=== PATIENT | male | born 1950 | race Caucasian/White ===

== ENCOUNTER → 2016-07-19 11:48 | Outpatient (CLI) | payer MEDICARE, OTHER ==
[2014-10-22 07:47] VITALS: BMI 31.0
[~2016-07-19 11:48] MED LIST: APRESOLINE50 MG PO; BUMEX2 MG PO; CATAPRES0.1 MG PO; COLCRYS0.6 MG PO; COREG6.25 MG PO; COZAAR50 MG PO; FERROUS SULFATE OR; FOLIC ACID OR; FORMULA E400 UNIT PO; HUMALOG INSULIN; HUMULIN N100 U/ML SC; HUMULIN N100 U/ML SQ; ISOSORBIDE DINI10 MG PO; LASIX40 MG PO; OMEGA-3 OR; PROAIR HFA8.5 GM INH; PROCARDIA XL60 MG PO; RENVELA800 MG PO; SLOW FE142 MG PO; ULORIC40 MG PO; VITAMIN C1000 MG PO; ZAROXOLYN5 MG PO
== END | disposition home or self-care (01) ==
LOC: D.RAD 11:48
DX: R06.02 Shortness of breath (principal)

== ENCOUNTER 2016-09-13 15:34 | Inpatient (IN) | payer MEDICARE, OTHER ==
[~2016-09-13] VITALS: Ht 175.3 cm; Wt 86.8 kg
[2016-09-13] VITALS (7 sets, daily range): BP systolic 139–195; BP diastolic 70–99; BMI 30.5
--- NOTE | ~2016-09-13 | CN ---
PATIENT NAME:TABATHA BENNETT MEDICAL RECORD: [id number] : 46 LOCATION:[facility]2305 ADMIT DATE: 09/13/16 ACCOUNT: [id number] CONSULTING PHYSICIAN: NILAM RAMIREZ MD REFERRING PHYSICIAN: ALFONSO DE LA O DO DATE OF CONSULTATION: 09/14/2016 CONSULT REQUESTING PHYSICIAN: Alfonso De La O DO. REASON FOR CONSULTATION: Vent management. HISTORY OF PRESENT ILLNESS: Mr. Bennett is a 66-year-old gentleman who is now orally intubated and sedated. The history was taken by reviewing the patient's note and talking to the nursing staff. No family member is available to take the history. The patient was brought into the ER yesterday with worsening shortness of breath. He was in flash pulmonary edema. The patient was electively intubated. His initial ABG: The CO2 was 52 and the pH was 7.26, SpO2 was 91 and 100% oxygen. The patient was orally intubated and started on mechanical ventilation. He was given Lasix and also started on empiric Levaquin. REVIEW OF SYSTEMS: Mainly in the history of present illness. PAST MEDICAL HISTORY: 1. Hypertension. 2. Congestive heart failure. 3. History of pulmonary edema. 4. History of heart murmur. 5. Insulin-dependent type 2 diabetes mellitus. 6. History of left testicular cancer in 1982. 7. History of lung cancer. PAST SURGICAL HISTORY: 1. He has surgery for carpal tunnel. 2. Shoulder surgery. 3. Herniorrhaphy. 4. Orchiectomy in 1982. 5. He has spot removed from his left lung in 1982. 6. AV fistula creation. ALLERGIES: HE IS ALLERGIC TO NIACIN AND CRESTOR. PRESENT MEDICATIONS: On [employer] was reviewed. PERSONAL AND SOCIAL HISTORY: The patient is an ex-smoker. He is a nondrinker. FAMILY HISTORY: Significant for cardiovascular disease and cancer. PHYSICAL EXAMINATION: GENERAL: Now, the patient is orally intubated and sedated. VITAL SIGNS: The blood pressure is 162/71, pulse is 50-56, temperature 98.4, and SpO2 is 97% on 100% oxygen assist control mechanical ventilation. HEENT: Conjunctivae are pink. Sclerae nonicteric. NECK: Supple. There is elevated JVD. CHEST: There are bilateral crackles. No wheezing. CONSULT REPORT [id number] TABATHA BENNETT HEART: Rate and rhythm is regular. There is a grade II/ systolic murmur. ABDOMEN: Soft. Bowel sounds present. No hepatosplenomegaly. RECTAL: Deferred. EXTREMITIES: No cyanosis, no clubbing. There is 2+ pedal edema. SKIN: Warm, normal turgor. CENTRAL NERVOUS SYSTEM: There is no obvious cranial nerve abnormality. LABORATORY DATA: CBC: The WBC is 10.7, hemoglobin 10.5, hematocrit 33.1 and the platelet count 197. Chemistry: Sodium 141, potassium 3.3, BUN is 104, creatinine 4.3, the bicarbonate is 27, the glucose 217. ABG initially, the pH is 7.26, pCO2 of 52.3, the pO2 was 91, bicarbonate is 23.9. IMPRESSION: 1. Acute hypoxic hypercapnic respiratory failure. 2. Respiratory acidosis secondary to #1. 3. Congestive heart failure, possible diastolic dysfunction. 4. Pmomc-ay-mtblvwy renal failure. 5. Possible community-acquired pneumonia. 6. Hypokalemia. RECOMMENDATION: 1. Continue mechanical ventilation, adjust the setting. 2. Discuss with Dr. Chen if possible, he needs to be started on dialysis. 3. Adjust the dose of Levaquin. 4. DVT and GI stress ulcer prevention. We will follow the vent bundle. 5. Follow up labs and chest radiograph. Dr. De La O, once again, thank you for involving me in the care of Mr. Bennett. The critical care time was 45 minutes. TRANSINT:[id number] Voice Confirmation ID: [id number] DOCUMENT ID: [id number] NILAM RAMIREZ MD CC: ALFONSO DE LA O DO [id number] DICTATION DATE: 09/14/161050 DIRECTOR OF RESTAURANT: 09/14/162306 ADM IN [facility] [address] [place] [address]
--- NOTE | ~2016-09-13 | EC ---
PATIENT:TABATHA GODFREY DATE OF SERVICE: 09/13/16 SEX: M MEDICAL RECORD: [id number] DATE OF : 46 LOCATION[facility] AGE OF PATIENT: 66 ADMISSION DATE: 09/13/16 REFERRING PHYSICIAN: INTERPRETING PHYSICIAN: PAVITHRA ROSS M.D. ECHOCARDIOGRAM REPORT ECHO CHARGES 4 ECHO COMPLETE CLINICAL DIAGNOSIS: ATRIAL FLUTTER ECHOCARDIOGRAPHIC MEASUREMENTS (adult normal given) AC root (d.<3.7cm) 3.4 LV Septum d (<1.2 cm> 1.8 Valve Excursion 1.1 LV Septum (systole) 2.1 Left Atria (s.<4.0cm> 4.2 LVPW d(<1.2cm) 2.0 RV (d.<2.3cm) 4.1 LVPW (sytole) 2.1 LV diastole(<5.6CM) 4.8 MV E-F(>70mm/sec) LV systole 3.3 LVOT Diameter 1.0 MV exc.(>10mm) 1.3 Est.ejection fraction (50-75%) Pericardial Effusion N DOPPLER: LVIT A 77.0 E 129 LA RVSP LVOT 147 AOP1/2T Asc. Ao 310 RVOT 105 RA PA 186 AV Gradient Peak 38.35 AV Mean 18.57 AV Area 0.3 MV Gradient Peak 8.62 MV Mean 2.89 MV Area COMMENTS: Community Outreach Advocate: Jackie DUNCAN Test Engineer:Salome Myers# DATE OF SERVICE: 09/14/2016 Echocardiogram Report REFERRING PHYSICIAN: Alfonso Mejia DO. INDICATION: Atrial flutter. DESCRIPTION: Left ventricle demonstrates left ventricular hypertrophy. No wall motion abnormalities are seen. Estimated ejection fraction is 55%. Mitral ECHOCARDIOGRAM REPORT [id number] TABATHA GODFREY valve is structurally normal. There is mild regurgitation seen. Left atrium is mildly dilated. The aortic valve leaflets are thickened. Peak gradient across the valve is 38 mmHg. Valve area was calculated at 0.3 cm-squared. There is mild insufficiency seen as well. Right ventricle is mildly dilated. Tricuspid valve is structurally normal. There is no regurgitation noted. Right atrium is normal in size. There is no pericardial effusion seen. IMPRESSION: 1. Left ventricular hypertrophy with preserved ejection fraction of 55%. 2. Mild mitral regurgitation. 3. Aortic stenosis, which is moderate by gradient, but severe by valve area. TRANSINT:[id number] Voice Confirmation ID: [id number] DOCUMENT ID: [id number] PAVITHRA ROSS M.D. CC: [id number] DICTATION DATE: 09/14/16 1437 TRUCK ASSEMBLER: 09/14/16 1621 ADM IN [facility] [address] [place] [address]
[~2016-09-13 15:34] MED LIST changes: +ASPIRIN81 MG PO; +CARAFATE1 G PO; +CORDARONE200 MG PO; +COZAAR100 MG PO; +ELIQUIS2.5 MG PO; +FLOMAX0.4 MG PO; +FOLATE0.4 MG PO; -FOLIC ACID OR; +FUROSEMIDE40 MG PO; +HYDRALAZINE HCL50 MG PO; +HYDROCODONE-APA1 TAB PO; +ISOSORBIDE DINI20 MG PO; +K-DUR20 MEQ PO; +K-TAB10 MEQ PO; +METOLAZONE5 MG PO; +NIFEDICAL30 MG/BOTT PO; +NIFEDIPINE ER60 MG PO; +NOVOLIN N100 U/ML SQ; +OMEGA 3 FISH OI1 CAP PO; -OMEGA-3 OR; +PEPCID20 MG PO; +PLAVIX75 MG PO; +POTASSIUM CL ER 10 M PO; +PROTONIX40 MG PO; +RENVELA0.8 GM PO; +SODIUM BICARBO650 MG PO; +SYNTHROID50 MCG PO; +ULORIC80 MG PO
[2016-09-13 16:19] LABS: APPEARANCE CLEAR (CLEAR); COLOR YELLOW (YELLOW); LEUKOCYTE ESTERASE TRACE (NEGATIVE); NITRITE NEGATIVE (NEGATIVE); PROTEIN 2+ mg/dL (NEGATIVE); SPECIFIC GRAVITY 1.015 (1.005-1.020)
[2016-09-13 16:20] LABS: BACTERIA FEW /hpf (NONE SEEN); BILIRUBIN NEGATIVE (NEGATIVE); EPITHELIAL CELLS 0-5 /hpf (0-5); GLUCOSE 100 mg/dL (NEGATIVE); KETONE NEGATIVE (NEGATIVE); MUCUS <1+ /lpf (NONE SEEN); RED CELLS - URINE 0-5 /hpf (0-5); UROBILINOGEN NORMAL (NORMAL); WHITE CELLS - URINE OCC /hpf (0-5)
[2016-09-13 16:25] LABS: ALBUMIN 3.4 g/dL (3.4-5.0); ANION GAP 13.4 mmol/L (8-16); BILIRUBIN - TOTAL 0.57 mg/dL (0.2-1.3); CALCIUM 8.6 mg/dL (8.5-10.1); CARBON DIOXIDE 27.6 mmol/L (21.0-32.0); CREATININE - SERUM 4.5 mg/dL (0.6-1.3)
[2016-09-13 16:38] LABS: BASOPHILS 0.2 % (0-2); EOSINOPHILS 1.7 % (0-7); HEMATOCRIT 33.1 % (42.0-54.0); HEMOGLOBIN 10.5 g/dL (13.5-17.5); IMMATURE GRANULOCYTES 0.5 % (0-5); LYMPHOCYTES 6.3 % (15-50); MCH 28.7 pg (26.0-34.0); MCHC 31.7 g/dL (31.0-37.0); MCV 90.4 fL (80.0-100.0); MEAN PLATELET VOLUME 10.6 fL (7.4-10.4); MONOCYTES 8.3 % (2-11); PLATELET COUNT 197 10x3/uL (130-400); RBC 3.66 10x6/uL (4.20-6.10); RDW 16.1 % (11.5-14.5); WBC 10.7 10x3/uL (4.8-10.8)
[2016-09-13 16:44] LABS: TROPONIN-I 0.156 ng/mL (0.000-0.060)
--- NOTE | 2016-09-13 17:30 | NUR ---
PT ARRIVED TO ICU FROM ER VIA STRETCHER ACCOMPANIED BY RN/RT. PT SEDATED, INTUBATED. PT RESPONDS TO LIGHT STIMULI. PT ATTACHED TO CM- CONTROLLED FIB. BELLY IS DISTENDED, NOT FIRM. NGT REPOSITIONED UPON ARRIVAL AND PLACEMENT CONFIRMED VIA AUSCULTATION. SEE ADMISSION ASSESSMENT FOR FURTHER DETAILS. PPP, REYNA IN PLACE. WILL MONITOR.
--- NOTE | 2016-09-13 19:51 | NUR ---
RENAL PAGED REGAURDING CONSULT. T ORDER FOR PRN APRESOLINE 10MG Q4H TO BE GIVEN FOR SBP GREATER THAN 180. NEEDS. MET
--- NOTE | 2016-09-13 19:59 | NUR ---
REPORT RECIEVED. ASSESSMENT COMPLETE PER FLOW SHEET. VSS. PT SEDATED FOLLOWS COMMANDS. EYES PERRLA 3MM BRISK. BILAT CHEMICAL CHECKER STRENGTHS EVEN. O2 VIA VENT 100 A/C TV 600 PEEP 5 RR 18 PT RR 22 O2 SAT 98% RUL RML BERNIE CLEAR BILAT LOWER LOBES DEMINISHED. ABD SOFT DISTENDED BS ACTIVE X4. OGT TO LIS PATENT VIA AUSCULTATION. HEART S1S2 HR 78 A FIB CONTROLLED. BP 167/90. L ARM RESERVE FISTULA PATENT CDI THRILL AND BRUIT PRESENT. BILAT PEDAL PULSES PALP. REYNA PANTENT PACHECO URINE NOTED. VSS. WILL CONTINUE TO MONITOR.
--- NOTE | 2016-09-13 23:13 | NUR ---
REASSESSMENT COMPLETE PER FLOW SHEET. VSS. NO NEW CHANGES AT THIS TIME. WILL CONTINUE TO MONTIOR.
[2016-09-14] VITALS (25 sets, daily range): BP systolic 85–170; BP diastolic 47–89; Ht 175.3 cm; Wt 86.8 kg
--- NOTE | 2016-09-14 01:05 | NUR ---
REPOSITIONED FOR COMFORT, ORAL CARE PROVIDED,
--- NOTE | 2016-09-14 03:25 | NUR ---
REASSESSMENT COMPLETE, NO CHANGES NOTED, PT REPOSITIONED FOR COMFORT, ORAL CARE PROVIDED, RAD IN ROOM FOR DAILY CXR
[2016-09-14 03:33] LABS: BASOPHILS 0 % (0-2); EOSINOPHILS 0 % (0-7); HEMATOCRIT 33.2 % (42.0-54.0); HEMOGLOBIN 10.6 g/dL (13.5-17.5); IMMATURE GRANULOCYTES 0.3 % (0-5); LYMPHOCYTES 2.1 % (15-50); MCH 28.4 pg (26.0-34.0); MCHC 31.9 g/dL (31.0-37.0); MEAN PLATELET VOLUME 10.2 fL (7.4-10.4); MONOCYTES 1.7 % (2-11); NEUTROPHILS 95.9 % (40-80); PLATELET COUNT 192 10x3/uL (130-400); RBC 3.73 10x6/uL (4.20-6.10); RDW 16.1 % (11.5-14.5); WBC 11.5 10x3/uL (4.8-10.8)
[2016-09-14 03:55] LABS: ALBUMIN 3.3 g/dL (3.4-5.0); ANION GAP 14.3 mmol/L (8-16); BILIRUBIN - TOTAL 0.73 mg/dL (0.2-1.3); CALCIUM 9.5 mg/dL (8.5-10.1); CREATININE - SERUM 4.3 mg/dL (0.6-1.3); MAGNESIUM - SERUM 1.9 mg/dL (1.8-2.4); POTASSIUM - SERUM 3.3 mmol/L (3.5-5.1)
--- NOTE | 2016-09-14 07:00 | NUR ---
PT SEDATED ON VENT. SEDATION INCREASED DUE TO PT ATTEMPTING TO PULL ETT/NGT AND MOVING AROUND IN BED. ATRIAL FLUTTER NOTED ON MONITOR. DIRECTOR REVENUE ADDRESSED HEART RHYTHM WITH DR HA AND ECHO ORDERED. URINE REMAINS YELLOW AND DRAINING TO REYNA. 2400 OUTPUT NOTED OVERNIGHT. BP ELEVATED AT THIS TIME. WILL CONTINUE TO ASSESS AFTER INCREASING SEDATION. WILL CONTINUE TO MONITOR
--- NOTE | 2016-09-14 09:00 | NUR ---
AT BEDSIDE. UPDATE GIVEN ON PT STATUS. WILL CONITNUE TO JOCE CLOSELY.
--- NOTE | 2016-09-14 09:32 | NUR ---
DECREASED FIO2 TO 40% @ 0933.
--- NOTE | 2016-09-14 12:00 | NUR ---
UPDATE GIVEN TO AT BEDSIDE. DISCUSSED CASE WITH DR PERRY AND INFUSING BUMEX DRIP IN ATTEMPT TO PULL FLUID OFF OF LUNGS. PT ON SIMV AND TOLERATING AT THIS TIME. WILL CONTINUE TO MONTIOR
--- NOTE | 2016-09-14 14:00 | NUR ---
PT REPOSITIONED IN BED AND LINEN CHANGE COMPLETE. ORAL CARE PERFORMED. PT CONTINUES TO TOLERATE SIMV AT THIS TIME.
--- NOTE | 2016-09-14 16:00 | NUR ---
NO CHANGES IN PT STATUS AT THIS TIME. WILL CONTINUE TO MONITOR
--- NOTE | 2016-09-14 18:00 | NUR ---
FAMILY GIVEN UPDATE AT BEDSIDE. NO ACUTE CHANGES IN PT STATUS AT THIS TIME. VITAL SIGNS STABLE. WILL CONTINUE TO MONITOR
--- NOTE | 2016-09-14 19:25 | NUR ---
SHIFT ASSESSMENT COMPLETED. SEE ASSESSMENT FLOWSHEET.
--- NOTE | 2016-09-14 20:30 | NUR ---
2100 MEDS GIVEN DOWN OGT. NO ACUTE DISTRESS NOTED.
--- NOTE | 2016-09-14 23:30 | NUR ---
REASSESSMENT COMPLETED. SEE ASSESSMENT FLOWSHEET. NO NEW ACUTE CHANGES.
[2016-09-15] VITALS (23 sets, daily range): BP systolic 110–200; BP diastolic 52–94
--- NOTE | 2016-09-15 01:20 | NUR ---
VENT ALARM SOUNDING. UPON ENTERING WAS YANKING ON OETT AND THEN HAD IT IN HIS HAND. DIPRIVAN TURNED OFF. PLACED ONTO 3LPM/NC. WILL DRAW AN ABG IN 30 MINUTES TO ONE HOUR. NO DIFFICULTY BREATHING DENIED BY PATIENT.
--- NOTE | 2016-09-15 01:55 | NUR ---
AT 0120 PATIENT SELF EXTUBATED HIMSELF. PUT 3L NC ON PATIENT SP02 97% PATIENT SEEMS TO BE DOING FINE.
--- NOTE | 2016-09-15 02:12 | NUR ---
DR. RAMIREZ ANSWERING SERVICE CALLED TO PAGE HIM REGARDING EXTUBATION AND TO INFORM OF RECENT ABG RESULTS.
[2016-09-15 04:10] LABS: BASOPHILS 0.1 % (0-2); EOSINOPHILS 0 % (0-7); HEMATOCRIT 39.5 % (42.0-54.0); HEMOGLOBIN 12.6 g/dL (13.5-17.5); IMMATURE GRANULOCYTES 0.3 % (0-5); LYMPHOCYTES 3.4 % (15-50); MCH 28.5 pg (26.0-34.0); MCHC 31.9 g/dL (31.0-37.0); MCV 89.4 fL (80.0-100.0); MEAN PLATELET VOLUME 10.4 fL (7.4-10.4); MONOCYTES 0.8 % (2-11); NEUTROPHILS 95.4 % (40-80); RBC 4.42 10x6/uL (4.20-6.10); RDW 16.4 % (11.5-14.5)
[2016-09-15 04:12] LABS: PLATELET COUNT 248 10x3/uL (130-400); WBC 18.3 10x3/uL (4.8-10.8)
[2016-09-15 04:22] LABS: ALBUMIN 3.8 g/dL (3.4-5.0); ANION GAP 16.3 mmol/L (8-16); BILIRUBIN - TOTAL 0.79 mg/dL (0.2-1.3); CALCIUM 10.4 mg/dL (8.5-10.1); CARBON DIOXIDE 25.8 mmol/L (21.0-32.0); CREATININE - SERUM 4.7 mg/dL (0.6-1.3); MAGNESIUM - SERUM 1.9 mg/dL (1.8-2.4); POTASSIUM - SERUM 3.1 mmol/L (3.5-5.1)
--- NOTE | 2016-09-15 04:40 | NUR ---
DR. PERRY INFORMED OF POTASSIUM LEVEL, INCREASED B/P AFTER PRN MEDS AND OF SHAKING OF HIS LEGS. NEW ORDERS RECEIVED. WILL MONITOR.
--- NOTE | 2016-09-15 05:15 | NUR ---
NG TUBE REMOVED. TOLERATING ICE CHIPS WITHOUT PROBLEMS. TISSUES GIVEN TO BLOW NOSE PER REQUEST.
--- NOTE | 2016-09-15 06:20 | NUR ---
FSBS ASSESSED. INSULIN GIVEN PER SLIDING SCALE. CALLED AND INFORMED VIA PHONE OF SELF EXTUBATION AND STATUS UPDATE. DECREASED KCL RIDER RATE TO 60ML/HR DUE TO BURNING PAIN TO RT ARM. WILL MONITOR.
--- NOTE | 2016-09-15 07:20 | NUR ---
REC'D REPORT FROM OUTGOING RN - PT RESTING - SUPINE IN BED WATCHING TV. DENIES ANY CONCERNS AT THIS HARSHA
--- NOTE | 2016-09-15 07:20 | NUR ---
REPORT GIVEN TO OSMANY DORAN. BUMEX GTT HUNG DUE TO BAG EMPTY. DENIES ANY NEEDS AT PRESENT.
--- NOTE | 2016-09-15 08:30 | NUR ---
ASSESSMENT COMPLTERED - PT AA&o X 3 (NOT TO DATE), PT DENIES PAIN OR DISCOMFORT. VERY PLESANT - CPOC
--- NOTE | 2016-09-15 09:00 | NUR ---
FAMILY AT BEDSIDE - ASKED QUESTIONS - EXPLAINED THIS RN WOULD BE IN ROOM TO ANSWER ALL QUESTIONS - DR. Stearns ON UNIT - MD SPOKE TO FAMILY ANSWERED ALL QUESTIONS TO FAMILY'S SATISFACTION - CPOC
--- NOTE | 2016-09-15 09:30 | NUR ---
PT ON DROPLET PERCAUTIONS PER LAB - POSSIBLE MRSA IN SPUTUM - ISOLATION GOWNS, MASK, AND SIGN PLACED AT DOOR - CPOC
--- NOTE | 2016-09-15 10:00 | NUR ---
DR. GALLAGHER ORDFERED TO ADVANCE PT'S DIET TOLERATED (RENAL). ENTERED FOR CLEAR LIQUID TOLERATED - WILL CLOSELY MONITOR CPOC
--- NOTE | 2016-09-15 11:00 | NUR ---
ASSESSMENT COMPLETE - PT RESTING - AA&O - DENIES ANY NEEDS - CPOC
--- NOTE | 2016-09-15 11:10 | NUR ---
4th OF 4 POTASSIUM 10MEQ POTASSIUM RIDERS COMPLETE - LAB ORDERED PER POLICY CPOC
--- NOTE | 2016-09-15 12:00 | NUR ---
CLEAR LIQUID TRAY GIVEN TO PT - PT ATE 10% - PT DENIED WANTING ANYTHING ELSE TO EAT - CPOC
--- NOTE | 2016-09-15 15:00 | NUR ---
ASSESSMENT COMPLETE - PT RESTING SUPINE IN BED - WITH EYES CLOSED - EASILY AWAKEN BY TACTILE STIMULI - PT DENIED ANY CONCERNS - CPOC
--- NOTE | 2016-09-15 18:00 | NUR ---
FAMILY AT BEDSIDE - ASKED RENAL MDs IF DIALYSIS WOULD HELP TO RELIEVED CHF - PLEASE START DIALYISIS JESSICA - ANSWERED ALL ISOLATION QUESTIONS - CPOC
--- NOTE | 2016-09-15 19:30 | NUR ---
REPORT GIVEN TO ONCOMING RN - PT AA &O - COLLENE TO MAKE NEEDS KNOWN
--- NOTE | 2016-09-15 19:30 | NUR ---
SHIFT ASSESSMENT COMPLETED. SEE ASSESSMENT FLOWSHEET. AWAKE, ALERT, ORIENTED X4. FUNK WELL BUT WEAKLY. O2 @ 3lpm/nc. O2 SATS 97-99%. LUNGS CLEAR TO AUSCULTATION. DIMINISHED IN THE BASES. AFLUTTER/AFIB ON THE MONITOR IN THE 80'S. REYNA CATHETER TO GRAVITY DRAINING CLEAR, YELLOW URINE. SIPPING ON APPLE JUICE. REQUESTED WATER. ONE CUP OF ICE WATER GIVEN. REPOSITIONED B/P CUFF ON RLE AND SCD TO LLE. WILL MONITOR.
--- NOTE | 2016-09-15 20:36 | NUR ---
PO MEDS GIVEN ONE AT A TIME. SWALLOWS WITHOUT DIFFICULTY. DENIES TO HAVE ALL B/P MEDS GIVEN BECAUSE HIS B/P IS 130'S. WILL MONITOR.
--- NOTE | 2016-09-15 22:10 | NUR ---
EYES OPEN. WATCHING TV. DENIES ANY NEEDS AT PRESENT. WILL MONITOR.
--- NOTE | 2016-09-15 22:45 | NUR ---
EYES OPEN. LOOKING AT T.V. DENIES ANY NEEDS AT THIS TIME. DENIES TO BE REPOSITIONED IN BED. WILL MONITOR.
--- NOTE | 2016-09-15 23:56 | NUR ---
SUGAR-318. INSULIN GIVEN PER PROTOCOL. DENIES NEEDS. WILL MONITOR.
[2016-09-16] VITALS (24 sets, daily range): BP systolic 101–154; BP diastolic 48–81
--- NOTE | 2016-09-16 01:00 | NUR ---
EYES CLOSED. NO ACUTE DISTRESS NOTED. WILL MONITOR.
--- NOTE | 2016-09-16 02:25 | NUR ---
0200 B/P MED GIVEN. DENIES ANY PAIN. WILL MONITOR.
--- NOTE | 2016-09-16 03:40 | NUR ---
ASSISTED WITH SITTING ON SIDE OF BED TO GIVE BATH. PARTIALLY WASHED HIMSELF. REYNA CATHETER CARE COMPLETED. LINENS CHANGED. STOOD UP AND WALKED TO TOP OF BED TO GET BACK IN. WARM BLANKET GIVEN. I & O'S COMPLETED. DENIES TO HAVE TEETH BRUSHED AT THIS TIME. WILL MONITOR.
[2016-09-16 04:52] LABS: BASOPHILS 0 % (0-2); EOSINOPHILS 0 % (0-7); HEMOGLOBIN 11.1 g/dL (13.5-17.5); IMMATURE GRANULOCYTES 0.3 % (0-5); LYMPHOCYTES 2.7 % (15-50); MCH 28.5 pg (26.0-34.0); MCHC 31.7 g/dL (31.0-37.0); MCV 89.7 fL (80.0-100.0); MEAN PLATELET VOLUME 10.5 fL (7.4-10.4); MONOCYTES 2.5 % (2-11); NEUTROPHILS 94.5 % (40-80); PLATELET COUNT 220 10x3/uL (130-400); RDW 16.8 % (11.5-14.5); WBC 14.4 10x3/uL (4.8-10.8)
[2016-09-16 05:08] LABS: ALBUMIN 3.2 g/dL (3.4-5.0); ANION GAP 14.6 mmol/L (8-16); BILIRUBIN - TOTAL 0.75 mg/dL (0.2-1.3); CALCIUM 9.8 mg/dL (8.5-10.1); CARBON DIOXIDE 28.4 mmol/L (21.0-32.0); CREATININE - SERUM 4.8 mg/dL (0.6-1.3); MAGNESIUM - SERUM 1.9 mg/dL (1.8-2.4); PROTEIN - SERUM 6.9 g/dL (6.4-8.2)
--- NOTE | 2016-09-16 05:15 | NUR ---
EYES CLOSED. MOUTH OPEN. NO ACUTE DISTRESS NOTED. A-FLUTTER RHYTHM REMAINS NOTED IN THE 80'S. WILL MONITOR.
--- NOTE | 2016-09-16 07:15 | NUR ---
REPORT RECIEVED FROM HEALTH CARE CONSULTANT NURSE. PT RESTING IN BED QUIETLY. NO S/SX OF ACUTE DISTRESS NOTED AT THIS TIME. VSS. ASSESSMENT COMPLETE PER FLOWSHEET. WILL CONT TO ASSESS FOR CHANGES. CALL LIGHT IN REACH. BED IN LOW POSITION. BED ALARM ON.
--- NOTE | 2016-09-16 08:30 | NUR ---
TOLERATED BREAKFAST WELL. ATE 50% OF MEAL TRAY.
--- NOTE | 2016-09-16 09:04 | NUR ---
FAMILY AT BEDSIDE. DENIES NEEDS AT THIS TIME. FAMILY UPDATED TO POSITIVE RESULTS FOR MRSA IN SPUTUM AND THE NEED FOR DROPLET ISOLATION WHEN VISITING.
--- NOTE | 2016-09-16 11:45 | NUR ---
FSBS CHECKED. INSULIN PROVIDED PER S/S. MEAL TRAY PLACED ON BEDSIDE TABLE ALONG WITH FRESH ICE WATER. CALL LIGHT IN REACH. DENIES FURTHER NEEDS AT THIS TIME.
--- NOTE | 2016-09-16 12:00 | NUR ---
FAMILY AT BEDSIDE. UPDATE PROVIDED.
--- NOTE | 2016-09-16 12:05 | NUR ---
CALLED. UPDATE PROVIDED.
--- NOTE | 2016-09-16 16:37 | NUR ---
REC' CARE OF PT.
--- NOTE | 2016-09-16 18:03 | NUR ---
FAMILY AT BEDSIDE. UPDATED.
--- NOTE | 2016-09-16 18:53 | NUR ---
REPOSITIONS SELF IN BED.
--- NOTE | 2016-09-16 19:00 | NUR ---
Assessment complete. See flowsheet. Pt awake upon entrance into room and sitting up in bed watching television. Pupils size 3 bilaterally ERRLA. Pt moving all extremities with 3/5 strength and self-positioning in bed for comfort. Pt alert, oriented x4 and following all commands and conversation with no neuro deficits noted. Respirations unlabored. O2 @ 2L NC. Lung sounds clear/diminished to all felder. Pt encouraged to deep breathe and cough with no sputum produced and no rattle with cough noted. HR controlled atrial flutter with S1S2 auscultated/irregular. All peripheral pulses +2 with capillary refill <3 seconds. Right lower forearm/hand PIV site 20g CDI no s/s infection saline locked. Right upper forearm PIV site CDI no s/s infection or infiltration with NS infusing @ 10cc/hr KVO rate with BUMEX gtt @ 2.5cc/hr (0.25mg/hr). Abdomen soft, non-tender and slightly distended with BS present to all quadrants. Pt denies nausea at this time. Dinner tray removed from room per pt request. Fresh ice water provided. Rosario catheter secure retrieving concentrated, yellow urine. Temp 97.8F. SCDs secure bilaterally. Pt denies pain or further needs at this time. Call light and bedside table remain within pt reach. CPOC.
--- NOTE | 2016-09-16 21:00 | NUR ---
PM meds administered with apple juice per pt request. VSS. Room warmed per pt request. No further request at this time. Call light and bedside table remain within pt reach. CPOC.
--- NOTE | 2016-09-16 23:00 | NUR ---
Reassessment complete. See flowsheet. Pt awake and watching television with VSS. NO neuro changes to note. O2 @ 2L. Lung sounds remain clear/diminished to all felder. HR atrial flutter. S1S2 auscultated. All peripheral pulses remain +2 with capillary refill <3 seconds. PIV site CDI; unchanged with NO IVF changes to onte. Abdomen soft with BS present to all quadrants. Rosario remains secure retrieving concentrated, yellow urine. Pt continues to self-position for comfort. Pain denied. Fresh ice water provided per request. Pt denies further needs at this time and remains calm and cooperative. Call light and bedside table remain within pt reach. CPOC.
[2016-09-17] VITALS (18 sets, daily range): BP systolic 95–172; BP diastolic 51–91
--- NOTE | 2016-09-17 01:00 | NUR ---
Pt resting with VSS. NO s/s pain or distress. Call light and bedside table remain within reach. CPOC.
--- NOTE | 2016-09-17 03:00 | NUR ---
Reassessment complete. See flowsheet. Pt awake and watching television with no neuro changes to note. Respirations unlabored. O2 @ 2L NC. Lung sounds remain clear/diminished to all felder. HR atrial flutter. S1S2 auscultated. All peripheral pulses remain +2 with capillary refill <3 seconds. PIV sites remain CDI; unchanged with NO IVF changes to note. BS + to all quadrants. Pt provided with milk and renée crackers per request. Rosario remains secure retrieving concentrated, yellow urine. Pt self-positioned for comfort and denies further needs at this time. Call light and bedside table remain within reach. CPOC.
[2016-09-17 04:49] LABS: BASOPHILS 0 % (0-2); EOSINOPHILS 0 % (0-7); HEMATOCRIT 34.7 % (42.0-54.0); HEMOGLOBIN 11.1 g/dL (13.5-17.5); IMMATURE GRANULOCYTES 0.3 % (0-5); LYMPHOCYTES 2.7 % (15-50); MCH 28.6 pg (26.0-34.0); MCV 89.4 fL (80.0-100.0); MEAN PLATELET VOLUME 10.3 fL (7.4-10.4); MONOCYTES 1.4 % (2-11); NEUTROPHILS 95.6 % (40-80); PLATELET COUNT 217 10x3/uL (130-400); RBC 3.88 10x6/uL (4.20-6.10); RDW 16.6 % (11.5-14.5); WBC 13.9 10x3/uL (4.8-10.8)
--- NOTE | 2016-09-17 05:00 | NUR ---
Pt resting quietly with VSS and allowed to continue resting undistured. NO s/s pain or distress. Call light and bedside table remain within pt reach. CPOC.
[2016-09-17 05:20] LABS: ANION GAP 11.7 mmol/L (8-16); BILIRUBIN - TOTAL 0.6 mg/dL (0.2-1.3); CALCIUM 8.9 mg/dL (8.5-10.1); CARBON DIOXIDE 24.6 mmol/L (21.0-32.0); CREATININE - SERUM 5.2 mg/dL (0.6-1.3); POTASSIUM - SERUM 3.3 mmol/L (3.5-5.1); PROTEIN - SERUM 6.4 g/dL (6.4-8.2); VANCOMYCIN - RANDOM 22.2 ug/mL (10.0-20.0)
--- NOTE | 2016-09-17 07:15 | NUR ---
REPORT RECIEVED FROM VENDING MACHINE FILLER NURSE. PT RESTING IN BED QUIETLY. NO S/SX OF ACUTE DISTRESS NOTED AT THIS TIME. ASSESSMENT COMPLETE PER FLOWSHEET. PT HAS TRANSFER ORDERS TO MED SURG.
--- NOTE | 2016-09-17 08:15 | NUR ---
REPORT ATTEMPTED TO BE CALLED TWICE. NURSE UNAVAILABLE.
--- NOTE | 2016-09-17 08:45 | NUR ---
ASSISTED TO RECLINER. TOLERATED WELL. BREAKFAST TRAY PLACED ON BEDSIDE TABLE. DENIES FURHTER NEEDS. CALL LIGHT IN REACH. WILL CONT TO ASSESS.
--- NOTE | 2016-09-17 09:17 | NUR ---
REPORT CALLED TO ANDREEA VÁSQUEZ. CARLOTA MATHIAS VIA W/C.
--- NOTE | 2016-09-17 10:00 | NUR ---
RESTING IN RECLINER WITH EYES CLOSED. RESP EVEN AND UNLABORED. VSS. WILL CONT TO ASSESSS.
--- NOTE | 2016-09-17 10:38 | NUR ---
Nutrition follow-up: Diet advanced to renal ADA soft with poor po intake at htis time Dialysis to start today due to very poor renal function Labs reviewed Glucose very high due to steroid use. Wt: 185# Will provide food choices with selective renal ada menus and honor food preferences within diet restrictions. Pts appetite may improve post-dialysis. RDN following.
--- NOTE | 2016-09-17 12:17 | NUR ---
NEPHRO PHYSICIAN CELLULAR EQUIPMENT REPAIRER PAGED IN REGARDS TO PT'S FSBS RESULTS ABOVE 400. AWAITING CALL BACK.
--- NOTE | 2016-09-17 12:31 | NUR ---
DR. GORMAN CALLED BACK. RECIEVED ONE TIME ORDERS FOR 10 UNITS OF INSULIN NOW. STATED TO RECHECK IN ONE HOUR.
--- NOTE | 2016-09-17 13:19 | CN ---
PATIENT NAME:EMERY BENNETT MEDICAL RECORD: [id number] : 46 [facility] ADMIT DATE: 09/13/16 ACCOUNT: [id number] CONSULTING PHYSICIAN: SHAHAB BROWN MD REFERRING PHYSICIAN: RACHEL DE LA O DO DATE OF CONSULTATION: 09/14/2016 HISTORY OF PRESENT ILLNESS: Emery Bennett is a 66-year-old gentleman with history of chronic renal insufficiency, apparently aortic stenosis, brought in yesterday with respiratory, cardiac arrest and has a history of atrial fibrillation and aortic stenosis severity is unknown noted to have positive cardiac enzymes. Difficult to discern actually significance of this status post ____ the face of chronic renal insufficiency. We asked to see him concerning him cardiovascular status. PAST MEDICAL HISTORY: From old chart includes: 1. History of hypertension. 2. Chronic renal insufficiency. 3. Diabetes mellitus. 4. Aortic stenosis. 5. Status post fistula placement. ] ALLERGIES: CRESTOR. MEDICATIONS: Reported include Hydralazine 50 mg q.6, colchicine 0.6 b.i.d., Procardia 60 b.i.d., Uloric 40 q. day, Bumex 2 mg b.i.d., carvedilol 6.25 b.i.d., clonidine ____ insulin per scale, losartan 50 b.i.d., metolazone 5 b.i.d., Imdur 20 q.h.s. SOCIAL HISTORY: Unobtainable due to the patient factors. REVIEW OF SYSTEMS: Unobtainable to the patient factors. PHYSICAL EXAMINATION: GENERAL: Intubated and sedated, no acute distress. VITAL SIGNS: Pulse is 67 and irregular. Blood pressure 196/96. HEENT: Normocephalic, atraumatic. NECK: No bruits noted. HEART: Regular, II/ systolic ejection murmur. LUNGS: Actually fairly good air excursion. ABDOMEN: Soft, nontender. EXTREMITIES: Pulses are palpable, 1+. There is no edema. DIAGNOSTIC DATA: ECG shows atrial fibrillation, variable response. IMPRESSION: Elevated troponin in the patient with renal insufficiency, etc. Given a small bump doubtful clinical significance, murmur is a fairly significant on exam, would check echocardiographic study. Agree with current management. Thank you for the consultation. TRANSINT:[id number] Voice Confirmation ID: [id number] DOCUMENT ID: [id number] CONSULT REPORT [id number] EMERY BENNETT,SHAHAB Alvarez MD at 1319 CC: [id number] DICTATION DATE: 09/14/16 1319 RED CAP: 09/14/16 [address] [facility] [address] [place] [address]
--- NOTE | 2016-09-17 14:01 | NUR ---
FSBS RECHECKED TWICE. BOTH RESULTS GREATER THAN 400. DR. RAMIREZ NOTIFIED OF RESULTS AND TOTAL AMOUNT OF HUMALOG THAT HAS BEEN ADMINISTERED. STATES TO NOT ADMINISTER ANYTHING NOW AND CHANGE INSULIN S/S TO HIGH RESISTENCE. WILL CONT TO MONITOR.
--- NOTE | 2016-09-17 15:33 | NUR ---
UPDATED ON CURRENT PLAN OF CARE.
--- NOTE | 2016-09-17 15:56 | NUR ---
DIALYSIS STARTED. NURSE AT BEDSIDE.
--- NOTE | 2016-09-17 17:45 | NUR ---
DIALYSIS COMPLETE. TOLERATED WELL.
--- NOTE | 2016-09-17 19:00 | NUR ---
REPORT RECIEVED, SHIFT ASSESSMENT COMPLETE, PT IS ALERT AND ORIENTED, ON 2L NC WITH 97% O2 SAT. LUNGS CLEAR IN B/L UPPER LOBES, DIMINISHED IN B/L LOWER LOBES, HR-IRREGULAR, CM-AFLUTTER, PATENT RIGHT A/C PIV...SEE FLOW SHEET...ABDOMEN IS SOFT AND ROUND WITH ACTIVE BS, PATENT LEFT ARM FISTULA, BRUITT AND THRILL NOTED, PATENT F/C WITH YELLOW UOP, EDEMA NOTED IN ALL EXTREMETIES, ALL PPP, VSS, CALL LIGHT IN REACH
--- NOTE | 2016-09-17 19:00 | NUR ---
INITIAL ROUNDS MADE. PT SITTING UP IN BED WATCHING TV. DENIES NEEDS OR C/O AT THIS TIME. CALL LIGHT IN REACH. WILL CONT TO MONITOR.
--- NOTE | 2016-09-17 20:35 | NUR ---
JAMISON NOTIFIED OF PT TRANSFER AND ROOM NUMBER
--- NOTE | 2016-09-17 21:20 | NUR ---
RECEIVED PT TO ROOM 2116 ALERT O X3. DROPLET ISO INITIATED ON FLOOR FOR MRSA SPUTUM. REYNA TO GRAVITY. SCD ON. NS KVO TO R AC. CALL LIGHT IN REACH. WILL CONT TO MONITOR.
--- NOTE | 2016-09-18 00:33 | NUR ---
TYPING BOOKKEEPER AT BEDSIDE FOR VS. NEEDS ADDRESSED AT THIS TIME. CALL LIGHT IN REACH. WILL CONT TO MONITOR.
[2016-09-18 00:59] VITALS: BP 126/45
[2016-09-18 04:16] VITALS: BP 112/64
[2016-09-18 05:18] LABS: BASOPHILS 0 % (0-2); EOSINOPHILS 0 % (0-7); HEMATOCRIT 36.3 % (42.0-54.0); HEMOGLOBIN 11.7 g/dL (13.5-17.5); IMMATURE GRANULOCYTES 0.4 % (0-5); LYMPHOCYTES 3.6 % (15-50); MCH 28.5 pg (26.0-34.0); MCHC 32.2 g/dL (31.0-37.0); MCV 88.3 fL (80.0-100.0); MEAN PLATELET VOLUME 10.8 fL (7.4-10.4); MONOCYTES 1.6 % (2-11); NEUTROPHILS 94.4 % (40-80); PLATELET COUNT 211 10x3/uL (130-400); RBC 4.11 10x6/uL (4.20-6.10); RDW 16.4 % (11.5-14.5)
[2016-09-18 05:52] LABS: ALBUMIN 3.1 g/dL (3.4-5.0); ANION GAP 15.3 mmol/L (8-16); BILIRUBIN - TOTAL 0.45 mg/dL (0.2-1.3); CALCIUM 9.4 mg/dL (8.5-10.1); CARBON DIOXIDE 25.6 mmol/L (21.0-32.0); CREATININE - SERUM 5.8 mg/dL (0.6-1.3); PHOSPHOROUS 6.3 mg/dL (2.5-4.9); PROTEIN - SERUM 6.6 g/dL (6.4-8.2)
[2016-09-18 05:54] LABS: POTASSIUM - SERUM 3.9 mmol/L (3.5-5.1)
[2016-09-18 07:53] VITALS: BP 134/42
--- NOTE | 2016-09-18 09:42 | NUR ---
Patient Name: TABATHA GODFREY Admission Status: ER Accout number: [id number] Admission Date: 09-13-2016 : 1950 Admission Diagnosis: Attending: TIFFANIE Current LOS: 5 Anticipated DC Date: 09-20-2016 Planned Disposition: Home Primary Insurance: MEDICARE A & B Discharge Planning Comments: * Is the patient Alert and Oriented? Yes 0 * How many steps to enter\exit or inside your home? 4-5 0 * PCP DR. DE LA O 0 * Pharmacy [facility] 0 * Preadmission Environment Home with Family 0 * ADLs Independent 0 * Equipment None 0 * Other Equipment NO MEDICAL EQUIPMENT PROVIDER PREFERENCE 0 * List name and contact numbers for known caregivers / representatives who currently or will assist patient after discharge: JAMISON GODFREY, SPOUSE, FAITH PURCELL, SISTER IN LAW, 0 * Community resources currently utilized None 0 * Please name any agencies selected above. NONE 0 * Additional services required to return to the preadmission environment? Yes * Can the patient safely return to the preadmission environment? Yes 0 * Has this patient been hospitalized within the prior 30 days at any hospital? No 0 CM RECEIVED ORDER TO ARRANGE OUTPATIENT HEMODIALYSIS. CM MET WITH PT IN ROOM TO DISCUSS DISCHARGE PLANNING AND NEEDS. PT REPORTS LIVING AT HOME INDEPENDENTLY WITH SPOUSE. PT HAS NO MEDICAL EQUIPMENT AND NO OUTSIDE SERVICES ASSISTING IN THE HOME. CM DISCUSSED AVAILABILITY OF HOME HEALTH, REHAB SERVICES AND MEDICAL EQUIPMENT. PT DENIES DISCHARGE NEEDS, IS IN AGREEMENT WITH OUTPATIENT DIALYSIS AT [facility], REPORTS HIS SPOUSE, SISTER IN LAW OR NEBERNICE WILL DRIVE HIM TO AND FROM DIALYSIS. CM DISCUSSED AVAILABILITY OF [employer] AND APPLICATION PROCESS IF PT NEEDS IT. PT'S SPOUSE WILL PICK PT UP FOR DISCHARGE HOME. IMPORTANT MESSAGE FROM MEDICARE PROVIDED AND EXPLAINED. CM CALLED FIDENCIO BRAGG OF [facility], NOTIFIED OF ORDER FOR OUTPATIENT DILAYSIS ARRANGEMENT. FIDENCIO STARTED WORKING ON THIS ARRANGEMENT YESTERDAY WITH RECEIPT OF FIRST ORDER AND WILL CONTINUE THE PROCESS. FIDENCIO WILL MEET WITH PT LATER TODAY. CM WAITING COMPLETION OF OUTPATIENT DIALYSIS CLINIC ARRANGEMENTS AT [facility]. Mail Caller: Michael Cage
[2016-09-18 11:38] VITALS: BP 133/60
[2016-09-18 12:17] LABS: HEPATITIS C ANTIBODY <0.1 (0.0-0.9)
[2016-09-18 16:35] VITALS: BP 139/62
[2016-09-18 19:00] VITALS: BP 132/56
--- NOTE | 2016-09-18 22:20 | NUR ---
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 ADMIN SCHED MEDS. CHECKED BS AT 349, ADMIN SCHED HUMULIN NPH 20 UNITS. REQUESTED SOME MILK AND KAMARI CRACKERS.
[2016-09-19 00:09] VITALS: BP 123/41
[2016-09-19 04:32] VITALS: BP 127/45
[2016-09-19 05:17] LABS: BASOPHILS 0.1 % (0-2); EOSINOPHILS 0 % (0-7); HEMOGLOBIN 11.4 g/dL (13.5-17.5); LYMPHOCYTES 6.4 % (15-50); MCH 28.4 pg (26.0-34.0); MCHC 32.6 g/dL (31.0-37.0); MCV 87.3 fL (80.0-100.0); MEAN PLATELET VOLUME 10.8 fL (7.4-10.4); MONOCYTES 3.6 % (2-11); NEUTROPHILS 88.9 % (40-80); PLATELET COUNT 193 10x3/uL (130-400); RBC 4.01 10x6/uL (4.20-6.10); RDW 16.3 % (11.5-14.5); WBC 13.6 10x3/uL (4.8-10.8)
[2016-09-19 05:31] LABS: ANION GAP 18.6 mmol/L (8-16); BILIRUBIN - TOTAL 0.5 mg/dL (0.2-1.3); CALCIUM 9.3 mg/dL (8.5-10.1); CARBON DIOXIDE 22.3 mmol/L (21.0-32.0); CREATININE - SERUM 6.1 mg/dL (0.6-1.3); MAGNESIUM - SERUM 2.1 mg/dL (1.8-2.4); PHOSPHOROUS 6.5 mg/dL (2.5-4.9); POTASSIUM - SERUM 3.9 mmol/L (3.5-5.1); PROTEIN - SERUM 5.8 g/dL (6.4-8.2)
--- NOTE | 2016-09-19 05:42 | NUR ---
CHECKED BS AT 191, ADMIN 8 UNITS HUMALOG. DID NOT GIVE THE HUMULIN NPH, DUE TO BEING SCHED AT SAME TIME HUMALOG.
--- NOTE | 2016-09-19 07:18 | NUR ---
PT IS SITTING UP IN BED DENIES NEEDS WILL CONT TO MONITOR
[2016-09-19 07:47] VITALS: BP 137/54
--- NOTE | 2016-09-19 08:19 | NUR ---
RECEIVED ORDER TO DC REYNA CATHETER. REMOVED REYNA CATH. REMOVED 10CC STERILE FLUID FROM BALLOON AND REMOVED REYNA CATH. PT TOLERATED WELL.
--- NOTE | 2016-09-19 10:22 | NUR ---
DR DE LA O PUT IN NURSING MESSAGE TO CHECK WITH CM ABOUT STATUS OF OUTPATIENT DIALYSIS WITH [facility] ON MWF. TALKED WITH LEONARD SIDDIQI, THERE IS A NOTE POSTED FROM YESTERDAY THAT STATES ARRANGEMENTS HAVE BEEN MADE ON OUR PART WE ARE JUST WAITING FOR THEM TO GET BACK TO US. WILL PASS ALONG.
[2016-09-19 11:53] VITALS: BP 116/65
--- NOTE | 2016-09-19 12:15 | NUR ---
DIALYSIS COORDINATOR: [facility]: Met with patient last evening. Obtained TIFFANIE for [facility] placement. Education provided. Patient asked that DC speak with . DC spoke with patient's via phone. Referral was forwarded to [facility] for [facility] placement. DC notified the care clinician Stephanie of pending referral. Awaiting acceptance and confirmed schedule. MARU BOATENG.
--- NOTE | 2016-09-19 12:56 | NUR ---
Mr. Bennett had bedside hemodialysis today via his left forearm av fistula from 0930 until 1230 pm. Average blood flow was around 230 mls/minute. Net fluiid removed was 2000 mls. Post vital signs were: B/P: 131/57, HR: 58, Temp: 98.3, Resps:18. No problems.
--- NOTE | 2016-09-19 18:50 | NUR ---
PT SITTING UP IN BED WATCHING TV DENIES NEEDS
[2016-09-19 19:00] VITALS: BP 135/95
--- NOTE | 2016-09-19 20:00 | NUR ---
REPORT RECEIVED AND CARE ASSUMED. SHIFT ASSESSMENT COMPLETED PER FLOW SHEET. NO VOICED NEEDS O2 @ 2L/NC ON. VSS. CALL LIGHT IN EASY REACH. BED LOW. WILL CONTINUE TO MONITOR.
--- NOTE | 2016-09-19 21:00 | NUR ---
LISHA IN DROPLET ISOLATION.
[2016-09-20] VITALS: BP 143/45
--- NOTE | 2016-09-20 00:30 | NUR ---
FSBS = 362 COVERAGE WITH HUMALOG 24 UNITS GIVEN SC.
[2016-09-20 04:00] VITALS: BP 129/49
[2016-09-20 04:49] LABS: BASOPHILS 0.1 % (0-2); EOSINOPHILS 0.7 % (0-7); HEMATOCRIT 34.1 % (42.0-54.0); HEMOGLOBIN 11.2 g/dL (13.5-17.5); IMMATURE GRANULOCYTES 1.7 % (0-5); LYMPHOCYTES 15.9 % (15-50); MCH 28.7 pg (26.0-34.0); MCHC 32.8 g/dL (31.0-37.0); MCV 87.4 fL (80.0-100.0); MEAN PLATELET VOLUME 10.6 fL (7.4-10.4); MONOCYTES 5.4 % (2-11); NEUTROPHILS 76.2 % (40-80); PLATELET COUNT 155 10x3/uL (130-400); RDW 16.7 % (11.5-14.5); WBC 11.9 10x3/uL (4.8-10.8)
[2016-09-20 05:01] LABS: ANION GAP 14.5 mmol/L (8-16); CALCIUM 8.9 mg/dL (8.5-10.1); PHOSPHOROUS 5.8 mg/dL (2.5-4.9); POTASSIUM - SERUM 3.5 mmol/L (3.5-5.1); VANCOMYCIN - RANDOM 15.2 ug/mL (10.0-20.0)
--- NOTE | 2016-09-20 07:26 | NUR ---
PT SITTING UP IN BED WITH DR DE LA O AT BEDSIDE. DIALYSIS COORDINATOR CALLED AND GAVE PT NEW CHAIR TIME OF MWF AT [address]. NOTIFIED DR DE LA O
[2016-09-20 07:48] VITALS: BP 130/55
[2016-09-20 12:36] VITALS: BP 134/50
[2016-09-20 18:09] VITALS: BP 147/74
--- NOTE | 2016-09-20 18:52 | NUR ---
PT IN ROOM DENIES NEEDS
[2016-09-20 19:00] VITALS: BP 164/47
--- NOTE | 2016-09-20 20:05 | NUR ---
REPORT RECEIVED AND CARE ASSUMED. VSS. DENIES ANY NEEDS. SHIFT ASSESSMENT COMPLETED PER FLOWE SHEET. WILL CONTINUE TO MONITOR.
--- NOTE | 2016-09-20 21:00 | NUR ---
TOLD PATIENT HE COULD AMBULATE OUT IN HALLS WITH GOWN, GLOVES AND MASK ON. ENJOYED GETTING TO GET OUT OF ROOM.
--- NOTE | 2016-09-20 21:11 | NUR ---
DIALYSIS COORDINATOR: Patient accepted at [facility] on a Sat/Sat/Sat @ 11:00am schedule. Per clinical implementation specialist, patient will need to start in-center on Saturday, 09/24. MARU BOATENG.
[2016-09-21] VITALS: BP 157/96
[2016-09-21 04:00] VITALS: BP 155/63
[2016-09-21] MEDS ORDERED: RENVELA0.8 GM PO (07:30)
[2016-09-21 08:06] VITALS: BP 158/49
--- NOTE | 2016-09-21 08:56 | NUR ---
TELEMETRY CAF. ISOLATION PRECAUTIONS CONT. DIALYSIS STARTED AT BS. WILL CONT. PLAN OF CARE.
[2016-09-21 09:04] LABS: BASOPHILS 0.1 % (0-2); EOSINOPHILS 1.3 % (0-7); HEMATOCRIT 34.7 % (42.0-54.0); HEMOGLOBIN 11.1 g/dL (13.5-17.5); IMMATURE GRANULOCYTES 1.8 % (0-5); LYMPHOCYTES 11.1 % (15-50); MCH 28.4 pg (26.0-34.0); MCV 88.7 fL (80.0-100.0); MONOCYTES 5.7 % (2-11); PLATELET COUNT 156 10x3/uL (130-400); RBC 3.91 10x6/uL (4.20-6.10); RDW 16.6 % (11.5-14.5)
[2016-09-21 09:05] LABS: WBC 15.8 10x3/uL (4.8-10.8)
[2016-09-21 09:22] LABS: ANION GAP 14.7 mmol/L (8-16); BILIRUBIN - TOTAL 0.53 mg/dL (0.2-1.3); CALCIUM 8.8 mg/dL (8.5-10.1); CARBON DIOXIDE 24.4 mmol/L (21.0-32.0); CREATININE - SERUM 4.9 mg/dL (0.6-1.3); PHOSPHOROUS 5.1 mg/dL (2.5-4.9); POTASSIUM - SERUM 4.1 mmol/L (3.5-5.1); VANCOMYCIN - RANDOM 19.7 ug/mL (10.0-20.0)
[2016-09-21 12:12] VITALS: BP 126/57
--- NOTE | 2016-09-21 12:43 | NUR ---
Mr. Bennett had bedside hemodialysis today via his left lower arm av fistula using 17 gauge needldes. Average blood flow was 225 mmls/minute. Net fluid removed was 2000 mls. Post vital signs were: B/P: 120/50, HR: 79, Temp: 97.8, Resps: 18. No problems.
--- NOTE | 2016-09-21 12:52 | NUR ---
Provided pt with printed renal diet information and RND name and phone number. Questions answered.
--- NOTE | 2016-09-21 13:11 | NUR ---
ERI COMPLETED. VS WNL. IV AND TELEMETRY DCD. DC PLANS GIVEN. UNDERSTANDING VOICED.
--- NOTE | 2016-09-21 14:06 | NUR ---
ESCORTED TO CAR BY W/C.
== END 2016-09-21 14:06 | disposition home or self-care (01) | DRG 208 ==
LOC: D.ER 15:34 → D.ICU 16:34 → D.M2 16:34
PROVIDERS: Emergency Medicine; Internal Medicine Nephrology; Internal Medicine Pulmonary Disease; ADMIT Family Medicine
PROC: 0T9B70Z Drainage of Bladder with Drainage Device, Via Natural or Artificial Opening (ICD-10-PCS; principal; 2016-09-13)
PROC: 5A1945Z Respiratory Ventilation, 24-96 Consecutive Hours (ICD-10-PCS; 2016-09-13)
PROC: 5A1D60Z (ICD-10-PCS; 2016-09-17)
DX: J96.02 Acute respiratory failure with hypercapnia (principal); J18.9 Pneumonia, unspecified organism; I13.2 Hypertensive heart and chronic kidney disease with heart failure and with stage 5 chronic kidney disease, or end stage renal disease; I50.30 Unspecified diastolic (congestive) heart failure; N18.5 Chronic kidney disease, stage 5; N17.9 Acute kidney failure, unspecified; E87.2 Acidosis; J96.01 Acute respiratory failure with hypoxia; E11.22 Type 2 diabetes mellitus with diabetic chronic kidney disease; Z79.4 Long term (current) use of insulin; E87.6 Hypokalemia; A49.02 Methicillin resistant Staphylococcus aureus infection, unspecified site; Z85.47 Personal history of malignant neoplasm of testis; Z85.118 Personal history of other malignant neoplasm of bronchus and lung; Z78.1 Physical restraint status

== ENCOUNTER → 2016-10-18 13:31 | Outpatient (CLI) | payer MEDICARE, OTHER ==
[2016-09-14 09:59] VITALS: BMI 30.4
== END | disposition home or self-care (01) ==
LOC: D.US 13:31
DX: I65.23 Occlusion and stenosis of bilateral carotid arteries (principal)

== ENCOUNTER → 2016-10-22 08:06 | Outpatient (CLI) | payer MEDICARE, OTHER ==
[2016-09-14 09:59] VITALS: BMI 30.4
== END | disposition home or self-care (01) ==
LOC: D.CT 08:06
DX: I65.23 Occlusion and stenosis of bilateral carotid arteries (principal)

== ENCOUNTER 2016-10-25 10:01 | Inpatient (IN) | payer MEDICARE, OTHER ==
--- NOTE | 2016-10-20 12:08 | HP ---
PATIENT: TABATHA GODFREY MEDICAL RECORD: [id number] ACCOUNT: [id number] LOCATION:[facility] : 48 ADMISSION DATE: 10/26/16 HISTORY AND PHYSICAL EXAMINATION TABATHA Sidhu (66yo, M) ID# [id number]. Date/Time10/11/2016 09:[id number] ClinicProviderEDDARREN GREWAL MDInsuranceMed Primary: [place] ([place]) Insurance # : [id number] Referring Provider Name : RACHEL DE LA O Employer Name : RETIRED Med Secondary: [employer] (MEDICARE SUPPLEMENT) Insurance # : [id number] Employer Name : RETIRED Med Tertiary: FOR LIFE ( - MEDICARE SUPPLEMENT) Insurance # : [id number] Employer Name : RETIRED Prescription: ARGSDIR - Member is eligible. Prescription: ESI1 - Member is eligible. Chief Complaint Followup: Aortic valve stenosis eval for AVR Patient's Care Team Referring Provider (): RACHEL DE LA O: [address] [place] [address], , Other: PAVITHRA ROSS MD: [address] [place] [address], , Guest Services Ambassador: TARYN DE LA O JR, MD: [address] [place] [address], , Patient's Pharmacies [facility]): [address] [facility] [address], , [facility] Vitals BP:104/60 sitting R arm 10/11/2016 09:18 amHR:66irreg 10/11/2016 09:18 amHt:5 ft 10 in 10/11/2016 09:18 amWt:187 lbs 10/11/2016 09:17 amNotes:murmur 10/11/2016 09:20 amBMI:26.8 10/11/2016 09:18 amAllergies Allergies not reviewed (last reviewed 06/02/2015) [id number]-NYD-CIV REDUCTASE INHIBITORS: ItchingWILL CALL US WITH ALLERGIES MEDSMedications Medications not reviewed (last reviewed 06/02/2015) allopurinol 100 mg foziws64/23/12 filledMEDCOamiodarone 200 mg ysrkch08/30/17 filledMEDCOAspir-81 1 tablet daily10/11/16 [facility] Insulin Syringe Ultra-Fine 1 mL 31 gauge x 09/18"11/01/15 filled[facility] Systemsbumetanide 2 mg rivirj40/06/14 filledArg[facility] Health SystemsBystolic 20 mg /29/12 filledMEDCOcalcitriol 0.25 mcg /11/13 filledArg[facility] Health Systemscarvedilol 6.25 mg haphwd01/23/16 filledArg[facility] Systemsclindamycin 150 mg valyjxy36/04/16 filledArg[facility] SystemscloNIDine HCl 0.1 mg uevfwo99/05/15 filledArg[facility] Health Systemsclopidogrel 75 mg tueihl94/24/17 filledArgus Health Systemscolchicine 0.6 mg nlamyq22/08/17 filledMEDCOcyclobenzaprine (bulk) Internal Note: 10MG Note: NOT HELPING AQVQYBE97/02/15 enteredLanora Buentellodoxycycline hyclate 100 mg ibeyjwr32/11/16 filledArgus Health Systemsfamotidine 40 mg fpyxks03/07/17 filledMEDCOfolic acid 400 mcg xbusti59/30/17 filledArg[facility] Health Systemsfurosemide HISTORY AND PHYSICAL [id number] TABATHA GODFREY 40 mg /01/17 filledArgus Health Systemsgemfibrozil 600 mg nlnsma04/01/12 filledMEDCOHumaLOG 100 unit/mL subcutaneous ycxwbllv19/25/15 filledArg[facility] Health SystemshydrALAZINE 50 mg /17/17 filledArg[facility] Health SystemsHYDROcodone 5 mg-acetaminophen 325 mg zaytmw89/12/15 filledArg[facility] Health Systemsisosorbide dinitrate 20 mg tpewmy76/08/17 filledArg[facility] Health SystemsLantus 100 unit/mL subcutaneous /03/12 filledMEDCOlevoFLOXacin 500 mg /15/15 filledArgus Snagstalevothyroxine 50 mcg mudlwc64/08/17 [facility] Snagstalisinopril 20 mg vyhctm24/01/12 filledMEDCOlosartan 100 mg ashxhu97/27/16 [facility] [employer]ax[employer] Microelectronicsmethocarbamol 500 mg /09/14 [facility] Huaxun MicroelectronicsmetOLazone 5 mg yrryon72/23/16 [facility] [employer] MicroelectronicsMicardis 80 mg jaqmdh85/23/12 filledMEDCOminoxidil 2.5 mg /06/12 filledMEDCOmupirocin 2 % topical fndujyms73/12/15 [facility] SnagstaNIFEdipine ER 60 mg tablet,extended release 24 hr09/26/16 filledMEDCOnitroglycerin 0.4 mg/hr transdermal 24 hour patch02/13/12 filledMEDCONovoLIN N 100 unit/mL subcutaneous xbxlokiuic39/02/17 filledMEDCONovoLOG Flexpen 100 unit/mL nklfczqmypkn47/03/17 [facility] Snagstapantoprazole 40 mg tablet,delayed jeoolij14/17/17 [facility] Snagstapeg 3350 240 gram-electrolytes 22.72 gram-6.72 g-5.84 g powdr for soln05/26/13 [facility] Snagstapenicillin V potassium 500 mg ltnyun71/20/16 [facility] Snagstapotassium chloride ER 10 mEq tablet,extended /08/17 [facility] SnagstaProcrit 40,000 unit/mL injection ooenjfkk54/18/16 [facility] Huaxun Microelectronicspromethazine 6.25 mg-codeine 10 mg/5 mL syrup07/15/15 [facility] SnagstaRenvela 800 mg qvdkec85/19/17 [facility] Snagstasodium bicarbonate 650 mg zfjlub54/08/17 [facility] Snagstasucralfate 1 gram /08/17 [facility] Snagstasulfamethoxazole 800 mg-trimethoprim 160 mg tablet Take 1 tablet(s) every 12 hours by oral route.11/04/14 [facility] Snagstatamsulosin 0.4 mg hylcmej42/07/17 filledMEDCOTrueTrack Smart System kit FPD105/19/12 filledsurescriptsTruetrack Test strips FPD105/19/12 filledsurescriptsUloric 40 mg mqehza22/07/14 filled1LayUloric 80 mg zmoani70/30/17 filledMEDCOUnifine Pentips 31 gauge x /" gduiht90/27/17 filled1LayVentolin HFA 90 mcg/actuation aerosol jukqwiu15/09/16 filled1LayVoltaren 1 % topical gel06/08/16 filled1LayProblems Reviewed Problems Coronary arteriosclerosis in [place] artery - Onset: 10/11/2016 Left upper quadrant pain Current tear of medial cartilage AND/OR meniscus of knee End stage renal disease Sprain of cruciate ligament of knee Aortic valve stenosis - Onset: 10/08/2016 Synovial cyst of popliteal space Family History Family History not reviewed (last reviewed 06/02/2015) Non-contributory.Unspecified Relation- Malignant neoplastic disease - Family history of Cardiovascular diseaseSocial History Social History not reviewed (last reviewed 06/02/2015) General Marital status: Smoking Status: Former smoker Alcohol intake: None Caffeine intake: None Is blood transfusion acceptable in an emergency?: Y Surgical History HISTORY AND PHYSICAL [id number] TABATHA GODFREY Surgical History not reviewed (last reviewed 06/02/2015) Carpal tunnel surgery Acl arthroscopic assisted reconstruction with allograft - 10/22/2014 L shoulder surgery, Hernia repair, R orchiectomy, L lung "spot"removal, AV fistula creation Past Medical History Past Medical History not reviewed (last reviewed 06/02/2015) Cancer: Y - lung, testicular Coronary Artery Disease: Y - multiple stents Diabetes: Y - IDDM Heart Disease: Y - CHF Heart Failure: Y High Blood Pressure: Y Kidney Disease: Y Kidney Failure: Y - ESRD now on HD M/W/F Notes: chf Documents for Discussion N/A Screening None recorded. HPI Valvular Heart Disease Reported by patient. Associated Symptoms: none severe aortic stenosis Coronary artery disease ROS Patient reports exercise intolerance but reports no fever, no night sweats, no significant weight gain, and no significant weight loss. He reports shortness of breath when walking, shortness of breath when lying down, and known heart murmur but reports no chest pain, no arm pain on exertion, and no palpitations. He reports shortness of breath but reports no cough, no wheezing, and no coughing up blood. He reports no dry eyes, no irritation, and no vision ch pradip. He reports no difficulty hearing and no ear pain. He reports no frequent nosebleeds and no nose/sinus problems. He reports no sore throat, no bleeding gums, no snoring, no dry mouth, no mouth ulcers, no oral abnormalities, and no teeth problems. He r eports no jugular vein distension and no swollen glands. He reports no abdominal pain, no vomiting, normal appetite, no diarrhea, not vomiting blood, no nausea, and no constipation. He reports no incontinence, no difficulty urinating, no hematuria, and no increased frequency. He reports no muscle aches, no muscle weakness, no arthralgias/joint pain, no back pain, and no swelling in the extremities. He reports no abnormal mole, no jaundice, and no rashes. He reports no loss of consciousness, no weakness, no numbness, no seizures, no dizziness, and no headaches. He reports no depression, no sleep disturbances, feeling safe in relationship, and no alcohol abuse. He reports no fatigue. He reports no swollen glands and no bruising. He reports no runny nose, no s inus pressure, no itching, no hives, and no frequent sneezing. ROS as noted in the HPI Physical Exam Patient is a 66-year-old male. Constitutional: General Appearance well nourished and developed and healthy-appearing. Level of Distress NAD. Ambulation ambulating normally. HISTORY AND PHYSICAL [id number] TABATHA GODFREY Cardiovascular: Apical Impulse not displaced or no thrill. Heart Auscultation normal s1 and s2, no rubs or gallops, and RRR and murmur (aortic stenosis). Arterial Pulses no abdominal aorta bruits, femoral bruits, or popliteal bruits and 2+ bilateral, carotid 2+ bilateral, femoral 2+ bilateral, popliteal 2+ bilateral, and dorsalis pedis 2+ bilateral; fistula left arm for dialysis. Edema no edema or varicosities. Lungs: Repiratory Effort no dyspnea. Percussion no hyperresonance or dullnes s or flatness. Auscultation no wheezing or rhonchi and breathing sounds normal, good air movement, and wet rales / crackles. Abdomen: Bowl Sounds normal. Inspection and Palpation no tenderness, guarding, masses, or rebound tenderness and soft and non-dist ended. Liver non-tender and no hepatomegaly. Spleen non-tender and no splenomegaly. Hernia none palpable. Musculoskeletal System: Gait And Stance normal gait and stance. Digits and Nails normal nails and no cyanosis. Neurologic: Cranial Nerves grossly intact. Reflexes DTRs 2+ bilaterally throughout. Sensation grossly intact. Lymph Nodes: Lymph Nodes no cervical LAD, supraclavicular LAD, axillary LAD, or inguinal LAD. Eyes: Lids and Conjunctivae no discharge or pallor and non-injected. Pupils PERRLA. Cornea grossly intact. EOM EOMI. Lens clear. Sclerae non-icteric. Neck: Neck no masses, enlarged lymph nodes, or carotid bruits and supple and trachea midline. Thyroid no enlargement or nodules and non-tender. Skin: Inspection and Palpation no rash, lesions, ulcers, jaundice, or abnormal nevi. Assessment / Plan severe aortic stenosis Coronary artery disease status post stent 1. Aortic valve stenosis I35.0: Nonrheumatic aortic (valve) stenosis AORTIC VALVE STENOSIS: CARE INSTRUCTIONS 2. End stage renal disease N18.6: End stage renal disease END-STAGE RENAL DISEASE: CARE INSTRUCTIONS 3. Coronary arteriosclerosis in [place] artery I25.10: Atherosclerotic heart disease of [place] coronary artery without angina pectoris Discussion Notes need carotid Doppler I have discussed his disease process with him in detail as well as the alternative methods of treatment. We discussed aortic valve replacement and possible coronary bypass including the expected benefits and risk which include bleeding, infection, stroke, , and the imponderables. We also discussed the difference between mechanical and tissue valves and he has no preference. He has a history of atrial fibrillation, he is 66 years old, and on hemodialysis. We will call him and arrange a time for surgery. HISTORY AND PHYSICAL [id number] TABATHA GODFREY EDWARD MD at 1208 CC: [id number] DICTATION DATE: 10/11/16 0915 GEOGRAPHICAL HISTORIAN: TRISTAN 10/18/16 1617 PRE IN [facility] [address] [id number]
[~2016-10-25] VITALS: Ht 175.3 cm; Wt 81.6 kg
[~2016-10-25 10:01] MED LIST changes: -APRESOLINE50 MG PO
[2016-10-25 10:37] LABS: BASOPHILS 0.2 % (0-2); EOSINOPHILS 2.4 % (0-7); HEMATOCRIT 30.5 % (42.0-54.0); HEMOGLOBIN 9.9 g/dL (13.5-17.5); IMMATURE GRANULOCYTES 0.3 % (0-5); LYMPHOCYTES 6.3 % (15-50); MCH 28.5 pg (26.0-34.0); MCHC 32.5 g/dL (31.0-37.0); MCV 87.9 fL (80.0-100.0); MEAN PLATELET VOLUME 9.5 fL (7.4-10.4); MONOCYTES 13.2 % (2-11); NEUTROPHILS 77.6 % (40-80); RBC 3.47 10x6/uL (4.20-6.10); RDW 15.1 % (11.5-14.5); WBC 11.4 10x3/uL (4.8-10.8)
[2016-10-25 10:50] LABS: PLATELET COUNT 221 10x3/uL (130-400)
[2016-10-25 10:52] LABS: ANION GAP 15.6 mmol/L (8-16); BILIRUBIN - TOTAL 0.51 mg/dL (0.2-1.3); CARBON DIOXIDE 25.9 mmol/L (21.0-32.0); CREATININE - SERUM 3.5 mg/dL (0.6-1.3); POTASSIUM - SERUM 4.5 mmol/L (3.5-5.1); PROTEIN - SERUM 6.9 g/dL (6.4-8.2)
--- NOTE | 2016-10-25 11:15 | NUR ---
22 G X 1 STICK TO RIGHT FA.
[2016-10-25 11:44] VITALS: BP 106/52
[2016-10-25 11:58] LABS: APTT 40.9 SECONDS (22.8-39.4); INR 1.12 (0.85-1.17); PROTIME 14.2 SECONDS (11.6-15.0)
[2016-10-25 12:05] LABS: HEMOGLOBIN A1C 6.7 % (4.8-6.0)
--- NOTE | 2016-10-25 12:09 | NUR ---
BLOOD SUGAR OF 263, 6 UNITS OF HUMALOG GIVEN PER S/S. PT IN BED EATING LUNCH. DENIES ANY NEEDS AT THIS TIME. CALL LIGHT IN REACH, NAD NOTED, WILL CONTINUE TO MONITOR.
[2016-10-25 12:10] LABS: T4 THYROXIN - FREE 1.22 ng/dL (0.76-1.46); THYROID STIMULATING HORMONE 2.35 uIU/mL (0.36-3.74); URIC ACID 1.6 mg/dL (2.6-7.2)
[2016-10-25 12:29] VITALS: BP 106/52; BMI 28.0
[2016-10-25] MEDS ORDERED: ULORIC80 MG PO (13:20)
[2016-10-25] MEDS ORDERED: FUROSEMIDE40 MG PO (13:21)
[2016-10-25] MEDS ORDERED: PEPCID40 MG PO (13:31)
[2016-10-25] MEDS ORDERED: FLOMAX0.4 MG PO (13:33)
[2016-10-25] MEDS ORDERED: HYDROCODONE-APA1 TAB PO (13:35)
[2016-10-25] MEDS ORDERED: MULTIPLE VITAMI1 TA1 PO (13:37)
--- NOTE | 2016-10-25 13:50 | NUR ---
NEW BAG OF IVF HUNG AT THIS TIME. PT IN BED, WITH EYES CLOSED, RIGHT HAND ELAVATED ON A PILLOW, NAD NOTED, CALL LIGHT IN REACH, WILL CONTINUE TO MONITOR.
[2016-10-25 14:34] VITALS: Ht 175.3 cm; Wt 81.6 kg
[2016-10-25 14:56] LABS: COLD SCREEN ROOM TEMP NEGATIVE (NEGATIVE)
[2016-10-25 14:57] LABS: COLD SCREEN @ 4 DEGREES 2+ (NEGATIVE)
[2016-10-25 16:00] VITALS: BP 154/66
[2016-10-25 18:41] LABS: APPEARANCE CLEAR (CLEAR); BACTERIA FEW /hpf (NONE SEEN); BILIRUBIN NEGATIVE (NEGATIVE); COLOR YELLOW (YELLOW); EPITHELIAL CELLS 0-5 /hpf (0-5); GLUCOSE NEGATIVE (NEGATIVE); KETONE NEGATIVE (NEGATIVE); LEUKOCYTE ESTERASE TRACE (NEGATIVE); NITRITE NEGATIVE (NEGATIVE); PROTEIN 1+ mg/dL (NEGATIVE); RED CELLS - URINE OCC /hpf (0-5); SPECIFIC GRAVITY 1.005 (1.005-1.020); UROBILINOGEN NORMAL (NORMAL); WHITE CELLS - URINE RARE /hpf (0-5)
[2016-10-25 19:00] VITALS: BP 153/65
--- NOTE | 2016-10-25 19:30 | NUR ---
REPOR RECVD. CARE ASSUMED. INITIAL ASSESSMENT COMPLETED. SEE FLOWSHEET FOR ALL FINDINGS. SEDATED ON MECH VENT. AROUSES TO VOICE. FOLLOWS SOME COMMANDS. PERRLA. LUNGS CTA, DIM IN BASES. WEANING VENT PER PROTOCOL. V PACED ON THE MONITOR. RATE 106. ATRIAL SENSING. TEMP PM DDD 60 INTACT. STERNAL DRESSING CDI. PULSES PALP. RIGHT RADIAL A-LINE ZEROED AND BALANCED. GOOD WAVE FORM SEEN. SYS B/P WITHIN PARAMETERS. DOPAMINE WEANING IN PLACE. RIGHT IJ SWAN LOCKED, PATENT, AND SECURED. CARDIAC MONITORING PER VIGILENCE WITHIN PARAMETERS. LEFT NECK INCISIONAL DRESSING CDI. NO EDEMA SEEN. ICE PACK IN USE. GABRIEL DRAIN INTACT WITH MINIMAL SEROSANG DRNG SEEN. CHEST TUBES X2 PATENT AND SECURED TO 20SM SX. MINIMAL BLOODY DRNG SEEN. NO AIR LEAK NOTED. ABD SOFT WITH HYPO BS X4. LEFT ARM FISTULA INTACT WITH POSITIVE BRUIT/THRILL. F/C PATENT TO CRITICORE. MINIMAL UOP NOTED. AFEBRILE. TURNED AND REPOSITIONED WITH ORAL CARE PER VAP. RESTRAINTS PER PROTOCOL. HOB UP. 1:[address] CONT CURRENT POC.
[2016-10-26] VITALS (40 sets, daily range): BP systolic 112–156; BP diastolic 50–72
--- NOTE | 2016-10-26 04:00 | NUR ---
DR DE LEON CALLS FLOOR, REQUESTS PT TO HAVE A SECOND EKG DONE NOW AND TO CALL HIM WITH RESULTS. EKG COMPLETED AND PLACED ON CHART. RETURNED CALL TO DR DE LEON AND NOTIFIED OF EKG RHYTHM. NO NEW ORDERS RECEIVED AT THIS TIME.
--- NOTE | 2016-10-26 05:30 | NUR ---
RECEIVED CALL TO PRE OP PT. PRE OP COMPLETED AT THIS TIME.
--- NOTE | 2016-10-26 05:58 | NUR ---
DR CARMINA LAST'S ASST HERE TO SEE PT AND REVIEWS CHART.
--- NOTE | 2016-10-26 06:18 | NUR ---
PT LEAVES FLOOR AND GOES TO OR VIA STRETCHER ACCOMPANIED BY KNOCKER OUT. CHART FOLLOWS ALONG WITH PT.
[2016-10-26 08:18] LABS: PLT FUNCT.(P2Y12) PLAVIX 364 PRU (194-418)
--- NOTE | 2016-10-26 10:02 | NUR ---
PREP : NECK, CHEST, ABDOMEN, BILATERAL LOWER EXT TO KNEES. NECK TO KNEES PREPED WITH BETADINE PAINT, ALCOHOL, BETADINE PAINT, ALCOHOL.
[2016-10-26 14:23] LABS: HEMATOCRIT 27.2 % (42.0-54.0); HEMOGLOBIN 8.8 g/dL (13.5-17.5); MCH 28.8 pg (26.0-34.0); MCHC 32.4 g/dL (31.0-37.0); MCV 88.9 fL (80.0-100.0); MEAN PLATELET VOLUME 9.5 fL (7.4-10.4); RBC 3.06 10x6/uL (4.20-6.10)
[2016-10-26 14:29] LABS: WBC 19.4 10x3/uL (4.8-10.8)
[2016-10-26 14:35] LABS: ANION GAP 18.5 mmol/L (8-16); CALCIUM 8.3 mg/dL (8.5-10.1); CARBON DIOXIDE 23.1 mmol/L (21.0-32.0); CREATININE - SERUM 3.7 mg/dL (0.6-1.3); POTASSIUM - SERUM 3.6 mmol/L (3.5-5.1)
[2016-10-26 14:41] LABS: APTT 46.7 SECONDS (22.8-39.4); INR 1.54 (0.85-1.17); PROTIME 18.4 SECONDS (11.6-15.0)
--- NOTE | 2016-10-26 18:00 | NUR ---
1505-RECIEVD FROM OR ACCOMPANIED BY OR TEAM-PLACED TO MONITOR-100% PACED-VENT SETTINGS PER RT-CHEST TUBES X2-TO 20CM SUCTION-SCANT DRAINAGE-L NECK INCISION SOFT TO TOUCH-ICE BAG PLACED PER PROTOCOL-NO TRACHEAL DEVIATION NOTED-MIDLINE CHEST DRG DRY AND INTACT-TEMP PACER ON DDD -ATRIAL SENSED AND VENT PACED-REYNA CATH IN PLACE-TEMP 35.9-BHAIR HUGGER PLACED PER PROTOCOL R JUGULAR-SG/CORDIS IN PLACE AND LOCKED AT EST 50CM-GOOD PA WAVE FORM-AUDIBLE [id number]-LNVY NO ADDITIONAL HEART TONES NOTED 1530-PORTABLE CHEST XRAY DONE 1630-FAMILY AT [facility] AND QUESTIONS ADDRESSED 1715-DR REAGAN IN UNIT STATUS REPORT GIVEN 1800-FAMILY AT [facility]
--- NOTE | 2016-10-26 21:30 | NUR ---
HS MEDS GIVEN. TURNED AND REPOSITIONED. ORAL CARE PRIOVIDED. NO VISITORS. VSS. SYS B/P WITHIN PARAMETERS. NO DISTRESS. RT WEANING VENT. HOB UP. CONT 1:1 NURSE OBSERVATION.
--- NOTE | 2016-10-26 23:00 | NUR ---
abgs drawn and resulted. all levels within parameters. no tx required. rt weaning vent. simv rate 10. cont current poc.
--- NOTE | 2016-10-26 23:30 | NUR ---
REAQASSESSMENT COMPLETED. SEE FLOWSHEET FOR ALL FINDINGS. SEDATED ON MECH VENT. AROUSES TO VOICE. FOLLOWS SOME COMMANDS. PERRLA. LUNGS CTA, DIM IN BASES. WEANING VENT PER PROTOCOL. V PACED ON THE MONITOR. RATE 98. ATRIAL SENSING. TEMP PM DDD 60 INTACT. STERNAL DRESSING CDI. PULSES PALP. RIGHT RADIAL A-LINE ZEROED AND BALANCED. GOOD WAVE FORM SEEN. SYS B/P WITHIN PARAMETERS. DOPAMINE WEANING IN PLACE. RIGHT IJ SWAN LOCKED, PATENT, AND SECURED. CARDIAC MONITORING PER VIGILENCE WITHIN PARAMETERS. LEFT NECK INCISIONAL DRESSING CDI. NO EDEMA SEEN. ICE PACK IN USE. GABRIEL DRAIN INTACT WITH MINIMAL SEROSANG DRNG SEEN. CHEST TUBES X2 PATENT AND SECURED TO 20SM SX. MINIMAL BLOODY DRNG SEEN. NO AIR LEAK NOTED. ABD SOFT WITH HYPO BS X4. LEFT ARM FISTULA INTACT WITH POSITIVE BRUIT/THRILL. F/C PATENT WITH MINIMAL UOP. TURNED AND REPOSITIONED WITH ORAL CARE PER VAP. HOB UP. 1:1 NURSE MONITORING. CONT CURRENT POC.
[2016-10-27] VITALS (94 sets, daily range): BP systolic 111–141; BP diastolic 40–61
--- NOTE | 2016-10-27 01:00 | NUR ---
RT WEANED TO CPAP TRIAL. PT TOLERATING. SPO2 98%. RR 16. ORAL CARE PER VAP. T AND R. CONT CURRENT POC.
--- NOTE | 2016-10-27 02:00 | NUR ---
ABGS DRAWN AND RESULTED. NO TX REQUIRED. EXTUBATED TO 4 LPM NC. UPDRAFT GIVEN. INCENTIVE DONE. PULLS [phone] WITH FOOD EFFORT. REPOSITONED. ORAL CARE DONE. CLAMP OPERATOR MORPHINE INITIATED. PT EDUCATED ON CLAMP OPERATOR USE AND PAIN MANAGEMENT. CONT CURRENT POC.
--- NOTE | 2016-10-27 03:10 | NUR ---
REASSESSMENT COMPLETED. SEE FLOWSHEET FOR ALL FINDINGS. DROWSY. RESTING ON 4LPM NC. AOX4. PERRLA. LUNGS WITH SCANT EXP WHEEZES. V PACED ON THE MONITOR. RATE 92. ATRIAL SENSING. TEMP PM DDD 60 INTACT. STERNAL DRESSING CDI. PULSES PALP. RIGHT RADIAL A-LINE INTACT WITH GOOD WAVE FORM SEEN. SYS B/P WITHIN PARAMETERS. DOPAMINE WEANING IN PLACE. RIGHT IJ SWAN LOCKED, PATENT, AND SECURED. CARDIAC MONITORING PER VIGILENCE WITHIN PARAMETERS. LEFT NECK INCISIONAL DRESSING CDI. NO EDEMA NOTED. GABRIEL DRAIN INTACT WITH MINIMAL SEROSANG DRNG SEEN. CHEST TUBES X2 PATENT AND SECURED TO 20SM SX. MINIMAL BLOODY DRNG SEEN. NO AIR LEAK NOTED. ABD SOFT WITH HYPO BS X4. LEFT ARM FISTULA INTACT WITH POSITIVE BRUIT/THRILL. F/C PATENT WITH MINIMAL UOP. TRUCK UNLOADER MORPHINE PROVIDING PAIN CONTROL. HOB UP. 1:1 NURSE MONITORING. CONT CURRENT POC.
--- NOTE | 2016-10-27 05:30 | NUR ---
ABGS DRAWN AND RESULTED. CA+ LEVEL TREATED PER ORDERS. TURNED AND REPOSITIONED. DENIES NEEDS. POLISHING WHEEL REPAIRER IN USE AND IN REACH. CONT CURRENT POC.
[2016-10-27 05:46] LABS: HEMATOCRIT 24.8 % (42.0-54.0); HEMOGLOBIN 7.8 g/dL (13.5-17.5); MCH 27.9 pg (26.0-34.0); MCHC 31.5 g/dL (31.0-37.0); MCV 88.6 fL (80.0-100.0); RBC 2.8 10x6/uL (4.20-6.10); RDW 15.3 % (11.5-14.5); WBC 18.7 10x3/uL (4.8-10.8)
[2016-10-27 06:03] LABS: ALBUMIN 2.5 g/dL (3.4-5.0); ANION GAP 15.4 mmol/L (8-16); BILIRUBIN - TOTAL 0.65 mg/dL (0.2-1.3); CALCIUM 8.9 mg/dL (8.5-10.1); CARBON DIOXIDE 25.4 mmol/L (21.0-32.0); CREATININE - SERUM 4.8 mg/dL (0.6-1.3); POTASSIUM - SERUM 5.8 mmol/L (3.5-5.1); PROTEIN - SERUM 5.4 g/dL (6.4-8.2)
--- NOTE | 2016-10-27 08:14 | NUR ---
0715-RECIEVED PER FLOW [id number]-[id number] EASILY-REMOVED EEG WIRES PER PROTOCOL-SKIN INTACT-L NECK INCISION SOFT TO TOUCH-NO J MAGALLANES DRAIN-NO TRACHEAL DEVIATION NOTED -MEDIASTINAL INCISION DRG DRY AND INTACT-PACER WIRES IN PLACE NOTED-ATRIAL SENSED AND VENT PACED-AT 89-SR BASED-PACER SET AT 60/10/91-CHT-SBVJZ TUBES X2-20CM-NO AIRLEAK NOTED-SCANT DRAINAGE- L ARM FISTULA-EXCELLENT BRUIT/THRILL-NOTED AUDIBLE MURMUR TO MITRAL AREA- RESERVE L ARM
--- NOTE | 2016-10-27 09:11 | NUR ---
RENAL NURSE PRACTITIONER AT [facility]-ORDERS [id number] UNIT PRBC TO BE GIVEN ON DIALYSIS-IV CHANGED TO 1/2NS AT 50ML/H
--- NOTE | 2016-10-27 10:14 | NUR ---
DIALYSIS SET UP IN PROGRESS-NTG DECREASED TO 20ML/H-ABP 134/48-DOPAMINE OFF-DIGITAL COMMUNITY MANAGER-6.0-
--- NOTE | 2016-10-27 12:17 | OP ---
PATIENT NAME: TABATHA GODFREY MEDICAL RECORD: [id number] :48 LOCATION:[facility] D.CV04 ADMISSION DATE:10/25/16 SURGEON: ASHVIN GREWAL MD DATE OF OPERATION: 10/26/2016 SURGEON: Ashvin Grewal MD. ANESTHESIA: General endotracheal, Dr. Bhardwaj. OPERATION PERFORMED: 1. Aortic valve replacement utilizing a [address] Lefty tissue valvular prosthesis. 2. Left carotid endarterectomy with patch angioplasty. PREOPERATIVE DIAGNOSES: 1. Critical bilateral carotid stenosis. 2. Severe aortic stenosis, valve area of 0.3. POSTOPERATIVE DIAGNOSES: 1. Critical bilateral carotid stenosis. 2. Severe aortic stenosis, valve area of 0.3. INDICATION FOR OPERATION: Severe carotid stenosis and severe aortic valvular stenosis. FINDINGS AT OPERATION: 1. The aortic valve was trileaflet heavily calcified with a valve area approximating 0.5 cm-squared. 2. Critical left internal carotid artery stenosis with severe stenosis of the internal carotid artery. ESTIMATED BLOOD LOSS: Cell Saver was used. DESCRIPTION OF PROCEDURE: After informed consent, adequate preoperative medication evaluation, the patient was brought to the operating room, placed on the table in the supine position. After induction of general endotracheal anesthesia and application of appropriate monitoring devices, the left neck, chest, abdomen, and both legs were prepped and draped in a sterile field, utilizing Betadine scrub, alcohol, and Betadine solution. A Betadine-impregnated drape was also used. The endarterectomy was addressed first. An incision was made obliquely in the skin crease in the left neck and dissection carried down the fascia. Hemostasis maintained with electrocautery. Facial vein was identified and divided. Utilizing sharp dissection, the common carotid, internal and external carotid arteries were dissected free from surrounding structures, protecting the neurological structures. The patient was given a calculated dose of heparin, after 3 minutes, clamps were applied. After 2 minutes, no EEG changes. The arteriotomy was made and extended with Wise scissors. Artery underwent endarterectomy sharply. Artery underwent extensive debridement and irrigation. Utilizing a vascular patch and running 7-0 Prolene suture, the arteriotomy was closed with patch angioplasty technique. All maneuvers to remove trapped air were performed. The clamps were removed sequentially and hemostasis was assured. Evicel was used on the artery and after 2 minutes, it was packed with a Ray-Robert. Attention was then turned toward the chest, median sternotomy incision was used and dissection carried down the fascia. Hemostasis maintained with electrocautery. Sternum was divided. OPERATIVE REPORT [id number] TABATHA GODFREY A Innominate vein was identified and protected. The pericardium was opened. The pericardial well was formed by utilizing pericardial traction sutures. The patient given additional dose of heparin. The patient was cannulated in the standard fashion utilizing 1 aortic, one two-stage cannula in the atrium and inferior vena cava. The patient was placed on cardiopulmonary bypass, cooled to 32 degrees centigrade. A cross clamp was placed just proximal to the aortic cannula and the patient was given cardioplegic solution through the aortic root. The patient was given a cold induction and cold maintenance. The patient was given cold intermittent cardioplegic solution throughout the procedure through the root directly through the coronary ostia. The aorta was opened, the valve examined and excised. The annulus underwent extensive debridement being careful not to lose any calcium particles. The valve sized to a 23 St[address] Lefty tissue valve. Circumferential valve sutures were placed through the annulus then through the sewing ring of the valve. The valve was lowered into position and secured. The valve was tested. There was no leak. The aorta was closed in 2 layers utilizing running 4-0 Prolene suture. All maneuvers to remove trapped air were performed. The patient was given warm cardioplegic reperfusion and controlled reperfusion. The patient rewarmed to 37 degrees centigrade. Two atrial and 2 ventricular pacing wires were placed on the heart and brought out through the epigastric area. The patient was weaned cardiopulmonary bypass. After being stable off bypass, he was given calculated dose of protamine to reverse the heparin. Hemostasis was assured. A #40 right angle and #36 chest tubes were brought in through the epigastric area and placed in mediastinum. The chest was again irrigated. Instrument count and sponge count were correct times 2. Chest was closed in layers utilizing #7 wire on the sternum, #2 Vicryl in linea alba and pectoralis fascia. Subcutaneous tissue was approximated with 3-0 Vicryl. The left neck was then reexplored. Hemostasis was assured. A #7 Mina-Washburn drain was left in the depth of wound and brought through the base of the neck. Neck was again irrigated. Instrument count and sponge counts were correct times 2. Neck was closed in layers utilizing 3-0 Vicryl on the platysma, 5-0 subcuticular Monocryl on the skin. Sterile dressings were applied. The patient tolerated the procedure well and was transferred to cardiovascular intensive care unit in satisfactory condition. TRANSINT:[id number] Voice Confirmation ID: [id number] DOCUMENT ID: [id number] ASHVIN GREWAL MD at 1217 CC: [id number] DICTATION DATE: 10/26/16 1502 ROLL SCALE MAN: 10/26/16 2320 ADM IN [place] [id number] [place] [address]
--- NOTE | 2016-10-27 13:52 | NUR ---
DIALYSIS TREATMENT COMPLETE, NET FLUID REMOVAL OF 3300ML, 1 UNIT PRBC'S ADMINISTERED AND 1 VIAL OF ALBUMIN USED. PATIENT TOLERATED TREATMENT WELL, BLOOD WAS RETURNED, NEELDES PULLED, AND HEMOSTASIS ACHEIVED.
--- NOTE | 2016-10-27 15:06 | NUR ---
1330-DIALYSIS IJSRLZAHD-BLD-JGN STARTED AT 5ML AND TITRATED FOR PARAMETER <140- PT AWAKE AND ALERT-REPOSITIONED- 1415-VANC LEVEL DRAWN- 1450-ABG DRAWN 1500-FAMILY AT BEDSIDE-KBRN
--- NOTE | 2016-10-27 17:06 | NUR ---
ORAL CARE DONE WITH PERIDEX AT O800 THIS AM
--- NOTE | 2016-10-27 18:47 | NUR ---
ORAL CARE WITH PERIDEX ORDERED
--- NOTE | 2016-10-27 19:30 | NUR ---
REPORT RECVD. CARE ASSUMED. INITIAL ASSMNT COMPLETED. SEE FLOWSHEET FOR ALL FINDINGS. SLEEPY, AROUSES TO VOICE EASILY. FOLLOWS COMMANDS. PERRLA. LUNGS CTA, DIM IN BASES. SPO2 96% ON O2 AT 3LPM NC. V PACED ON THE MONITOR. RATE 86. ATRIAL SENSING. TEMP PM VVI 60 INTACT. STERNAL DRESSING CDI. PULSES PALP. RIGHT RADIAL A-LINE ZEROED AND BALANCED. GOOD WAVE FORM SEEN. SYS B/P WITHIN PARAMETERS. NTG GTT TO MAINTAIN HTN. RIGHT IJ SWAN LOCKED, PATENT, AND SECURED. CARDIAC MONITORING PER VIGILENCE WITHIN PARAMETERS. LEFT NECK INCISIONAL DRESSING CDI. NO EDEMA SEEN. CHEST TUBES X2 PATENT AND SECURED TO 20 SM SX. MINIMAL BLOODY DRNG SEEN. NO AIR LEAK NOTED. ABD SOFT WITH BSA X4. LEFT ARM FISTULA INTACT WITH POSITIVE BRUIT/THRILL. F/C PATENT TO CRITICORE. MINIMAL UOP NOTED. AFEBRILE. TURNED AND REPOSITIONED. ADMINISTRATION CLERK MORPHINE IN USE FOR PAIN CONTROL. HOB UP. 1:[address]
--- NOTE | 2016-10-27 21:00 | NUR ---
HS MEDS GIVEN. REPOSITONED FOR COMFORT AND SKIN INTEGRITY. COUGH/DB AND INCENTIVE ENCOURAGED. GOOD EFFORT SEEN. PULLS 1000. COUGH CYBER INSTRUCTOR AT THIS TIME. TRANSLATOR/INTERPRETER MORPHINE IN HAND AND IN USE FOR PAIN CONTROL. PO FLUIDS AND ICE AT BEDSIDE. HOB UP. DROWSY. CONT 1:1 MONITORING.
--- NOTE | 2016-10-27 23:30 | NUR ---
REASSESSMENT COMPLETED. SEE FLOWSHEET FOR ALL FINDINGS. SLEEPY, AROUSES TO VOICE EASILY. FOLLOWS COMMANDS. PERRLA. LUNGS CTA, DIM IN BASES. SPO2 96% ON O2 AT 3LPM NC. V PACED ON THE MONITOR. RATE 86. ATRIAL SENSING. TEMP PM VVI 60 INTACT. STERNAL DRESSING CDI. PULSES PALP. RIGHT RADIAL A-LINE INTACT WITH GOOD WAVE FORM SEEN. SYS B/P WITHIN PARAMETERS. NTG GTT TO MAINTAIN HTN. RIGHT IJ SWAN LOCKED, PATENT, AND SECURED. CARDIAC MONITORING PER VIGILENCE WITHIN PARAMETERS. LEFT NECK INCISIONAL DRESSING CDI. NO EDEMA SEEN. CHEST TUBES X2 PATENT AND SECURED TO 20 SM SX. MINIMAL BLOODY DRNG SEEN. NO AIR LEAK NOTED. ABD SOFT WITH BSA X4. LEFT ARM FISTULA INTACT WITH POSITIVE BRUIT/THRILL. F/C PATENT TO CRITICORE. MINIMAL UOP NOTED. AFEBRILE. TURNED AND REPOSITIONED. WINDOWS TECHNICAL SPECIALIST MORPHINE IN USE FOR PAIN CONTROL. HOB UP. 1:[address] CONT CURRENT POC.
[2016-10-28] VITALS (96 sets, daily range): BP systolic 117–157; BP diastolic 38–56
--- NOTE | 2016-10-28 00:16 | NUR ---
REPORT RECVD. CARE ASSUMED. INITIAL ASSMNT COMPLETED. SEE FLOWSHEET FOR ALL FINDINGS. SLEEPY, AROUSES TO VOICE EASILY. FOLLOWS COMMANDS. PERRLA. LUNGS CTA, DIM IN BASES. SPO2 96% ON O2 AT 3LPM NC. V PACED ON THE MONITOR. RATE 86. ATRIAL SENSING. TEMP PM VVI 60 INTACT. STERNAL DRESSING CDI. PULSES PALP. RIGHT RADIAL A-LINE ZEROED AND BALANCED. GOOD WAVE FORM SEEN. SYS B/P WITHIN PARAMETERS. NTG GTT TO MAINTAIN HTN. RIGHT IJ SWAN LOCKED, PATENT, AND SECURED. CARDIAC MONITORING PER VIGILENCE WITHIN PARAMETERS. LEFT NECK INCISIONAL DRESSING CDI. NO EDEMA SEEN. CHEST TUBES X2 PATENT AND SECURED TO 20 SM SX. MINIMAL BLOODY DRNG SEEN. NO AIR LEAK NOTED. ABD SOFT WITH BSA X4. LEFT ARM FISTULA INTACT WITH POSITIVE BRUIT/THRILL. F/C PATENT TO CRITICORE. MINIMAL UOP NOTED. AFEBRILE. TURNED AND REPOSITIONED. POLICE SUPERINTENDENT MORPHINE IN USE FOR PAIN CONTROL. HOB UP. 1:[address]
--- NOTE | 2016-10-28 01:18 | NUR ---
RESTING WITH EYES CLOSED. DENIES NEEDS. REPOSITIONED. VSS. REMAINS ON NTG GTT TITRATION FOR B/P PARAMETERS. HOB UP. 1:[address] CONT CURRENT POC.
--- NOTE | 2016-10-28 03:30 | NUR ---
REASSESSMENT COMPLETED. SEE FLOWSHEET FOR ALL FINDINGS. SLEEPY, AROUSES TO VOICE EASILY. FOLLOWS COMMANDS. PERRLA. LUNGS CTA, DIM IN BASES. SPO2 96% ON O2 AT 3LPM NC. V PACED ON THE MONITOR. RATE 86. ATRIAL SENSING. TEMP PM VVI 60 INTACT. STERNAL DRESSING CDI. PULSES PALP. RIGHT RADIAL A-LINE INTACT WITH GOOD WAVE FORM SEEN. SYS B/P WITHIN PARAMETERS. NTG GTT TO MAINTAIN HTN. RIGHT IJ SWAN LOCKED, PATENT, AND SECURED. CARDIAC MONITORING PER VIGILENCE WITHIN PARAMETERS. LEFT NECK INCISIONAL DRESSING CDI. NO EDEMA SEEN. CHEST TUBES X2 PATENT AND SECURED TO 20 SM SX. MINIMAL BLOODY DRNG SEEN. NO AIR LEAK NOTED. ABD SOFT WITH BSA X4. LEFT ARM FISTULA INTACT WITH POSITIVE BRUIT/THRILL. F/C PATENT TO CRITICORE. MINIMAL UOP NOTED. AFEBRILE. TURNED AND REPOSITIONED. RESIDENTIAL REAL ESTATE AGENT MORPHINE IN USE FOR PAIN CONTROL. HOB UP. 1:[address] CONT CURRENT POC.
--- NOTE | 2016-10-28 05:30 | NUR ---
HTN UNCONTROLLED WITH MAX RATE OF NTG GTT. PER ORDERS INITIATED CLEVIPREX GT TITRATION. REPOSITIONED FOR COMFORT. COUGH/DB AND IS DONE. HOB UP. CONT CURRENT POC.
[2016-10-28 06:09] LABS: HEMOGLOBIN 7.8 g/dL (13.5-17.5); MCH 28.9 pg (26.0-34.0); MCHC 32.5 g/dL (31.0-37.0); MCV 88.9 fL (80.0-100.0); MEAN PLATELET VOLUME 10.6 fL (7.4-10.4); RBC 2.7 10x6/uL (4.20-6.10); RDW 15.1 % (11.5-14.5); WBC 15.3 10x3/uL (4.8-10.8)
[2016-10-28 06:30] LABS: ALBUMIN 2.7 g/dL (3.4-5.0); ANION GAP 13.6 mmol/L (8-16); BILIRUBIN - TOTAL 0.65 mg/dL (0.2-1.3); CARBON DIOXIDE 26.3 mmol/L (21.0-32.0); PROTEIN - SERUM 5.8 g/dL (6.4-8.2)
[2016-10-28 06:31] LABS: POTASSIUM - SERUM 4.9 mmol/L (3.5-5.1)
--- NOTE | 2016-10-28 08:18 | NUR ---
ORAL CARE DONE WITH PERIDEX
--- NOTE | 2016-10-28 08:26 | NUR ---
0715-RECIEVED PER FLOW SHEET-NOTED O2 SAT 88-MICROGRAPHICS SERVICES SUPERVISOR INCREASED TO 5L-CLEVIPREX DECREASED TO 8MG/MIN-ABP-138/42-RT NOTIFIED OF NEED FOR OXIMYZER-PT AWAKE AND ALERT NO AIR LEAK TO MEDIASTINAL CHEST TUBES-20CM SUCTION AND SCANT DRAINAGE 0745-CHNAGED TO OXYMIZER 7L-O2 SAT INCREASED TO 94%-CLEVIPREX TITRATED TO 10MG FOR PARAMETER SYS<140-KBRN
--- NOTE | 2016-10-28 10:16 | NUR ---
RENAL AT BEDSIDE-ORDERS RECIEVED -DIALYSIS PLANNED-SIX SIGMA BLACK TRAINER NURSE NOTIFIED-CARLOS
--- NOTE | 2016-10-28 15:52 | NUR ---
1400-DIALYSIS COMPLETED-PT AWAKE AND ALERT-O2 TITRATED DOWN TO 5L OXIMYZER-VANC RANDOM LEVEL DRAWN-DRESSING TO CHEST TUBES DONE-PACER WIRES INTACT--PER PROTOCOL-CONT TO TITRATE CLEVIPREX PER PARAMETERS
--- NOTE | 2016-10-28 19:04 | NUR ---
ORAL CARE PERFORMED WITH PERIDEX ORDERED
--- NOTE | 2016-10-28 19:30 | NUR ---
REPORT RECVD. CARE ASSUMED. INITIAL ASSMNT COMPLETED. SEE FLOWSHEET FOR ALL FINDINGS. SLEEPY, AROUSES TO VOICE EASILY. FOLLOWS COMMANDS. PERRLA. LUNGS CTA, DIM IN BASES. SPO2 96% ON O2 AT 3LPM NC. V PACED ON THE MONITOR. RATE 86. ATRIAL SENSING. TEMP PM DDD 60 INTACT. STERNAL DRESSING CDI. PULSES PALP. RIGHT RADIAL A-LINE ZEROED AND BALANCED. GOOD WAVE FORM SEEN. SYS B/P WITHIN PARAMETERS. CLEVIPREX GTT TITRATION IN USE. RIGHT IJ SWAN LOCKED, PATENT, AND SECURED. CARDIAC MONITORING PER VIGILENCE WITHIN PARAMETERS. LEFT NECK INCISIONAL DRESSING CDI. NO EDEMA SEEN. CHEST TUBES X2 PATENT AND SECURED TO 20 SM SX. MINIMAL BLOODY DRNG SEEN. NO AIR LEAK NOTED. ABD SOFT WITH BSA X4. LEFT ARM FISTULA INTACT WITH POSITIVE BRUIT/THRILL. F/C PATENT TO CRITICORE. MINIMAL UOP NOTED. AFEBRILE. TURNED AND REPOSITIONED. EDUCATION PROFESSOR MORPHINE IN USE FOR PAIN CONTROL. HOB UP. 1:[address]
--- NOTE | 2016-10-28 21:02 | NUR ---
HS MEDS GIVEN. TURNED AND REPOSITIONED. VSS. CLEVIPREX GTT TITRATION IN PROGRESS FOR SYS B/P PARAMETERS. COMPOSITE WORKER MORPHINE PROVIDING EFFECTIVE PAIN CONTROL. NO VISITORS AT THIS TIME. HOB UP. CONT CURRENT POC.
--- NOTE | 2016-10-28 23:30 | NUR ---
REASSESSMENT COMPLETED. SEE FLOWSHEET FOR ALL FINDINGS. SLEEPY, AROUSES TO VOICE EASILY. FOLLOWS COMMANDS. PERRLA. LUNGS CTA, DIM IN BASES. SPO2 96% ON O2 AT 4LPM NC. V PACED ON THE MONITOR. RATE 86. ATRIAL SENSING. TEMP PM DDD 60 INTACT. STERNAL DRESSING CDI. PULSES PALP. RIGHT RADIAL A-LINE INTACT WITH GOOD WAVE FORM SEEN. SYS B/P WITHIN PARAMETERS. CLEVIPREX GTT IN USE. RIGHT IJ SWAN LOCKED, PATENT, AND SECURED. CARDIAC MONITORING PER VIGILENC WITHIN PARAMETERS. LEFT NECK INCISIONAL DRESSING CDI. NO EDEMA SEEN. CHEST TUBES X2 PATENT AND SECURED TO 20 SM SX. MINIMAL BLOODY DRNG SEEN. NO AIR LEAK NOTED. ABD SOFT WITH BSA X4. LEFT ARM FISTULA INTACT WITH POSITIVE BRUIT/THRILL. F/C PATENT TO CRITICORE. MINIMAL UOP NOTED. AFEBRILE. TURNED AND REPOSITIONED. BIAS BINDING FOLDER MORPHINE IN USE FOR PAIN CONTROL. HOB UP. 1:[address] CONT CURRENT POC.
[2016-10-29] VITALS (54 sets, daily range): BP systolic 90–145; BP diastolic 38–73
--- NOTE | 2016-10-29 01:06 | NUR ---
TURNED AND REPOSITIONED. NO SIG CHANGES. RESTFUL. DENIES NEEDS. VSS. REMAINS IN 1:1 NURSE MONITORING. CONT CURRENT POC.
--- NOTE | 2016-10-29 03:30 | NUR ---
REASSESSMENT COMPLETED. SEE FLOWSHEET FOR ALL FINDINGS. SLEEPY, AROUSES TO VOICE EASILY. FOLLOWS COMMANDS. PERRLA. LUNGS CTA, DIM IN BASES. SPO2 96% ON O2 AT 4LPM NC. V PACED ON THE MONITOR. RATE 86. ATRIAL SENSING. TEMP PM DDD 60 INTACT. STERNAL DRESSING CDI. PULSES PALP. RIGHT RADIAL A-LINE INTACT WITH GOOD WAVE FORM SEEN. SYS B/P WITHIN PARAMETERS. CLEVIPREX GTT IN USE. RIGHT IJ SWAN LOCKED, PATENT, AND SECURED. CARDIAC MONITORING PER VIGILENC WITHIN PARAMETERS. LEFT NECK INCISIONAL DRESSING CDI. NO EDEMA SEEN. CHEST TUBES X2 PATENT AND SECURED TO 20 SM SX. MINIMAL BLOODY DRNG SEEN. NO AIR LEAK NOTED. ABD SOFT WITH BSA X4. LEFT ARM FISTULA INTACT WITH POSITIVE BRUIT/THRILL. F/C PATENT TO CRITICORE. MINIMAL UOP NOTED. AFEBRILE. TURNED AND REPOSITIONED. GROUP TEACHER MORPHINE IN USE FOR PAIN CONTROL. HOB UP. 1:[address] CONT CURRENT POC.
--- NOTE | 2016-10-29 05:29 | NUR ---
TURNED AND REPOSITIONED. VSS. CLEVIPREX GTT TITRATION IN USE FOR HTN. QUALITY ASSURANCE INTERN MORPHINE PROVIDING PAIN CONTROL. HOB UP. CONT CURRENT POC.
--- NOTE | 2016-10-29 06:00 | NUR ---
DPOKE WITH VIA PHONE. UPDATE GIVEN.
[2016-10-29 06:04] LABS: MCH 28.4 pg (26.0-34.0); MCHC 32.3 g/dL (31.0-37.0); MCV 87.7 fL (80.0-100.0); MEAN PLATELET VOLUME 10.1 fL (7.4-10.4); RDW 16.7 % (11.5-14.5); WBC 13.4 10x3/uL (4.8-10.8)
[2016-10-29 06:06] LABS: HEMOGLOBIN 9.7 g/dL (13.5-17.5); RBC 3.42 10x6/uL (4.20-6.10)
--- NOTE | 2016-10-29 06:20 | NUR ---
DR DE LA O AT BEDSIDE. SPEAKING AND EXAMINING PT WITH CHART REVIEW.
[2016-10-29 06:24] LABS: ALBUMIN 2.7 g/dL (3.4-5.0); ANION GAP 14.1 mmol/L (8-16); BILIRUBIN - TOTAL 0.8 mg/dL (0.2-1.3); CALCIUM 8.6 mg/dL (8.5-10.1); CARBON DIOXIDE 27.3 mmol/L (21.0-32.0); CREATININE - SERUM 5.6 mg/dL (0.6-1.3); POTASSIUM - SERUM 4.4 mmol/L (3.5-5.1); PROTEIN - SERUM 6.2 g/dL (6.4-8.2)
--- NOTE | 2016-10-29 07:09 | NUR ---
ORAL CARE DONE WITH PERIDEX
--- NOTE | 2016-10-29 07:30 | NUR ---
REPORT RECEIVED. ASSUMED CARE OF PATIENT. SHIFT ASSESSMENT COMPLETE. PT IS ALERT AND ORIENTED, BUT DOES GO TO SLEEP WHEN NOT STIMULATED BY CONVERSATION. MIDSTERNAL DRESSING INTACT. PT HAS DRESSING TO LEFT UPPER CHEST THAT IS CLEAN, DRY AND INTACT. HAS DRESSING TO LEFT NECK THAT IS MOSTLY INTACT. SWAN JUSTINA LINE TO RIGHT NECK, DRESSING INTACT. 1/2 NS INFUSING. RIGHT SUBCLAVIAN CENTRAL LINE, DRESSING INTACT. INSULIN DRIP AT 1 UNIT/HR, CELVIPREX AT 6MCG/HR, AND BURETROL WITH NS AT 10 AND [place] COMPTROLLER 1MG/Q10MIN INFUSING. PT HAS 2 CHEST TUBES WITH DRESSING INTACT SET AT 20CM SUCTION. RIGHT RADIAL ART LINE INTACT. TEMPORARY PACEMAKER IN USE, DRESSING INTACT. SETTINGS DDD 60/10/10 A-SENSING, V-PACING. RATE IN 80'S. PT HAS LEFT AV FISTULA, BRUIT AND THRILL NOTED. CRITICORE REYNA IN USE, TEMP READING OF 37.6. PT HAS ON JANET'S AND SCD'S. POSTERIOR TIBIAL PULSES PALPABLE. NO EDEMA NOTED. PT IS ON 4L NC WITH SAT'S OF 93%.
--- NOTE | 2016-10-29 09:25 | NUR ---
NUTRITION MONITORING & EVAL CHART REVIEWED. REMAINS IN CVICU, HD, RENAL ADA DIET. WILL CONTINUE TO PROVIDE CURRENT DIET. HONOR FOOD PREFERENCES ALLOWED BY DIET RESTRICTIONS. RD FOLLOWING
--- NOTE | 2016-10-29 09:30 | NUR ---
SWAN JUSTINA LINE PULLED. RIGHT RADIAL ART LINE PULLED. DRESSINGS APPLIED TO BOTH SITES. NO BLEEDING NOTED.
--- NOTE | 2016-10-29 12:00 | NUR ---
LUNCH TIME MEDICATIONS GIVEN. PT REFUSING LUNCH TRAY. CALL LIGHT IN REACH.
--- NOTE | 2016-10-29 12:07 | NUR ---
REYNA REMOVED, TIP INTACT.
--- NOTE | 2016-10-29 13:44 | NUR ---
* Is the patient Alert and Oriented? Yes 0 * How many steps to enter\exit or inside your home? 2 0 * PCP Dr. Mejia 0 * Pharmacy [place] [facility] 0 * Preadmission Environment Home with Family 0 * ADLs Independent 0 * List name and contact numbers for known caregivers / representatives who currently or will assist patient after discharge: Spouse - Ava [phone] Sister in Law - Idalmis [phone] 0 * Additional services required to return to the preadmission environment? No 0 * Can the patient safely return to the preadmission environment? Yes 0 * Has this patient been hospitalized within the prior 30 days at any hospital? No 10/29/2016 13:33 DCP: Discharge Planning Patient Name: TABATHA GODFREY Admission Status: Elective Accout number: [id number] Admission Date: 10-25-2016 : 1950 Admission Diagnosis:OCCLUSION AND STENOSIS OF BILATERAL CAROTID ARTERIES Attending: SAMUEL Current LOS: 4 Anticipated DC Date: 11-02-2016 Planned Disposition: Home Primary Insurance: MEDICARE A & B Discharge Planning Comments: CM met with patient to assess dc plans/needs. Patient states he lives at home with his , Ava. He reports he was independent with all ADL's & IADL's prior to admission, not requiring any assistive devices for mobility. He states he has had home health services in the past but is unable to recall agency. He goes to dialysis @ [facility] on MWF @ 1100. At dc, he will return home with his . He is agreeable to home health services if necessary. CM will follow. Home Visitor: Yeny Howard
--- NOTE | 2016-10-29 14:00 | NUR ---
PT UP IN CHAIR WITH ASSIST FROM PHYSICAL THERAPY.
--- NOTE | 2016-10-29 14:19 | NUR ---
PT UP IN CHAIR AT BEDSIDE. NO DISTRESS NOTED. PT SLEEPING IN CHAIR. O2 VIA NC AT 4L. PT OFFERED LUNCH TRAY AGAIN ONCE HE WAS SET UP IN CHAIR, AGAIN REFUSED. SAYS HE WOULD WAIT UNTIL DINNER. LEGS ELEVATED, CALL LIGHT IN REACH.
--- NOTE | 2016-10-29 14:28 | NUR ---
SPOKE WITH MARIA ISABEL BERTRAND REGARDING PATIENT RENAL MEDICATIONS. SHE WILL REVIEW HIS LIST AND RESTART WHAT IS APPROPRIATE.
--- NOTE | 2016-10-29 14:47 | NUR ---
NO VANC LEVEL DRAWN TODAY DUE TO NO HD. WILL HAVE HD TOMORROW. ORDER IN FOR VANC LEVEL FOR AM 10/30/16
--- NOTE | 2016-10-29 15:00 | NUR ---
AT BEDSIDE FOR 3PM VISITATION. PT STILL UP IN CHAIR. DENIES NEEDS. NO DISTRESS NOTED.
--- NOTE | 2016-10-29 15:02 | TEE ---
PATIENT:TABATHA GODFREY MEDICAL RECORD: [id number] LOCATION:[place] [address] AGE OF PATIENT: 66 ADMISSION DATE: 10/25/16 SEX: M REFERRING PHYSICIAN: INTERPRETING PHYSICIAN: TIARRA RAE MD TRANSESOPHAGEAL ECHOCARDIOGRAM CHARITY CHARGE Y INDICATIONS: AORTIC VALVE REPLACEMENT PREMEDICATIONS: PATIENT'S RESPONSE PROCEDURE DOPPLER MEASUREMENTS: LVIT LA PA RA LVOT RVOT Asc. Ao AV Gradient Peak AV Mean AV Area MV Gradient Peak MV Mean MV Area INTERPRETATION: Doppler: 2-D: EF 50% WITH SEVERE AORTIC STEONOSIS COLOR FLOW DOPPLER MILD/MODERATE AR/TRACE OF MR/TR NORMAL SALINE STUDY: MISCELLANOUS: DIAGNOSIS: PLAN: Nuclear Plant Equipment Operator:1 Dr. Rae Ecology Teacher: Jackie DUNCAN COMMENTS: CARMINA PATIENT DATE OF SERVICE: 10/26/2016 Transesophageal echo evaluation of valvular structures during aortic valve replacement. FINDINGS: 1. Left ventricular chamber size is within normal limits. Left ventricular systolic function is normal. Overall ejection fraction estimated at 60%. 2. Left atrium, right atrium, and right ventricle chamber sizes are within TRANSESOPHAGEAL ECHOCARDIOGRAM REPORT [id number] TABATHA GODFREY normal limits. 3. Valvular structures: Aortic valve demonstrates severe calcific aortic stenosis; however, this is not a new finding. The patient is scheduled for aortic valve replacement. The remaining valvular structures have normal structure and motion. 4. Doppler interrogation elsewise other than the aortic stenosis reveals moderate aortic insufficiency, trace to mild mitral regurgitation, trace mild tricuspid regurgitation, no other valvular insufficiency or stenosis. TRANSINT:[id number] Voice Confirmation ID: [id number] DOCUMENT ID: [id number] at 1502 CC: [id number] DICTATION DATE: 10/26/16 1509 CIGARETTE MAKING MACHINE CATCHER: 10/27/16 0340 ADM IN [place] [id number] [place] [address]
--- NOTE | 2016-10-29 17:30 | NUR ---
PT UP IN CHAIR. DECLINED DINNER TRAY. ASKED FOR JELLO INSTEAD. JELLO PROVIDED. DINNER TIME MEDICATIONS GIVEN. 4UNITS REGULAR INSULIN GIVEN FOR BLOOD SUGAR OF 197. PT NOW SLEEPING AT THIS TIME. VSS.
--- NOTE | 2016-10-29 18:00 | NUR ---
AND SISTER IN LAW AT BEDSIDE FOR 6PM VISITATION. PT STILL IN CHAIR AT BEDSIDE.
--- NOTE | 2016-10-29 18:07 | NUR ---
ORAL CARE PERFORMED WITH PERIDEX ORDERED
--- NOTE | 2016-10-29 19:00 | NUR ---
Assessment complete. See flowsheet. Pt awake and sitting in bedside chair watching television upon entrance into room. Pt alert, oriented to person, place, time and situation and following all conversation. Pt very soft spoken. Pupils size 3 bilaterally ERRLA. Pt moving all extremities with 4/5 strength noted. No edema noted. SCDs and JANET hoses secure to lower extremities. Pt respirations unlabored and receiving O2 @ 3L NC with SPO2 99%. Lung sounds clear to all felder. IS encouraged and performed with 1500ml consistently reached and no cough triggered. HR CAF with S1S2 auscultated. All peripheral pulses +2 with capillary refill <3 seconds. Right DLSC CVL site CDI no s/s infection; saline locked. Left forearm fistula site CDI thrill palpated/bruit auscultated. Midsternal incision site dressing CDI; secure with no s/s infection or drainage noted. Substernal dressing site from previous chest tubes CDI with TPM wires visualized and secure under dressing. TPM set VVI Rate 50 VMA 10 and sensing currently. Abdomen soft and slightly distended with BS present to all quadrants. Nausea denied. Abdomen tympanic to percussion. Urinal within pt reach. Pt provided with applesauce and sugar free Jell-O per request. Temp 97.4. Warm blanket provided per pt request. Pain denied. Pt continues to sit in bedside chair with call light and bedside table within reach. CPOC.
--- NOTE | 2016-10-29 20:00 | NUR ---
Pt helped back to bed to position for comfort on back with HOB @ 30 degrees with arms and heels bridged. VSS. Pt denies pain and ambulates with moderate assistance. Reevaluation of extremity strength yields 3/5 to all limbs. Warm blanket provided. Call light and bedside table placed within pt reach. CPOC.
--- NOTE | 2016-10-29 20:38 | NUR ---
Cotopaxi-10mg 1 tab administered for pt c/o pain to midsternal incision site. See MAR. BP 89/41; Procardia XL and Hydralazine held. See MAR.
--- NOTE | 2016-10-29 22:00 | NUR ---
Pt resting quietly with VSS. NO s/s pain or distress.
--- NOTE | 2016-10-29 23:00 | NUR ---
Reassessment complete. See flowsheet. Pt resting quietly, self-positioned to right side with VSS. Pt awakens to verbal stimulation with no neuro deficits noted. O2 remains @ 3L NC. SPO2 96%. Lung sounds remain clear to all felder with diminished lower lobes. HR CAF with S1S2 auscultated. All peripheral pulses remain +2 with capillary refill < 3 seconds. CVL site CDI; saline locked. Left carotid incision site CDI; unchanged. All dressing sites remain CDI; unchanged from previous assessment. TPM wires remain secure with no setting changes to note. BS +. Fistula site unchanged. Pt denies pain or further needs at this time. Call light and bedside table remain within pt reach. CPOC.
[2016-10-30] VITALS (22 sets, daily range): BP systolic 93–132; BP diastolic 40–66
--- NOTE | 2016-10-30 01:00 | NUR ---
Pt positioned to back with arms and heels bridged and resting with no s/s pain or distress. VSS. Pt allowed to continue resting undisturbed. Call light and bedside table remain within reach. CPOC.
--- NOTE | 2016-10-30 03:00 | NUR ---
Reassessment complete. See flowsheet. Pt resting quietly, self-positioned to back with VSS. Pt awakens to verbal stimulation with no neuro deficits noted. O2 remains @ 3L NC. SPO2 97%. Lung sounds remain clear to all felder with diminished lower lobes. HR CAF with S1S2 auscultated. All peripheral pulses remain +2 with capillary refill <3 seconds. CVL site CDI; saline locked. Left carotid incision site CDI; unchanged. All dressing sites remain CDI; unchanged from previous assessment. TPM wires remain secure with no setting changes to note. BS +. Fistula site unchanged. Pt denies pain or further needs at this time. Call light and bedside table remain within pt reach. CPOC.
--- NOTE | 2016-10-30 04:25 | NUR ---
Pt to radiology on telemetry and back. Moderate assistance needed for ambulation. Pt tolerated well. Afterwards, pt back to bed per request. Linen change completed. VSS. Call light and bedside table within pt reach. CPOC.
--- NOTE | 2016-10-30 05:00 | NUR ---
Pt sleeping with VSS. No s/s pain or distress. Call light and bedside table remain within pt reach. CPOC.
[2016-10-30 06:16] LABS: HEMATOCRIT 28.8 % (42.0-54.0); HEMOGLOBIN 9.3 g/dL (13.5-17.5); MCH 28.3 pg (26.0-34.0); MCHC 32.3 g/dL (31.0-37.0); MCV 87.5 fL (80.0-100.0); MEAN PLATELET VOLUME 10.7 fL (7.4-10.4); RBC 3.29 10x6/uL (4.20-6.10); RDW 16.3 % (11.5-14.5); WBC 12.3 10x3/uL (4.8-10.8)
--- NOTE | 2016-10-30 07:15 | NUR ---
SHIFT REPORT COMPLETE. ASSUMED CARE OF PATIENT. DR DE LA O HAS BEEN BY TO SEE PATIENT THIS MORNING. PLAN FOR DIALYSIS TODAY.
[2016-10-30 07:36] LABS: ALBUMIN 2.5 g/dL (3.4-5.0); ANION GAP 17.8 mmol/L (8-16); BILIRUBIN - TOTAL 0.7 mg/dL (0.2-1.3); CALCIUM 8.4 mg/dL (8.5-10.1); CARBON DIOXIDE 24.8 mmol/L (21.0-32.0); CREATININE - SERUM 6.6 mg/dL (0.6-1.3); POTASSIUM - SERUM 4.6 mmol/L (3.5-5.1); PROTEIN - SERUM 6.2 g/dL (6.4-8.2); VANCOMYCIN - RANDOM 16.3 ug/mL (10.0-20.0)
--- NOTE | 2016-10-30 07:50 | NUR ---
ORAL CARE DONE WITH PERIDEX
--- NOTE | 2016-10-30 08:00 | NUR ---
PT ASSISTED UP FROM BED TO CHAIR. MINIMAL ASSIST, BUT IS WEAK AND SLOW. BREAKFAST TRAY PROVIDED. SISTER IN LAW AT BEDSIDE AT THIS TIME.
--- NOTE | 2016-10-30 08:55 | NUR ---
PT ASSISTED FROM CHAIR TO BATHROOM. MODERATE ASSIST. ASKED FOR A WALKER, EXPLAINED HE COULD NOT USE WALK FOR RISK OF OPENING UP CHEST INCISION. URINATED ONLY. ASSISTED BACK TO CHAIR. DID NOT LIKE WHAT WAS ON HIS BREAKFAST TRAY. ASKED FOR SOME CREAM OF WHEAT. ORDER ENTERED.
--- NOTE | 2016-10-30 09:17 | NUR ---
LAB DRAWN FOR HEPATITIS SCREENING. SENT TO LAB ON ICE LISTED ON LABEL FROM LAB.
--- NOTE | 2016-10-30 09:59 | NUR ---
PHYSICAL THERAPIST HAS BEEN IN TO WALK PATIENT. PT WAS ABLE ONLY TO WALK FROM CHAIR TO DOOR AND BACK. WILL WALK AGAIN THIS AFTERNOON.
--- NOTE | 2016-10-30 10:15 | NUR ---
PT HAS EATEN JUST A FEW BITES OF CREAM OF WHEAT
--- NOTE | 2016-10-30 10:19 | NUR ---
DIALYSIS NURSE AIXA CALLED TO SAY HE WOULD BE AT [facility] AROUND 13:30 TO DIALYZE PATIENT.
--- NOTE | 2016-10-30 12:15 | NUR ---
PT IN CHAIR AT BEDSIDE. LUNCH TRAY HAS BEEN PROVIDED. HAS CONSUMED APPLE SAUCE AND A COUPLE OF BITES FROM A ROLL.
--- NOTE | 2016-10-30 13:15 | NUR ---
PT ASSISTED TO TOILET. ATTEMPTED TO HAVE A BOWEL MOVEMENT. NO MOVEMENT AT THIS TIME.
--- NOTE | 2016-10-30 13:26 | NUR ---
Dialysis Coordinator: [facility]: [facility] Mon/Sat/Sat 2nd shift. MARU BOATENG.
--- NOTE | 2016-10-30 14:00 | NUR ---
DIALYSIS NURSE AIXA AT BEDSIDE SETTING UP EQUIPMENT AT THIS TIME.
--- NOTE | 2016-10-30 15:10 | NUR ---
CAME BY FOR 3PM VISITATION. SPENT A COUPLE OF MINUTES AT BEDSIDE, BUT SINCE PT ON DIALYSIS SHE WILL COME BACK AGAIN AT 6PM VISITATION.
--- NOTE | 2016-10-30 16:54 | NUR ---
PT RESTING IN BED. CURRENTLY ON DIALYSIS. NO DISTRESS NOTED. VSS. WATCHING TELEVISION.
--- NOTE | 2016-10-30 18:07 | NUR ---
Mr. Bennett had bedside hemodialysis today via his left upper arm av fistula. Average blood flow was 300 mls/minute. Net fluid removed was 3000 mls. Post vital signs were: B/P: 122/53, HR: 87, Temp: 97.5, Resps: 14. No problems.
--- NOTE | 2016-10-30 18:34 | NUR ---
DIALYSIS COMPLETE. PT ASSISTED UP TO TOILET. HAS HAD SMALL AMOUNT OF STOOL MOVED, NOTICEABLE MUCUS IN BASIN WELL. PT IS PASSING GAS. IS NOW AT BEDSIDE. PT IS EATING DINNER.
--- NOTE | 2016-10-30 18:45 | NUR ---
ORAL CARE DONE
--- NOTE | 2016-10-30 19:00 | NUR ---
REPORT RECEIVED AND ASSESSMENT COMPLETED. SEE FLOWSHEET FOR FULL DETAILS. PT HAD DIALYSIS TODAY [facility] PERFORMED AFTERWARDS SHOED 3.6 POTASSIUM. WILL NOT TREAT PER DR GREWAL. VANC TROUGH SHOWED 14.7 VANC GIVEN PER ORDERS. PT HAS TPM. VVI 50 VMA 10. SENSING AT THE MOMENT WITH PATIENT IN CONTROLLED A FIB. WILL CONTINUE TO MONITOR THROUGHOUT SHIFT.
--- NOTE | 2016-10-30 19:12 | NUR ---
[facility]'S RUN. DR GREWAL CALLED AND NOTIFIED. DOES NOT WANT POTASSIUM TREATED. PT IS RENAL.
--- NOTE | 2016-10-30 21:00 | NUR ---
2100 MEDS GIVEN B/P 105/45. NO OTHER CHANGES AT THIS TIME. VSS WILL COTNINUE TO MONITOR THROUGHOUT SHIFT
--- NOTE | 2016-10-30 23:09 | NUR ---
REASSESSMENT COMPLETED. SEE FLOWSHEET FOR FULL DETAILS. VSS. WILL CONTINUE TO MONITOR. NO OTHER CHANGES IN STATUS AT THIS TIME.
[2016-10-31] VITALS (24 sets, daily range): BP systolic 90–122; BP diastolic 39–55
--- NOTE | 2016-10-31 01:00 | NUR ---
NO CHANGES IN STATUS AT THIS TIME. VSS. WILL CONTINUE TO MONITOR.
--- NOTE | 2016-10-31 03:22 | NUR ---
REASSESSMENT COMPLETED. SEE FLOWSHEET FOR FULL DETAILS. NO OTHER CHANGES IN STATUS AT THIS TIME. PT RESTING IN ROOM WATCHING TV. BED IN LOW POSITION SIDE RAILS UP X 2.
--- NOTE | 2016-10-31 05:10 | NUR ---
ACCOMPANIED PT TO RADIOLOGY FOR PA AND LAT. RETURNED TO ROOM. PARTIAL BED BATH GIVEN. NO OTHER CHANGES IN STATUS. WILL CONTINUE TO MONITOR
[2016-10-31 06:05] LABS: BASOPHILS 0.2 % (0-2); EOSINOPHILS 2.3 % (0-7); HEMOGLOBIN 9.7 g/dL (13.5-17.5); IMMATURE GRANULOCYTES 0.8 % (0-5); LYMPHOCYTES 3.9 % (15-50); MCH 28.4 pg (26.0-34.0); MCHC 32.3 g/dL (31.0-37.0); MEAN PLATELET VOLUME 10.7 fL (7.4-10.4); MONOCYTES 15.7 % (2-11); NEUTROPHILS 77.1 % (40-80); PLATELET COUNT 189 10x3/uL (130-400); RBC 3.41 10x6/uL (4.20-6.10); WBC 11.8 10x3/uL (4.8-10.8)
[2016-10-31 06:55] LABS: ALBUMIN 2.6 g/dL (3.4-5.0); ANION GAP 20.2 mmol/L (8-16); BILIRUBIN - TOTAL 0.9 mg/dL (0.2-1.3); CALCIUM 8.6 mg/dL (8.5-10.1); CARBON DIOXIDE 23.8 mmol/L (21.0-32.0); CREATININE - SERUM 5.6 mg/dL (0.6-1.3); PHOSPHOROUS 8.3 mg/dL (2.5-4.9); PROTEIN - SERUM 6.5 g/dL (6.4-8.2); VANCOMYCIN - RANDOM 33.3 ug/mL (10.0-20.0)
--- NOTE | 2016-10-31 07:15 | NUR ---
REPORT RECIEVED FROM COST AND SALES RECORD SUPERVISOR NURSE. PT RESTING IN BED QUIELTLY. NO S/SX OF ACUTE DISTRESS NOTED AT THIS TIME. VSS. AAO X4. PERRLA. RECIEVING O2 AT 2LNC. TPM AT VVI 50/VMA 10. V-SENSING ONLY. MIDSTERNAL INCISION DRESSING C/D/I. SUBSTERNAL DRESSING INTACT FROM PREV CT SITES AND TPM WIRE LOCATION. WIRES INTACT UNDERNEATH DRESSING. LEFT CAROTID INCISION OPEN TO AIR. NO TRACHEAL DEVIATION NOTED. PPP AND EQUAL BILATERALLY. TEDS AND SCDS IN PLACE. PT DENIES PAIN OR NEEDS AT THIS TIME. FULL ASSESSMENT COMPLETE PER FLOWSHEET. REFER FOR DETAILS. WILL CONTINUE PLAN OF CARE. CALL LIGHT IN REACH. BED IN LOW POSITION.
--- NOTE | 2016-10-31 09:00 | NUR ---
MORNING MEDICATIONS GIVEN PER EMAR. DENIES NEEDS. NO ACUTE S/SX OF DISTRESS. WILL CONT TO MONITOR.
--- NOTE | 2016-10-31 10:28 | NUR ---
NUTRITION MONITORING & EVAL CHART REVIEWED, NURSING REPORTS PT WITH ~ 25% INTAKE BREAKFAST. WILL CONTINUE TO PROVIDE RENAL ADA DIET, MONITOR PO INTAKE. RD FOLLOWING
--- NOTE | 2016-10-31 11:00 | NUR ---
REASSESSMENT COMPLETE PER FLOWSHEET. NO CHANGES NOTED AT THIS TIME. WILL CONT TO ASSESS FOR CHANGES.
--- NOTE | 2016-10-31 12:00 | NUR ---
ASSISTED TO BATHROOM. VOIDED 300CC OF PACHECO COLORED URINE. ASSISTED BACK TO RECLINER. DENIES NEEDS AT THIS TIME. STATED HE WAS COLD. WARM BLANKET PROVIDED. CALL LIGHT IN REACH.
[2016-10-31 12:16] LABS: HEPATITIS C ANTIBODY 0.2 (0.0-0.9)
--- NOTE | 2016-10-31 14:00 | NUR ---
ASSISTED WITH IS. PULLED 2000ML WITH NO COUGH TRIGGERED. X10. WILL CONT TO ENCOURAGE.
--- NOTE | 2016-10-31 15:00 | NUR ---
AT BEDSIDE. UPDATE PROVIDED.
--- NOTE | 2016-10-31 17:49 | NUR ---
AT BEDSIDE. EVENING MEDICATIONS ADMNISTERED PER EMAR. CURRENTLY EATING DINNER. DENIES FURTHER NEEDS. CALL LIGHT IN REACH.
--- NOTE | 2016-10-31 19:00 | NUR ---
REPORT RECEIVED AND ASSESSMENT COMPLETED. SEE FLOWSHEET FOR FULL DETAILS. PT STILL WEAK THOUGH ABLE TO AMBULATE WITH ASSISTANCE. STILL IN UNCONTROLLED AFIB. WILL MONITOR FOR CHANGES THROUGHOUT SHIFT.
--- NOTE | 2016-10-31 19:11 | NUR ---
ORAL CARE DONE
--- NOTE | 2016-10-31 21:00 | NUR ---
2100 MEDS GIVEN. FSBS 189. 4 UNITS HUMULIN GIVEN PER SLIDING SCALE NO OTHER CHANGES AT THIS TIME
--- NOTE | 2016-10-31 23:00 | NUR ---
REASSESSMENT COMPLETED. SEE FLOWSHEET FOR FULL DETAILS. PT HAS HAD NO CHANGES IN STATUS AT THIS TIME. VSS. PT HAS HAD TROUBLE FALLING ASLEEP THOUGH HAS MANAGED TO DRIFT OFF AT THIS TIME. WILL CONTINUE TO MONITOR FOR CHANGES
[2016-11-01] VITALS (25 sets, daily range): BP systolic 101–142; BP diastolic 37–53
--- NOTE | 2016-11-01 01:00 | NUR ---
NO CHANGES IN STATUS AT THIS TIME. WILL CONTINUE TO MONITOR
--- NOTE | 2016-11-01 03:00 | NUR ---
REASSESSMENT COMPLETED. SEE FLOWSHEET FOR FULL DETAILS. PT THROWS OCCASIONAL PAC. NO OTHER CHANGES NOTED AT THIS TIME. VSS. WILL CONTINUE TO MONITOR.
--- NOTE | 2016-11-01 03:06 | NUR ---
REASSESSMENT COMPLETED. SEE FLOWSHEET FOR FULL DETAILS. NO OTHER CHANGES IN STATUS AT THIS TIME. VSS WILL MONITOR.
--- NOTE | 2016-11-01 05:10 | NUR ---
PT HAS BEEN TO RADIOLOGY FOR PA AND LATERAL. SLEEPING IN ROOM AT THIS TIME. NO OTHER CHANGES IN STATUS VSS. I&O AND WEIGHT COLLECTED. WILL MONITOR.
[2016-11-01 05:28] LABS: BASOPHILS 0.2 % (0-2); EOSINOPHILS 3.2 % (0-7); HEMATOCRIT 27.4 % (42.0-54.0); HEMOGLOBIN 8.8 g/dL (13.5-17.5); IMMATURE GRANULOCYTES 0.7 % (0-5); LYMPHOCYTES 5.6 % (15-50); MCHC 32.1 g/dL (31.0-37.0); MCV 87.3 fL (80.0-100.0); MEAN PLATELET VOLUME 10.3 fL (7.4-10.4); MONOCYTES 15.6 % (2-11); NEUTROPHILS 74.7 % (40-80); PLATELET COUNT 196 10x3/uL (130-400); RBC 3.14 10x6/uL (4.20-6.10); RDW 16.2 % (11.5-14.5); WBC 10.1 10x3/uL (4.8-10.8)
[2016-11-01 05:47] LABS: ANION GAP 18.9 mmol/L (8-16); CALCIUM 8.5 mg/dL (8.5-10.1); CARBON DIOXIDE 24.8 mmol/L (21.0-32.0); CREATININE - SERUM 6.6 mg/dL (0.6-1.3); PHOSPHOROUS 9.1 mg/dL (2.5-4.9); POTASSIUM - SERUM 3.7 mmol/L (3.5-5.1); VANCOMYCIN - RANDOM 21.3 ug/mL (10.0-20.0)
--- NOTE | 2016-11-01 05:47 | NUR ---
ORAL CARE DONE
--- NOTE | 2016-11-01 07:15 | NUR ---
REPORT RECIEVED FROM DIGITAL COMMUNICATIONS MANAGER NURSE. PT RESTING IN BED QUIELTLY. NO S/SX OF ACUTE DISTRESS NOTED AT THIS TIME. VSS. AAO X4. PERRLA. RECIEVING O2 AT 1LNC. TPM AT VVI 30/VMA 10. V-SENSING ONLY. MIDSTERNAL INCISION DRESSING C/D/I. SUBSTERNAL DRESSING INTACT FROM PREV CT SITES AND TPM WIRE LOCATION. WIRES INTACT UNDERNEATH DRESSING. LEFT CAROTID INCISION OPEN TO AIR. NO TRACHEAL DEVIATION NOTED. PPP AND EQUAL BILATERALLY. TEDS AND SCDS IN PLACE. PT DENIES PAIN OR NEEDS AT THIS TIME. FULL ASSESSMENT COMPLETE PER FLOWSHEET. REFER FOR DETAILS. WILL CONTINUE PLAN OF CARE. CALL LIGHT IN REACH. BED IN LOW POSITION.
--- NOTE | 2016-11-01 08:30 | NUR ---
ASSISTED PT TO RECLINER FOR BREAKFAST. MINIMAL ASSIST REQUIRED. PT STILL WEAK AND REQUIRES ASSISTANCE FOR STABLILITY AND BALANCE. CALL LIGHT AND BREAKFAST TRAY PLACED IN REACH. FRESH ICE WATER PROVIDED. WILL CONT TO ASSESS.
--- NOTE | 2016-11-01 09:15 | NUR ---
AIXA, DIALYSIS NURSE AT BEDSIDE. STARTED DIALYSIS AND 902. WILL MONITOR THROUGHOUT TREATMENT FOR ANY CHANGES.
--- NOTE | 2016-11-01 11:45 | NUR ---
ABOUT 15 MIN LEFT OF DIALYSIS. NO ISSUES THROUGHOUT. VS REMAINED STABLE. PT RESTED IN BED QUIETLY WITH EYES CLOSED FOR MOST OF DIALYSIS.
--- NOTE | 2016-11-01 12:15 | NUR ---
COMPLETE WITH DIAYLSIS. ASKED PT IF HE WAS READY FOR LUNCH TRAY AND HE STATED HE WANTED TO TAKE A NAP.
--- NOTE | 2016-11-01 12:25 | NUR ---
Mr. Bennett had bedside hemodialysis today via his left upper arm av fistula from 0903 until 1203. Average blood flow was 350 mls/minute. Net fluid removed was 2000 mls. Post vital signs were: B/P: 118/51, HR: 85, Temp: 97.4, Resps: 18. No problems.
--- NOTE | 2016-11-01 13:30 | NUR ---
ASSISTED PT TO RECLINER FOR LUNCH. FRESH ICE WATER AND CALL LIGHT PLACED IN REACH.
--- NOTE | 2016-11-01 15:00 | NUR ---
AT BEDSIDE. UPDATE PROVIDED.
--- NOTE | 2016-11-01 17:00 | NUR ---
ASSISTED TO BSC. STATED HE HAD TO HAVE BM. NO BM NOTED WHEN ASSISTED BACK UP OFF COMMODE, BUT DID PASS A LOT OF GAS. ASSISTED BACK TO RECLINER.
--- NOTE | 2016-11-01 18:00 | NUR ---
FULL BATH AND LINEN CHANGE PROVIDED. HAIR WASHED. FRESH ICE WATER PLACED ON BEDSIDE TABLE. CALL LIGHT IN REACH.
--- NOTE | 2016-11-01 19:30 | NUR ---
SHIFT ASSESSMENT COMPLETED. SEE ASSESSMENT FLOWSHEET.
--- NOTE | 2016-11-01 19:40 | NUR ---
ORAL CARE DONE
--- NOTE | 2016-11-01 20:50 | NUR ---
2100 MEDS GIVEN. STILL REMAINS SITTING UP IN CHAIR. FLUSHED CENTRAL LINE WITH SALINE, BOTH LUMENS. DENIES TO GET UP YET AT THIS TIME. FSBS-196. INSULIN GIVEN PER ORDERS. REQUESTED HE CALL ELECTRICIAN TELEPHONE LIGHT WHEN READY TO GO TO BED OR WITH ANY NEEDS, VERBALIZED UNDERSTANDING.
--- NOTE | 2016-11-01 21:45 | NUR ---
assisted with ambulating back to bed from chair. Fresh cup of water given. Denies any other needs. Ambulated to sink after chair, then to bed. Will monitor.
--- NOTE | 2016-11-01 23:40 | NUR ---
THREAD CHECKER LIGHT. REPORTS BEING HOT. DIAPHORETIC. DENIED FEELING HYPOGYLCEMIC. REASSESSMENT COMPLETED. SEE ASSESSMENT FLOWSHEET. FAN IN ROOM TURNED ON. REPOSITIONED UP IN BED WITH ASSIST OF NURSING X2. APPLESAUCE GIVEN PER REQUEST. WILL MONITOR.
[2016-11-02] VITALS (16 sets, daily range): BP systolic 104–137; BP diastolic 32–77
--- NOTE | 2016-11-02 01:25 | NUR ---
WANTING A SNACK. MORE CRACKERS GIVEN. DENIES ANY NEEDS. WILL MONITOR.
--- NOTE | 2016-11-02 02:00 | NUR ---
REPOSITIONED B/P AND STARTED TAKING TO LLE. WILL MONITOR.
--- NOTE | 2016-11-02 03:40 | NUR ---
REASSESSMENT COMPLETED. SEE ASSESSMENT FLOWSHEET. INFORMED OF UPCOMING XRAY. BEGAN TO REMOVED MONITORING DEVICES.
--- NOTE | 2016-11-02 04:20 | NUR ---
SUBSTERNAL DRSG CHANGE COMPLETED PRESCRIBED. DENIES ANY NEEDS AT PRESENT. EMPTIED URINAL OF DARK, PACHECO URINE-50ML. WILL MONITOR.
--- NOTE | 2016-11-02 05:25 | NUR ---
PLACED O2 BACK IN NARES @ 1.5LPM/NC DUE O2 SATS 85% WHEN ASLEEP. BACK TO BASELINE AFTER O2 PLACED. WILL MONITOR.
[2016-11-02 06:13] LABS: BASOPHILS 0.2 % (0-2); EOSINOPHILS 1.6 % (0-7); HEMATOCRIT 30.3 % (42.0-54.0); HEMOGLOBIN 9.7 g/dL (13.5-17.5); IMMATURE GRANULOCYTES 0.7 % (0-5); LYMPHOCYTES 4.2 % (15-50); MCH 28.3 pg (26.0-34.0); MCV 88.3 fL (80.0-100.0); MEAN PLATELET VOLUME 10.4 fL (7.4-10.4); MONOCYTES 14.7 % (2-11); NEUTROPHILS 78.6 % (40-80); PLATELET COUNT 229 10x3/uL (130-400); RBC 3.43 10x6/uL (4.20-6.10); RDW 16.2 % (11.5-14.5); WBC 11.7 10x3/uL (4.8-10.8)
[2016-11-02 06:39] LABS: ANION GAP 14.1 mmol/L (8-16); CALCIUM 8.6 mg/dL (8.5-10.1); CARBON DIOXIDE 28.8 mmol/L (21.0-32.0); CREATININE - SERUM 5.2 mg/dL (0.6-1.3); POTASSIUM - SERUM 3.9 mmol/L (3.5-5.1); VANCOMYCIN - RANDOM 16.5 ug/mL (10.0-20.0)
--- NOTE | 2016-11-02 06:50 | NUR ---
PO 0600/0700 MEDS GIVEN. PULLED UP IN BED. VERY WEAK TO DO SO ON HIS OWN. WILL MONITOR.
[2016-11-02 06:57] LABS: PHOSPHOROUS 6.3 mg/dL (2.5-4.9)
--- NOTE | 2016-11-02 07:40 | NUR ---
UP TO CHAIR FOR BREAKFAST.
--- NOTE | 2016-11-02 10:40 | NUR ---
PACEMAKER WIRES DC'D PER DR. GREWAL. JONH REMOVED PER DR. GREWAL'S NURSE. RIGHT SC CVL DC'D CATH INTACT MANUAL PRESSURE APPLIED TIMES 15 MINUTES. CLEAR DRESSING APPLIED.
--- NOTE | 2016-11-02 11:24 | NUR ---
REHAB PRESCREENING Rehab referral received and chart reviewed. Mr. Bennett is a good candidate for IRF. Nurse notified that we will begin his screen for submission and approvals. We will notify casemanagement and nurse taking care of the patient when approvals are in place. Thanks so much for this referral! Erika Thomas ASSOCIATE DIRECTOR [employer] Ball Assembler
--- NOTE | 2016-11-02 12:57 | NUR ---
Nutrition Follow Up: Chart reviewed. Pt is eating 32% meal avg on a renal ADA diet. Wt loss since admit noted - likely r/t fluid. +BM 11/01/16. Labs reviewed. Meds noted. Rec continue current diet. Rec consider an appetite stimulant. Will continue to provide selective menus and honor food preferences within diet restrictions. RD following.
--- NOTE | 2016-11-02 13:18 | NUR ---
DR. GREWAL'S NURSE AND RENAL HACK SAW OPERATOR NOTIFIED OF ACCEPTANCE TO REHAB. AWAITING ORDERS.
--- NOTE | 2016-11-02 13:23 | NUR ---
11/02/2016 13:20 DCP: Discharge Planning Order rec'd for inpatient rehab eval. Patient & spouse agreeable with transfer. Spoke with [place] in rehab - patient has been accepted and can transfer this afternoon to room 1115 later this afternoon.
--- NOTE | 2016-11-02 16:03 | NUR ---
REPORT CALLED TO MACKENZIE DORAN. PT TRANSFERED TO 1115 WITH SPOUSE AND ALL BELONGINGS. ERIN DORAN NOTIFIED OF NEW ROOM NUMBER.
== END 2016-11-02 16:04 | DRG 37 ==
LOC: D.M2 10:01 → D.CVICU 10:01 → D.SDCHOLD 10-26 07:30 → D.CVICU 10-26 11:52
PROVIDERS: Internal Medicine Cardiovascular Disease; ADMIT Internal Medicine Nephrology
PROC: 02RF0KZ Replacement of Aortic Valve with Nonautologous Tissue Substitute, Open Approach (ICD-10-PCS; 2016-10-26)
PROC: 5A1D60Z (ICD-10-PCS; 2016-10-26)
PROC: 03CL0ZZ Extirpation of Matter from Left Internal Carotid Artery, Open Approach (ICD-10-PCS; principal; 2016-10-26 07:30)
PROC: 03UL0KZ Supplement Left Internal Carotid Artery with Nonautologous Tissue Substitute, Open Approach (ICD-10-PCS; 2016-10-26 07:30)
DX: I65.23 Occlusion and stenosis of bilateral carotid arteries (principal); N18.6 End stage renal disease; I50.33 Acute on chronic diastolic (congestive) heart failure; I13.2 Hypertensive heart and chronic kidney disease with heart failure and with stage 5 chronic kidney disease, or end stage renal disease; G72.81 Critical illness myopathy; I35.0 Nonrheumatic aortic (valve) stenosis; I25.10 Atherosclerotic heart disease of native coronary artery without angina pectoris; E11.22 Type 2 diabetes mellitus with diabetic chronic kidney disease; D63.1 Anemia in chronic kidney disease; Z98.61 Coronary angioplasty status; E11.21 Type 2 diabetes mellitus with diabetic nephropathy; I48.91 Unspecified atrial fibrillation; Z85.118 Personal history of other malignant neoplasm of bronchus and lung; Z85.47 Personal history of malignant neoplasm of testis; Z99.2 Dependence on renal dialysis; E87.5 Hyperkalemia; M10.9 Gout, unspecified

== ENCOUNTER 2016-11-02 15:56 | Inpatient (IN) | payer MEDICARE, OTHER ==
[~2016-11-02] VITALS: Ht 175.3 cm; Wt 84.0 kg
[~2016-11-02 15:56] MED LIST changes: +MULTIPLE VITAMI1 TA1 PO; +PEPCID40 MG PO
[2016-11-02 16:07] VITALS: BP 130/50; BMI 25.1
--- NOTE | 2016-11-02 17:40 | NUR ---
SPOKE WITH PEARL NICOLAS WITH RENAL MD'S. WILL ADDRESS INSULIN AND EPIGEN TOMORROW WHEN SHE ROUNDS.
--- NOTE | 2016-11-02 18:30 | NUR ---
SITTING UP IN BED VISITING WITH VISITORS. SLOW TO ANSWER SOME QUESTIONS. DENIES SOB OR PAIN
[2016-11-02 18:38] VITALS: BP 116/45
--- NOTE | 2016-11-02 20:23 | NUR ---
REC'D PATIENT LYING IN BED. ALERT AND ORIENTED X4. DENIED PAIN AT THIS TIME. IS WANTING APPLESAUCE AND CRACKERS. DENIED FURTHER NEEDS AT THIS TIME. INSTRUCTED TO CALL IF NEEDED ANYTHING. BED LOW, LOCKED, CALL LIGHT IN REACH, ALARM ON.
--- NOTE | 2016-11-02 22:48 | NUR ---
PT. IN BED WITH HOB UP FOR COMFORT WITH EYES CLOSED AND RESP. EVEN. CALL LIGHT WITHIN REACH.
[2016-11-03 00:06] VITALS: BP 116/45
--- NOTE | 2016-11-03 02:48 | NUR ---
PT IN BED WITH HOB UP FOR COMFORT. EYES CLOSED. CHEST RISING AND FALLING. BED IN LOWEST POSITION AND CALL LIGHT WITHIN REACH.
--- NOTE | 2016-11-03 03:35 | NUR ---
PT IN BED WITH HOB UP FOR COMFORT. EYES CLOSED. RESPIRATIONS EVEN & UNLABORED. BED IN LOWEST POSITION AND CALL LIGHT WITHIN REACH.
[2016-11-03 06:14] LABS: BASOPHILS 0.1 % (0-2); EOSINOPHILS 3.2 % (0-7); HEMATOCRIT 31.5 % (42.0-54.0); IMMATURE GRANULOCYTES 0.7 % (0-5); LYMPHOCYTES 5.6 % (15-50); MCH 28.1 pg (26.0-34.0); MCHC 31.7 g/dL (31.0-37.0); MCV 88.5 fL (80.0-100.0); MEAN PLATELET VOLUME 10.1 fL (7.4-10.4); MONOCYTES 12.3 % (2-11); NEUTROPHILS 78.1 % (40-80); PLATELET COUNT 259 10x3/uL (130-400); RBC 3.56 10x6/uL (4.20-6.10); RDW 16.2 % (11.5-14.5); WBC 11.3 10x3/uL (4.8-10.8)
[2016-11-03 06:43] LABS: ANION GAP 16.7 mmol/L (8-16); CALCIUM 8.1 mg/dL (8.5-10.1); CREATININE - SERUM 5.9 mg/dL (0.6-1.3); PHOSPHOROUS 7.3 mg/dL (2.5-4.9); POTASSIUM - SERUM 3.7 mmol/L (3.5-5.1)
--- NOTE | 2016-11-03 07:30 | NUR ---
SITTING UP IN WHEELCHAIR WATCHING TV, NAD NOTED. DENIES ANY NEEDS AT THIS TIME. ALERT AND ORIENTED X3. CALL LIGHT IN REACH. WILL CONTINUE TO MONITOR.
--- NOTE | 2016-11-03 07:45 | NUR ---
RINSNSED MOUTH WITH 15ML OF PERIDEX
[2016-11-03 08:00] VITALS: BP 128/51
--- NOTE | 2016-11-03 08:00 | NUR ---
ASSISTED UP TO SIDE OF BED.BREAKFAST TRAY GIVEN.O2 IN PLACE AND PATENT.CL IN REACH.
--- NOTE | 2016-11-03 08:45 | NUR ---
SITTING UP IN WC.CL IN REACH.DENIES NEEDS.
--- NOTE | 2016-11-03 09:46 | NUR ---
IN GYM WITH OCCUPATIONAL THERAPY. TOLERATING WELL.
--- NOTE | 2016-11-03 11:30 | NUR ---
SITTING UP IN WHEELCHAIR, NAD NOTED. DENIES ANY NEEDS. CALL LIGHT IN REACH. WILL CONTINUE TO MONITOR.
[2016-11-03 12:00] VITALS: BP 105/51
--- NOTE | 2016-11-03 13:00 | NUR ---
PER DIALYSIS NURSE VINCE PT WILL BE DIALYZED SOMETIME THIS EVENING DUE TO ANOTHER PT BEING ADDED TO HER SCHEDULE. VINCE ADVISED SHE SPOKE TO MARIA ISABEL IN RENAL AND INQUIRED ABOUT GETTING THE ORDER FOR PT TO BE DIALYZED WELL. WILL FOLLOW UP WITH MARIA ISABEL BERTRAND WELL.
--- NOTE | 2016-11-03 13:20 | NUR ---
MARIA ISABEL BERTRAND WITH RENAL RETURNED PHONE CALL AND ADVISED THAT SHE WILL BE GOING BACK TO THE OFFICE TO ENTER IN THE ORDERS FOR DIALYSIS, ALSO SHE WANTS THE INSULIN CHANGED TO LOW DOSE SLIDING SCALE HUMILIN.
--- NOTE | 2016-11-03 13:30 | NUR ---
SITTING UP IN WHEELCHAIR WATCHING TV, NAD NOTED. DENIES ANY CONCERNS. DENIES PAIN. CALL LIGHT IN REACH. WILL CONTINUE TO MONITOR.
--- NOTE | 2016-11-03 15:00 | NUR ---
TRANSPORTED TO DIALYSIS VIA BED.
--- NOTE | 2016-11-03 17:40 | NUR ---
OFF FLOOR IN DIALYSIS.
[2016-11-03 18:00] VITALS: BP 129/57
--- NOTE | 2016-11-03 19:10 | NUR ---
RECIEVED BACK FROM DIALYSIS VIA BED.
--- NOTE | 2016-11-03 19:30 | NUR ---
PATIENT IN BED BEING ATTENDED BY HIS DAY SHIFT NURSE HE JUST RETURNED TO UNIT FROM DIALYSIS @ 1900. CURRENTLY DENIES NEEDS. HE IS IN BED WITH HOB FULL UP, EATING HIS DINNER.
--- NOTE | 2016-11-03 22:15 | NUR ---
ASSESSMENT AND HS MEDS COMPLETE. FSBS 248. GAVE PATIENT 4 UNITS REGULAR SLIDING SCALE INSULIN SC INJ IN RIGHT UPPER ARM. REPOSITIONED HIM HIGHER UP IN BED TO TAKE HS PO MEDS. DENIES DISCOMFORT. SAYS HE IS QUITE TIRED SINCE DIALYSIS AND WOULD RATHER SHOWER EARLY IN THE MORNING. EXPLAINED THAT BY HOSPITAL POLICY I AM REQUIRED TO PLACE HIM ON A BED ALARM. ALSO EXPLAINED THAT HE MAY SIGN A BED ALARM WAIVER BUT THAT HE ACCEPTS RESPONSIBILITY/LIABILITY IF HER WERE TO GET UP ON HIS OWN AND FALL. SAYS HE WILL OPT FOR A BED ALARM. A RESULT I PLACED A AMANDA BED ALARM SENSOR ON HIS BED, AND IT IS NOW ARMED. HELD HIS SCHEDULED PROCARDIA AND HYDRALAZINE FOR A CURRENT BP OF 115/49.
[2016-11-03 22:35] VITALS: BP 115/49
--- NOTE | 2016-11-04 00:10 | NUR ---
IN BED, RESTING QUIETLY, EYES CLOSED. HOB UP 30 DEGREES.
--- NOTE | 2016-11-04 01:50 | NUR ---
IN BED, EYES CLOSED. LYING ON LEFT SIDE WITH HOB UP 20 DEGREES.
--- NOTE | 2016-11-04 04:30 | NUR ---
AWOKE BRIEFLY WHEN I EMPTIED 100ML DARK URINE FROM BEDSIDE URINAL IN TO COMMODE. DENIES CURRENT NEEDS.
[2016-11-04 06:10] VITALS: BP 138/48
--- NOTE | 2016-11-04 06:10 | NUR ---
FSBS 207. GAVE PATIENT 4 UNITS REGULAR SLIDING SCALE INSULIN SC IN RIGHT UPPER ARM. VS TAKEN. WILL HOLD OFF ON SHOWER AND PERIDEX ORAL RINSE UNTIL AFTER SCHEDULED UPDRAFTS. R/T JUST ARRIVED ON UNIT AND WILL DELIVER MR. GODFREY'S TREATMENT SHORTLY.
--- NOTE | 2016-11-04 07:35 | NUR ---
SITTING UP IN BED 45 DEGREES WATCHING TV, NAD NOTED. DENIES ANY NEEDS. CALL LIGHT IN REACH. WILL CONTINUE TO MONITOR.
--- NOTE | 2016-11-04 07:45 | NUR ---
SITTING UP IN BED WATCHING TV.CL IN REACH.
[2016-11-04 08:30] VITALS: BP 145/53
--- NOTE | 2016-11-04 10:05 | NUR ---
SITTING UP IN BED WATCHING TV, NAD NOTED. C/O PAIN IN RIGHT KNEE AND LEFT FOOT RELATES IT TO GOUT 01/13. STATES IT KEEPS HIM FROM BEING ABLE TO GET AROUND LIKE HE WOULD LIKE. ADMINISTERED NORCO 10MG PO. CALL LIGHT IN REACH. WILL CONTINUE TO MONITOR.
--- NOTE | 2016-11-04 11:02 | NUR ---
NOTIFIED PEARL ALFARO IN REGARDS TO GIVING COLCHICINE 0.6MG WITH THE AMIODARONE DUE TO DRUG INTERACTION. ADVISED THAT I HELD COLCHICINE THIS AM. PER MARIA ISABEL Armstrong/Raghav COLCHICINE 0.6MG.
--- NOTE | 2016-11-04 11:32 | NUR ---
SITTIN UP IN BED WATCHING TV RESTING QUIETLY. DENIES ANY NEEDS. CALL LIGHT IN REACH. WILL CONTINUE TO MONITOR.
[2016-11-04 12:15] VITALS: BP 111/38
--- NOTE | 2016-11-04 14:30 | NUR ---
SITTING UP IN WHEELCHAIR VISITING FRIENDS. C/O PAIN IN RIGHT KNEE AND LEFT FOOT DUE TO GOUT. NEXT PAIN MEDS AVAILABLE AT 1450. WILL ADMINISTER THEN PATIENT AWARE OF THIS TIME. WILL CONTINUE TO MONITOR. CALL LIGHT IN REACH
--- NOTE | 2016-11-04 16:07 | NUR ---
SITTING UP IN WHEELCHAIR TALKING ON PHONE TO FAMILY. STATES PAIN HAS EASED UP 4/10 RIGHT KNEE AND LEFT FOOT. WILL CONTINUE TO MONITOR. CALL LIGHT IN REACH.
[2016-11-04 18:00] VITALS: BP 116/38
--- NOTE | 2016-11-04 19:25 | NUR ---
SITTING UP IN W/C AT BEDSIDE. DENIES NEEDS. ASSESSMENT COMPLETE. TOOK VS TO SEE IF BP IS IMPROVED OVER THAT AT 1800 HRS. CURRENTLY IT IS 91/43 ON RIGHT ARM. LEFT ARM IS RESERVED. TOLD PATIENT I WILL NOT BE GIVING HIM PROCARDIA, HYDRALAZINE NOR IMDUR TONIGHT DUE TO LOW BP. SAYS HE UNDERSTANDS.
--- NOTE | 2016-11-04 21:45 | NUR ---
ASSISTED PATIENT TO TRANSFER TO BED FROM W/C. RECHECKED BP WHICH IS NOW 128/52. GAVE HS MEDS INCLUDING IMDUR, BUT HELD PROCARDIA AND HYDRALAZINE DUE TO LOW DBP AND BP'S OF 91/37 AND 91/43 SINCE 1800 HRS. FSBS 284. GAVE PATIENT 6 UNITS REGULAR SLIDING SCALE INSULIN SC IN RIGHT UPPER ARM.
--- NOTE | 2016-11-04 22:20 | NUR ---
IN BED, HOB UP 45 DEGREES. LYING IN PARTIAL RIGHT SIDE POSITION. PATIENT AWAKE, WATCHING TV. DENIES CURRENT NEEDS.
[2016-11-04 22:38] VITALS: BP 128/52
--- NOTE | 2016-11-05 00:15 | NUR ---
RESTING IN BED IN PARTIAL RIGHT SIDELYING POSITION WITH HOB UP 45 DEGREES. NO EVIDENT DISCOMFORT.
--- NOTE | 2016-11-05 02:15 | NUR ---
CONTINUES IN BED, EYES CLOSED. APPEARS COMFORTABLE.
--- NOTE | 2016-11-05 04:45 | NUR ---
PATIENT AWAKE. DENIES NEEDS. REMOVED HIS KNEE-HIGH JANET HOSE FOR THE NEXT HOUR. WILL PUT THEM BACK ON AT THAT TIME.
[2016-11-05 05:50] LABS: BASOPHILS 0.2 % (0-2); HEMATOCRIT 28.6 % (42.0-54.0); HEMOGLOBIN 9.1 g/dL (13.5-17.5); IMMATURE GRANULOCYTES 0.7 % (0-5); LYMPHOCYTES 7.3 % (15-50); MCH 28.3 pg (26.0-34.0); MCHC 31.8 g/dL (31.0-37.0); MCV 88.8 fL (80.0-100.0); MEAN PLATELET VOLUME 9.8 fL (7.4-10.4); MONOCYTES 13.9 % (2-11); NEUTROPHILS 73.9 % (40-80); PLATELET COUNT 292 10x3/uL (130-400); RBC 3.22 10x6/uL (4.20-6.10); RDW 15.7 % (11.5-14.5); WBC 10.8 10x3/uL (4.8-10.8)
[2016-11-05 05:58] VITALS: BP 138/45
--- NOTE | 2016-11-05 05:59 | NUR ---
REPLACED JANET HOSE REMOVED EARLIER. STANDING WEIGHT 179 LBS 4 OZS. VS TAKEN AND RECORDED. FSBS 198. GAVE PATIENT 2 UNITS REGULAR SLIDING SCALE INSULIN SC IN RIGHT UPPER ARM.
[2016-11-05 06:04] LABS: ANION GAP 12.1 mmol/L (8-16); CALCIUM 8.5 mg/dL (8.5-10.1); CARBON DIOXIDE 29.7 mmol/L (21.0-32.0); CREATININE - SERUM 5.9 mg/dL (0.6-1.3); POTASSIUM - SERUM 3.8 mmol/L (3.5-5.1)
--- NOTE | 2016-11-05 07:15 | NUR ---
LYING IN BED WATCHING TV, NAD NOTED. C/O PAIN 11/12 RIGHT KNEE AND LEFT FOOT R/T GOUT. WILL ADMIN PAIN MEDS IF TIME. CALL LIGHT IN REACH. WILL CONTINUE TO MONITOR.
--- NOTE | 2016-11-05 09:20 | NUR ---
IN GYM WITH PHYSICAL THERAPY. TOLERATING WELL PER DANIELLE GONZALEZ. DENIES NEEDS. WILL CONTINUE TO MONITOR.
--- NOTE | 2016-11-05 11:43 | NUR ---
IN GYM WITH OCCUPATIONAL THERAPY.
[2016-11-05 12:14] VITALS: BP 114/41
--- NOTE | 2016-11-05 13:18 | NUR ---
PROCARDIA XL 30 WAS GIVEN LATE DUE TO WAITING ON PHARMACY TO STOCK IT IN [facility]. CALLED PHARMACY AND SPOKE TO QUE AT 1030 TO GET MED STOCKED.
--- NOTE | 2016-11-05 15:00 | NUR ---
TRANSPORTED VIA BED TO DIALYSIS
[2016-11-05 18:00] VITALS: BP 129/52
--- NOTE | 2016-11-05 19:00 | NUR ---
SITTING UP IN BED, EATING DINNER HE RECENTLY RETURNED FROM DIALYSIS. DENIES NEEDS.
--- NOTE | 2016-11-05 19:20 | NUR ---
RESTING QUIETLY IN BED. CALL LIGHT IN REACH
[2016-11-05 20:07] VITALS: BP 129/52
--- NOTE | 2016-11-05 21:20 | NUR ---
FSBS 278. GAVE PATIENT 6 UNITS REGULAR SLIDING SCALE INSULIN SC IN RIGHT UPPER ARM.
[2016-11-05 23:30] VITALS: BP 114/48
--- NOTE | 2016-11-05 23:30 | NUR ---
MN VS TAKEN. PATIENT WAS SHOWERED, CLOTHES AND LINENS CHANGED @ 2300 WITH [employer] ASSIST.
--- NOTE | 2016-11-06 01:50 | NUR ---
RESTING IN BED, HOB UP 45 DEGREES. MOST RECENT TELEMETRY REPORT ABOUT 0100 WAS CAF @ 60BPM. PATIENT APPEARS COMFORTABLE.
--- NOTE | 2016-11-06 04:15 | NUR ---
IN BED, EYES CLOSED. HOB REMAINS UP 45 DEGREES. RESPIRATIONS ARE QUIET AND UNLABORED.
[2016-11-06 06:10] VITALS: BP 128/56
--- NOTE | 2016-11-06 06:30 | NUR ---
FSBS 185. GAVE PATIENT 2 UNITS REGULAR SLIDING SCALE INSULIN AND 10 UNITS NPH INSULIN SC INJ IN RIGHT UPPER ABDOMEN. WEIGHT THIS AM IS 181 LBS 4 OZS. REMOVED [facility] FOR THE NEXT HOUR.
[2016-11-06 06:54] LABS: BASOPHILS 0.2 % (0-2); EOSINOPHILS 3.2 % (0-7); HEMATOCRIT 28.7 % (42.0-54.0); HEMOGLOBIN 9.1 g/dL (13.5-17.5); IMMATURE GRANULOCYTES 0.5 % (0-5); LYMPHOCYTES 8.2 % (15-50); MCH 28.2 pg (26.0-34.0); MCHC 31.7 g/dL (31.0-37.0); MCV 88.9 fL (80.0-100.0); MEAN PLATELET VOLUME 9.9 fL (7.4-10.4); MONOCYTES 10.2 % (2-11); NEUTROPHILS 77.7 % (40-80); PLATELET COUNT 339 10x3/uL (130-400); RBC 3.23 10x6/uL (4.20-6.10); RDW 15.7 % (11.5-14.5); WBC 11.2 10x3/uL (4.8-10.8)
[2016-11-06 07:09] LABS: ANION GAP 13.5 mmol/L (8-16); CALCIUM 8.7 mg/dL (8.5-10.1); CARBON DIOXIDE 29.4 mmol/L (21.0-32.0); CREATININE - SERUM 5.3 mg/dL (0.6-1.3); POTASSIUM - SERUM 3.9 mmol/L (3.5-5.1)
--- NOTE | 2016-11-06 07:16 | NUR ---
RESTING QUIETLY IN BED WITH EYES CLOSED. CALL LIGHT IN REACH
--- NOTE | 2016-11-06 07:30 | NUR ---
LYING IN BED 45 DEGREES, EYES CLOSED RESTING QUIETLY, NAD NOTED. EASILY AROUSED WITH STIMULI. CALL LIGHT IN REACH. WILL CONTINUE TO MONITOR.
--- NOTE | 2016-11-06 10:17 | NUR ---
IN ROOM SITTING UP IN WHEELCHAIR WATCHING TV. DENIES ANY NEEDS. CALL LIGHT IN REACH. WILL CONTINUE TO MONITOR.
[2016-11-06 12:03] VITALS: BP 125/69
--- NOTE | 2016-11-06 12:30 | NUR ---
SITTING UP IN WHEELCHAIR EATING LUNCH. C/O OF RIGHT KNEE AND LEFT FOOT PAIN, ALSO HAVING SOME LOWER BACK PAIN. WILL ADMIN PAIN MEDS. CALL LIGHT IN REACH
--- NOTE | 2016-11-06 17:35 | NUR ---
SITTING UP IN WHEELCHAIR EATING DINNER. DENIES ANY NEEDS. CALL LIGHT IN REACH
[2016-11-06 18:00] VITALS: BP 107/37
--- NOTE | 2016-11-06 19:00 | NUR ---
PATIENT IN BED, HOB UP 45 DEGREES. NO COMPLAINTS AT THIS TIME.
--- NOTE | 2016-11-06 19:10 | NUR ---
APPLIED PRESSURE DRESSING USING TELFA PAD, 4X4 GAUZE AND MEDIPORE TAPE. HAS 3 SCRATCHES ON RIGHT UPPER CHEST NEAR SHOULDER. UPPER SCRATCH BLEEDING AND BOTTOM 2 HAS SKIN TEAR (SMALL).
--- NOTE | 2016-11-06 20:35 | NUR ---
SITTING UP IN W/C, HEAD INCLINED. RESTING QUIETLY.
[2016-11-06 22:30] VITALS: BP 120/49
--- NOTE | 2016-11-06 22:30 | NUR ---
FSBS 168. GAVE PATIENT 2 UNITS REGULAR SLIDING SCALE INSULIN SC IN RIGHT UPPER ARM. ASSESSMENT AND HS MEDS COMPLETE. PATIENT DENIES NEEDS.
--- NOTE | 2016-11-07 00:35 | NUR ---
PATIENT AWAKE. CALLED FOR HIS COVERS TO BE PULLED UP. SAYS HE IS COOL.
--- NOTE | 2016-11-07 02:10 | NUR ---
IN BED, RESTING QUEITLY, EYES CLOSED.
--- NOTE | 2016-11-07 03:45 | NUR ---
IN BED, EYES CLOSED, IN PARTIAL RIGHT SIDELYING POSITION. RESPIRING QUIETLY.
[2016-11-07 06:00] VITALS: BP 107/40
--- NOTE | 2016-11-07 06:10 | NUR ---
WEIGHT 183 LBS AND 4 OZS STANDING. BP SEATED WAS 107/40. VS RECORDED. TEMP 99.0 DEGREES ORALLY. GAVE PATIENT SCHEDULED PO MEDS, WELL 10 UNITS NPH INSULIN SC IN RIGHT UPPER ARM. FSBS WAS 145. DENIES NEEDS.
--- NOTE | 2016-11-07 08:00 | NUR ---
SHIFT ASSMT COMPLETED.INCISIONS INTACT TO CHEST AND ABDOMEN,NOTED A GREEN SUTURE TO EACH INCISION OF LOWER ABD;SITE INTACT.JANET HOSE REMOVED AND SKIN CHECKED;DRY AND SCALEY,REAPPLIED.EDEMA +2 TO BILAT FEET.LUNGS CLEAR.SMALL ABRASION NOTED TO RIGHT SIDE OF CHEST.BREAKFAST GIVEN.SITTING ON SIDE OF BED.
--- NOTE | 2016-11-07 12:00 | NUR ---
SITTING UP EATING LUNCH.DENIES NEEDS.
[2016-11-07 12:41] VITALS: BP 95/54
--- NOTE | 2016-11-07 14:30 | NUR ---
IN BED.JANET HOSE PLACED ON BILAT LEGS CAUTIONED TO KEEP HOSE SMOOTH AT ALL TIMES AND FREE OF WRINKLES.SUTURES REMOVED TO INCISIONS X2 LOWER ABD.
--- NOTE | 2016-11-07 15:30 | NUR ---
TO HD/WC.
[2016-11-07 19:23] VITALS: BP 120/62
--- NOTE | 2016-11-07 19:23 | NUR ---
PT. BACK FROM DIALYSIS AND IS SITTING UP IN HIS W/C PREPARING TO EAT HIS DINNER. REPORT RECEIVED THAT 2 LITERS WERE REMOVED FROM PT. AND HIS VITALS REMAINED WNL'S. CALL LIGHT WITHIN REACH.
--- NOTE | 2016-11-07 23:26 | NUR ---
PT. IN BED WITH HOB UP FOR COMFORT WITH EYES CLOSED AND RESP. EVEN. CALL LIGHT WITHIN REACH.
[2016-11-08 00:50] VITALS: BP 106/40
--- NOTE | 2016-11-08 03:21 | NUR ---
PT. IN BED LYING ON HIS LEFT SIDE WITH EYES CLOSED AND RESP. EVEN. CALL LIGHT WITHIN REACH.
[2016-11-08 05:45] VITALS: BP 109/55
--- NOTE | 2016-11-08 06:15 | NUR ---
PT. IN BED WITH HOB AND FOB ELEVATED FOR COMFORT AND IS WATCHING TV. NO VOICED NEEDS AT THIS TIME. CALL LIGHT WITHIN REACH.
[2016-11-08 06:28] LABS: BASOPHILS 0.2 % (0-2); EOSINOPHILS 2.2 % (0-7); HEMATOCRIT 27.4 % (42.0-54.0); HEMOGLOBIN 8.5 g/dL (13.5-17.5); IMMATURE GRANULOCYTES 0.4 % (0-5); MCH 27.9 pg (26.0-34.0); MCV 89.8 fL (80.0-100.0); MEAN PLATELET VOLUME 8.8 fL (7.4-10.4); MONOCYTES 15.7 % (2-11); NEUTROPHILS 73.5 % (40-80); PLATELET COUNT 296 10x3/uL (130-400); RBC 3.05 10x6/uL (4.20-6.10); RDW 15.7 % (11.5-14.5); WBC 9.2 10x3/uL (4.8-10.8)
[2016-11-08 06:46] LABS: ANION GAP 10.3 mmol/L (8-16); CALCIUM 8.5 mg/dL (8.5-10.1); CREATININE - SERUM 4.5 mg/dL (0.6-1.3); PHOSPHOROUS 3.9 mg/dL (2.5-4.9); POTASSIUM - SERUM 4.3 mmol/L (3.5-5.1)
--- NOTE | 2016-11-08 08:00 | NUR ---
UP TO SIDE OF BED FOR BREAKFAST.CL IN REACH.INCISIONS C/D/I.JANET HOSE IN PLACE.
--- NOTE | 2016-11-08 10:00 | NUR ---
SITTING UP IN ROOM IN WC;READY FOR THERAPY.
--- NOTE | 2016-11-08 12:00 | NUR ---
SITTING UP EATING LUNCH.
[2016-11-08 12:46] VITALS: BP 133/73
[2016-11-08 13:28] VITALS: Ht 175.3 cm; Wt 84.0 kg
--- NOTE | 2016-11-08 16:00 | NUR ---
PLAN FOR DISCHARGE TOMARROW.
[2016-11-08 18:13] VITALS: BP 138/48
--- NOTE | 2016-11-08 19:30 | NUR ---
PT SITTING UP IN W/C, ENCOURAGED PT TO ELEVATE HIS FEET TO REDUCE THE EDEMA, PT STATES HE WAS TOLD TO SIT UP MUCH POSSIBLE. ENCOURAGED PT WHILE SITTING TO ELEVATE HIS FEET. PT STATES HE WOULD PREFER NOT TO AT THIS TIME. PT WATCHING TV.
--- NOTE | 2016-11-08 19:47 | NUR ---
ORAL CARE DONE
--- NOTE | 2016-11-08 21:00 | NUR ---
PT DENIES PAIN, STERNAL INCISION WELL APPROXIMATED, NO S/S OF REDNESS, STERI STRIPS IN TACT. PT DENIES NEEDS.
[2016-11-09 00:15] VITALS: BP 122/62
--- NOTE | 2016-11-09 01:00 | NUR ---
PT RESTING WITH EYES CLOSED IN SEMI SMITH POSITION, RESPIRATIONS REGULAR AND UNLABORED, NO S/S OF ACUTE DISTRESS.
--- NOTE | 2016-11-09 04:29 | NUR ---
PT RESTING QUIETLY, RESPIRATIONS REGULAR AND UNLABORED, NO S/S OF ACUTE DISTRESS.
[2016-11-09 05:38] VITALS: BP 118/45
[2016-11-09 05:46] LABS: BASOPHILS 0.1 % (0-2); EOSINOPHILS 3.6 % (0-7); HEMATOCRIT 28.7 % (42.0-54.0); HEMOGLOBIN 8.8 g/dL (13.5-17.5); IMMATURE GRANULOCYTES 0.4 % (0-5); LYMPHOCYTES 8.6 % (15-50); MCH 27.5 pg (26.0-34.0); MCHC 30.7 g/dL (31.0-37.0); MCV 89.7 fL (80.0-100.0); MEAN PLATELET VOLUME 9.3 fL (7.4-10.4); MONOCYTES 11.1 % (2-11); NEUTROPHILS 76.2 % (40-80); PLATELET COUNT 347 10x3/uL (130-400); RDW 15.4 % (11.5-14.5)
[2016-11-09 05:56] LABS: ANION GAP 10.5 mmol/L (8-16); CALCIUM 8.6 mg/dL (8.5-10.1); CARBON DIOXIDE 29.7 mmol/L (21.0-32.0); CREATININE - SERUM 5.3 mg/dL (0.6-1.3); PHOSPHOROUS 3.8 mg/dL (2.5-4.9); POTASSIUM - SERUM 4.2 mmol/L (3.5-5.1)
--- NOTE | 2016-11-09 08:04 | NUR ---
LEAVING FLOOR FOR DIALYSIS.
[2016-11-09] MEDS ORDERED: ULORIC40 MG PO (08:21)
[2016-11-09] MEDS ORDERED: ELIQUIS2.5 MG PO (08:21)
[2016-11-09] MEDS ORDERED: ULTRAM50 MG PO (08:21)
[2016-11-09] MEDS ORDERED: HUMULIN N100 U/ML SC (08:21)
[2016-11-09] MEDS ORDERED: LASIX20 MG PO (08:21)
--- NOTE | 2016-11-09 13:10 | NUR ---
JUST NOW BACK TO ROOM FROM DIALYSIS. CALL LIGHT IN REACH
--- NOTE | 2016-11-09 14:35 | NUR ---
PATIENT DISCHARGING HOME WITH FAMILY. [facility] WILL FOLLOW WITH PATIENT AT HOME. DR. DE LA O 11/20/16 @ 1:30, DR. GREWAL 11/22/16 @ 10:30, [facility] OUT PATIENT 11/22/16 @ 9:30 FOR LAB AND XRAY PRIOR TO DR. GREWAL APPOINTMENT. PATIENT WILL SEE DR. DE LA O ON HD DAYS AT [facility]. PATIENT CHOICE FORM FOR HOME HEALTH AND IMFM FORM SIGNED, EXPLAINED AND FILED IN CHART.
== END 2016-11-09 12:00 | disposition home health service (06) | DRG 91 ==
LOC: D.REHAB 15:56
PROVIDERS: Internal Medicine Nephrology; ADMIT Emergency Medicine
PROC: 5A1D60Z (ICD-10-PCS; principal; 2016-11-03)
DX: G72.81 Critical illness myopathy (principal); N18.6 End stage renal disease; I13.2 Hypertensive heart and chronic kidney disease with heart failure and with stage 5 chronic kidney disease, or end stage renal disease; I50.32 Chronic diastolic (congestive) heart failure; I48.1 Persistent atrial fibrillation; E11.22 Type 2 diabetes mellitus with diabetic chronic kidney disease; E11.40 Type 2 diabetes mellitus with diabetic neuropathy, unspecified; I25.10 Atherosclerotic heart disease of native coronary artery without angina pectoris; I65.23 Occlusion and stenosis of bilateral carotid arteries; Z99.2 Dependence on renal dialysis

== ENCOUNTER 2016-11-14 16:33 | Emergency (ER) | payer MEDICARE, OTHER ==
[2016-11-08 13:28] VITALS: BMI 17.8
[~2016-11-14 16:33] MED LIST changes: +LASIX20 MG PO; +ULTRAM50 MG PO
== END 2016-11-14 17:00 | disposition home or self-care (01) ==
LOC: D.ER 16:33
DX: T82.838A Hemorrhage due to vascular prosthetic devices, implants and grafts, initial encounter (principal); I12.9 Hypertensive chronic kidney disease with stage 1 through stage 4 chronic kidney disease, or unspecified chronic kidney disease; N18.9 Chronic kidney disease, unspecified

== ENCOUNTER → 2016-11-22 08:43 | Outpatient (CLI) | payer MEDICARE, OTHER ==
[2016-11-08 13:28] VITALS: BMI 17.8
[2016-11-22 09:08] LABS: HEMATOCRIT 34.9 % (42.0-54.0); HEMOGLOBIN 10.4 g/dL (13.5-17.5); MCH 27.4 pg (26.0-34.0); MCHC 29.8 g/dL (31.0-37.0); MCV 92.1 fL (80.0-100.0); MEAN PLATELET VOLUME 9.3 fL (7.4-10.4); RBC 3.79 10x6/uL (4.20-6.10); RDW 16.8 % (11.5-14.5); WBC 8.7 10x3/uL (4.8-10.8)
[2016-11-22 09:54] LABS: ANION GAP 14.7 mmol/L (8-16); CALCIUM 8.7 mg/dL (8.5-10.1); CARBON DIOXIDE 27.5 mmol/L (21.0-32.0); POTASSIUM - SERUM 4.2 mmol/L (3.5-5.1)
== END | disposition home or self-care (01) ==
LOC: D.LAB 08:43 → D.RAD 10:30
PROVIDERS: Internal Medicine Cardiovascular Disease
DX: J90 Pleural effusion, not elsewhere classified (principal); D64.9 Anemia, unspecified; Z95.2 Presence of prosthetic heart valve

== ENCOUNTER 2017-01-03 06:53 | Outpatient (CLI) | payer MEDICARE, OTHER ==
[~2017-01-03] VITALS: Ht 177.8 cm; Wt 81.8 kg
[2017-01-03 08:16] VITALS: BP 139/58; Ht 177.8 cm; Wt 81.8 kg
--- NOTE | 2017-01-03 08:39 | NUR ---
0800 ASSESMENT COMPLETE. IV STARTED BY AYDEN GOODEN 20 GAUYGE 1 STICK GOOD BLOOD RETURN. VANC STARTED ORDERED. NO REDNESS OR SWELLING. SCANNED BY AYDEN GOODEN.
--- NOTE | 2017-01-03 09:20 | NUR ---
0903 VANC COMPLETED NO REDNESS OR SWELLING.0908 NEW TUBING HUNG AND GENT STARTED BY JOSE BROTHERS R.N. IV NO REDNESS OR SWELLING.
--- NOTE | 2017-01-03 10:03 | NUR ---
1003 WENT OVER DISCHARGE INSTRUCTIONS AND SENT HOME WITH SALINE LOCK RT ARM. NO REDNESS OR SWELLING TO IV SITE.
--- NOTE | 2017-01-03 10:14 | NUR ---
[address] LOPEZ OFFICE AMBULATED WITH WITH SALINE LOCK 20 GAUGE RT ARM LEFT.
== END 2017-01-03 10:10 | disposition home or self-care (01) ==
LOC: D.OPS 06:53
DX: Z95.2 Presence of prosthetic heart valve (principal); K12.2 Cellulitis and abscess of mouth

== ENCOUNTER 2017-01-06 02:38 | Emergency (ER) | payer MEDICARE, OTHER ==
[2017-01-03 08:16] VITALS: BMI 25.8
[2017-01-06 03:12] LABS: BASOPHILS 0.2 % (0-2); EOSINOPHILS 2.5 % (0-7); HEMATOCRIT 34.3 % (42.0-54.0); IMMATURE GRANULOCYTES 0.6 % (0-5); LYMPHOCYTES 14.7 % (15-50); MCH 28.4 pg (26.0-34.0); MCHC 32.1 g/dL (31.0-37.0); MCV 88.4 fL (80.0-100.0); MEAN PLATELET VOLUME 9.7 fL (7.4-10.4); MONOCYTES 9.8 % (2-11); NEUTROPHILS 72.2 % (40-80); PLATELET COUNT 199 10x3/uL (130-400); RBC 3.88 10x6/uL (4.20-6.10); RDW 17.3 % (11.5-14.5); WBC 8.9 10x3/uL (4.8-10.8)
[2017-01-06 03:24] LABS: ALBUMIN 3.2 g/dL (3.4-5.0); ALKALINE PHOSPHATASE 134 U/L (46-116); ALT (SGPT) 22 U/L (10-68); BILIRUBIN - TOTAL 0.36 mg/dL (0.2-1.3); CALC OSMOLALITY 302 mosm/kg (275-300); CARBON DIOXIDE 24.6 mmol/L (21.0-32.0); CHLORIDE - SERUM 105 mmol/L (98-107); CREATININE - SERUM 4.6 mg/dL (0.6-1.3); GLUCOSE 175 mg/dL (74-106); POTASSIUM - SERUM 4.7 mmol/L (3.5-5.1); SODIUM 142 mmol/L (136-145); UREA NITROGEN 57 mg/dL (7-18); eGFR NON AFRICAN AMERICAN 13 mL/min (90-120)
[2017-01-06 03:35] LABS: CHOL - HDL RATIO 5.5 ratio (2.3-4.9); CHOLESTEROL, TOTAL 176 mg/dL (0-200); CKMB 2.4 U/L (0.0-3.6); CREATINE KINASE 74 UL (21-232); HDL CHOLESTEROL 32 mg/dL (32-96); LDL CHOLESTEROL 82 mg/dL (0-100); LDL-HDL RATIO 2.6 ratio (1.5-3.5); TRIGLYCERIDE 312 mg/dL (30-200); TROPONIN-I 0.052 ng/mL (0.000-0.060)
== END 2017-01-06 04:05 | disposition home or self-care (01) ==
LOC: D.ER 02:38
PROVIDERS: Emergency Medicine
DX: R07.9 Chest pain, unspecified (principal); I48.92 Unspecified atrial flutter; I25.10 Atherosclerotic heart disease of native coronary artery without angina pectoris; I12.9 Hypertensive chronic kidney disease with stage 1 through stage 4 chronic kidney disease, or unspecified chronic kidney disease; N18.9 Chronic kidney disease, unspecified; I44.30 Unspecified atrioventricular block

== ENCOUNTER → 2017-01-17 10:16 | Outpatient (CLI) | payer MEDICARE, OTHER ==
[2017-01-03 08:16] VITALS: BMI 25.8
[~2017-01-17 10:16] MED LIST changes: +NITROQUICK0.4 MG SL
== END | disposition home or self-care (01) ==
LOC: D.CN 10:00
DX: I49.9 Cardiac arrhythmia, unspecified (principal); I48.91 Unspecified atrial fibrillation

== ENCOUNTER 2017-01-22 06:37 | Inpatient (IN) | payer MEDICARE, OTHER ==
[~2017-01-22] VITALS: Ht 177.8 cm; Wt 83.0 kg
[~2017-01-22 06:37] MED LIST changes: -NITROQUICK0.4 MG SL
[2017-01-22] MEDS ORDERED: HUMULIN N100 U/ML SQ ×2 (07:40→07:42)
[2017-01-22] MEDS ORDERED: RENVELA800 MG PO (07:43)
[2017-01-22] MEDS ORDERED: ULORIC40 MG PO (07:44)
[2017-01-22] MEDS ORDERED: NITROQUICK0.4 MG SL (07:46)
[2017-01-22] MEDS ORDERED: FOLATE0.4 MG PO (07:46)
[2017-01-23 12:11] VITALS: Ht 177.8 cm; Wt 83.0 kg
[2017-01-24 07:00] VITALS: BP 121/47
[2017-01-24] MEDS ORDERED: ELIQUIS2.5 MG PO (09:06)
== END 2017-01-24 11:33 | disposition home or self-care (01) | DRG 37 ==
LOC: D.SDCHOLD 06:37 → D.CVICU 06:37 → D.SDCHOLD 13:00 → D.CVICU 14:32
PROVIDERS: ADMIT Internal Medicine Cardiovascular Disease
PROC: 03UK0JZ Supplement Right Internal Carotid Artery with Synthetic Substitute, Open Approach (ICD-10-PCS; 2017-01-22)
PROC: 0W360ZZ Control Bleeding in Neck, Open Approach (ICD-10-PCS; 2017-01-22)
PROC: 03CK0ZZ Extirpation of Matter from Right Internal Carotid Artery, Open Approach (ICD-10-PCS; principal; 2017-01-22 13:00)
PROC: 5A1D00Z (ICD-10-PCS; 2017-01-23)
DX: I65.23 Occlusion and stenosis of bilateral carotid arteries (principal); N18.6 End stage renal disease; I13.2 Hypertensive heart and chronic kidney disease with heart failure and with stage 5 chronic kidney disease, or end stage renal disease; I97.620 Postprocedural hemorrhage of a circulatory system organ or structure following other procedure; E11.22 Type 2 diabetes mellitus with diabetic chronic kidney disease; I50.9 Heart failure, unspecified; Z99.2 Dependence on renal dialysis; Z87.891 Personal history of nicotine dependence; Z79.4 Long term (current) use of insulin; Y83.8 Other surgical procedures as the cause of abnormal reaction of the patient, or of later complication, without mention of misadventure at the time of the procedure; I48.91 Unspecified atrial fibrillation; E11.21 Type 2 diabetes mellitus with diabetic nephropathy; D63.1 Anemia in chronic kidney disease; N40.0 Benign prostatic hyperplasia without lower urinary tract symptoms; M62.838 Other muscle spasm

== ENCOUNTER 2017-03-01 15:20 | Emergency (ER) | payer MEDICARE, OTHER ==
[2017-01-23 12:11] VITALS: BMI 26.2
[~2017-03-01 15:20] MED LIST changes: +NITROQUICK0.4 MG SL
[2017-03-01 16:01] LABS: APPEARANCE CLEAR (CLEAR); BILIRUBIN NEGATIVE (NEGATIVE); COLOR YELLOW (YELLOW); GLUCOSE 1000 mg/dL (NEGATIVE); KETONE NEGATIVE (NEGATIVE); NITRITE NEGATIVE (NEGATIVE); PROTEIN 1+ mg/dL (NEGATIVE); SPECIFIC GRAVITY 1.015 (1.005-1.020); UROBILINOGEN NORMAL (NORMAL)
[2017-03-01 16:06] LABS: BASOPHILS 0.2 % (0-2); EOSINOPHILS 1.9 % (0-7); HEMATOCRIT 39.9 % (42.0-54.0); HEMOGLOBIN 13.5 g/dL (13.5-17.5); IMMATURE GRANULOCYTES 0.9 % (0-5); LYMPHOCYTES 8.2 % (15-50); MCH 30.3 pg (26.0-34.0); MCHC 33.8 g/dL (31.0-37.0); MCV 89.7 fL (80.0-100.0); MEAN PLATELET VOLUME 10.5 fL (7.4-10.4); MONOCYTES 13.1 % (2-11); NEUTROPHILS 75.7 % (40-80); PLATELET COUNT 181 10x3/uL (130-400); RBC 4.45 10x6/uL (4.20-6.10); RDW 15.8 % (11.5-14.5); WBC 9.2 10x3/uL (4.8-10.8)
[2017-03-01 16:29] LABS: ALBUMIN 4.1 g/dL (3.4-5.0); ANION GAP 13.8 mmol/L (8-16); BILIRUBIN - TOTAL 0.89 mg/dL (0.2-1.3); CALCIUM 9.8 mg/dL (8.5-10.1); CARBON DIOXIDE 29.2 mmol/L (21.0-32.0); CREATININE - SERUM 2.8 mg/dL (0.6-1.3); PROTEIN - SERUM 8.4 g/dL (6.4-8.2)
== END 2017-03-01 20:20 | disposition home or self-care (01) ==
LOC: D.ER 15:20
PROVIDERS: Emergency Medicine
DX: R26.9 Unspecified abnormalities of gait and mobility (principal); I12.0 Hypertensive chronic kidney disease with stage 5 chronic kidney disease or end stage renal disease; N18.6 End stage renal disease; I48.91 Unspecified atrial fibrillation; I25.10 Atherosclerotic heart disease of native coronary artery without angina pectoris; I44.30 Unspecified atrioventricular block; I49.3 Ventricular premature depolarization

== ENCOUNTER → 2017-03-07 09:36 | Outpatient (CLI) | payer MEDICARE, OTHER ==
[2017-01-23 12:11] VITALS: BMI 26.2
== END | disposition home or self-care (01) ==
LOC: D.MRI 03-06 13:30
DX: F44.89 Other dissociative and conversion disorders (principal)

== ENCOUNTER 2017-03-31 10:46 | Emergency (ER) | payer MEDICARE, OTHER ==
[2017-01-23 12:11] VITALS: BMI 26.2
== END 2017-03-31 12:17 | disposition home or self-care (01) ==
LOC: D.ER 10:46
DX: H10.31 Unspecified acute conjunctivitis, right eye (principal); E11.9 Type 2 diabetes mellitus without complications; Z79.4 Long term (current) use of insulin; I12.9 Hypertensive chronic kidney disease with stage 1 through stage 4 chronic kidney disease, or unspecified chronic kidney disease; N18.9 Chronic kidney disease, unspecified

== ENCOUNTER 2017-05-01 18:21 | Emergency (ER) | payer MEDICARE, OTHER ==
[2017-01-23 12:11] VITALS: BMI 26.2
[2017-05-01 19:17] LABS: BASOPHILS 0.2 % (0-2); EOSINOPHILS 1.4 % (0-7); HEMATOCRIT 40.7 % (42.0-54.0); IMMATURE GRANULOCYTES 0.6 % (0-5); LYMPHOCYTES 11.5 % (15-50); MCH 30.8 pg (26.0-34.0); MCHC 31.9 g/dL (31.0-37.0); MCV 96.4 fL (80.0-100.0); MEAN PLATELET VOLUME 10.1 fL (7.4-10.4); NEUTROPHILS 74.3 % (40-80); PLATELET COUNT 187 10x3/uL (130-400); RBC 4.22 10x6/uL (4.20-6.10); RDW 16.2 % (11.5-14.5); WBC 10.5 10x3/uL (4.8-10.8)
[2017-05-01 19:34] LABS: ALBUMIN 3.4 g/dL (3.4-5.0); ANION GAP 12.5 mmol/L (8-16); BILIRUBIN - TOTAL 0.51 mg/dL (0.2-1.3); CALCIUM 8.9 mg/dL (8.5-10.1); CARBON DIOXIDE 32.7 mmol/L (21.0-32.0); CREATININE - SERUM 4.3 mg/dL (0.6-1.3); POTASSIUM - SERUM 4.2 mmol/L (3.5-5.1); PROTEIN - SERUM 7.4 g/dL (6.4-8.2)
[2017-06-18] MEDS ORDERED: LYRICA25 MG PO (07:34)
[2017-06-18] MEDS ORDERED: REQUIP0.5 MG PO (07:35)
[2017-06-18] MEDS ORDERED: MIDODRINE HCL5 MG PO (07:35)
== END 2017-05-01 21:10 | disposition home or self-care (01) ==
LOC: D.ER 18:21
PROVIDERS: Emergency Medicine
DX: R41.82 Altered mental status, unspecified (principal); E11.9 Type 2 diabetes mellitus without complications; Z79.4 Long term (current) use of insulin; I12.0 Hypertensive chronic kidney disease with stage 5 chronic kidney disease or end stage renal disease; N18.6 End stage renal disease

== ENCOUNTER 2017-05-02 10:22 | Inpatient (IN) | payer MEDICARE, OTHER ==
[~2017-05-02] VITALS: Ht 177.8 cm; Wt 87.9 kg
[2017-05-02 11:19] LABS: BASOPHILS 0.2 % (0-2); EOSINOPHILS 1.3 % (0-7); HEMATOCRIT 43.5 % (42.0-54.0); HEMOGLOBIN 14.2 g/dL (13.5-17.5); IMMATURE GRANULOCYTES 0.4 % (0-5); LYMPHOCYTES 13.7 % (15-50); MCH 31.8 pg (26.0-34.0); MCHC 32.6 g/dL (31.0-37.0); MCV 97.3 fL (80.0-100.0); MEAN PLATELET VOLUME 10.6 fL (7.4-10.4); MONOCYTES 12.3 % (2-11); NEUTROPHILS 72.1 % (40-80); PLATELET COUNT 186 10x3/uL (130-400); RBC 4.47 10x6/uL (4.20-6.10); RDW 16.3 % (11.5-14.5); WBC 8.9 10x3/uL (4.8-10.8)
[2017-05-02 11:20] LABS: INR 1.05 (0.85-1.17); PROTIME 13.3 SECONDS (11.6-15.0)
[2017-05-02 11:32] LABS: ALBUMIN 3.5 g/dL (3.4-5.0); BILIRUBIN - TOTAL 0.69 mg/dL (0.2-1.3); CALCIUM 9.5 mg/dL (8.5-10.1); CARBON DIOXIDE 29.9 mmol/L (21.0-32.0); PROTEIN - SERUM 7.6 g/dL (6.4-8.2)
[2017-05-02 11:33] LABS: ANION GAP 16.2 mmol/L (8-16); CREATININE - SERUM 5.7 mg/dL (0.6-1.3); POTASSIUM - SERUM 5.1 mmol/L (3.5-5.1)
[2017-05-02 11:34] LABS: UDS - AMPHET NEGATIVE QUAL (NEGATIVE); UDS - BARB NEGATIVE QUAL (NEGATIVE); UDS - BENZO NEGATIVE QUAL (NEGATIVE); UDS - COCAINE NEGATIVE QUAL (NEGATIVE); UDS - OPIATE NEGATIVE QUAL (NEGATIVE); UDS - PCP NEGATIVE QUAL (NEGATIVE); UDS - THC NEGATIVE QUAL (NEGATIVE)
[2017-05-02 11:36] LABS: TROPONIN-I 0.057 ng/mL (0.000-0.060)
[2017-05-02 11:41] LABS: APPEARANCE HAZY (CLEAR); BILIRUBIN NEGATIVE (NEGATIVE); COLOR DK YELLOW (YELLOW); GLUCOSE NEGATIVE (NEGATIVE); KETONE NEGATIVE (NEGATIVE); NITRITE NEGATIVE (NEGATIVE); PROTEIN 1+ mg/dL (NEGATIVE); SPECIFIC GRAVITY 1.015 (1.005-1.020); UROBILINOGEN NORMAL (NORMAL)
[2017-05-02 11:42] LABS: BACTERIA FEW /hpf (NONE SEEN); CALCIUM OXALATE CRYSTALS 0-5 /hpf (NONE SEEN); EPITHELIAL CELLS 0-5 /hpf (0-5); MUCUS <1+ /lpf (NONE SEEN); WHITE CELLS - URINE 0-5 /hpf (0-5)
[2017-05-02 22:34] VITALS: BP 119/57; BMI 28.4
[2017-05-03] VITALS: BP 151/74
[2017-05-03 06:10] VITALS: BP 100/42
[2017-05-03 07:49] VITALS: BP 120/47
[2017-05-03 12:40] VITALS: Ht 177.8 cm; Wt 87.9 kg
[2017-05-03 16:45] VITALS: BP 100/45
[2017-05-03 21:11] VITALS: BP 119/64
[2017-05-04 01:27] VITALS: BP 101/47
[2017-05-04 05:08] VITALS: BP 115/53
[2017-05-04 06:47] LABS: BASOPHILS 0.1 % (0-2); HEMOGLOBIN 12.8 g/dL (13.5-17.5); IMMATURE GRANULOCYTES 0.4 % (0-5); LYMPHOCYTES 16.8 % (15-50); MCH 31.1 pg (26.0-34.0); MCHC 32.8 g/dL (31.0-37.0); MEAN PLATELET VOLUME 10.8 fL (7.4-10.4); MONOCYTES 12.9 % (2-11); NEUTROPHILS 67.8 % (40-80); PLATELET COUNT 181 10x3/uL (130-400); RBC 4.12 10x6/uL (4.20-6.10); RDW 15.9 % (11.5-14.5); WBC 7.7 10x3/uL (4.8-10.8)
[2017-05-04 06:51] LABS: MCV 94.7 fL (80.0-100.0)
[2017-05-04 07:43] LABS: BILIRUBIN - TOTAL 0.49 mg/dL (0.2-1.3); CALCIUM 8.7 mg/dL (8.5-10.1); CARBON DIOXIDE 29.8 mmol/L (21.0-32.0); MAGNESIUM - SERUM 2.1 mg/dL (1.8-2.4); PHOSPHOROUS 6.9 mg/dL (2.5-4.9); PROTEIN - SERUM 6.4 g/dL (6.4-8.2); T4 THYROXIN - FREE 0.76 ng/dL (0.76-1.46); THYROID STIMULATING HORMONE 0.84 uIU/mL (0.36-3.74)
[2017-05-04 07:44] LABS: ANION GAP 16.4 mmol/L (8-16); CREATININE - SERUM 7.2 mg/dL (0.6-1.3); POTASSIUM - SERUM 4.2 mmol/L (3.5-5.1)
[2017-05-04 08:07] VITALS: BP 118/58
[2017-05-04 11:22] VITALS: BP 104/47
[2017-05-04 15:25] VITALS: BP 108/58
[2017-05-04 20:58] VITALS: BP 111/39
[2017-05-05 02:04] VITALS: BP 92/37
[2017-05-05 05:19] VITALS: BP 107/50
[2017-05-05 05:36] LABS: BASOPHILS 0.1 % (0-2); EOSINOPHILS 1.7 % (0-7); HEMATOCRIT 37.1 % (42.0-54.0); HEMOGLOBIN 12.1 g/dL (13.5-17.5); IMMATURE GRANULOCYTES 0.4 % (0-5); LYMPHOCYTES 16.7 % (15-50); MCH 30.9 pg (26.0-34.0); MCHC 32.6 g/dL (31.0-37.0); MCV 94.9 fL (80.0-100.0); MEAN PLATELET VOLUME 10.9 fL (7.4-10.4); MONOCYTES 11.2 % (2-11); NEUTROPHILS 69.9 % (40-80); PLATELET COUNT 184 10x3/uL (130-400); RBC 3.91 10x6/uL (4.20-6.10); RDW 15.7 % (11.5-14.5); WBC 8.2 10x3/uL (4.8-10.8)
[2017-05-05 06:11] LABS: ANION GAP 14.7 mmol/L (8-16); BILIRUBIN - TOTAL 0.48 mg/dL (0.2-1.3); CALCIUM 8.7 mg/dL (8.5-10.1); CARBON DIOXIDE 30.7 mmol/L (21.0-32.0); CREATININE - SERUM 9.3 mg/dL (0.6-1.3); MAGNESIUM - SERUM 2.3 mg/dL (1.8-2.4); PHOSPHOROUS 8.1 mg/dL (2.5-4.9); POTASSIUM - SERUM 4.4 mmol/L (3.5-5.1); PROTEIN - SERUM 6.3 g/dL (6.4-8.2)
[2017-05-05 12:25] VITALS: BP 121/63
[2017-05-05 16:18] VITALS: BP 110/47
[2017-06-18] MEDS ORDERED: LYRICA25 MG PO (07:34)
[2017-06-18] MEDS ORDERED: MIDODRINE HCL5 MG PO (07:35)
[2017-06-18] MEDS ORDERED: REQUIP0.5 MG PO (07:35)
== END 2017-05-05 20:50 | DRG 64 ==
LOC: D.ER 10:22 → D.M2 19:24
PROVIDERS: Emergency Medicine; Family Medicine
PROC: 5A1D70Z Performance of Urinary Filtration, Intermittent, Less than 6 Hours Per Day (ICD-10-PCS; principal; 2017-05-03)
DX: I63.9 Cerebral infarction, unspecified (principal); N18.6 End stage renal disease; I13.2 Hypertensive heart and chronic kidney disease with heart failure and with stage 5 chronic kidney disease, or end stage renal disease; R47.01 Aphasia; R40.2363 Coma scale, best motor response, obeys commands, at hospital admission; R40.2143 Coma scale, eyes open, spontaneous, at hospital admission; R40.2253 Coma scale, best verbal response, oriented, at hospital admission; E11.22 Type 2 diabetes mellitus with diabetic chronic kidney disease; I50.9 Heart failure, unspecified; Z99.2 Dependence on renal dialysis; Z79.4 Long term (current) use of insulin; I48.91 Unspecified atrial fibrillation; R41.0 Disorientation, unspecified

== ENCOUNTER 2017-05-05 20:40 | Inpatient (IN) | payer MEDICARE, OTHER ==
[~2017-05-05] VITALS: Ht 177.8 cm; Wt 84.1 kg
[2017-05-05 23:22] VITALS: BP 112/55; BMI 28.4
[2017-05-06 06:00] VITALS: BP 101/62
[2017-05-06 06:24] LABS: BASOPHILS 0.1 % (0-2); EOSINOPHILS 1.9 % (0-7); HEMATOCRIT 40.6 % (42.0-54.0); HEMOGLOBIN 13.3 g/dL (13.5-17.5); IMMATURE GRANULOCYTES 0.2 % (0-5); LYMPHOCYTES 13.5 % (15-50); MCH 31.2 pg (26.0-34.0); MCHC 32.8 g/dL (31.0-37.0); MCV 95.3 fL (80.0-100.0); MEAN PLATELET VOLUME 10.5 fL (7.4-10.4); MONOCYTES 12.9 % (2-11); NEUTROPHILS 71.4 % (40-80); PLATELET COUNT 181 10x3/uL (130-400); RBC 4.26 10x6/uL (4.20-6.10); RDW 15.4 % (11.5-14.5); WBC 9.3 10x3/uL (4.8-10.8)
[2017-05-06 06:40] LABS: ALBUMIN 3.3 g/dL (3.4-5.0); ANION GAP 17.7 mmol/L (8-16); BILIRUBIN - TOTAL 0.44 mg/dL (0.2-1.3); CALCIUM 8.7 mg/dL (8.5-10.1); CARBON DIOXIDE 30.4 mmol/L (21.0-32.0); CREATININE - SERUM 10.6 mg/dL (0.6-1.3); POTASSIUM - SERUM 4.1 mmol/L (3.5-5.1); PROTEIN - SERUM 6.4 g/dL (6.4-8.2)
[2017-05-06 11:25] VITALS: BP 109/48
[2017-05-06 18:31] VITALS: BP 96/49
[2017-05-07 00:56] VITALS: BP 122/51
[2017-05-07 06:00] VITALS: BP 114/46
[2017-05-07 08:18] LABS: ANION GAP 17.6 mmol/L (8-16); CARBON DIOXIDE 29.6 mmol/L (21.0-32.0); CREATININE - SERUM 9.4 mg/dL (0.6-1.3); POTASSIUM - SERUM 4.2 mmol/L (3.5-5.1)
[2017-05-07 08:19] LABS: BASOPHILS 0.2 % (0-2); EOSINOPHILS 1.9 % (0-7); HEMATOCRIT 41.8 % (42.0-54.0); HEMOGLOBIN 13.8 g/dL (13.5-17.5); IMMATURE GRANULOCYTES 0.2 % (0-5); LYMPHOCYTES 10.1 % (15-50); MCH 31.3 pg (26.0-34.0); MCV 94.8 fL (80.0-100.0); MEAN PLATELET VOLUME 10.7 fL (7.4-10.4); MONOCYTES 12.8 % (2-11); NEUTROPHILS 74.8 % (40-80); PLATELET COUNT 177 10x3/uL (130-400); RBC 4.41 10x6/uL (4.20-6.10); RDW 15.5 % (11.5-14.5); WBC 8.6 10x3/uL (4.8-10.8)
[2017-05-07 09:49] LABS: % SATURATION 21 % (15-55); IRON 56 ug/dl (35-150); TOTAL IRON BIND CAPACITY 264 ug/dl (260-445); UNSAT IRON BIND CAPACITY 208 ug/dl (150-375)
[2017-05-07 12:01] VITALS: BP 101/44
[2017-05-07 15:25] VITALS: BMI 27.6
[2017-05-07 18:25] VITALS: BP 132/76
[2017-05-08 00:10] VITALS: BP 116/50
[2017-05-08 06:12] VITALS: BP 106/41
[2017-05-08 06:22] LABS: BASOPHILS 0.1 % (0-2); EOSINOPHILS 1.6 % (0-7); HEMATOCRIT 38.5 % (42.0-54.0); IMMATURE GRANULOCYTES 0.3 % (0-5); LYMPHOCYTES 15.4 % (15-50); MCH 31.8 pg (26.0-34.0); MCHC 33.8 g/dL (31.0-37.0); MCV 94.1 fL (80.0-100.0); MEAN PLATELET VOLUME 11.1 fL (7.4-10.4); MONOCYTES 14.2 % (2-11); NEUTROPHILS 68.4 % (40-80); PLATELET COUNT 188 10x3/uL (130-400); RBC 4.09 10x6/uL (4.20-6.10); RDW 15.7 % (11.5-14.5)
[2017-05-08 06:27] LABS: WBC 10.8 10x3/uL (4.8-10.8)
[2017-05-08 06:56] LABS: ALBUMIN 3.2 g/dL (3.4-5.0); ANION GAP 21.6 mmol/L (8-16); BILIRUBIN - TOTAL 0.4 mg/dL (0.2-1.3); CALCIUM 8.9 mg/dL (8.5-10.1); CARBON DIOXIDE 25.6 mmol/L (21.0-32.0); PHOSPHOROUS 8.9 mg/dL (2.5-4.9); POTASSIUM - SERUM 4.2 mmol/L (3.5-5.1); PROTEIN - SERUM 6.4 g/dL (6.4-8.2)
[2017-05-08 10:11] VITALS: BP 99/35
[2017-05-08 12:03] VITALS: BP 105/45
[2017-05-08 18:42] VITALS: BP 115/48
[2017-05-09 00:06] VITALS: BP 102/57
[2017-05-09 05:51] VITALS: BP 102/74
[2017-05-09 07:17] LABS: ANION GAP 18.2 mmol/L (8-16); CALCIUM 9.5 mg/dL (8.5-10.1); CARBON DIOXIDE 30.1 mmol/L (21.0-32.0); CREATININE - SERUM 9.5 mg/dL (0.6-1.3); POTASSIUM - SERUM 4.3 mmol/L (3.5-5.1)
[2017-05-09 08:31] VITALS: BP 140/47
[2017-05-09 12:55] VITALS: BP 103/41
[2017-05-09 20:42] VITALS: BP 108/47
[2017-05-10 00:30] VITALS: BP 125/48
[2017-05-10 06:27] VITALS: BP 120/75
[2017-05-10 06:55] LABS: BASOPHILS 0.1 % (0-2); HEMATOCRIT 35.7 % (42.0-54.0); IMMATURE GRANULOCYTES 0.4 % (0-5); LYMPHOCYTES 14.6 % (15-50); MCHC 33.6 g/dL (31.0-37.0); MCV 92.2 fL (80.0-100.0); MEAN PLATELET VOLUME 10.9 fL (7.4-10.4); MONOCYTES 14.9 % (2-11); PLATELET COUNT 186 10x3/uL (130-400); RBC 3.87 10x6/uL (4.20-6.10); RDW 15.4 % (11.5-14.5)
[2017-05-10 07:15] LABS: ANION GAP 20.9 mmol/L (8-16); CALCIUM 9.2 mg/dL (8.5-10.1); CARBON DIOXIDE 26.7 mmol/L (21.0-32.0); CREATININE - SERUM 11.6 mg/dL (0.6-1.3); POTASSIUM - SERUM 4.6 mmol/L (3.5-5.1)
[2017-05-10 15:23] VITALS: BP 149/51
[2017-05-10 23:51] VITALS: BP 106/51
[2017-05-11 05:38] VITALS: BP 86/32
[2017-05-11 08:14] VITALS: BP 110/36
[2017-05-11 12:06] VITALS: BP 94/37
[2017-05-12 01:00] VITALS: BP 118/40
[2017-05-12 06:04] VITALS: BP 128/66
[2017-05-12 08:19] VITALS: BP 96/51
[2017-05-12 19:05] VITALS: BP 94/52
[2017-05-13 00:53] VITALS: BP 132/50
[2017-05-13 06:10] VITALS: BP 128/50
[2017-05-13 07:28] LABS: BASOPHILS 0.2 % (0-2); EOSINOPHILS 1.3 % (0-7); HEMATOCRIT 34.2 % (42.0-54.0); HEMOGLOBIN 11.6 g/dL (13.5-17.5); IMMATURE GRANULOCYTES 0.4 % (0-5); MCH 31.4 pg (26.0-34.0); MCHC 33.9 g/dL (31.0-37.0); MCV 92.7 fL (80.0-100.0); MEAN PLATELET VOLUME 10.6 fL (7.4-10.4); MONOCYTES 11.2 % (2-11); NEUTROPHILS 70.9 % (40-80); PLATELET COUNT 218 10x3/uL (130-400); RBC 3.69 10x6/uL (4.20-6.10); RDW 15.1 % (11.5-14.5); WBC 8.4 10x3/uL (4.8-10.8)
[2017-05-13 07:37] LABS: ANION GAP 22.2 mmol/L (8-16); CALCIUM 9.5 mg/dL (8.5-10.1); CARBON DIOXIDE 26.6 mmol/L (21.0-32.0); CREATININE - SERUM 12.9 mg/dL (0.6-1.3); POTASSIUM - SERUM 4.8 mmol/L (3.5-5.1)
[2017-05-13 09:26] VITALS: Ht 177.8 cm; Wt 84.1 kg
[2017-05-14 00:05] VITALS: BP 127/58
[2017-05-14 06:07] VITALS: BP 109/47
[2017-05-14 12:00] VITALS: BP 115/65
[2017-05-14 18:24] VITALS: BP 132/43
[2017-05-15 00:03] VITALS: BP 105/55
[2017-05-15 06:40] VITALS: BP 142/53
[2017-05-15 11:45] VITALS: BP 105/37
[2017-05-15 18:15] VITALS: BP 124/71
[2017-05-16 00:05] VITALS: BP 109/36
[2017-05-16 06:09] VITALS: BP 146/53
[2017-05-16] MEDS ORDERED: HUMULIN N100 U/ML SC ×2 (10:57)
[2017-06-18] MEDS ORDERED: LYRICA25 MG PO (07:34)
[2017-06-18] MEDS ORDERED: MIDODRINE HCL5 MG PO (07:35)
[2017-06-18] MEDS ORDERED: REQUIP0.5 MG PO (07:35)
== END 2017-05-16 11:40 | disposition home health service (06) | DRG 64 ==
LOC: D.REHAB 20:40
PROVIDERS: Emergency Medicine; Internal Medicine Nephrology
PROC: 5A1D70Z Performance of Urinary Filtration, Intermittent, Less than 6 Hours Per Day (ICD-10-PCS; principal; 2017-05-06)
DX: I63.9 Cerebral infarction, unspecified (principal); N18.6 End stage renal disease; I13.2 Hypertensive heart and chronic kidney disease with heart failure and with stage 5 chronic kidney disease, or end stage renal disease; I50.30 Unspecified diastolic (congestive) heart failure; E11.22 Type 2 diabetes mellitus with diabetic chronic kidney disease; I48.91 Unspecified atrial fibrillation; Z79.4 Long term (current) use of insulin; I25.10 Atherosclerotic heart disease of native coronary artery without angina pectoris

== ENCOUNTER → 2017-05-24 15:26 | Outpatient (CLI) | payer MEDICARE, OTHER ==
[2017-05-13 09:26] VITALS: BMI 27.6
[~2017-05-24 15:26] MED LIST changes: +LYRICA25 MG PO; +MIDODRINE HCL5 MG PO; +REQUIP0.5 MG PO
== END | disposition home or self-care (01) ==
LOC: D.RAD 15:26
DX: R06.02 Shortness of breath (principal); R60.9 Edema, unspecified

== ENCOUNTER → 2017-06-06 13:18 | Outpatient (CLI) | payer MEDICARE, OTHER ==
[2017-05-13 09:26] VITALS: BMI 27.6
[~2017-06-06 13:18] MED LIST changes: -LYRICA25 MG PO; -MIDODRINE HCL5 MG PO; -REQUIP0.5 MG PO
== END | disposition home or self-care (01) ==
LOC: D.RT 13:18
DX: I48.91 Unspecified atrial fibrillation (principal); I49.9 Cardiac arrhythmia, unspecified

== ENCOUNTER → 2017-06-13 13:22 | Outpatient (CLI) | payer MEDICARE, OTHER ==
[2017-05-13 09:26] VITALS: BMI 27.6
== END | disposition home or self-care (01) ==
LOC: D.RT 13:22
DX: R06.00 Dyspnea, unspecified (principal)

== ENCOUNTER 2017-06-18 08:43 | Outpatient (CLI) | payer MEDICARE, OTHER ==
[~2017-06-18] VITALS: Ht 177.8 cm; Wt 90.9 kg
--- NOTE | ~2017-06-18 | OP ---
PATIENT NAME: TABATHA GODFREY MEDICAL RECORD: [id number] :46 LOCATION:D.CAT ADMISSION DATE: SURGEON: TIARRA HERNANDEZ MD DATE OF OPERATION: 06/18/2017 PROCEDURES: 1. PTCA stent RCA. 2. Intravascular ultrasound. 3. Left heart catheterization. 4. Selective coronary angiography. 5. Left ventriculogram. INDICATION: Angina and coronary artery disease. PROCEDURE IN DETAIL: After informed consent was obtained and after detailed explanation of risks, benefits as well as alternative therapies, the patient elected to proceed with angiogram and angioplasty. The right femoral area is prepped and draped in normal sterile fashion. The right femoral artery was cannulated via modified Seldinger technique with placement of 6-Kosovan sheath. All catheters exchanged through this sheath. FINDINGS: The left ventriculogram was performed in standard 30-degree NDIAYE view, reveals good cardiac wall motion throughout all segments. Overall ejection fraction estimated at 55%. SELECTIVE CORONARY ANGIOGRAPHY: 1. Left main is with no significant ST segment. 2. Left anterior descending has previously placed stent with up to 80% in-stent restenosis. 3. Left circumflex shows moderate irregularities, but no flow-limiting stenosis. 4. Right coronary has greater than 75% stenosis throughout the mid vessel confirmed by intravascular ultrasound. PTCA STENT OF THE RCA: The stent used was a 3.0 x 26 mm Toro. Result was 0% residual stenosis. OVERALL IMPRESSION: Successful percutaneous transluminal coronary angioplasty stent of the right coronary artery going from long area of greater than 75% stenosis in the mid vessel to 0% residual stenosis. PLAN: PTCA stent of the LAD in the near future. TRANSINT:[id number] Voice Confirmation ID: [id number] DOCUMENT ID: [id number] TIARRA HENRANDEZ MD CC: [id number] DICTATION DATE: 06/18/17 1005 PUPPET ENGINEER: 06/18/17 1017 [facility] [address] [place] [address]
--- NOTE | ~2017-06-18 | HEMODYNAMI ---
PATIENT:TABATHA GODFREY MEDICAL RECORD: [id number] : 46 LOCATION:[facility]ANIEL ADMISSION DATE: 06/18/17 Generatedon:06/18/201710:09 Patient name: TABATHA GODFREY Patient #: [id number] SSN: : [id number] Date of study: 06/18/2017 Page: Of Hemodynamic Procedure Report Patient Data Patient Demographics Procedure consent was obtained First Name: TABATHA Gender: Male Last Name: BEKAH : 1950 [facility] Initial: LOAN Age: 67 year(s) Patient #: [id number] Race: Unknown Additional ID: [id number] Contact details [address]: [address] [place] [address] State: [place] City: [place] Zip code: [address] Past Medical History Allergies Allergen Reaction Date Comments Reported Other allergy 06/18/2017 Niaspan, Niacin, Crestor. Admission Admission Data Admission Date: 06/18/2017 Admission Time: 8:43 Lab Results Lab Result Date: 06/18/2017 Lab Result Time: 0:00 Biochemistry Name Units Result Min Max BUN mg/dl 34 --(----)-* 7 18 Creatinine mg/dl 7.7 --(----)-* 0.6 1.3 CBC Name Units Result Min Max Hemoglobin g/dl 12.2 *-(----)-- 13.5 17.5 Procedure Procedure Types Cath Procedure Diagnostic Procedure [facility] ED w/Coronaries FFR/IVUS Intra-Coronary IVUS Initial PCI Procedure Coronary Stent Coronary Stent Initial Miscellaneous Procedures Moderate Sedation up to 15 minutes Peripheral Cath Diagnostic Procedure Cath Peripheral Rxnex-Behnpjj-Xgu-Off Procedure Description Procedure Date Procedure Date: 06/18/2017 Procedure Start Time: 9:45 Procedure End Time: 10:08 Procedure Staff Name Function Nacho Segovia RN [employer] Mdm Developer Nicholas Mares RT Monitor Samra Alexander RT Scrub Fran Adams RN Nurse Chong Rae MD Performing Physician Procedure Data Cath Procedure Fluoroscopy Diagnostic fluoroscopy Total fluoroscopy Time: 4.7 time: 4.7 min min Diagnostic fluoroscopy Total fluoroscopy dose: 830 dose: 830 mGy mGy Contrast Material Contrast Material Type Amount (ml) Isovue 300 135 Entry Location Entry Primary Successful Side Size Upsize Upsize Entry Closure Succes sful Closure Location (Fr) 1 (Fr) 2 (Fr) Remarks Device Remarks Femoral Right 5 Fr 6 Fr Exoseal artery Short Estimated blood loss: 10 ml Diagnostic catheters Device Type Used For End Catheter Placement MULTIPACK Pigtail 5 Fr Procedure catheter MULTIPACK JL 4.0 5Fr Procedure catheter MULTIPACK 3DRC 5Fr Procedure catheter Procedure Complications No complications Procedure Medications Medication Administration Route Dosage 0.9% NaCl I.V. 100 ml/hr Oxygen NC 2 l/min Heparin Flush Bag added to field 2 bags (1000units/500ml NS) Lidocaine 2% added to field 20 Benadryl I.V. 50 mg Versed I.V. 1 mg Fentanyl I.V. 50 mcg Heparin Bolus I.V. 4000 units Hemodynamics Rest HGB: 12.2 (g/dl) Heart Rate: 57 (bpm) Pressure Samples Time Site Value (mmHg) Purpose Heart Use Rate(bpm) 9:46 LV 58/12,-2 Snapshot 55 9:46 LV 103/13,11 Snapshot 67 Snapshots Pre Cath Intra NCS Post Cath Vital Signs Time Heart Resp SPO2 etCO2 NIBP (mmHg) Rhythm Pain Sedation Rate (ipm) (%) (mmHg) Status Level (bpm) 9:23:15 57 17 100 38.8 134/72(114) A-Flutter 0 (11) 9(A) , No pain 9:27:54 66 14 100 35.8 146/71(113) A-Flutter 0 (11) 9(A) , No pain 9:32:32 84 13 100 34.2 162/96(124) A-Flutter 0 (11) 9(A) , No pain 9:37:54 112 14 95 35.8 180/98(143) A-Flutter 0 (11) 9(A) , No pain 9:42:40 75 15 92 2.2 169/76(112) A-Flutter 0 (11) 9(A) , No pain 9:47:21 67 15 98 8.3 109/55(93) A-Flutter 0 (11) 9(A) , No pain 9:51:56 61 14 99 10.6 119/64(93) A-Flutter 0 (11) 9(A) , No pain 9:56:34 65 18 100 36.6 112/59(78) A-Flutter 0 (11) 9(A) , No pain 10:01:13 57 18 100 38.8 116/51(86) A-Flutter 0 (11) 10(A) , No pain 10:05:49 60 9 99 30.4 120/64(106) A-Flutter 0 (11) 10(A) , No pain Medications Time Medication Route Dose Verified Delivered Reason Notes Effectiveness by by 9:29:34 0.9% NaCl I.V. 100 Fran Fran Per physician ml/hr Angie Adams RN RN 9:29:50 Oxygen NC 2 Fran Fran Per physician l/min Angie Adams RN RN 9:30:02 Heparin Flush added 2 Fran Fran used for Bag to bags Angie Adams procedure (1000units/500ml field DORAN RN NS) 9:30:16 Lidocaine 2% added 20ml Fran Fran for local to vial Angie Adams anesthetic field DORAN RN 9:35:08 Benadryl I.V. 50 mg Fran Fran Per physician Angie Adams RN, RN 9:41:27 Versed I.V. 1 mg Fran Fran for sedation Angie Adams RN, RN 9:41:42 Fentanyl I.V. 50 Fran Fran for sedation mcg Angie Adams RN, RN 9:58:40 Heparin Bolus I.V. 4000 Fran Fran for units Angie Adams anticoagulation RN bus matron Log Time Note 9:02:49 Nacho Segovia RN sent for patient. Start room use. 9:03:11 Time tracking: Regular hours 9:03:15 Plan of Care:Hemodynamics will remain stable., Cardiac rhythm will remain stable., Comfort level will be maintained., Respiratory function will remain adequate., Patient/ family verbilizes understanding of procedure., Procedure tolerated without complication., Recovers from procedure without complications.. 9:03:57 H&P Date Dictated: 06/13/2017 Within 30 days and on chart., H&P Addendum completed by physician on day of procedure. (MUST COMPLETE FOR ALL OUTPATIENTS). 9:04:01 Signed procedure consent form obtained from patient. 9:06:16 Lab Result : BUN 34 mg/dl 9::16 Lab Result : Hemoglobin 12.2 g/dl 9::16 Lab Result : Creatinine 7.7 mg/dl 9:06:32 Patient received from Pre/Post Procedure Room to CCL 1 Alert and oriented. Tansferred to table in Supine position. 9::33 Warm blankets applied, and renetta hugger turned on for patient comfort. 9::34 Correct patient and procedure confirmed by team. 9::35 ECG and BP/O2 sat monitors applied to patient. 9:: Rhythm: atrial flutter 9::24 Full Disclosure recording started 9:: Vital chart was started 9::30 Baseline sample Acquired. 9::33 Pre-procedure instructions explained to patient. 9::33 Pre-op teaching completed and patient verbalized understanding. 9:22:45 Family in waiting room. 9:22:46 Patient NPO since Midnight. 9:23:13 Patient allergic to Other allergyNiaspan, Niacin, Crestor. 9:23:18 Is the patient allergic to Iodine/contrast media? No. 9:23:32 Is patient on blood thinner?Yes 9:23:34 ACC The patient was administered the following blood thiners within the last 24 hours: ACCPlavix 9:23:56 Patient diabetic? No. 9:24:16 Previous problem with sedation/anesthesia? No ? 9:24:16 Snore? No 9:24:17 Sleep apnea? No 9:24:18 Deviated septum? No 9:24:19 Opens mouth fully? Yes 9:24:20 Sticks out tongue? Yes 9:24:21 Airway obstruction? No ? 9:24:22 Dentures? No ? 9:24:24 Pre procedure: right dorsailis pedis pulse 2+ Normal; easily identifiable; not easily obliterated 9:24:26 Patient pain scale 0/10 ?. 9:24:37 IV patent on arrival in right antecubital with 0.9% NaCl at [facility]. 9:24:45 Lab results completed and on chart. 9:25:29 Right groin area was prepped with chlora-prep and draped in sterile fashion 9:25:31 Alarms reviewed by R. N. 9:25:31 Sharps counted by scrub and verified by R.N. 9:25:51 Use device set Femoral Dx 9:25:58 ACIST Syringe (19060) opened to sterile field. 9:25:59 Medline Cath Pack ([id number]) opened to sterile field. 9:26:05 Bag Decanter (2002S) opened to sterile field. 9:26:06 ACIST Hand Control (91223) opened to sterile field. 9:26:07 ACIST Manifold (45183) opened to sterile field. 9:26:11 Tegaderm 4 x 4 (1626W) opened to sterile field. 9:26:14 SHEATH 5FR [place] (ITS337) opened to sterile field. 9:26:14 DIAGNOSTIC WIRE .035 260cm J wire (083382) opened to sterile field. 9:26:15 DIAGNOSTIC Multipack 5Fr catheter set (WT5461) opened to sterile field. 9:26:17 PERCUTANEOUS ENTRY 19GA needle opened to sterile field. 9:26:32 Physician paged 9:26:35 Zero performed for pressure channel P1 9:29:34 0.9% NaCl 100 ml/hr I.V. was administered by Fran Adams RN; Per physician; 9:29:50 Oxygen 2 l/min NC was administered by Fran Adams RN; Per physician; 9:30:02 Heparin Flush Bag (1000units/500ml NS) 2 bags added to field was administered by Fran Adams RN; used for procedure; 9:30:16 Lidocaine 2% 20ml vial added to field was administered by Fran Adams RN; for local anesthetic; 9:35:08 Benadryl 50 mg I.V. was administered by Fran Adams RN; Per physician; 9:39:35 Physician arrived 9:39:36 --------ALL STOP TIME OUT------ 9:39:36 Final Timeout: patient, procedure, and site verified with staff and physician. All members of the team are in agreement. 9:39:38 Right groin site verified by team. 9:39:42 Physical assessment completed. ASA score P 2 - A patient with mild systemic disease as per Chong Rae MD. 9:39:46 Sedation plan: IV Moderate Sedation Medication:Versed, Fentanyl 9:41:27 Versed 1 mg I.V. was administered by Fran Adams RN; for sedation; 9:41:42 Fentanyl 50 mcg I.V. was administered by Fran Adams RN; for sedation; 9:44:54 Procedure started. 9:45:27 Local anesthetic to right femoral artery with Lidocaine 2% by Fran Adams RN.INITIAL ACCESS ONLY 9:45:36 A 5 Fr sheath was inserted into the Right Femoral artery 9:45:43 A MULTIPACK Pigtail 5 Fr catheter was advanced over the wire and used for Procedure. 9:46:33 LV gram done using NDIAYE 9:46:35 Injector settings: Ml/sec: 10, Volume: 20, 9:46:45 EF : 50 % 9:47:03 Abdominal angiogram w/ runoff was performed. 9:47:16 Left leg runoff performed. 9:47:29 Right leg runoff performed. 9:47:59 Catheter removed. 9:48:23 A MULTIPACK JL 4.0 5Fr catheter was advanced over the wire and used for Procedure. 9:49:21 LCA angiography performed. 9:49:53 SHEATH 6FR [place] (ABZ285) opened to sterile field. 9:49:54 INFLATOR Merit BasixCompak (QX6695) opened to sterile field. 9:51:12 A MULTIPACK 3DRC 5Fr catheter was advanced over the wire and used for Procedure. 9:51:15 RCA angiography performed. 9:53:24 Catheter removed. 9:53:32 Morris Knik Eagleye IVUS Catheter (78958F) opened to sterile field. 9:53:44 GRAPHIX 182cm guide wire ([id number]) opened to sterile field. 9:53:52 GUIDE 6FR AR 2.0 catheter ([id number]) opened to sterile field. 9:53:59 Sheath upsized to a 6 Fr Short. 9:54:03 6 Fr AR 2 guide catheter was inserted over the wire 9:55:05 Guide Catheter removed. unable to cannulate vessel. 9:55:13 GUIDE 6FR HS I catheter (LA6HSI) opened to sterile field. 9:55:23 6 Fr HS I guide catheter was inserted over the wire 9:57:01 Catheter removed. unable to cannulate vessel. 9:57:26 GUIDE 6FR HS I SH catheter ([id number]) opened to sterile field. 9:58:05 CHOICE PT GRAPHIX wire advanced. 9:58:40 Heparin Bolus 4000 units I.V. was administered by Fran Adams RN; for anticoagulation; 9:58:54 Wire advanced across lesion. 9:58:57 IVUS catheter advanced over wire. 10:00:22 IVUS pass to RCA lesion performed. 10:00:23 IVUS catheter removed over wire. 10:01:01 Inflation Number: 1 A PARDEEP RX 3.0 x 26 stent ([id number]) was prepped and advanced across the Prox RCA. The stent was deployed at 15 BRAYAN for 0:10 (min:sec). 10:01:30 Stent catheter was removed intact over wire. 10:01:34 Wire removed. 10:01:35 Guide catheter removed. 10:01:40 EXOSEAL 6Fr (EX600) opened to sterile field. 10:01:48 Sheath removed intact; hemostasis achieved with Exoseal to the Right Femoral artery. 10:01:50 Procedure ended.(Physican Out) 10:04:32 Fluoroscopy time 04.70 minutes. 10:04:36 Fluoroscopy dose: 830 mGy 10:04:36 Flurop Dose total: 830 10:04:40 Contrast amount:Isovue 300 135ml. 10:04:41 Sharps counted by scrub and verified by R.N. 10:04:43 Insertion/operative site no bleeding no hematoma. 10:04:45 Post-op/insertion site Right Femoral artery dressed using a 4 x 4 and Tegaderm. 10:04:49 Post right femoral artery:stable, soft, clean and dry 10:04:50 Post Procedure Pulses reassessed and unchanged 10:04:53 Post-procedure physical assessment completed. ASA score P 2 - A patient with mild systemic disease as per Chong Rae MD. 10:04:56 Post procedure rhythm: unchanged. 10:04:59 Estimated blood loss: 10 ml 10:05:03 Post procedure instruction explained to patient.Patient verbalizes understanding. 10:05:04 Patient needs reinforcement of post procedure teaching. 10:06:21 Procedure type changed to Cath procedure, Diagnostic procedure, LHC, LHC w/Coronaries, FFR/IVUS, Intra-Coronary IVUS Initial, PCI procedure, Coronary Stent, Coronary Stent Initial, Miscellaneous Procedures, Moderate Sedation up to 15 minutes, Peripheral Cath Diagnostic Procedure, Cath Peripheral, Omqxe-Anihiai-Gdx-Off 10:07:50 Procedure and supply charges have been captured, reviewed, submitted and are correct. 10:07:53 Procedure Complication : No complications 10:07:57 Vital chart was stopped 10:07:58 See physician's report for complete and final results. 10:07:59 Report given to Pre/Post Procedure Room. 10:08:03 Patient transfered to Pre/Post Procedure Room with Stretcher. 10:08:17 Procedure ended. 10:08:17 Full Disclosure recording stopped 10:09:05 End room use (Document Last) Intervention Summary Intervention Notes Time ActionType Lesion and Equipment Used Action# Pressure Duration Attributes 10:01:[address] stent Prox RCA PARDEEP RX 3.0 x 1 15 00:10 26 stent ([id number]) Device Usage Item Name Manufacture Quantity Catalog Number Hospital Part Current M inimal Lot# / Charge Number Stock Stock Serial# Code ACIST Syringe Acist 1 74809 240483 527367 959685 2 0 (37877) Medical Systems Inc Medline Cath Cardinal 1 [id number] 174722 09726 115522 5 Pack Health ([id number]) Bag Decanter Microtek 1 2001S 276629 71517 968520 5 (2001S) Medical Inc. ACIST Hand Acist 1 46405 772535 651724 232116 5 Control Medical (52639) Systems Inc ACIST Manifold Acist 1 66209 576301 414740 728085 5 (26164) Medical Systems Inc Tegaderm 4 x 4 3M 1 1626W 475243 728395 079290 5 (1626W) SHEATH 5FR Terumo 1 OLM176 647400 901568 298333 4 0 [place] (WSZ754) DIAGNOSTIC [facility] [place] 1 263113 723256 622485 235672 3 0 WIRE .035 260cm J wire (280593) DIAGNOSTIC Cardinal 1 HA4691 985625 36840 211704 3 0 Multipack 5Fr Health catheter set (TB2770) PERCUTANEOUS Cook Medical 1 [id number] 649062 045421 5 ENTRY 19GA needle MULTIPACK Cardinal 1 114515 5 Pigtail 5 Fr Health catheter MULTIPACK JL Cardinal 1 [id number] 5 4.0 5Fr Health catheter SHEATH 6FR Terumo 1 JJU410 280985 828588 829259 4 0 [place] (MJQ549) INFLATOR Merit Merit 1 GZ2229 097574 998536 352612 1 5 [facility] (XM6591) MULTIPACK 3DRC Cardinal 1 530693 5 5Fr catheter Health Morris Morris 1 [id number] 465272 361573 148927 8 Knik Eagleye IVUS Catheter (77280G) GRAPHIX 182cm [place] 1 [id number] 045123 925133 439017 5 guide wire Scientific ([id number]) GUIDE 6FR AR Medtronic 1 [id number] 703111 14680 220173 1 2.0 catheter ([id number]) GUIDE 6FR HS I Medtronic 1 LA6HSI 572949 53010 539928 1 catheter (LA6HSI) GUIDE 6FR HS I Medtronic 1 [id number] 254259 59121 678102 1 SH catheter ([id number]) PARDEEP RX 3.0 x Medtronic 1 [id number] 949378 6173559 097817 5 [id number] 26 stent ([id number]) EXOSEAL 6Fr Cardinal 1 EX600 862770 469915 673476 1 0 (EX600) Health Signature Audit [place] Stage Time Signature Unsigned Intra-Procedure 06/18/2017 Nicholas Mares 10:09:24 AM RT(R) Signatures Monitor : Nicholas Mares RT Signature : Date : Time : [facility] [address] [place] [address]
[2017-06-18 07:55] LABS: BASOPHILS 0.3 % (0-2); EOSINOPHILS 2.1 % (0-7); HEMATOCRIT 37.4 % (42.0-54.0); HEMOGLOBIN 12.2 g/dL (13.5-17.5); IMMATURE GRANULOCYTES 0.6 % (0-5); LYMPHOCYTES 16.6 % (15-50); MCH 32.3 pg (26.0-34.0); MCHC 32.6 g/dL (31.0-37.0); MCV 98.9 fL (80.0-100.0); MEAN PLATELET VOLUME 10.2 fL (7.4-10.4); MONOCYTES 14.9 % (2-11); NEUTROPHILS 65.5 % (40-80); PLATELET COUNT 189 10x3/uL (130-400); RBC 3.78 10x6/uL (4.20-6.10); RDW 16.7 % (11.5-14.5)
[2017-06-18 08:01] VITALS: Ht 177.8 cm; Wt 90.9 kg
[2017-06-18 08:13] LABS: ANION GAP 15.9 mmol/L (8-16); CALCIUM 8.3 mg/dL (8.5-10.1); CARBON DIOXIDE 28.9 mmol/L (21.0-32.0); CREATININE - SERUM 7.7 mg/dL (0.6-1.3); POTASSIUM - SERUM 4.8 mmol/L (3.5-5.1)
[~2017-06-18 08:43] MED LIST changes: +LYRICA25 MG PO; +MIDODRINE HCL5 MG PO; +REQUIP0.5 MG PO
== END 2017-06-18 14:20 | disposition home or self-care (01) ==
LOC: D.CATH 08:43
PROVIDERS: Internal Medicine Interventional Cardiology
DX: I25.119 Atherosclerotic heart disease of native coronary artery with unspecified angina pectoris (principal); T82.855A Stenosis of coronary artery stent, initial encounter; Z01.812 Encounter for preprocedural laboratory examination
CPT/HCPCS: 93458; 92978; C9600

== ENCOUNTER 2017-06-25 07:10 | Outpatient (CLI) | payer MEDICARE, OTHER ==
[~2017-06-25] VITALS: Ht 177.8 cm; Wt 90.9 kg
--- NOTE | ~2017-06-25 | HEMODYNAMI ---
PATIENT:TABATHA GODFREY MEDICAL RECORD: [id number] : 46 LOCATION:[facility] ADMISSION DATE: 06/25/17 Generatedon:06/25/20179:42 Patient name: TABATHA GODFREY Patient #: [id number] SSN: : 1950 Date of study: 06/25/2017 Page: Of Hemodynamic Procedure Report Patient Data Patient Demographics Procedure consent was obtained First Name: TABATHA Gender: Male Last Name: BEKAH : 1950 [facility] Initial: LOAN Age: 67 year(s) Patient #: [id number] Race: Unknown Additional ID: [id number] Contact details Address: [address] [place] [address] State: [place] City: [place] Zip code: [address] Past Medical History Allergies Allergen Reaction Date Comments Reported Other allergy 06/18/2017 Niaspan, Niacin, Crestor. Other allergy 06/25/2017 CRESTOR, NIACIN, NISPAN EXTENDED RELEASE Admission Admission Data Admission Date: 06/25/2017 Admission Time: 7:10 Weight (lbs.): 200 Weight (kg.): 90.72 Lab Results Lab Result Date: 06/25/2017 Lab Result Time: 0:00 Biochemistry Name Units Result Min Max BUN mg/dl 45 --(----)-* 7 18 Creatinine mg/dl 8.7 --(----)-* 0.6 1.3 CBC Name Units Result Min Max Hemoglobin g/dl 11.4 *-(----)-- 13.5 17.5 Procedure Procedure Types Cath Procedure PCI Procedure Coronary Stent Coronary Stent Initial Procedure Description Procedure Date Procedure Date: 06/25/2017 Procedure Start Time: 9:32 Procedure End Time: 9:41 Procedure Staff Name Function Chong Rae MD Performing Physician Samra Alexander RT Scrub Guillermo Knott RT Monitor Kanu Plaza RN Nurse Procedure Data Cath Procedure Fluoroscopy Diagnostic fluoroscopy Total fluoroscopy Time: 1.8 time: 1.8 min min Diagnostic fluoroscopy Total fluoroscopy dose: dose: 58.67 mGy 58.67 mGy Contrast Material Contrast Material Type Amount (ml) Isovue 300 28 Entry Location Entry Primary Successful Side Size Upsize Upsize Entry Closure Succes sful Closure Location (Fr) 1 (Fr) 2 (Fr) Remarks Device Remarks Femoral Right 6 Fr Exoseal artery Short Estimated blood loss: 10 ml Procedure Medications Medication Administration Route Dosage Oxygen NC 2 l/min Lidocaine 2% added to field 20 Heparin Flush Bag added to field 2 bags (1000units/500ml NS) 0.9% NaCl I.V. 100 ml/hr Heparin Bolus I.V. 4000 units Versed I.V. 1 mg Fentanyl I.V. 50 mcg Hemodynamics Rest HGB: 11.4 (g/dl) Heart Rate: 67 (bpm) Snapshots Pre Cath Intra NCS Post Cath Vital Signs Time Heart Resp SPO2 etCO2 NIBP (mmHg) Rhythm Pain Sedation Rate (ipm) (%) (mmHg) Status Level (bpm) 9:12:33 65 20 91 0 120/64(92) A-Flutter 0 (11) 9(A) , No pain 9:16:45 72 20 97 30.8 132/73(101) A-Flutter 0 (11) 9(A) , No pain 9:21:01 75 19 97 30.8 141/72(93) A-Flutter 0 (11) 9(A) , No pain 9:25:19 76 24 97 32.3 144/73(98) A-Flutter 0 (11) 9(A) , No pain 9:29:29 65 16 95 13.5 110/64(86) A-Flutter 0 (11) 9(A) , No pain 9:33:43 69 22 95 31.4 100/53(76) A-Flutter 0 (11) 9(A) , No pain 9:37:53 69 19 96 29.8 82/51(64) A-Flutter 0 (11) 9(A) , No pain 9:41:52 96 26.2 101/60(78) A-Flutter 0 (11) 9(A) , No pain Medications Time Medication Route Dose Verified Delivered Reason Notes Effectiveness by by 9:20:25 Oxygen NC 2 Chong Bobby used for l/min Kyra Plaza slip tender 9:27:44 Lidocaine 2% added 20ml Chong Manriquezrey for local to vial Kyra Rae MD anesthetic field 9:27:50 Heparin Flush added 2 Chong Chong used for Bag to bags Kyra Rae MD procedure (1000units/500ml field NS) 9:28:00 0.9% NaCl I.V. 100 Chong Swainhailee Per physician ml/hr Kyra Plaza RN 9:30:06 Versed I.V. 1 mg Chong Swainie for sedation Kyra Plaza RN 9:30:14 Fentanyl I.V. 50 Chong Buffie for sedation mcg Kyra Plaza RN 9:32:56 Heparin Bolus I.V. 4000 Chong Buffie for verifie d units Kyra Plaza RN anticoagulation with dr rae Procedure Log Time Note 9:00:25 Fran Adams RN sent for patient. Start room use. 9:00:26 Time tracking: Regular hours 9:00:30 Plan of Care:Hemodynamics will remain stable., Cardiac rhythm will remain stable., Comfort level will be maintained., Respiratory function will remain adequate., Patient/ family verbilizes understanding of procedure., Procedure tolerated without complication., Recovers from procedure without complications.. 9:00:34 Signed procedure consent form obtained from patient. 9:00:53 H&P Date Dictated: 06/13/2017 Within 30 days and on chart., H&P Addendum completed by physician on day of procedure. (MUST COMPLETE FOR ALL OUTPATIENTS). 9:01:57 Patient allergic to Other allergyCRESTOR, NIACIN, NISPAN EXTENDED RELEASE 9:02:08 Patient Weight : 200 lbs 9:05:14 Lab Result : BUN 45 mg/dl 9:05:14 Lab Result : Creatinine 8.7 mg/dl 9:05:14 Lab Result : Hemoglobin 11.4 g/dl 9:05:33 Patient received from Pre/Post Procedure Room to CCL 3 Alert and oriented. Tansferred to table in Supine position. 9:05:33 Warm blankets applied, and renetta hugger turned on for patient comfort. 9:05:34 Correct patient and procedure confirmed by team. 9:05:34 ECG and BP/O2 sat monitors applied to patient. 9:11:29 Vital chart was started 9:13:51 Baseline sample Acquired. 9:14:07 Rhythm: atrial flutter 9:14:10 Full Disclosure recording started 9:14:12 Pre-procedure instructions explained to patient. 9:14:13 Pre-op teaching completed and patient verbalized understanding. 9:14:17 Family in waiting room. 9:14:41 Patient NPO since Midnight. 9:18:14 Is the patient allergic to Iodine/contrast media? No. 9:18:19 Is patient on blood thinner?Yes 9:18:35 ACC The patient was administered the following blood thiners within the last 24 hours: ACCPlavix 9:18:49 Eliquis 06/23/2017 9:18:51 Patient diabetic? Yes. 9:18:55 If diabetic: On Metformin? No 9:19:09 INSULIN DEPENDANT 9:19:15 ----Pre-sedation anethsthesia assessment.---- 9:19:18 Previous problem with sedation/anesthesia? No ? 9:19:28 Snore? No 9:19:30 Sleep apnea? No 9:19:32 Deviated septum? No 9:19:33 Opens mouth fully? Yes 9:19:34 Sticks out tongue? Yes 9:19:37 Airway obstruction? No ? 9:19:42 Dentures? No ? 9:19:51 Pre procedure: right dorsailis pedis pulse 1+ Palpable, but thready & weak; easily obliterated 9:19:55 Patient pain scale 0/10 ?. 9:20:18 IV patent on arrival in right forearm with 0.9% NaCl at KVO. 9:20:25 Oxygen 2 l/min NC was administered by Kanu Plaza RN; used for procedure; 9:20:32 PATIENT IS RESERVE LEFT ARM 9:20:40 Lab results completed and on chart. 9:20:44 Right groin area was prepped with chlora-prep and draped in sterile fashion 9:20:46 Alarms reviewed by R. N. 9:20:46 Sharps counted by scrub and verified by R.N. 9:22:10 Use device set NORRED PCI 9:22:13 INFLATOR Merit BasixCompak ([id number]) opened to sterile field. 9:22:15 SHEATH 6FR Sterling (WBK369) opened to sterile field. 9:26:11 Use device set Radial Dx or PCI 9:26:35 ACIST Syringe (45482) opened to sterile field. 9:26:36 Medline Cath Pack ([id number]) opened to sterile field. 9:26:37 Bag Decanter (2002) opened to sterile field. 9:26:38 DIAGNOSTIC WIRE .035 260cm J wire (177410) opened to sterile field. 9:26:39 ACIST Hand Control (03264) opened to sterile field. 9:26:40 ACIST Manifold (00146) opened to sterile field. 9:26:44 Tegaderm 4 x 4 (1626W) opened to sterile field. 9:27:44 Lidocaine 2% 20ml vial added to field was administered by Chong Rae MD; for local anesthetic; 9:27:50 Heparin Flush Bag (1000units/500ml NS) 2 bags added to field was administered by Chong Rae MD; used for procedure; 9:28:00 0.9% NaCl 100 ml/hr I.V. was administered by Kanu Plaza RN; Per physician; 9::37 Diagnostic Cath Status : Elective 9:29:28 Physician arrived 9:29:28 --------ALL STOP TIME OUT------ 9:29:28 Final Timeout: patient, procedure, and site verified with staff and physician. All members of the team are in agreement. 9:29:35 Right groin site verified by team. 9:29:39 Physical assessment completed. ASA score P 2 - A patient with mild systemic disease as per Chong Rae MD. 9:29:43 Sedation plan: IV Moderate Sedation Medication:Versed, Fentanyl 9:30:06 Versed 1 mg I.V. was administered by Kanu Plaza RN; for sedation; 9:30:14 Fentanyl 50 mcg I.V. was administered by Kanu Plaza RN; for sedation; ::43 Zero performed for pressure channel P1 9:31:35 GUIDE 6FR XBLAD 3.5 catheter ([id number]) opened to sterile field. 9:31:51 CHOICE PT Extra Support 182cm wire ([id number]) opened to sterile field. 9:32:00 Procedure started. 9:32:04 Local anesthetic to right femoral artery with Lidocaine 2% by Chong Rae MD.INITIAL ACCESS ONLY 9:32:16 A 6 Fr Short sheath was inserted into the Right Femoral artery 9:32:44 6 Fr XBLAD guide catheter was inserted over the wire 9:32:56 Heparin Bolus 4000 units I.V. was administered by Kanu Plaza RN; for anticoagulation; verified with dr rae 9:34:08 CHOICE wire advanced. 9:34:15 Wire advanced across lesion. 9:35:23 Inflation Number: 1 A PARDEEP RX 3.5 x 15 stent ([id number]) was prepped and advanced across the Prox LAD. The stent was deployed at 11 BRAYAN for 0:10 (min:sec). 9:36:13 Stent catheter was removed intact over wire. 9:36:17 Wire removed. 9:36:17 Guide catheter removed. 9:38:23 EXOSEAL 6Fr (EX600) opened to sterile field. 9:38:41 Sheath removed intact; hemostasis achieved with Exoseal to the Right Femoral artery. 9:38:44 Procedure ended.(Physican Out) 9:39:58 Fluoroscopy time 01.80 minutes. 9:40:06 Flurop Dose total: 58.67 9:40:06 Fluoroscopy dose: 58.67 mGy 9:40:11 Contrast amount:Isovue 300 28ml. 9:40:12 Sharps counted by scrub and verified by R.N. 9:40:30 Insertion/operative site no bleeding no hematoma. 9:40:34 Post-op/insertion site Right Femoral artery dressed using a 4 x 4 and Tegaderm. 9:40:38 Post right femoral artery:stable 9:40:44 Post Procedure Pulses reassessed and unchanged 9:40:47 Post-procedure physical assessment completed. ASA score P 2 - A patient with mild systemic disease as per Chong Rae MD. 9:40:51 Post procedure rhythm: unchanged. 9:40:55 Estimated blood loss: 10 ml 9:40:57 Post procedure instruction explained to patient.Patient verbalizes understanding. 9:40:58 Patient needs reinforcement of post procedure teaching. 9:41:00 Procedure and supply charges have been captured, reviewed, submitted and are correct. 9:41:30 Vital chart was stopped 9:41:31 See physician's report for complete and final results. 9:41:33 Report given to Pre/Post Procedure Room. 9:41:36 Patient transfered to Pre/Post Procedure Room with Stretcher. 9:41:38 Procedure ended. 9:41:38 Full Disclosure recording stopped 9:41:42 End room use (Document Last) Intervention Summary Intervention Notes Time ActionType Lesion and Equipment Used Action# Pressure Duration Attributes 9:35:[address] stent Prox LAD PARDEEP RX 3.5 x 1 11 00:10 15 stent ([id number]) Device Usage Item Name Manufacture Quantity Catalog Number Hospital Part Current M inimal Lot# / Charge Number Stock Stock Serial# Code INFLATOR Merit Merit 1 [id number] 077966 491074 966423 1 5 Tobii Technology ([id number]) SHEATH 6FR Terumo 1 [id number] 121355 432056 979927 4 0 Sterling (KXX761) ACIST Syringe Acist 1 49128 291376 768772 415849 2 0 (15159) Medical Systems Inc Medline Cath Cardinal 1 [id number] 341879 94166 097629 5 Pack Health As We Age ([id number]) Bag Decanter Microtek 1 2001S 181761 30217 906550 5 (2001S) Medical Inc. DIAGNOSTIC St [place] 1 832345 992476 496759 469257 3 0 WIRE .035 260cm J wire (066652) ACIST Hand Acist 1 87849 431643 121851 582566 5 Control Medical (25942) Systems Inc ACIST Manifold Acist 1 14861 267970 055582 587964 5 (79538) Medical Systems Inc Tegaderm 4 x 4 3M 1 1626W 870555 984576 386865 5 (1626W) GUIDE 6FR Cardinal 1 [id number] 670820 506894 587718 1 0 XBLAD 3.5 Health catheter (35083365) CHOICE PT Kent 1 [id number] 880231 464415 427533 5 Extra Support Scientific 182cm wire ([id number]) PARDEEP RX 3.5 x Medtronic 1 [id number] 789949 3069795 380818 5 [id number] 15 stent ([id number]) EXOSEAL 6Fr Cardinal 1 EX600 886357 508996 248708 1 0 (EX600) Health Signature Audit [place] Stage Time Signature Unsigned Intra-Procedure 06/25/2017 Guillermo Knott 9:42:07 AM RT(R) (CV) Signatures Monitor : Guillermo Knott RT Signature : Date : Time : [place] [id number] [place] [address]
--- NOTE | ~2017-06-25 | OP ---
PATIENT NAME: TABATHA GODFREY MEDICAL RECORD: [id number] :46 LOCATION:D.CAT ADMISSION DATE: SURGEON: TIARRA HERNANDEZ MD DATE OF OPERATION: 06/25/2017 DATE OF SERVICE: 06/25/2017 PROCEDURES: 1. PTCA stent LAD. 2. Selective coronary angiography. INDICATION: Angina and coronary artery disease. PROCEDURE IN DETAIL: After informed consent was obtained and after a detailed explanation of the risks, benefits as well as alternative therapies, the patient elected to proceed with angiogram and angioplasty. The right femoral area was prepped and draped in normal sterile fashion. The right femoral artery was cannulated via modified Seldinger technique with placement of a 6-Estonian sheath. All catheters exchanged through this sheath. FINDINGS: The left anterior descending has 80% in-stent restenosis, this was addressed with a 3.5 x 15 mm Toro stent. Result was 0% residual stenosis. OVERALL IMPRESSION: Successful percutaneous transluminal coronary angioplasty stent of the left anterior descending going from 80% initial stenosis to 0% residual. TRANSINT:[id number] Voice Confirmation ID: [id number] DOCUMENT ID: [id number] TIARRA HERNANDEZ MD CC: [id number] DICTATION DATE: 06/25/17 0941 WIRE STRIPPING MACHINE OPERATOR: 06/25/[address] [facility] [address] [place] [id number]
[2017-06-25] MEDS ORDERED: FUROSEMIDE40 MG PO (07:46)
[2017-06-25 07:51] VITALS: BP 135/57; Ht 177.8 cm; Wt 90.9 kg
[2017-06-25 08:10] LABS: HEMATOCRIT 33.8 % (42.0-54.0); HEMOGLOBIN 11.4 g/dL (13.5-17.5); LYMPHOCYTES 10.6 % (15-50); MCH 32.5 pg (26.0-34.0); MCHC 33.7 g/dL (31.0-37.0); MCV 96.3 fL (80.0-100.0); MEAN PLATELET VOLUME 9.9 fL (7.4-10.4); NEUTROPHILS 70.5 % (40-80); PLATELET COUNT 155 10x3/uL (130-400); RBC 3.51 10x6/uL (4.20-6.10); RDW 15.8 % (11.5-14.5); WBC 8.8 10x3/uL (4.8-10.8)
[2017-06-25 08:22] LABS: ANION GAP 14.6 mmol/L (8-16); CALCIUM 8.6 mg/dL (8.5-10.1); CARBON DIOXIDE 29.9 mmol/L (21.0-32.0); CREATININE - SERUM 8.7 mg/dL (0.6-1.3); POTASSIUM - SERUM 4.5 mmol/L (3.5-5.1)
== END 2017-06-25 13:55 | disposition home or self-care (01) ==
LOC: D.CATH 07:10
PROVIDERS: Internal Medicine Interventional Cardiology
DX: I25.119 Atherosclerotic heart disease of native coronary artery with unspecified angina pectoris (principal); I48.0 Paroxysmal atrial fibrillation; Z95.2 Presence of prosthetic heart valve; I10 Essential (primary) hypertension; E78.5 Hyperlipidemia, unspecified; Z01.812 Encounter for preprocedural laboratory examination

== ENCOUNTER → 2018-01-23 10:45 | Outpatient (CLI) | payer MEDICARE, OTHER ==
[2017-06-25 07:51] VITALS: BMI 28.7
== END | disposition home or self-care (01) ==
LOC: D.US 10:45
DX: I65.23 Occlusion and stenosis of bilateral carotid arteries (principal)

== ENCOUNTER 2018-02-20 09:48 | Outpatient (CLI) | payer MEDICARE, OTHER ==
[~2018-02-20] VITALS: Ht 170.2 cm; Wt 94.7 kg
--- NOTE | ~2018-02-20 | DS ---
PATIENT:TABATHA BENNETT :46 MEDICAL RECORD: [id number] DISCHARGE SUMMARY ADMISSION DATE: 02/20/18 DISCHARGE DATE: 02/21/18 DATE OF DISCHARGE: 02/21/2018. DIAGNOSES: 1. Angina, unstable. 2. Coronary artery disease. 3. PTCA stent LAD RCA and circumflex this admission. 4. End-stage renal failure, on dialysis. 5. Hypertension. 6. Hyperlipidemia. HOSPITAL COURSE: Mr. Bennett presents with anginal symptomatology, found to have 3-vessel coronary artery disease, underwent successful PTCA stent of all 3 vessels, was discharged home with the addition of aspirin and Plavix to his medical regimen. He will follow up with [facility] in 1 month. TRANSINT:[id number] Voice Confirmation ID: [id number] DOCUMENT ID: [id number] TIARRA HERNANDEZ MD at 0958 CC: [id number] DICTATION DATE: 02/21/18940 [place] TECHNICIAN: 02/21/18 0949 DEP CLI 02/21/[address] [address]
--- NOTE | ~2018-02-20 | HEMODYNAMI ---
PATIENT:TABATHA GODFREY MEDICAL RECORD: [id number] : 46 LOCATION:[facility] D.2116 ADMISSION DATE: 02/20/18 Generatedon:02/21/20189:42 Patient name: TABATHA GODFREY Patient #: [id number] SSN: : 1950 Date of study: 02/21/2018 Page: Of Hemodynamic Procedure Report Patient Data Patient Demographics Procedure consent was obtained First Name: TABATHA Gender: Male Last Name: BEKAH : 1950 [facility] Initial: LOAN Age: 67 year(s) Patient #: [id number] Race: Unknown Additional ID: [id number] Contact details Address: [address] [place] [address] State: [place] City: [place] Zip code: [address] Past Medical History Allergies Allergen Reaction Date Comments Reported Other allergy 06/18/2017 Niaspan, Niacin, Crestor. Other allergy 06/25/2017 CRESTOR, NIACIN, NISPAN EXTENDED RELEASE Other allergy 02/20/2018 CRESTOR, NIACIN, NIASPAN Other allergy 02/21/2018 NIACIN, CRESTOR Admission Admission Data Admission Date: 02/20/2018 Admission Time: 9:48 Room #: .2116 Height (in.): 70 BSA: 2.14 (m2) Height (cm.): 177.8 BMI: 30.42 (kg/m2) Weight (lbs.): 212 Weight (kg.): 96.16 Lab Results Lab Result Date: 02/20/2018 Lab Result Time: 0:00 Biochemistry Name Units Result Min Max BUN mg/dl 33 --(----)-* 7 18 Creatinine mg/dl 6.9 --(----)-* 0.6 1.3 CBC Name Units Result Min Max Hemoglobin g/dl 14 --(*---)-- 13.5 17.5 Procedure Procedure Types Cath Procedure PCI Procedure Coronary Stent Coronary Stent Initial x2 Procedure Description Procedure Date Procedure Date: 02/21/2018 Procedure Start Time: 9:27 Procedure End Time: 9:38 Procedure Staff Name Function Chong Rae MD Performing Physician Samra Alexander RT Scrub Anita Alvarez RN Nurse Kanu Plaza RN Nurse Josefa Samuel RT Monitor Procedure Data Cath Procedure Fluoroscopy Diagnostic fluoroscopy Total fluoroscopy Time: 2.7 time: 2.7 min min Diagnostic fluoroscopy Total fluoroscopy dose: 398 dose: 398 mGy mGy Contrast Material Contrast Material Type Amount (ml) Isovue 300 52 Entry Location Entry Primary Successful Side Size Upsize Upsize Entry Closure Succes sful Closure Location (Fr) 1 (Fr) 2 (Fr) Remarks Device Remarks Femoral Left 6 Fr Exoseal artery Short Estimated blood loss: 10 ml Procedure Complications No complications Procedure Medications Medication Administration Route Dosage 0.9% NaCl I.V. Oxygen etCO2 Nasal cannula 2 l/min Lidocaine 2% added to field 20 Heparin Flush Bag added to field 2 bags (1000units/500ml NS) Versed I.V. 1 mg Fentanyl I.V. 50 mcg Heparin Bolus I.V. 4000 units Hemodynamics Rest BSA: 2.14 (m2) O2 Consumption: Estimated: 291.04 (ml/min) O2 Consumption indexed : Estimated:136 (ml/min/m) Pre Cath Intra NCS Post Cath Vital Signs Time Heart Resp SPO2 etCO2 NIBP (mmHg) Rhythm Pain Sedation Rate (ipm) (%) (mmHg) Status Level (bpm) 9:05:55 78 12 98 36.3 173/65(110) A-Flutter 0 (11) 10(A) , No pain 9:10:30 55 11 100 36.3 142/64(123) A-Flutter 0 (11) 10(A) , No pain 9:15:43 55 11 99 37 118/50(96) A-Flutter 0 (11) 10(A) , No pain 9:19:55 56 10 98 35 99/46(77) A-Flutter 0 (11) 10(A) , No pain 9:24:07 56 12 97 34 91/45(69) A-Flutter 0 (11) 10(A) , No pain 9:28:19 55 12 98 36.3 96/46(77) A-Flutter 0 (11) 9(A) , No pain 9:32:31 54 13 97 35 96/44(76) A-Flutter 0 (11) 9(A) , No pain 9:36:41 55 9 97 34 103/51(89) A-Flutter 0 (11) 9(A) , No pain Medications Time Medication Route Dose Verified Delivered Reason Notes Effectiveness by by 9:16:35 0.9% NaCl I.V. kvo Chong Anita used for Kyra Alvarez industrial economics teacher 9:16:42 Oxygen etCO2 2 Chong Anita used for Nasal l/min Kyra Alvarez procedure cannula RN 9:16:49 Lidocaine 2% added 20ml Chongjohnson Schwarz for local to vial Kyra Rae MD anesthetic field 9:16:53 Heparin Flush added 2 Chong Chong used for Bag to bags Kyra Rae MD procedure (1000units/500ml field NS) 9:27:01 Heparin Bolus I.V. 4000 Chong Anita for units Kyra Alvarez anticoagulation RN 9:27:09 Versed I.V. 1 mg Chong Anita for sedation Kyra Alvarez RN 9:27:17 Fentanyl I.V. 50 Chong Anita for sedation mcg Kyra Alvarez model maker scale Log Time Note 8:35:13 Patient Height : 70 inches 8:35:13 Patient Weight : 212 lbs 8:35:25 Signed procedure consent form obtained from patient. 8:35:27 Diagnostic Cath status Elective 8:35:28 Time tracking: Regular hours (M-F 7:00 - 5:00) 8:35:31 Plan of Care:Hemodynamics will remain stable., Cardiac rhythm will remain stable., Comfort level will be maintained., Respiratory function will remain adequate., Patient/ family verbilizes understanding of procedure., Procedure tolerated without complication., Recovers from procedure without complications.. 8:35:39 H&P Date Dictated: 02/20/2018 Within 30 days and on chart., H&P Addendum completed by physician on day of procedure. (MUST COMPLETE FOR ALL OUTPATIENTS). 8:44:18 Kanu Plaza RN sent for patient. Start room use. 8:57:22 Patient received from Med II to CCL 1 Alert and oriented. Tansferred to table in Supine position. 8:57:23 Warm blankets applied, and renetta hugger turned on for patient comfort. 8:57:24 Correct patient and procedure confirmed by team. 8:57:25 ECG and BP/O2 sat monitors applied to patient. 9:02:53 Pre-procedure instructions explained to patient. 9:02:54 Pre-op teaching completed and patient verbalized understanding. 9:02:55 Family in patients room. 9:02:56 Patient NPO since Midnight. 9:03:10 Patient allergic to Other allergyNIACIN, CRESTOR 9:03:12 Is patient on blood thinner?Yes 9:03:17 ACC The patient was administered the following blood thiners within the last 24 hours: ACCPlavix, Xarelto 9:03:33 XARELTO HELD SINCE . 9:03:35 Patient diabetic? Yes. 9:03:38 If diabetic: On Metformin? No 9:03:41 Previous problem with sedation/anesthesia? No ? 9:03:43 Snore? No 9:03:44 Sleep apnea? No 9:03:46 Deviated septum? No 9:03:47 Opens mouth fully? Yes 9:03:49 Sticks out tongue? Yes 9:03:51 Airway obstruction? No ? 9:03:52 Dentures? No ? 9:03:56 Pre procedure: left dorsailis pedis pulse Doppler 9:04:10 Lab results completed and on chart. 9:04:12 Left groin area was prepped with chlora-prep and draped in sterile fashion 9:04:13 Alarms reviewed by R. N. 9:04:13 Sharps counted by scrub and verified by R.N. 9:04:27 Vital chart was started 9:16:35 0.9% NaCl kvo I.V. was administered by Anita Alvarez RN; used for procedure; 9:16:42 Oxygen 2 l/min etCO2 Nasal cannula was administered by Anita Alvarez RN; used for procedure; 9:16:49 Lidocaine 2% 20ml vial added to field was administered by Chong Rae MD; for local anesthetic; 9:16:53 Heparin Flush Bag (1000units/500ml NS) 2 bags added to field was administered by Chong Rae MD; used for procedure; 9:22:25 Zero performed for pressure channel P1 9:26:48 Physician arrived 9:26:49 --------ALL STOP TIME OUT------ 9::49 Final Timeout: patient, procedure, and site verified with staff and physician. All members of the team are in agreement. 9:26:51 Right groin site verified by team. 9:27:00 Physical assessment completed. ASA score P 2 - A patient with mild systemic disease as per Chong Rae MD. 9:27:01 Heparin Bolus 4000 units I.V. was administered by Anita Alvarez RN; for anticoagulation; 9::03 Sedation plan: IV Moderate Sedation Medication:Versed, Fentanyl 9::08 Use device set Femoral Dx 9::09 Versed 1 mg I.V. was administered by Anita Alvarez RN; for sedation; 9::11 Procedure started. 9:27:12 Full Disclosure recording started 9:27:16 Local anesthetic to left femerol artery with Lidocaine 2% by Chong Rae MD.INITIAL ACCESS ONLY 9:27:17 Fentanyl 50 mcg I.V. was administered by Anita Alvarez RN; for sedation; 9:27:28 A 6 Fr Short sheath was inserted into the Left Femoral artery 9:27:31 ACIST Syringe (63566) opened to sterile field. 9:27:31 Bag Decanter (2001S) opened to sterile field. 9:27:32 Medline Cath Pack ([id number]) opened to sterile field. 9:27:32 DIAGNOSTIC WIRE .035 260cm J wire (845013) opened to sterile field. 9:27:34 ACIST Hand Control (57078) opened to sterile field. 9:27:34 ACIST Manifold (88646) opened to sterile field. 9:27:38 Tegaderm 4 x 4 (1626W) opened to sterile field. 9:27:40 PERCUTANEOUS ENTRY 19GA needle opened to sterile field. 9:28:00 6 Fr xblad3.5 guide catheter was inserted over the wire 9:28:06 CHOICE PT EX wire advanced. 9:28:12 Wire advanced across lesion. 9:30:52 Place stent Inflation Number: 1 A PARDEEP RX 3.0 x 12 stent ([id number]) was prepped and advanced across the Mid LAD. The stent was deployed at 17 BRAYAN for 0:17 (min:sec). 9:31:35 Stent catheter was removed intact over wire. 9:33:11 Place stent Inflation Number: 1 A PARDEEP RX 2.25 x 12 stent ([id number]) was prepped and advanced across the Mid CX. The stent was deployed at 11 BRAYAN for 0:13 (min:sec). 9:33:41 Wire redirected to LAD. 9:34:05 Inflation number: 2 The stent balloon was then re-inflated across the Mid LAD to 19 BRAYAN for 0:00 (min:sec). 9:34:25 Stent catheter was removed intact over wire. 9:34:26 Wire removed. 9:34:29 Guide catheter removed. 9:34:40 EXOSEAL 6Fr (EX600) opened to sterile field. 9:34:59 Sheath removed intact; hemostasis achieved with Exoseal to the Left Femoral artery. 9:35:01 Procedure ended.(Physican Out) 9:35:23 Fluoroscopy time 02.70 minutes. 9:35:28 Fluoroscopy dose: 398 mGy 9:35:28 Flurop Dose total: 398 9:35:34 Contrast amount:Isovue 300 52ml. 9:35:36 Sharps counted by scrub and verified by R.N. 9:35:47 Post-op/insertion site Left Femoral artery dressed using a 4 x 4 and Tegaderm. 9:35:49 Post Procedure Pulses reassessed and unchanged 9:36:53 Post-procedure physical assessment completed. ASA score P 2 - A patient with mild systemic disease as per Chong Rae MD. 9:37:08 Post procedure rhythm: atrial flutter 9:37:12 Estimated blood loss: 10 ml 9:37:15 Post procedure instruction explained to patient.Patient verbalizes understanding. 9:37:28 Procedure type changed to Cath procedure, PCI procedure, Coronary Stent, Coronary Stent Initial x2 9:37:30 Procedure and supply charges have been captured, reviewed, submitted and are correct. 9:37:53 GUIDE 6FR XBLAD 3.5 catheter ([id number]) opened to sterile field. 9:37:54 SHEATH Prelude 6Fr 0.035 (XSF-3P-55-035) opened to sterile field. 9:37:55 CHOICE PT Extra Support 182cm wire ([id number]) opened to sterile field. 9:37:56 INFLATOR Merit BasixCompak (YI2126) opened to sterile field. 9:38:25 Procedure Complication : No complications 9:38:29 Vital chart was stopped 9:38:31 See physician's report for complete and final results. 9:38:35 Report given to [facility]. 9:38:42 Patient transfered to [facility] with Stretcher. 9:38:45 Procedure ended. 9:38:45 Full Disclosure recording stopped 9:38:47 End room use (Document Last) 9:38:53 ACC-PCI Only Patient was given prescriptions, or instructed by Chong Rae MD to start/continue the following medications upon discharge: Plavix Intervention Summary Intervention Notes Time ActionType Lesion and Equipment Used Action# Pressure Duration Attributes 9:30:52 Place stent Mid LAD PARDEEP RX 3.0 x 1 17 00:17 12 stent ([id number]) 9:33:11 Place stent Mid CX PARDEEP RX 2.25 x 1 11 00:13 12 stent ([id number]) 9:34:05 Reinflate Mid LAD PARDEEP RX 2.25 x 2 19 00:00 stent 12 stent balloon ([id number]) Device Usage Item Name Manufacture Quantity Catalog Number Hospital Part Current Minimal Lot# / Charge Number Stock Stock Serial# Code ACIST Syringe Acist 1 86305 613599 707547 666132 20 (76697) [employer] Bag Decanter Microtek 1 2001S 616253 00290 812101 5 (2001S) Medical Inc. Medline Cath Medline 1 [id number] 793820 15111 267628 5 Pack ([id number]) DIAGNOSTIC WIRE St Lefty 1 553838 942552 599310 315287 30 .035 260cm J wire (511715) ACIST Hand Acist 1 32204 666471 888048 725990 5 Control (91705) [employer] Inc ACIST Manifold Acist 1 15078 416993 388086 240520 5 (25825) [employer] Systems Inc Tegaderm 4 x 4 3M 1 1626W 749970 507848 117831 5 (1626W) PERCUTANEOUS Cook Medical 1 [id number] 521734 685544 5 ENTRY 19GA needle PARDEEP RX 3.0 x Medtronic 1 [id number] 954503 5282191 378069 5 [id number] 12 stent ([id number]) PARDEEP RX 2.25 x Medtronic 1 [id number] 321278 4771034 632589 5 [id number] 12 stent ([id number]) EXOSEAL 6Fr Cardinal 1 EX600 415574 253371 513646 10 (EX600) Health GUIDE 6FR XBLAD Cardinal 1 [id number] 827846 773340 365618 10 3.5 catheter Health ([id number]) SHEATH Prelude Merit 1 [id number]-[id number] 295928 2459570 082087 5 6Fr 0.035 Medical (CYN-[id number]) CHOICE PT Extra Bittinger 1 [id number] 724200 497467 546515 5 Support 182cm Scientific wire ([id number]) INFLATOR Merit Merit 1 JT1725 370778 705902 733392 15 [facility] ([id number]) Signature Audit [place] Stage Time Signature Unsigned Intra-Procedure 02/21/2018 Josefa Samuel 9:42:42 AM RT(R) Signatures Monitor : Josefa Samuel Signature : RT Date : Time : [place] [address] [place] [address]
--- NOTE | ~2018-02-20 | OP ---
PATIENT NAME: TABATHA GODFREY MEDICAL RECORD: [id number] :46 LOCATION:D.M2 D.2116 ADMISSION DATE: SURGEON: TIARRA HERNANDEZ MD DATE OF OPERATION: 02/20/2018 DATE OF SERVICE: 02/20/2018 PROCEDURES: 1. Aortofemoral runoff. 2. Abdominal aortography. INDICATION: Claudication and peripheral vascular disease. DESCRIPTION OF PROCEDURE: After informed consent was obtained and after detailed explanation of risks, benefits as well as alternative therapies, the patient elected to proceed with aortofemoral runoff. FINDINGS: The catheter was advanced to the abdominal aorta, pulled back for aortofemoral runoff. Abdominal aortography reveals no significant abdominal aortic disease. No dissection or aneurysm formation. No renal artery stenosis. RIGHT LEG: A. Iliac: The common internal and external iliacs have moderate irregularities, but no flow-limiting stenosis. There is a 30% stenosis, but none greater than this. B. Femoral system: The common superficial and deep femoral have moderate irregularities, but no flow-limiting stenosis. C. Popliteal and infrapopliteal vessels are widely patent with good 3-vessel runoff to the foot. LEFT LEG: A. Iliac: The common internal and external iliacs have moderate irregularities, but no flow-limiting stenosis. B. Femoral system: The common superficial and deep femoral have moderate irregularities, but no flow-limiting stenosis. C. Popliteal and infrapopliteal vessels are widely patent with good thrush and runoff to the foot. OVERALL IMPRESSION: Minimal peripheral vascular disease is present. No flow limiting stenosis. The leg discomfort is not secondary to arterial insufficiency. TRANSINT:[id number] Voice Confirmation ID: [id number] DOCUMENT ID: [id number] TIARRA HERNANDEZ MD at 0924 CC: [id number] DICTATION DATE: 02/20/18 1244 MAIN ENTREE COOK AND CASHIER: 02/20/18 1313 REG [facility] [address] [place] [address]
--- NOTE | ~2018-02-20 | OP ---
PATIENT NAME: TABATHA GODFREY MEDICAL RECORD: [id number] :46 LOCATION:D.CAT ADMISSION DATE: SURGEON: TIARRA HERNANDEZ MD DATE OF OPERATION: 02/21/2018 PROCEDURES: 1. PTCA stent LAD. 2. PTCA stent left circumflex. 3. Selective coronary angiography. INDICATION: Angina and coronary artery disease. PROCEDURE PERFORMED: After informed consent was obtained and after a detailed description of risks, benefits as well as alternative therapies, the patient elected to proceed with angiogram and angioplasty. The left femoral area was prepped and draped in normal sterile fashion. Left femoral artery was cannulated via modified Seldinger technique with placement of 6-[place] sheath. All catheters exchanged through this sheath. FINDINGS: The left anterior descending has 80% stenosis in the mid vessel. The circumflex has a 90% stenosis in the mid vessel. The circumflex was addressed with a 3.0 x 12 mm [place], the left anterior with a 2.25 x 12 mm [place]. Result was 0% residual stenosis. OVERALL IMPRESSION: Successful percutaneous transluminal coronary angioplasty stent of the left circumflex and LAD, both going from 80% to 85% initial stenosis to 0% residual. TRANSINT:[id number] Voice Confirmation ID: [id number] DOCUMENT ID: [id number] TIARRA HERNANDEZ MD at 1237 CC: [id number] DICTATION DATE: 02/21/1840 CHIEF FINANCIAL OFFICER: 02/21/18 0948 DEP CLI 02/21/18 [place] [id number]
--- NOTE | ~2018-02-20 | OP ---
PATIENT NAME: TABATHA GODFREY MEDICAL RECORD: [id number] :46 LOCATION:D.M2 D.2116 ADMISSION DATE: SURGEON: TIARRA HERNANDEZ MD DATE OF OPERATION: 02/20/2018 DATE OF SERVICE: 02/20/2018 PROCEDURES: 1. PTCA stent RCA. 2. Left heart catheterization. 3. Selective coronary angiography. 4. Left ventriculogram. INDICATION: Angina and coronary artery disease. PROCEDURE IN DETAIL: After informed was obtained and after a detailed description of risks, benefits as well as alternative therapies, the patient elected to proceed with angiogram and angioplasty. The right femoral area was prepped and draped in normal sterile fashion. Right femoral artery was cannulated via modified Seldinger technique with placement of 6-[place]izen [place] sheath. All catheters exchanged through this sheath. FINDINGS: The left ventriculogram was performed in standard 30-degree NDIAYE view, reveals preserved cardiac wall motion and ejection fraction 50%. SELECTIVE CORONARY ANGIOGRAPHY: 1. Left main is with no significant angiographic disease. 2. Left anterior descending has previously placed stents with 80% stenosis distal to the previously placed stents. 3. The left circumflex has 80% stenosis in mid distal vessel. 4. Right coronary has 80% in-stent restenosis in the mid vessel. RECYCLE WORKER STENT OF THE RCA: The stent used was a 3.0 x 22 mm Toro. Result was 0% residual stenosis. OVERALL IMPRESSION: Successful percutaneous transluminal coronary angioplasty stent of the right coronary artery going from 80% in-stent restenosis to 0% residual. PLAN: PTCA stent of the LAD and circumflex in the near future. TRANSINT:[id number] Voice Confirmation ID: [id number] DOCUMENT ID: [id number] TIARRA HERNANDEZ MD at 0924 CC: [id number] DICTATION DATE: 02/20/18 1244 VP TREASURER: 02/20/18 1304 REG [facility] [address] [place] [address]
--- NOTE | ~2018-02-20 | HEMODYNAMI ---
PATIENT:TABATHA GODFREY MEDICAL RECORD: [id number] : 46 LOCATION:D.CAT ADMISSION DATE: 02/20/18 Generatedon:02/20/201812:45 Patient name: TABATHA GODFREY Patient #: [id number] SSN: : 1950 Date of study: 02/20/2018 Page: Of Hemodynamic Procedure Report Patient Data Patient Demographics Procedure consent was obtained First Name: TABATHA Gender: Male Last Name: BEKAH : 1950 [facility] Initial: LOAN Age: 67 year(s) Patient #: [id number] Race: Unknown Additional ID: [id number] Contact details Address: [address] [place] [address] State: [place] City: [place] Zip code: [address] Past Medical History Allergies Allergen Reaction Date Comments Reported Other allergy 06/18/2017 Niaspan, Niacin, Crestor. Other allergy 06/25/2017 CRESTOR, NIACIN, NISPAN EXTENDED RELEASE Other allergy 02/20/2018 CRESTOR, NIACIN, NIASPAN Admission Admission Data Admission Date: 02/20/2018 Admission Time: 9:48 Height (in.): 70 BSA: 2.14 (m2) Height (cm.): 177.8 BMI: 30.42 (kg/m2) Weight (lbs.): 212 Weight (kg.): 96.16 Lab Results Lab Result Date: 02/20/2018 Lab Result Time: 0:00 Biochemistry Name Units Result Min Max BUN mg/dl 33 --(----)-* 7 18 Creatinine mg/dl 6.9 --(----)-* 0.6 1.3 CBC Name Units Result Min Max Hemoglobin g/dl 14 --(*---)-- 13.5 17.5 Procedure Procedure Types Cath Procedure Diagnostic Procedure LHC LHC w/Coronaries Sedation Charges Moderate Sedation up to 15 minutes PCI Procedure Coronary Stent Coronary Stent Initial Procedure Description Procedure Date Procedure Date: 02/20/2018 Procedure Start Time: 12:21 Procedure End Time: 12:43 Procedure Staff Name Function Chong Rae MD Performing Physician Samra Alexander RT Monitor Nicholas Mares RT Scrub Kanu Plaza RN Nurse Anita Alvarze RN Nurse Procedure Data Cath Procedure Fluoroscopy Diagnostic fluoroscopy Total fluoroscopy Time: 3.8 time: 3.8 min min Diagnostic fluoroscopy Total fluoroscopy dose: 718 dose: 718 mGy mGy Contrast Material Contrast Material Type Amount (ml) Isovue 300 123 Entry Location Entry Primary Successful Side Size Upsize Upsize Entry Closure Succes sful Closure Location (Fr) 1 (Fr) 2 (Fr) Remarks Device Remarks Femoral Right 5 Fr 6 Fr Exoseal artery Long Estimated blood loss: 10 ml Diagnostic catheters Device Type Used For End Catheter Placement MULTIPACK Pigtail 5 Fr Procedure catheter MULTIPACK JL 4.0 5Fr Procedure catheter MULTIPACK 3DRC 5Fr Procedure catheter Procedure Complications No complications Procedure Medications Medication Administration Route Dosage 0.9% NaCl I.V. 100 ml/hr Oxygen etCO2 Nasal cannula 2 l/min Lidocaine 2% added to field 20 Heparin Flush Bag added to field 2 bags (1000units/500ml NS) Versed I.V. 2 mg Fentanyl I.V. 100 mcg Heparin Bolus I.V. 4000 units Hemodynamics Rest BSA: 2.14 (m2) HGB: 14 (g/dl) O2 Consumption: Estimated: 252.77 (ml/min) O2 Cons umption indexed: Estimated:118.12 (ml/min/m) Heart Rate: 76 (bpm) Snapshots Pre Cath Intra NCS Post Cath Vital Signs Time Heart Resp SPO2 etCO2 NIBP (mmHg) Rhythm Pain Sedation Rate (ipm) (%) (mmHg) Status Level (bpm) 11:54:17 96 13 98 31.9 132/55(103) A-Flutter 0 (11) 10(A) , No pain 11:59:36 57 14 97 42.6 131/54(102) A-Flutter 0 (11) 10(A) , No pain 12:04:01 60 15 100 35 100/51(88) A-Flutter 0 (11) 10(A) , No pain 12:08:17 58 14 100 36 95/44(74) A-Flutter 0 (11) 10(A) , No pain 12:12:33 56 15 100 41 99/39(60) A-Flutter 0 (11) 10(A) , No pain 12:16:48 56 14 100 42 91/39(65) A-Flutter 0 (11) 10(A) , No pain 12:21:03 56 12 99 41 81/44(71) A-Flutter 0 (11) 9(A) , No pain 12:25:10 56 15 99 37 94/48(69) A-Flutter 0 (11) 9(A) , No pain 12:29:22 55 13 98 38 92/50(77) A-Flutter 0 (11) 9(A) , No pain 12:33:36 52 12 98 36 102/45(79) A-Flutter 0 (11) 9(A) , No pain 12:37:50 53 16 98 37 88/47(78) A-Flutter 0 (11) 9(A) , No pain 12:42:00 55 8 98 0 104/49(77) A-Flutter 0 (11) 9(A) , No pain Medications Time Medication Route Dose Verified Delivered Reason Notes Effectiveness by by 11:40:59 0.9% NaCl I.V. 100 Chong Anita used for ml/hr Kyra Alvarez law enforcement instructor 11:41:07 Oxygen etCO2 2 Chong Anita used for Nasal l/min Kyra Alvarez procedure cannula RN 11:41:13 Lidocaine 2% added 20ml Chong Chong for local to vial Kyra Rae MD anesthetic field 11:41:18 Heparin Flush added 2 Chong Chong used for Bag to bags Kyra Rae MD procedure (1000units/500ml field NS) 12:19:12 Versed I.V. 2 mg Chong Anita for sedation Kyra Alvarez RN 12:19:21 Fentanyl I.V. 100 Chong Anita for sedation mcg Kyra Alvarez RN 12:34:28 Heparin Bolus I.V. 4000 Chong Anita for verif ied units Kyra Alvarez anticoagulation with dr ANDREEA rae Procedure Log Time Note 11:39:44 Kanu Plaza RN sent for patient. Start room use. 11:39:46 Time tracking: Regular hours (M-F 7:00 - 5:00) 11:39:50 Plan of Care:Hemodynamics will remain stable., Cardiac rhythm will remain stable., Comfort level will be maintained., Respiratory function will remain adequate., Patient/ family verbilizes understanding of procedure., Procedure tolerated without complication., Recovers from procedure without complications.. 11:39:59 H&P Date Dictated: 02/11/2018 Within 30 days and on chart., H&P Addendum completed by physician on day of procedure. (MUST COMPLETE FOR ALL OUTPATIENTS). 11:40:22 Patient allergic to Other allergyCRESTOR, NIACIN, NIASPAN 11:40:59 0.9% NaCl 100 ml/hr I.V. was administered by Anita Alvarez RN; used for procedure; 11:41:07 Oxygen 2 l/min etCO2 Nasal cannula was administered by Anita Alvarez RN; used for procedure; 11:41:13 Lidocaine 2% 20ml vial added to field was administered by Chong Rae MD; for local anesthetic; 11:41:18 Heparin Flush Bag (1000units/500ml NS) 2 bags added to field was administered by Chong Rae MD; used for procedure; 11:42:15 Lab Result : Creatinine 6.9 mg/dl 11:42:15 Lab Result : BUN 33 mg/dl 11:42:15 Lab Result : Hemoglobin 14 g/dl 11:42:53 Patient Height : 70 inches 11:42:58 Patient Weight : 212 lbs 11:47:14 Patient received from Pre/Post Procedure Room to CCL 1 Alert and oriented. Tansferred to table in Supine position. 11:47:15 Warm blankets applied, and renetta hugger turned on for patient comfort. 11:47:15 Correct patient and procedure confirmed by team. 11:47:17 Signed procedure consent form obtained from patient. 11:47:18 ECG and BP/O2 sat monitors applied to patient. 11:52:27 Vital chart was started 11:59:10 Baseline sample Acquired. 11:59:19 Rhythm: atrial flutter 11:59:20 Full Disclosure recording started 11:59:21 Pre-procedure instructions explained to patient. 11:59:21 Pre-op teaching completed and patient verbalized understanding. 11:59:22 Family in patients room. 11:59:24 Patient NPO since Midnight. 11:59:32 Is patient on blood thinner?Yes 11:59:41 ACC The patient was administered the following blood thiners within the last 24 hours: ACCPlavix, Eliquis 11:59:52 Patient diabetic? Yes. 11:59:55 If diabetic: On Metformin? No 12:00:37 ELIQUIS 10.15.18 12:00:44 Previous problem with sedation/anesthesia? No ? 12:00:46 Snore? No 12:00:48 Sleep apnea? No 12:00:54 Deviated septum? No 12:00:56 Opens mouth fully? Yes 12:00:57 Sticks out tongue? Yes 12:00:59 Airway obstruction? No ? 12:01:19 Dentures? No ? 12:01:22 Pre procedure: right dorsailis pedis pulse 1+ Palpable, but thready & weak; easily obliterated 12:01:29 Patient pain scale 0/10 ?. 12:01:33 IV patent on arrival in left hand with 0.9% NaCl at [facility]. 12:01:35 Lab results completed and on chart. 12:02:18 Right groin area was prepped with chlora-prep and draped in sterile fashion 12:02:19 Alarms reviewed by R. N. 12:02:19 Sharps counted by scrub and verified by R.N. 12:02:23 Use device set Femoral Dx 12:02:25 ACIST Syringe (44517) opened to sterile field. 12:02:25 Bag Decanter (2002S) opened to sterile field. 12:02:26 ACIST Hand Control (46922) opened to sterile field. 12:02:27 ACIST Manifold (07587) opened to sterile field. 12:02:28 Tegaderm 4 x 4 (1626W) opened to sterile field. 12:02:46 Medline Cath Pack ([id number]) opened to sterile field. 12:02:47 DIAGNOSTIC WIRE .035 260cm J wire (088742) opened to sterile field. 12:02:48 DIAGNOSTIC Multipack 5Fr catheter set (EF5642) opened to sterile field. 12:02:49 SHEATH Prelude 5Fr 0.035 (IUR-5W-48-035) opened to sterile field. 12:06:10 Baseline sample Acquired. 12:08:06 Zero performed for pressure channel P1 12:08:21 Zero performed for pressure channel P1 12:08:28 Zero performed for pressure channel P1 12:: Zero performed for pressure channel P1 12::42 --------ALL STOP TIME OUT------ ::43 Final Timeout: patient, procedure, and site verified with staff and physician. All members of the team are in agreement. 12:18:46 Right groin site verified by team. 12::48 Physical assessment completed. ASA score P 2 - A patient with mild systemic disease as per Cohng Rae MD. 12:18:51 Sedation plan: IV Moderate Sedation Medication:Versed, Fentanyl 12:: Versed 2 mg I.V. was administered by Anita Alvarez RN; for sedation; :: Fentanyl 100 mcg I.V. was administered by Anita Alvarez RN; for sedation; ::43 Procedure started. 12::48 Local anesthetic to right femoral artery with Lidocaine 2% by Chong Rae MD.INITIAL ACCESS ONLY 12:23:34 A 5 Fr sheath was inserted into the Right Femoral artery 12:23:49 GLIDE WIRE MERIT Angled 260cm ([id number]) opened to sterile field. 12:24:53 A MULTIPACK Pigtail 5 Fr catheter was advanced over the wire and used for Procedure. 12:26:14 LV gram done using NDIAYE 12::17 Injector settings: Ml/sec: 10, Volume: 20, 12:26:37 EF : 50 % 12::58 CATHETER PULLED DOWN FOR AFRO 12:27:32 Abdominal angiogram w/ runoff was performed. 12:27:45 Right leg runoff performed. 12:27:46 Left leg runoff performed. 12:28:03 Catheter exchanged over wire. 12:29:01 SHEATH 6FR [place] (UTL195) opened to sterile field. 12:29:15 SHEATH 6FR Brite Tip 35cm ([id number]) opened to sterile field. 12:29:37 Sheath upsized to a 6 Fr Long. 12:31:02 A MULTIPACK JL 4.0 5Fr catheter was advanced over the wire and used for Procedure. 12:32:42 LCA angiography performed. 12:32:43 Catheter removed. 12:32:48 A MULTIPACK 3DRC 5Fr catheter was advanced over the wire and used for Procedure. 12:33:38 RCA angiography performed. 12:33:56 Catheter removed. 12:34:11 CHOICE PT Extra Support 182cm wire ([id number]) opened to sterile field. 12:34:12 INFLATOR Merit BasixCompak (RM1920) opened to sterile field. 12:34:28 Heparin Bolus 4000 units I.V. was administered by Anita Alvarez RN; for anticoagulation; verified with dr rae 12:34:51 GUIDE 6FR HS I catheter (LA6HSI) opened to sterile field. 12:34:59 6 Fr HS1 guide catheter was inserted over the wire 12:35:13 CHOICE ES 182 wire advanced. 12:36:15 Wire advanced across lesion. 12:36:38 Place stent Inflation Number: 1 A PARDEEP RX 3.0 x 22 stent ([id number]) was prepped and advanced across the Prox RCA. The stent was deployed at 15 BRAYAN for 0:10 (min:sec). 12:36:57 Stent catheter was removed intact over wire. 12:36:58 Wire removed. 12:36:59 Guide catheter removed. 12:37:29 LONG SHEATH EXCHANGED FOR A SHORT SHEATH 12:38:28 EXOSEAL 6Fr (EX600) opened to sterile field. 12:38:37 Sheath removed intact; hemostasis achieved with Exoseal to the Right Femoral artery. 12:38:43 Procedure ended.(Physican Out) 12:39:08 Fluoroscopy time 03.80 minutes. 12:39:11 Fluoroscopy dose: 718 mGy 12:39:11 Flurop Dose total: 718 12:39:15 Contrast amount:Isovue 300 123ml. 12:39:19 Post-op/insertion site Right Femoral artery dressed using a 4 x 4 and Tegaderm. 12:39:24 Post right femoral artery:stable, soft, clean and dry 12:39:26 Post-procedure physical assessment completed. ASA score P 2 - A patient with mild systemic disease as per Chong Rae MD. 12:39:33 Post procedure rhythm: unchanged. 12:39:37 Estimated blood loss: 10 ml 12:39:39 Post procedure instruction explained to patient.Patient verbalizes understanding. 12:39:42 Patient needs reinforcement of post procedure teaching. 12:42:46 Procedure type changed to Cath procedure, Diagnostic procedure, LHC, LHC w/Coronaries, Sedation Charges, Moderate Sedation up to 15 minutes, PCI procedure, Coronary Stent, Coronary Stent Initial 12:43:05 Procedure and supply charges have been captured, reviewed, submitted and are correct. 12:43:07 Procedure Complication : No complications 12:43:09 Vital chart was stopped 12:43:10 See physician's report for complete and final results. 12:43:11 Report given to [facility]. 12:43:29 Patient transfered to [facility] with Bed. 12:43:32 Procedure ended. 12:43:32 Full Disclosure recording stopped 12:43:35 End room use (Document Last) Intervention Summary Intervention Notes Time ActionType Lesion and Equipment Used Action# Pressure Duration Attributes 12:36:[address] stent Prox RCA PARDEEP RX 3.0 x 1 15 00:10 22 stent ([id number]) Device Usage Item Name Manufacture Quantity Catalog Number Hospital Part Current Minimal Lot# / Charge Number Stock Stock Serial# Code ACIST Syringe Acist 1 64296 779071 544535 809666 20 (17880) [employer] Inc Bag Decanter Microtek 1 2001S 288845 52104 298140 5 (2001S) Medical Inc. ACIST Hand Acist 1 03599 349032 701935 775876 5 Control (66757) Medical Systems Inc ACIST Manifold Acist 1 08713 232350 497234 970630 5 (07579) Medical Systems Inc Tegaderm 4 x 4 3M 1 1626W 360231 175058 868128 5 (1626W) Medline Cath Medline 1 [id number] 672827 87737 691567 5 Pack ([id number]) DIAGNOSTIC WIRE St Lefty 1 976276 727516 797299 036145 30 .035 260cm J wire (151975) DIAGNOSTIC Cardinal 1 FP5831 568523 73631 361427 30 Multipack 5Fr Health catheter set (OI4258) SHEATH Prelude Merit 1 TAZ-1U-05-035 207194 895982 355641 5 5Fr 0.035 Medical (AFI-5P-59-035) GLIDE WIRE Merit 1 [id number] 921075 613010 639037 5 MERIT Angled Medical 260cm ([id number]) MULTIPACK Cardinal 1 048939 5 Pigtail 5 Fr Health catheter SHEATH 6FR Terumo 1 IZO481 957758 820443 344500 40 [place] (TNH858) SHEATH 6FR Cardinal 1 [id number] 871663 301407 269990 1 Brite Tip 35cm Health (710028E) MULTIPACK JL Cardinal 1 698258 5 4.0 5Fr Health catheter MULTIPACK 3DRC Cardinal 1 084626 5 5Fr catheter Health CHOICE PT Extra [place] 1 [id number] 628608 101272 253478 5 Support 182cm Scientific wire ([id number]) INFLATOR Merit Merit 1 GV5189 976385 118173 509299 15 LetMeGo (NB4758) GUIDE 6FR HS I Medtronic 1 LA6HSI 344694 40649 982490 1 catheter (LA6HSI) PARDEEP RX 3.0 x Medtronic 1 [id number] 810551 0886439 831473 5 [id number] 22 stent ([id number]) EXOSEAL 6Fr Cardinal 1 EX600 788425 410090 604888 10 (EX600) Health Signature Audit [place] Stage Time Signature Unsigned Intra-Procedure 02/20/2018 Samra Alexander 12:45:15 PM RT(R) Signatures Monitor : Samra Alexander Signature : RT Date : Time : [place] [id number] [facility] [place] [id number]
[2018-02-20] MEDS ORDERED: DONEPEZIL HCL5 M1 PO (10:08)
[2018-02-20] MEDS ORDERED: ULTRAM50 MG PO (10:13)
[2018-02-20 10:24] VITALS: BP 158/62; BMI 32.2
[2018-02-20 10:38] LABS: BASOPHILS 0.2 % (0-2); EOSINOPHILS 2.2 % (0-7); HEMATOCRIT 40.6 % (42.0-54.0); IMMATURE GRANULOCYTES 0.4 % (0-5); LYMPHOCYTES 14.9 % (15-50); MCH 33.3 pg (26.0-34.0); MCHC 34.5 g/dL (31.0-37.0); MCV 96.7 fL (80.0-100.0); MEAN PLATELET VOLUME 11.5 fL (7.4-10.4); MONOCYTES 17.2 % (2-11); NEUTROPHILS 65.1 % (40-80); PLATELET COUNT 170 10x3/uL (130-400); RDW 14.6 % (11.5-14.5); WBC 9.7 10x3/uL (4.8-10.8)
[2018-02-20 10:47] LABS: ANION GAP 15.3 mmol/L (8-16); CALCIUM 9.4 mg/dL (8.5-10.1); CARBON DIOXIDE 29.4 mmol/L (21.0-32.0); CREATININE - SERUM 6.9 mg/dL (0.6-1.3); POTASSIUM - SERUM 4.7 mmol/L (3.5-5.1)
[2018-02-20 13:24] VITALS: BP 113/52; Ht 170.2 cm; Wt 94.7 kg
[2018-02-20 22:02] VITALS: BP 150/59
[2018-02-21 01:00] VITALS: BP 112/43
[2018-02-21 04:00] VITALS: BP 148/56
[2018-02-21 10:55] VITALS: BP 126/52
== END 2018-02-21 16:25 | disposition home or self-care (01) ==
LOC: D.M2 09:48 → D.CATH 09:48 → D.M2 13:15 → D.CATH 02-21 16:25
PROVIDERS: Internal Medicine Interventional Cardiology
DX: I25.10 Atherosclerotic heart disease of native coronary artery without angina pectoris (principal); R06.00 Dyspnea, unspecified; N18.6 End stage renal disease
CPT/HCPCS: 93458; C9600 ×3

== ENCOUNTER 2018-04-22 10:09 | Outpatient (CLI) | payer MEDICARE, OTHER ==
[~2018-04-22] VITALS: Ht 177.8 cm; Wt 91.4 kg
[~2018-04-22 10:09] MED LIST changes: +DONEPEZIL HCL5 M1 PO
[2018-04-22 11:16] VITALS: BP 140/59; Ht 177.8 cm; Wt 91.4 kg
== END 2018-04-22 13:05 | disposition home or self-care (01) ==
LOC: D.OPS 10:09
DX: Z95.2 Presence of prosthetic heart valve (principal)

== ENCOUNTER 2018-09-09 04:41 | Emergency (ER) | payer MEDICARE, OTHER ==
[~2018-09-09] VITALS: Ht 177.8 cm; Wt 95.5 kg
[2018-09-09 04:47] VITALS: Ht 177.8 cm; Wt 95.5 kg
[2018-09-09] MEDS ORDERED: DONEPEZIL HCL5 MG PO (05:03)
[2018-09-09 06:56] LABS: BASOPHILS 0.3 % (0-2); EOSINOPHILS 4.4 % (0-7); HEMATOCRIT 31.6 % (42.0-54.0); HEMOGLOBIN 10.3 g/dL (13.5-17.5); IMMATURE GRANULOCYTES 0.6 % (0-5); LYMPHOCYTES 11.8 % (15-50); MCH 32.8 pg (26.0-34.0); MCHC 32.6 g/dL (31.0-37.0); MCV 100.6 fL (80.0-100.0); MEAN PLATELET VOLUME 10.6 fL (7.4-10.4); MONOCYTES 15.2 % (2-11); NEUTROPHILS 67.7 % (40-80); PLATELET COUNT 170 10x3/uL (130-400); RBC 3.14 10x6/uL (4.20-6.10); RDW 14.9 % (11.5-14.5); WBC 8.6 10x3/uL (4.8-10.8)
[2018-09-09 06:58] LABS: ALBUMIN 3.4 g/dL (3.4-5.0); ANION GAP 13.1 mmol/L (8-16); BILIRUBIN - TOTAL 0.36 mg/dL (0.2-1.3); CALCIUM 8.6 mg/dL (8.5-10.1); CARBON DIOXIDE 28.6 mmol/L (21.0-32.0); CREATININE - SERUM 7.9 mg/dL (0.6-1.3); POTASSIUM - SERUM 4.7 mmol/L (3.5-5.1); PROTEIN - SERUM 7.2 g/dL (6.4-8.2)
[2018-09-09 07:05] LABS: APPEARANCE CLEAR (CLEAR); BILIRUBIN NEGATIVE (NEGATIVE); COLOR YELLOW (YELLOW); GLUCOSE NEGATIVE (NEGATIVE); KETONE NEGATIVE (NEGATIVE); NITRITE NEGATIVE (NEGATIVE); PROTEIN 1+ mg/dL (NEGATIVE); UROBILINOGEN NORMAL (NORMAL)
[2018-09-09 07:08] LABS: BACTERIA FEW /hpf (NONE SEEN); EPITHELIAL CELLS 0-5 /hpf (0-5); HYALINE CAST OCC /lpf (NONE SEEN); MUCUS <1+ /lpf (NONE SEEN); RED CELLS - URINE 0-5 /hpf (0-5); WHITE CELLS - URINE 0-5 /hpf (0-5)
[2018-09-09 07:49] VITALS: BP 132/60
== END 2018-09-09 07:50 | disposition home or self-care (01) ==
LOC: D.ER 04:41
PROVIDERS: Family Medicine
DX: M54.5 Low back pain (principal); R10.9 Unspecified abdominal pain

== ENCOUNTER → 2018-10-07 11:06 | Outpatient (CLI) | payer MEDICARE, OTHER ==
[2018-09-09 04:47] VITALS: BMI 30.1
--- NOTE | ~2018-10-07 | ST ---
PATIENT:TABATHA GODFREY MEDICAL RECORD: [id number] SEX: M LOCATION:[facility] ORDER #: ADMISSION DATE: 10/07/18 AGE OF PATIENT: 68 REFERRING PHYSICIAN: INTERPRETING PHYSICIAN: TIARRA HERNANDEZ MD DATE OF SERVICE: 10/07/2018 PROCEDURE: Nuclear stress test. INDICATION: Angina and coronary artery disease, shortness of breath, abnormal ECG-atrial flutter. The patient was exercised on standard Lexiscan protocol with 31 mCi of sestamibi injected at peak stress, 10 mCi used previously for rest images. FINDINGS: Gated SPECT reveals mildly depressed ejection fraction at 49% with decreased thickening and brightening throughout the inferior segments. SPECT imaging Cardiolite was used as myocardial perfusion agent. There is a fixed perfusion defect inferoseptally. No evidence of reversibility. The remaining segments have homogeneous uptake at rest and stress. OVERALL IMPRESSION: This is an abnormal, but stable nuclear stress test showing only a fixed perfusion defect inferiorly and septally. No evidence of reversible ischemia and ejection fraction mildly depressed, but preserved at 49%. Continue medical management of the coronary artery disease and cardiac risk factors. TRANSINT:[id number] Voice Confirmation ID: [id number] DOCUMENT ID: [id number] TIARRA HERNANDEZ MD CC: ARCHEL DE LA O DO [id number] DICTATION DATE: 10/08/18 1119 DIRECTOR OF COUNTERINTELLIGENCE: 10/09/18 0410 [facility] CLI 10/07/[address] [address]
[~2018-10-07 11:06] MED LIST changes: +DONEPEZIL HCL5 MG PO
== END | disposition home or self-care (01) ==
LOC: D.HCCARDIO 11:06
PROVIDERS: ATTEND Internal Medicine Interventional Cardiology
DX: R10.2 Pelvic and perineal pain (principal)

== ENCOUNTER → 2018-12-02 14:04 | Outpatient (CLI) | payer MEDICARE, OTHER ==
[2018-09-09 04:47] VITALS: BMI 30.1
== END | disposition home or self-care (01) ==
LOC: D.US 08:48
PROVIDERS: ATTEND Urology
DX: I86.1 Scrotal varices (principal)

== ENCOUNTER → 2018-12-16 09:53 | Outpatient (CLI) | payer MEDICARE, OTHER ==
[2018-09-09 04:47] VITALS: BMI 30.1
[~2018-12-16 09:53] MED LIST changes: +INSULIN ISOPHANE SC; +NOVOLIN 70/30 110 ML SC
== END | disposition home or self-care (01) ==
LOC: D.MRI 09:53
PROVIDERS: ATTEND Family Medicine
DX: M54.5 Low back pain (principal); R10.2 Pelvic and perineal pain

== ENCOUNTER 2019-01-08 05:28 | Day surgery (SDC) | payer MEDICARE, OTHER ==
[~2019-01-08] VITALS: Ht 177.8 cm; Wt 98.9 kg
[2019-01-08 05:49] LABS: HEMATOCRIT 32.6 % (42.0-54.0); HEMOGLOBIN 10.9 g/dL (13.5-17.5); MCH 33.3 pg (26.0-34.0); MCHC 33.4 g/dL (31.0-37.0); MCV 99.7 fL (80.0-100.0); MEAN PLATELET VOLUME 11.2 fL (7.4-10.4); RBC 3.27 10x6/uL (4.20-6.10); RDW 15.1 % (11.5-14.5); WBC 8.8 10x3/uL (4.8-10.8)
[2019-01-08 06:00] LABS: ANION GAP 15.1 mmol/L (8-16); APTT 35.7 SECONDS (22.8-39.4); CARBON DIOXIDE 31.1 mmol/L (21.0-32.0); CREATININE - SERUM 7.6 mg/dL (0.6-1.3); INR 1.13 (0.85-1.17); POTASSIUM - SERUM 5.2 mmol/L (3.5-5.1); PROTIME 13.9 SECONDS (11.6-15.0)
[2019-01-08 06:21] VITALS: Ht 177.8 cm; Wt 98.9 kg
--- NOTE | 2019-01-08 08:34 | NUR ---
0825-REC'D FROM SURGERY. DROWSY, EASILY AROUSED WITH VERBAL STIMULI,DENIES COMPLAINTS.VSS. AT BEDSIDE, CL IN EASY REACH
--- NOTE | 2019-01-08 08:52 | NUR ---
0845-AWAKE AND ALERT, FULL LIQUID TRAY TO ROOM.
--- NOTE | 2019-01-08 09:29 | NUR ---
0925-DISCHARGE CRITERIA MET. IV REMOVED FROM RIGHT ARM WITH CATH INACT,DISPOSED INTO SHARPS, COVERED SITE WITH BANDAID. REVIEWED DISCHARGE PAPERWORK WITH PT AND SPOUSE. VERBALIZED UNDERSTANDING WITHOUT QUESTIONS OR CONCERNS. ESCORTED OUT VIA W/C BY VOLUNTEER WITH SPOUSE DRIVING HOME
--- NOTE | 2019-01-08 12:38 | OP ---
PATIENT NAME: TABATHA GODFREY MEDICAL RECORD: [id number] :46 LOCATION:.[facility] ADMISSION DATE: SURGEON: BALDEMAR GARRIDO MD DATE OF OPERATION: 01/08/2019 SURGEON: Baldemar Garrido MD ANESTHESIA: TIVA by Ingrid Silva CRNA. DIAGNOSES: Elevated PSA 4.84, bladder outlet obstruction. PROCEDURE: Cystoscopy, transrectal ultrasound (TRUS), and prostate biopsy. FINDINGS: On cystoscopy, a large median lobe causing bladder outlet obstruction. Heavily trabeculated bladder with no bladder tumors. Transrectal ultrasound shows a 37-gram prostate with left prostatic stones. SPECIMEN: Prostate biopsy cores. BLOOD LOSS: Minimal. CLINICAL HISTORY: This is a 68-year-old male with a history of a right radical orchiectomy for testicular cancer. His scrotal ultrasound shows normal left testicle with a left-sided varicocele. He has an elevated PSA of 4.84 and obstructive voiding symptoms. He comes today for a transrectal ultrasound, cystoscopy, and prostate biopsy. HE IS ALLERGIC TO CRESTOR, NIACIN, AND STATINS. He was given Ancef 2 grams IV non profit director to the OR. DESCRIPTION OF PROCEDURE: The patient was given IV sedation. He was then placed into the lithotomy position and prepped and draped. A 21-Cay[place] Islander cystoscope with 30-degree lens was used for visualization. Findings are as outlined above. The bladder was then emptied through the cystoscope sheath and the scope was removed. The transrectal ultrasound probe was then introduced and then we obtained prostate size measurements. A size of 37 grams was obtained. We then obtained sextant biopsy cores. From each sextant at least 3 cores were obtained. Once all the specimens were obtained, the procedure was terminated. I will see the patient in followup next week to review the pathology results with him. TRANSINT:[id number] Voice Confirmation ID: [id number] DOCUMENT ID: [id number] BALDEMAR GARRIDO MD at 1238 CC: [id number] DICTATION DATE: 01/08/19821 SECOND WORKER: 01/08/19 1135 [facility] 01/08/19 [place] [address]
== END 2019-01-08 09:25 | disposition home or self-care (01) ==
LOC: D.OPS 05:28 → D.PAN 07:30 → D.OPS 09:25 → D.PAN 12:00 → D.OPS 13:00 → D.PAN 13:15
PROVIDERS: Anesthesiology; ATTEND Urology
DX: N40.1 Benign prostatic hyperplasia with lower urinary tract symptoms (principal); N13.8 Other obstructive and reflux uropathy; N32.89 Other specified disorders of bladder; N42.0 Calculus of prostate; Z01.812 Encounter for preprocedural laboratory examination; E11.22 Type 2 diabetes mellitus with diabetic chronic kidney disease; N18.6 End stage renal disease; Z99.2 Dependence on renal dialysis; I25.10 Atherosclerotic heart disease of native coronary artery without angina pectoris; Z95.1 Presence of aortocoronary bypass graft; Z95.5 Presence of coronary angioplasty implant and graft; I48.91 Unspecified atrial fibrillation; Z79.01 Long term (current) use of anticoagulants; Z79.02 Long term (current) use of antithrombotics/antiplatelets; R33.9 Retention of urine, unspecified

== ENCOUNTER 2019-01-08 16:31 | Inpatient (IN) | payer MEDICARE, OTHER ==
[~2019-01-08] VITALS: Ht 177.8 cm; Wt 93.6 kg
[2019-01-08 17:21] LABS: BASOPHILS 0.2 % (0-2); EOSINOPHILS 0.2 % (0-7); HEMATOCRIT 30.7 % (42.0-54.0); HEMOGLOBIN 10.5 g/dL (13.5-17.5); IMMATURE GRANULOCYTES 0.5 % (0-5); LYMPHOCYTES 7.9 % (15-50); MCH 33.7 pg (26.0-34.0); MCHC 34.2 g/dL (31.0-37.0); MCV 98.4 fL (80.0-100.0); MEAN PLATELET VOLUME 11.5 fL (7.4-10.4); MONOCYTES 4.2 % (2-11); PLATELET COUNT 145 10x3/uL (130-400); RBC 3.12 10x6/uL (4.20-6.10); RDW 15.1 % (11.5-14.5)
[2019-01-08 17:26] LABS: WBC 12.7 10x3/uL (4.8-10.8)
[2019-01-08 17:51] LABS: ANION GAP 22.6 mmol/L (8-16); BILIRUBIN - TOTAL 0.42 mg/dL (0.2-1.3); CALCIUM 9.2 mg/dL (8.5-10.1); CREATININE - SERUM 8.8 mg/dL (0.6-1.3); POTASSIUM - SERUM 5.7 mmol/L (3.5-5.1); PROTEIN - SERUM 7.4 g/dL (6.4-8.2)
[2019-01-08 17:52] LABS: CARBON DIOXIDE 23.1 mmol/L (21.0-32.0)
--- NOTE | 2019-01-08 19:30 | NUR ---
PT ARRIVED TO FLOOR VIA STRECHER WITH OR STAFF. PT GROGGLY FROM ANESTHESIA. PT HAS 3-WAY CATHETER AT A COUNTINOUS IRRIGATION. FLUID IS BRIGHT RED WITH SOME CLOTS. PT VITALS STABLE AT THIS TIME. FAMILY AT BEDSIDE. PT DENIES ANY PAIN OR NEEDS AT THIS TIME. BED LOW CALL LIGHT WITHIN REACH. HOME MEDS REC'D. AMANDA BED ALARM IN PLACE. WILL CONTINUE TO MONITOR.
--- NOTE | 2019-01-08 22:01 | NUR ---
PT COMPLAING OF BURNING AND PAIN IN LOWER ABDOMEN. NO FLUID RUNNING THROUGH TUBE. TOOK A 30ML SYRINGE WITH NORMAL SALINE TO FLUSH AND PULL BACK ANY CLOTTING. THERE WAS A FEW CLOTS THAT PULLED BACK. CATHETER IS FLOWING AND PT DENIES ANY PAIN AT THIS TIME. BED LOW CALL LIGHT WITHIN REACH. WILL CONTINUE TO MONITOR.
[2019-01-09] VITALS: BP 157/86
--- NOTE | 2019-01-09 02:16 | NUR ---
PT COMPLAINS OF DISCOMFORT IN LOWER ABDOMEN. CATHETER TUBE NOT FLOWING. CLOT SEEN AT J[place]CTION WHERE CATHETER BAG TUBING AND INTERNAL TUBING MEET. FUSHED 30ML NS AND CLOT BROKE THROUGH. FLUID NOW RUNNING THROUGH. PT DENIES ANY PAIN OR DISCOMFORT AT THIS TIME. BED LOW CALL LIGHT WITHIN REACH. WILL CONTINUE TO MONITOR.
[2019-01-09 04:30] VITALS: BP 140/51
--- NOTE | 2019-01-09 05:41 | NUR ---
[id number]. WILL CONTINUE TO MONITOR
--- NOTE | 2019-01-09 06:12 | NUR ---
PT HAS NORMAL SALINE RUNNING CONTINOUS TO IRRIGATE BLADDER. FLUIS IS BRIGHT RED IT HAS BEEN ALL NIGHT. REYNA EMPTIED EVERY 20 MIN WITH A TOTAL OF 31,250 OUTPUT AND 12 BAGS OF NS GOING IN AT 32,400ML. HAVE HAD TO IRRIGATE REYNA TUBING 3 TIMES TO DECLOT. PT WOULD HAVE PAIN WHEN CLOTTING WOULD START. AFTER FLUSHING AND PULLING BACK WITH 30ML OF NS PAIN WOULD DECREASE SMALL CLOTS WOULD COME OUT. PT VITALS STABLE AT THIS TIME. PT DENIES ANY PAIN OR FURTHER NEEDS AT THIS TIME. BED LOW CALL LIGHT WITHIN REACH, AMANDA ALARM IN PLACE. WILL CONTINUE TO MONITOR.
[2019-01-09 06:52] LABS: ANION GAP 17.8 mmol/L (8-16); CALCIUM 8.5 mg/dL (8.5-10.1); CARBON DIOXIDE 27.4 mmol/L (21.0-32.0); CREATININE - SERUM 9.7 mg/dL (0.6-1.3); MAGNESIUM - SERUM 2.3 mg/dL (1.8-2.4); PHOSPHOROUS 6.2 mg/dL (2.5-4.9); POTASSIUM - SERUM 5.2 mmol/L (3.5-5.1)
--- NOTE | 2019-01-09 07:00 | NUR ---
REPORT RECEIVED. HE IS ALERT BUT MUMBLES. GRUNTS AT TIMES. F/C WITH IRRIGATION INFUSING BRIGHT RED BLOOD WITH CLOTS IN TUBING. SALINE LOCK IN RIGHT A/C. HE IS PALE IN COLOR. O2 SAT IS 97%. CAREPLAN REVIEW DONE WITH SAFETY PRECAUTIONS IN PLACE. BED IN LOWEST POSITION AND LOCKED. CL IN REACH. RESP WITH SLIGHT LABOR WHEN GRUNTING.
[2019-01-09 07:20] LABS: HEMATOCRIT 24.7 % (42.0-54.0); MCH 33.5 pg (26.0-34.0); MCHC 33.2 g/dL (31.0-37.0); MEAN PLATELET VOLUME 11.4 fL (7.4-10.4); PLATELET COUNT 129 10x3/uL (130-400); RDW 15.5 % (11.5-14.5); WBC 10.3 10x3/uL (4.8-10.8)
[2019-01-09 07:29] LABS: HEMOGLOBIN 8.2 g/dL (13.5-17.5); MCV 100.8 fL (80.0-100.0); RBC 2.45 10x6/uL (4.20-6.10)
[2019-01-09 08:30] VITALS: BP 157/81
--- NOTE | 2019-01-09 08:30 | NUR ---
F/C HAS CLOTTED OFF. ATTEMPTED TO FLUSH BUT UNABLE TO CLEAR CLOTS OUT. NOTIFIED DR GARRIDO OF THIS AND HE ORDERED TO REPLACE IT. HE KNOWS IT IS BRIGHT RED BLOOD WITH CLOTS PRESENT ALSO AWARE OF LAB WORK WITH ORDER TO TRANSFUSE 2 UNITS OF PRBC
--- NOTE | 2019-01-09 09:05 | OP ---
PATIENT NAME: TABATHA GODFREY MEDICAL RECORD: [id number] :46 LOCATION:D. D.2129 ADMISSION DATE:01/08/19 SURGEON: TARYN GARRIDO MD DATE OF OPERATION: 01/08/2019 SURGEON: Taryn Garrido MD ANESTHESIA: TIVA by Ingrid Silva CRNA DIAGNOSES: Gross hematuria, clot urinary retention. PROCEDURE: Cystoscopy, bladder clot evacuation, and Rosario catheter insertion. FINDINGS: No obvious source of bleeding, bladder is filled with blood clots. BLOOD LOSS: Difficult to estimate. CLINICAL HISTORY: This is a 68-year-old male, who has diabetes, end-stage renal failure, on hemodialysis, coronary artery disease with previous CABG and coronary artery stents. He also has atrial fibrillation. For the latter conditions, he is on Plavix and Eliquis. He held these medications 5 days ago and today he had cystoscopy and prostate biopsy for an elevated PSA. This was done the first thing this morning. He then went home. His then called from home saying that he had a lot of bleeding per the urethra and that he was unable to void. He was referred to the Emergency Room. A CT scan done by the Emergency Room shows that he has a distended bladder which is filled with blood clots. He has not eaten anything since 10:00 a.m. today. He is being brought back to the operating room to have the blood clots evacuated via cystoscopy. Also, I will admit him for continuous bladder irrigation until his urine will clear up. His Plavix and other anticoagulation still seems to be having an effect even though they were held 5 days ago. DESCRIPTION OF PROCEDURE: The patient was given IV sedation. He was then placed into lithotomy position and prepped and draped. A 21-Bhutanese cystoscope with 30-degree lens was used for visualization. There was blood clot in the urethra. There were large numbers of blood clots in the bladder. An Ellik evacuator or Abhijit syringe were alternately used to get the blood clots out of the bladder. Finally, we had no further visible blood clots in the bladder. I could not see an obvious source of bleeding. With the cystoscope, sheath still in the bladder, a Sensor wire was placed through the sheath into the bladder. The sheath was then removed, leaving the wire in place. Over the wire, I inserted a 22-Bhutanese 3-way allakaket tip Rosario catheter. Once the Rosario catheter was fully in the bladder, the balloon was inflated with 10 cc of sterile water. The wire was then removed entirely. Continuous bladder irrigation with normal saline was started. TRANSINT:[id number] Voice Confirmation ID: [id number] DOCUMENT ID: [id number] OPERATIVE REPORT [id number] TABATHA GODFREY, TARYN Colunga MD at 0905 CC: [id number] DICTATION DATE: 01/08/192045 COLOR CONSULTANT: 01/09/19 0235 ADM IN [facility] [address] [id number]
--- NOTE | 2019-01-09 09:08 | NUR ---
PAT IN [facility] WAS AGAIN NOTIFIED OF NEED FOR NEW F/C AND TYPE AND SIZE.
--- NOTE | 2019-01-09 09:30 | NUR ---
NEW F/C 24 TURKMEN WAS INSERTED VIA RN. HE HAD 120 CC OF CLOTS FROM IRRIGATION. HE CONTINUES TO HAVE BRIGHT RED DRAINAGE AND CLOTS IN TUBING.
[2019-01-09 09:43] LABS: LYMPHOCYTES 24 % (15-50); NEUTROPHILS 76 % (40-80); PLATELET ESTIMATE DECREASED
[2019-01-09 12:44] VITALS: BP 142/73
[2019-01-09 13:39] VITALS: Ht 177.8 cm; Wt 93.6 kg
--- NOTE | 2019-01-09 13:45 | NUR ---
CALLED [facility]A IN PHARMACY FOR AMICAR DOSE FOR NOON TO HELP WITH BLEEDING. STATES THAT HE IS WORKING ON IT. DR GARRIDO IN ROOM SEEING PATIENT AND PRIMARY NURSE, ANDREEA MAGAÑA IN ROOM INFUSING BLOOD.
--- NOTE | 2019-01-09 15:30 | NUR ---
NOTIFIED DR GARRIDO OF HIS PAIN AND BLADDER SPASMS. NEW ORDER GIVEN FOR NORCO AND OXYBUTIN. HE IS AWARE OF STILL HAVING BLOODY OUTPUT WITH ANOTHER LARGE CLOT. HE STATED IF I CONTINUE TO GET CLOTS LET HIM KNOW. HIS URINE IS A LITTLE CLEARER IN COLOR BUT STILL BLOODY
--- NOTE | 2019-01-09 15:45 | NUR ---
NORCO AND OXYBUTIN WERE GIVEN. HE WAS TRANSPORTED DOWN TO DIALYSIS VIA BED DUE TO CURRENT CONDITION. F/C WAS IRRIAGATED BUT NO CLOTS CAME BACK. IT IS DRAINING AT THIS TIME AND CONTINUES TO HAVE BLOOD. HE GOT HIS 1ST UNIT OF PRBC. VSS. HE REMAINS PALE IN COLOR AND GRUNTING ON AND OFF. HE HAS HAD SEVERAL LOOSE STOOLS WHILE GRUNTING TODAY. HE IS ENCOURAGED NOT TO KEEP PUSHING SO MUCH. HE REMAINS WITH NO CHANGE IN STATUS NOTED AND IS ABLE TO HELP YOU ROLL HIM OVER IN THE BED
--- NOTE | 2019-01-09 17:32 | NUR ---
2ND UNIT OF BLOOD TRANSFUSED AT DIALYSIS. 1ST UNIT OF BLOOD WAS TRANSFUSED
[2019-01-09 20:21] VITALS: BP 129/64
[2019-01-09 23:37] VITALS: BP 92/40
--- NOTE | 2019-01-10 00:27 | NUR ---
PT BACK FORM DIALYSIS AT 2000 HRS. PT MOANING AND GROANING. STATES HAVING BLADDER SPASMS. [address] REYNA WITH CONTINUOUS IRRIGATION IN USE WITH PINK URINE RETURM. DITROPAN PO GIVEN FOR BLADDER SPASMS. ASSESSMENT COMPLETED AT 2015 HRS. VSS. UCAF PER CM HR 113. ALERT AND ORIENTED TO PERSON,PLACE AND TIME. FUNK. PT MUMBLES. IV TO RFA SL. L ARM FISTULA WITH GOOD BRUIT AND THRILL. PM FSBS 185. INSULIN HELD PT IS NOT EATING. PM MEDS GIVEN. AT 214O HRSL PT BEGAN MOANING LOUDLY. STATES HE IS FEELING PRESSURE BUILDING UP IN HIS BLADDER AND WANTS IT MANUALLY FLUSHED. ATTEMPTED TO MANUALLY FLUSH CATHETER USING STERILE TECHNIQUE AND RESISTANCE FELT. ATTEMPTED TO PULL BACK WITH NO RESULTS. CATHETER NOT DRAINING. IRRINGATION STOPPED. GOLD PLATER CALLED FOR ANOTHER [address] GARRIDO CALLED AND INFORMED OF CATHETER CLOTTING OFF, AND WILL CHANGE OUT CATHETER. NEW ORDERS RECEIVED AND NOTED. 24FR 3 WAY CATHETER REMOVED. LARGE BLOOD CLOT NOTED IN TUBING. 22FR [address] CATHETER PALCED USING STERILE TECHNIQUE WITH BLOODY URINE RETURN. PT TOLERATED ACTIVITY WELL. CONTINUOUS IRRIGATION RESTARTED WITH PINK DRAINIAGE NOTED. PT INFORMEDOF NPO AFTER MIDNIGHT AND CYSTOSCOPY IN AM. STATED UNDERSTANDING. PT CURRENTLY RESTING WITH EYES CLOSED. RESP EVEN AND REGULAR. SR UP X2, CALL LIGHT WITHIN REACH.
--- NOTE | 2019-01-10 02:14 | NUR ---
BLADDER IRRIGATION IN PROGRESS WITH PALE PINK URINE RETURN. BAG #19 UP. SR UP X2, CALL LIGHT WITHIN REACH.
--- NOTE | 2019-01-10 03:58 | NUR ---
PT RESTING WITH EYES CLOSED. RESP EVEN AND REGULAR. CONTINUOUS REYNA IRRIGATION WITH PINK RETURN. SR UP X2, CALL LIGHT WITHIN REACH.
[2019-01-10 04:21] VITALS: BP 92/42
--- NOTE | 2019-01-10 06:06 | NUR ---
PT INCONTINENT OF BOWEL. INCONTINENT CARE DONE. HIBICLENS BATH GIVEN. PT TOLERATED ACTIVITY WELL. PT STATES TO CALL FOR PERMISSIN FOR SURGERY. CAF THROUGHOTU NIGHT. CONTINUOUS IRRIGATION IN PROGRESS WITH PINK RETURN. NEEDS MET; WILL CONTINUE TO MONITOR.
[2019-01-10 06:19] LABS: HEMOGLOBIN 8.2 g/dL (13.5-17.5); MCH 32.2 pg (26.0-34.0); MCHC 34.2 g/dL (31.0-37.0); MCV 94.1 fL (80.0-100.0); MEAN PLATELET VOLUME 11.7 fL (7.4-10.4); PLATELET COUNT 125 10x3/uL (130-400); RBC 2.55 10x6/uL (4.20-6.10); RDW 16.7 % (11.5-14.5); WBC 21.3 10x3/uL (4.8-10.8)
[2019-01-10 06:21] LABS: ANION GAP 17.3 mmol/L (8-16); CALCIUM 8.2 mg/dL (8.5-10.1); CARBON DIOXIDE 27.3 mmol/L (21.0-32.0); CREATININE - SERUM 8.4 mg/dL (0.6-1.3); PHOSPHOROUS 5.4 mg/dL (2.5-4.9)
[2019-01-10 06:24] LABS: POTASSIUM - SERUM 6.6 mmol/L (3.5-5.1)
--- NOTE | 2019-01-10 06:36 | NUR ---
VERBAL CONSENT OBTAINED FROM FOR AM SURGERY. AM K+ 6.6 RENAL SERVICES PAGED.
--- NOTE | 2019-01-10 07:19 | NUR ---
PT INCONTINENT OF STOOL. INCONTINENT CARE DONE. BED LINENS CHANGED. AT BEDSIDE. AWAITING REDRAW OF K+
--- NOTE | 2019-01-10 07:33 | NUR ---
PT SITTING UP IN BED. CATHETER IRRIGATION IN PROGRESS. SMALL BM X1. PT CLEANED AND LINENS CHANGED. WILL CONTINUE TO MONITOR.
[2019-01-10 08:01] LABS: LYMPHOCYTES 6 % (15-50); MONOCYTES 4 % (2-11); NEUTROPHILS 89 % (40-80)
[2019-01-10 08:02] LABS: PLATELET ESTIMATE NORMAL
[2019-01-10 08:45] VITALS: BP 108/46
--- NOTE | 2019-01-10 09:03 | NUR ---
BP 89/50. NOTIFIED DR. GARRIDO. VERBAL ORDER FOR BOLUS 500 NS GIVEN.
[2019-01-10 09:58] LABS: APTT 34.1 SECONDS (22.8-39.4); INR 1.21 (0.85-1.17); PROTIME 14.7 SECONDS (11.6-15.0)
--- NOTE | 2019-01-10 12:09 | NUR ---
PT CLEANED MULTIPLE TIMES THIS MORNING AND PADS REPLACED EVERYTIME. IRRIGATION BAGS EMPTY AND REPLACED. SPOKE WITH DR. PERRY ABOUT POTASSIUM LEVEL 6.2 IN REGAURDS TO GOING TO DIALYSIS BEFORE OR AFTER SURGERY. DR. PERRY CONSULTED WITH ANESTHESIA. SURGERY TO BE PERFORMED FIRST, THEN DIALYSIS AFTER. PT LEFT TO SURGERY VIA BED.
--- NOTE | 2019-01-10 14:13 | NUR ---
PT RETURNED FROM SURGERY. ALERT AND ORIENTED. BLADDER IRRIGATION DRAINAGE CLEAR AT THIS TIME. VSS AT THIS TIME. IRRIGATION BAGS CHANGED. PT DENIES NEEDS OR PAIN AT THIS TIME.
--- NOTE | 2019-01-10 15:14 | NUR ---
I have reviewed this patient and I concur with the Shift Assessment completed by the Licensed Practical Nurse today this shift.
--- NOTE | 2019-01-10 15:59 | NUR ---
PT CURRENTLY IN DIALYSIS, REPORT GIVEN TO ANDREEA ROBB
[2019-01-10 21:31] VITALS: BP 108/51
--- NOTE | 2019-01-10 22:18 | NUR ---
INITIAL ROUNDS COMPLETED AT 1915 HRS. PT DENIED ANY DISCOMFORT. FAMILY AT BEDSIDE. RENAL SERVICES CALLED AT 1935 HRS. Nathaniel KANG RETURNED CALL AT 2004 HRS. DISCUSSED PT'S STATUS AND NEW ORDERS RECEIVED AND NOTED. ASSESSMENT COMPLETED AT 1954 HRS. VSS. CAF PER CM HR 68. PT DROWSY. OPENS EYES TO VERBAL STIMULI, ANSWERS QUESTIONS THEN FALLS BACK TO SLEEP. IV TO RAC SL. LUNGS ESSENTIALLY CTA. ABD SOFT WITH ACTIVE BS NOTED. 3WAY REYNA WITH CONTINUOUS IRRIGATION IN PROGRESS. CLEAR RETURN NOTED. PM FSBS 321. 8 UNITS HUMALOG GIVEN SUB-Q TO UPPER R ARM. SCHEDULED NPH GIVEN. PM SNACK SERVED. PM MEDS GIVEN WITHOUT DIFFICULTY. L ARM FISTULA WITH GOOD BRUIT AND THRILL. PT CURRENTLY RESTING WITH EYES CLOSED. RESP EVEN AND REGULAR. SR UP X2,CALL LIGHT WITHIN REACH AND BED ALARM ON.
--- NOTE | 2019-01-11 00:08 | NUR ---
PT RESTING WITH EYES CLOSED. RESP EVEN AND REGULAR. SR UP X2, CALL LIGHT WITHIN REACH.
[2019-01-11 01:07] VITALS: BP 112/42
--- NOTE | 2019-01-11 02:47 | NUR ---
PT RESTING WITH EYES CLOSED. RESP EVEN AND REGULAR. SR UP X2, CALL LIGHT WITHIN REACH.
--- NOTE | 2019-01-11 04:33 | NUR ---
PT RESTING WITH EYES CLOSED. RESP EVEN AND REGULAR. SR UP X2, CALL LIGHT WITHIN REACH.
[2019-01-11 04:36] VITALS: BP 120/39
[2019-01-11 07:24] LABS: BASOPHILS 0.2 % (0-2); EOSINOPHILS 1.6 % (0-7); IMMATURE GRANULOCYTES 0.5 % (0-5); LYMPHOCYTES 10.9 % (15-50); MCH 32.7 pg (26.0-34.0); MCHC 34.8 g/dL (31.0-37.0); MCV 93.9 fL (80.0-100.0); MEAN PLATELET VOLUME 11.2 fL (7.4-10.4); MONOCYTES 10.1 % (2-11); NEUTROPHILS 76.7 % (40-80); PLATELET COUNT 141 10x3/uL (130-400); RBC 2.45 10x6/uL (4.20-6.10); WBC 17.3 10x3/uL (4.8-10.8)
--- NOTE | 2019-01-11 07:30 | NUR ---
PATIENT COMPLAINING OF BLADDER SPASMS. MEDICATION GIVEN PER MAR. CONTINOUS BLADDER IRRIGATION BEING DELIVERED. OUTPUT IS CLEAR WITH NO BLOOD OR BLOOD CLOTS SEEN IN THE BAG. BED IS IN LOW POSITION AND CALLLLIGHT IS IN REACH. IV TO THE LEFT AC IS PATENT AND SALINE LOCKED AT THIS TIME. NO O2 IS ON THE PATIENT AT THSIS TIME. PATIENT DENIES ANY ADDITIONAL NEEDS AT THIS TIME.
[2019-01-11 07:36] LABS: APTT 32.4 SECONDS (22.8-39.4); INR 1.14 (0.85-1.17); PROTIME 14.1 SECONDS (11.6-15.0)
[2019-01-11 07:41] LABS: ALBUMIN 3.2 g/dL (3.4-5.0); ANION GAP 14.1 mmol/L (8-16); BILIRUBIN - TOTAL 0.69 mg/dL (0.2-1.3); CALCIUM 8.5 mg/dL (8.5-10.1); CARBON DIOXIDE 29.3 mmol/L (21.0-32.0); CREATININE - SERUM 7.8 mg/dL (0.6-1.3); PHOSPHOROUS 5.8 mg/dL (2.5-4.9); PROTEIN - SERUM 6.5 g/dL (6.4-8.2)
[2019-01-11 07:43] LABS: POTASSIUM - SERUM 4.4 mmol/L (3.5-5.1)
[2019-01-11 08:11] VITALS: BP 98/54
--- NOTE | 2019-01-11 10:48 | OP ---
PATIENT NAME: TABATHA GODFREY MEDICAL RECORD: [id number] :48 LOCATION:D. D.2129 ADMISSION DATE:01/08/19 SURGEON: TARYN GARRIDO MD DATE OF OPERATION: 01/08/2019 SURGEON: Taryn Garrido MD ANESTHESIA: TIVA by Christian Alfred CRNA. DIAGNOSES: Clot and urinary retention. PROCEDURES: Cystoscopy, bladder clot evacuation, and fulguration of bleeding vessel. FINDINGS: Bladder filled with blood clot. Small bleeding arterial at the median lobe of the prostate. SPECIMENS: None. BLOOD LOSS: Difficult to estimate. CLINICAL HISTORY: This is a 68-year-old male with diabetes mellitus type 2, end-stage renal failure, on hemodialysis, coronary artery disease with coronary artery stents and chronic atrial fibrillation, for which he had been on Plavix and Eliquis. Five days prior to his procedure, he held his Plavix and Eliquis. He then had a prostate biopsy and cystoscopy. Immediately afterwards he developed significant bleeding. He was admitted to have the bladder clot evacuated and continuous bladder irrigation started. I was expecting that we would wait for his Plavix and Eliquis to wear off. In the meantime, he again developed clot urinary retention overnight. His hemoglobin had dropped to 8.2 and after transfusing 2 units of packed red blood cells his hemoglobin is still 8.2. His potassium was elevated at 6.2 and he is due to have dialysis later today. He comes today to have the blood clots evacuated and I will try to look for a bleeding source and fulgurate it. He was given 1 gram of Ancef senior validation engineer to the OR. DESCRIPTION OF PROCEDURE: The patient was given IV sedation. He was placed in the lithotomy position and prepped and draped. A 21-Omani cystoscope was placed and blood clots were seen in the bladder. Using a Abhijit syringe and a lot of effort, eventually the bladder was completely cleared of blood clot. Looking carefully I could find a small bleeding vessel near the bladder neck coming from the median lobe of the prostate. A Bugbee electrode was introduced and this vessel was coagulated. No other bleeding sources were found. A 24-Omani 3-way Rosario catheter was then inserted into the bladder. The balloon was inflated with 10 cc of sterile water. Continuous bladder irrigation with normal saline was started. PS: His prostate pathology was benign. TRANSINT:[id number] Voice Confirmation ID: [id number] DOCUMENT ID: [id number] OPERATIVE REPORT [id number] TABATHA GODFREY, TARYN Colunga MD at 1048 CC: [id number] DICTATION DATE: 01/10/19 1324 TENANT COORDINATOR: 01/10/192001 ADM IN [facility] [address] [place] [address]
[2019-01-11 11:34] VITALS: BP 120/41
--- NOTE | 2019-01-11 12:17 | NUR ---
IN PATIENT CHART TO ASSIST WITH ANSWERING QUESTIONS FOR PATIENTS THIS PATIENTS ASSIGNED NURSE IS OFF THE FLOOR TO LUNCH. PATIENTS WANTS TO KNOW HOW LONG PATIENT WILL HAVE TO KEEP THIS F/C IT IS CAUSING HER DISCOMFORT. UNABLE TO FIND THIS INFORMATION IN ANY PLAN OF CARE AND ADVISED PATIENTS THAT UROLOGY WOULD BE ROUNDING TODAY AND BE ABLE TO ANSWER THAT QUESTION.
--- NOTE | 2019-01-11 14:05 | NUR ---
SPOKE WITH MARIA ISABEL AVILA PT BEING TRANSFUSED IN DIALYSIS TOMORROW. SHE REPORTS THEY ARE UNABLE TO DO THAT. CALLED DR GARRIDO AND HE SAID TO TRANSFUSE TODAY BEFORE DISCHARGE.
--- NOTE | 2019-01-11 19:10 | NUR ---
BLOOD TRANSFUSION IS COMPLETE AND IM TOLD TO DC PT A WILL ATTEMPT TO OBSERVE FOR A FEW MINUTE PRIOR TO DC
--- NOTE | 2019-01-11 19:18 | NUR ---
AWAKE AND ALERT SKIN WARM AND DRY NO FEVER NO SIGN OF ALLERGIC REACTION. VS 97.6 68 18 124/60 LCTA PT IS 98% ON RA
--- NOTE | 2019-01-11 19:40 | NUR ---
REMOVED BOTH IVs AND TELEMETRY AND DCED HOME WITH INSTRUCTIONS AT THIS TIME
--- NOTE | 2019-01-12 09:12 | MORECARE ---
CASE MANAGEMENT DISCHARGE SUMMARY PATIENT: TABATHA GODFREY UNIT: [id number] ADM DATE: 01/08/19 AGE: 68 : 48 SEX: M ROOM/BED: D.7889 AUTHOR: ROOPA GALE PHYSICIAN: REFERRING PHYSICIAN: TARYN GARRIDO MD DATE OF SERVICE: 01/12/19 Discharge Plan Patient Name: TBAATHA GODFREY [facility] : 1950 Planned Disposition: Home Anticipated Discharge Date: 01/11/19 Discharge Date: 01/11/2019 Expected LOS: 3 Initial Reviewer: [email or web address] Initial Review Date: 01/12/2019 Generated: 01/12/19 10:11 am Patient Name: TABATHA GODFRYE Page [id number] at 0912 All edits/amendments must be made on the electronic document DICTATION DATE: 01/12/19910 LIBRARY SPECIALIST: TRISTAN 01/12/19910 RPT#: [id number] DC DATE:01/11/19 STATUS: DIS IN [facility] [address] [facility] [place] [address] END OF REPORT
== END 2019-01-11 19:41 | disposition home or self-care (01) | DRG 907 ==
LOC: D.ER 16:31 → D.M2 19:35 → D.MS 19:35 → D.M2 20:40 → D.SDCHOLD 01-09 08:10 → D.M2 01-09 08:10
PROVIDERS: Family Medicine; Internal Medicine Nephrology; ADMIT Urology; ATTEND Urology
PROC: 0T9B80Z Drainage of Bladder with Drainage Device, Via Natural or Artificial Opening Endoscopic (ICD-10-PCS; 2019-01-08)
PROC: 0TCB8ZZ Extirpation of Matter from Bladder, Via Natural or Artificial Opening Endoscopic (ICD-10-PCS; principal; 2019-01-08 20:10)
PROC: 0W3R8ZZ Control Bleeding in Genitourinary Tract, Via Natural or Artificial Opening Endoscopic (ICD-10-PCS; 2019-01-10)
PROC: 0TCB8ZZ Extirpation of Matter from Bladder, Via Natural or Artificial Opening Endoscopic (ICD-10-PCS; 2019-01-10)
DX: N99.820 Postprocedural hemorrhage of a genitourinary system organ or structure following a genitourinary system procedure (principal); N18.6 End stage renal disease; I13.2 Hypertensive heart and chronic kidney disease with heart failure and with stage 5 chronic kidney disease, or end stage renal disease; N32.89 Other specified disorders of bladder; R33.9 Retention of urine, unspecified; R31.0 Gross hematuria; E11.22 Type 2 diabetes mellitus with diabetic chronic kidney disease; Y83.9 Surgical procedure, unspecified as the cause of abnormal reaction of the patient, or of later complication, without mention of misadventure at the time of the procedure; I50.9 Heart failure, unspecified; I48.91 Unspecified atrial fibrillation; N32.0 Bladder-neck obstruction; E87.5 Hyperkalemia; D69.6 Thrombocytopenia, unspecified; Z86.73 Personal history of transient ischemic attack (TIA), and cerebral infarction without residual deficits

== ENCOUNTER → 2019-01-13 07:55 | Outpatient (CLI) | payer MEDICARE, OTHER ==
[2019-01-09 13:39] VITALS: BMI 29.5
== END | disposition home or self-care (01) ==
LOC: D.US 01-08 10:30
PROVIDERS: ATTEND Internal Medicine Cardiovascular Disease
DX: I65.23 Occlusion and stenosis of bilateral carotid arteries (principal)

== ENCOUNTER → 2019-03-30 13:11 | Outpatient (CLI) | payer MEDICARE, OTHER ==
[2019-01-09 13:39] VITALS: BMI 29.5
== END | disposition home or self-care (01) ==
LOC: D.LABREF 13:11
PROVIDERS: ATTEND Internal Medicine Nephrology
DX: N18.6 End stage renal disease (principal); R53.1 Weakness

== ENCOUNTER 2019-05-03 10:51 | Inpatient (IN) | payer MEDICARE, OTHER ==
[~2019-05-03] VITALS: Ht 177.8 cm; Wt 95.3 kg
[2019-05-03 11:38] LABS: BASOPHILS 0.3 % (0-2); EOSINOPHILS 1.8 % (0-7); HEMATOCRIT 35.8 % (42.0-54.0); HEMOGLOBIN 11.7 g/dL (13.5-17.5); IMMATURE GRANULOCYTES 0.4 % (0-5); MCH 32.2 pg (26.0-34.0); MCHC 32.7 g/dL (31.0-37.0); MCV 98.6 fL (80.0-100.0); MEAN PLATELET VOLUME 10.8 fL (7.4-10.4); NEUTROPHILS 72.5 % (40-80); RBC 3.63 10x6/uL (4.20-6.10); RDW 15.4 % (11.5-14.5); WBC 11.5 10x3/uL (4.8-10.8)
[2019-05-03 11:39] LABS: PLATELET COUNT 182 10x3/uL (130-400)
[2019-05-03 11:45] LABS: ANION GAP 18.9 mmol/L (8-16); CALCIUM 9.4 mg/dL (8.5-10.1); CARBON DIOXIDE 25.7 mmol/L (21.0-32.0); CREATININE - SERUM 9.8 mg/dL (0.6-1.3); POTASSIUM - SERUM 4.6 mmol/L (3.5-5.1)
[2019-05-03 11:51] LABS: ALBUMIN 3.3 g/dL (3.4-5.0); BILIRUBIN - TOTAL 0.66 mg/dL (0.2-1.3); PROTEIN - SERUM 7.3 g/dL (6.4-8.2)
--- NOTE | 2019-05-03 12:10 | NUR ---
PROVIDED PT WITH ORANGE JUICE D/T BS= 67
[2019-05-03 12:31] VITALS: BP 134/35
--- NOTE | 2019-05-03 16:06 | NUR ---
ADVISED TOI MUNOZ OF FSBS
--- NOTE | 2019-05-03 16:06 | NUR ---
FSBS 137
[2019-05-03 16:22] VITALS: BP 169/66
[2019-05-03] MEDS ORDERED: PLAVIX75 MG PO (16:53)
[2019-05-03] MEDS ORDERED: PEPCID40 MG PO (16:55)
[2019-05-03] MEDS ORDERED: PROSCAR5 MG PO (16:56)
[2019-05-03] MEDS ORDERED: FLOMAX0.4 MG PO (16:57)
[2019-05-03] MEDS ORDERED: NOVOLIN 70/30 110 ML SC ×2 (17:02)
[2019-05-03] MEDS ORDERED: HUMULIN N100 U/ML SC (17:27)
[2019-05-03 17:41] VITALS: BP 145/47; BMI 30.1
--- NOTE | 2019-05-03 18:01 | NUR ---
EMERGENCY CONTACT INFO, 'S CELL PHONE [phone]. WORK [phone] SISTER IN LAW FAITH [phone].
--- NOTE | 2019-05-03 20:30 | NUR ---
PT IS RESTING IN BED WITH EYES OPEN. ALERT AND ORIENTED X 3. PT VOICED COMPLAINT OF GENERAL MALAISE, BUT TO SPECIFIC PROBLEMS. NON PRODUCTIVE COUGH NOTED AT TIMES. LEFT ARM FISTULA NOTED WITH GOOD BRUITT AND THRILL. SALINE LOCK TO RIGHT FOREARM. NO REDNESS OR EDEMA NOTED AT INSERTION SITE. SR'S ARE UP X 2 IN BED. CALL LIGHT AND BEDSIDE TABLE ARE WITHIN EASY REACH. SPOUSE IS AT BEDSIDE.
[2019-05-03 20:45] VITALS: BP 160/46
--- NOTE | 2019-05-03 21:35 | NUR ---
PT IS RESTING IN BED WITH EYES OPEN. NO NEEDS VOICED.
[2019-05-04 00:15] VITALS: BP 127/49
--- NOTE | 2019-05-04 03:30 | NUR ---
PT RESTING IN BED WATCHING TV. NO NEEDS VOICED.
[2019-05-04 04:18] VITALS: BP 149/53
[2019-05-04 08:39] VITALS: BP 163/68
--- NOTE | 2019-05-04 11:25 | NUR ---
PT DOWN TO DIALYSIS, WILL CHECK BLOOD SUGAR WHEN BACK TO FLOOR.
[2019-05-04 18:10] VITALS: BP 87/65
--- NOTE | 2019-05-04 19:45 | NUR ---
PT SITTING UP ON SIDE OF BED ALERT AND ORIENTED X4. RR EVEN AND UNLABORED AT THIS TIME. NO S/S OF DISTRESS. VITALS STABLE. BED LOW CALL LIGHT WITHIN REACH. WILL CONTINUE TO MONITOR.
[2019-05-04 20:30] VITALS: BP 136/53
--- NOTE | 2019-05-04 20:30 | NUR ---
PT REFUSED INSULIN. FSBS-152. WILL CONTINUE TO MONITOR.
[2019-05-05 00:31] VITALS: BP 123/40
--- NOTE | 2019-05-05 01:22 | NUR ---
I have reviewed this patient and I concur with the Shift Assessment completed by the Licensed Practical Nurse today this shift.
[2019-05-05 04:43] VITALS: BP 148/61
--- NOTE | 2019-05-05 05:25 | NUR ---
PT CALLED TO CHECK THE STATUS OF PT. STATES, "I WOULD LIKE TO TAKE HIM HOME IF HIS PNEUMONIA WAS CLEAR. I HAVEN'T HEARD ANYTHING ABOUT IF IT'S CLEARED UP OR NOT." PT REQUEST THAT SHE BE UPDATED ON PT SOON DR. MAYER.
[2019-05-05 08:10] LABS: BASOPHILS 0.2 % (0-2); HEMATOCRIT 35.2 % (42.0-54.0); HEMOGLOBIN 11.4 g/dL (13.5-17.5); IMMATURE GRANULOCYTES 0.3 % (0-5); LYMPHOCYTES 11.2 % (15-50); MCHC 32.4 g/dL (31.0-37.0); MCV 98.9 fL (80.0-100.0); MEAN PLATELET VOLUME 11.3 fL (7.4-10.4); MONOCYTES 13.3 % (2-11); PLATELET COUNT 180 10x3/uL (130-400); RBC 3.56 10x6/uL (4.20-6.10); RDW 15.4 % (11.5-14.5); WBC 10.6 10x3/uL (4.8-10.8)
[2019-05-05 08:20] LABS: CALCIUM 9.5 mg/dL (8.5-10.1); CREATININE - SERUM 9.4 mg/dL (0.6-1.3); MAGNESIUM - SERUM 2.5 mg/dL (1.8-2.4)
[2019-05-05 08:51] VITALS: BP 127/76
[2019-05-05 12:21] VITALS: Ht 177.8 cm; Wt 95.3 kg
[2019-05-05 12:34] VITALS: BP 147/45
[2019-05-05] MEDS ORDERED: FLORAJEN3 CAPS460 MG PO (14:37)
[2019-05-05] MEDS ORDERED: ZITHROMAX500 MG PO (14:38)
[2019-05-05] MEDS ORDERED: PEPCID PO (14:38)
[2019-05-05] MEDS ORDERED: OMNICEF300 MG PO (14:38)
[2019-05-05] MEDS ORDERED: LEVOFLOXACIN500 MG PO (15:09)
--- NOTE | 2019-05-05 16:21 | NUR ---
OT NOTE: PT COMPLETED BED MOB TASKS WITH SPV. PT COMPLETED JAVED/DOFF SOCKS WITH SETUP. PT COMPLETED UE AROM AXS AT EOB. [phone] THANK YOU, LONG MCINTYRE
--- NOTE | 2019-05-05 17:20 | NUR ---
ALERT AND ORIENTED X3. SPOUSE AT BEDSIDE. DC RT FA IV TIP INTACT. DISCHARGE INSTRUCTIONS GIVEN VERBALLY AND WRITTEN. DISCHARGE PAPERS SIGNED ON CHART. PRESCRIPTIONS CALLED TO [facility] ON [address] [facility] CLOSED. ESCORT TO RIDE VIA WHEELCHAIR. REMAINS FREE FROM INJURY.
--- NOTE | 2019-05-06 08:05 | NUR ---
PT'S PRESENTED TO UNIT DESK AND REPORTED HIS ANTIBIOTIC PRESCRIPTION WAS NOT CALLED IN TO [facility]. SHE WISHED TO HAVE CALLED TO [facility]. CALLED RX FOR LEVAQUIN, PROBIOTIC, AND PEPCID TO [facility], SPOKE WITH SIA, PHARMACIST.
--- NOTE | 2019-05-07 09:31 | MORECARE ---
CASE MANAGEMENT DISCHARGE SUMMARY PATIENT: TABATHA GODFREY UNIT: [id number] ADM DATE: 05/03/19 AGE: 69 : 48 SEX: M ROOM/BED: D.2140 AUTHOR: ROOPA GALE PHYSICIAN: REFERRING PHYSICIAN: MANOLO LANE MD DATE OF SERVICE: 05/07/19 Discharge Plan Patient Name: TABATHA GODFREY [facility] : 1950 Planned Disposition: Home Anticipated Discharge Date: 05/05/19 Discharge Date: 05/05/2019 Expected LOS: 2 Initial Reviewer: [email or web address] Initial Review Date: 05/07/2019 Generated: 05/07/19 10:31 am Patient Name: TABATHA GODFREY Page [phone] at 0931 All edits/amendments must be made on the electronic document DICTATION DATE: 05/07/19930 POLICE CRIME SCENE TECHNICIAN: TRISTAN 05/07/19930 RPT#: [id number] DC DATE:05/05/19 STATUS: DIS IN [facility] [address] [place] [address] END OF REPORT
== END 2019-05-05 17:37 | disposition home or self-care (01) | DRG 193 ==
LOC: D.ER 10:51 → D.M2 15:50
PROVIDERS: Emergency Medicine; ADMIT Internal Medicine Nephrology; ATTEND Internal Medicine Nephrology
PROC: 5A1D70Z Performance of Urinary Filtration, Intermittent, Less than 6 Hours Per Day (ICD-10-PCS; principal; 2019-05-04)
DX: J18.9 Pneumonia, unspecified organism (principal); N18.6 End stage renal disease; I13.2 Hypertensive heart and chronic kidney disease with heart failure and with stage 5 chronic kidney disease, or end stage renal disease; N25.81 Secondary hyperparathyroidism of renal origin; I50.32 Chronic diastolic (congestive) heart failure; I48.20 Chronic atrial fibrillation, unspecified; E11.22 Type 2 diabetes mellitus with diabetic chronic kidney disease; Z99.2 Dependence on renal dialysis; E11.65 Type 2 diabetes mellitus with hyperglycemia; Z79.01 Long term (current) use of anticoagulants; N40.0 Benign prostatic hyperplasia without lower urinary tract symptoms; D63.1 Anemia in chronic kidney disease; Z86.73 Personal history of transient ischemic attack (TIA), and cerebral infarction without residual deficits

== ENCOUNTER 2019-05-27 14:05 | Emergency (ER) | payer MEDICARE, OTHER ==
[~2019-05-27] VITALS: Ht 177.8 cm; Wt 95.5 kg
[~2019-05-27 14:05] MED LIST changes: +FLORAJEN3 CAPS460 MG PO; +LEVOFLOXACIN500 MG PO; +OMNICEF300 MG PO; +PEPCID PO; +PROSCAR5 MG PO; +ZITHROMAX500 MG PO
[2019-05-27 14:13] VITALS: Ht 177.8 cm; Wt 95.5 kg
[2019-05-27 14:46] LABS: BASOPHILS 0.4 % (0-2); EOSINOPHILS 2.3 % (0-7); HEMATOCRIT 39.5 % (42.0-54.0); HEMOGLOBIN 12.8 g/dL (13.5-17.5); IMMATURE GRANULOCYTES 0.8 % (0-5); LYMPHOCYTES 9.8 % (15-50); MCH 32.6 pg (26.0-34.0); MCHC 32.4 g/dL (31.0-37.0); MCV 100.5 fL (80.0-100.0); MEAN PLATELET VOLUME 11.3 fL (7.4-10.4); MONOCYTES 16.9 % (2-11); NEUTROPHILS 69.8 % (40-80); PLATELET COUNT 144 10x3/uL (130-400); RBC 3.93 10x6/uL (4.20-6.10); RDW 16.7 % (11.5-14.5); WBC 11.1 10x3/uL (4.8-10.8)
[2019-05-27 15:02] LABS: CALCIUM 8.8 mg/dL (8.5-10.1); CARBON DIOXIDE 32.7 mmol/L (21.0-32.0); CREATININE - SERUM 5.9 mg/dL (0.6-1.3); POTASSIUM - SERUM 3.7 mmol/L (3.5-5.1)
[2019-05-27 15:12] LABS: ALBUMIN 3.7 g/dL (3.4-5.0); BILIRUBIN - TOTAL 0.59 mg/dL (0.2-1.3); PROTEIN - SERUM 7.6 g/dL (6.4-8.2)
[2019-05-27 17:46] VITALS: BP 147/69
== END 2019-05-27 16:55 | disposition home or self-care (01) ==
LOC: D.ER 14:05
PROVIDERS: Emergency Medicine
DX: R42 Dizziness and giddiness (principal); Z86.73 Personal history of transient ischemic attack (TIA), and cerebral infarction without residual deficits; Z79.4 Long term (current) use of insulin; E07.9 Disorder of thyroid, unspecified; I25.2 Old myocardial infarction; I48.91 Unspecified atrial fibrillation; E11.22 Type 2 diabetes mellitus with diabetic chronic kidney disease; N18.9 Chronic kidney disease, unspecified; I12.9 Hypertensive chronic kidney disease with stage 1 through stage 4 chronic kidney disease, or unspecified chronic kidney disease; Z99.2 Dependence on renal dialysis

== ENCOUNTER 2019-07-05 13:30 | Emergency (ER) | payer MEDICARE, OTHER ==
[~2019-07-05] VITALS: Ht 177.8 cm; Wt 95.5 kg
[2019-07-05 13:36] VITALS: Ht 177.8 cm; Wt 95.5 kg
[2019-07-05 14:22] LABS: BASOPHILS 0.2 % (0-2); EOSINOPHILS 1.9 % (0-7); HEMATOCRIT 37.9 % (42.0-54.0); HEMOGLOBIN 12.4 g/dL (13.5-17.5); IMMATURE GRANULOCYTES 0.3 % (0-5); LYMPHOCYTES 9.8 % (15-50); MCH 32.5 pg (26.0-34.0); MCHC 32.7 g/dL (31.0-37.0); MCV 99.2 fL (80.0-100.0); MEAN PLATELET VOLUME 11.4 fL (7.4-10.4); MONOCYTES 14.4 % (2-11); NEUTROPHILS 73.4 % (40-80); RBC 3.82 10x6/uL (4.20-6.10); RDW 16.1 % (11.5-14.5); WBC 9.7 10x3/uL (4.8-10.8)
[2019-07-05 14:23] LABS: PLATELET COUNT 189 10x3/uL (130-400)
[2019-07-05 14:31] LABS: APTT 35.9 SECONDS (22.8-39.4); INR 1.09 (0.85-1.17); PROTIME 14.1 SECONDS (11.6-15.0)
[2019-07-05] MEDS ORDERED: KEFLEX500 MG PO (16:39)
[2019-07-05 16:46] VITALS: BP 120/68
== END 2019-07-05 16:47 | disposition home or self-care (01) ==
LOC: D.ER 13:30
PROVIDERS: Family Medicine
DX: R04.0 Epistaxis (principal); Z86.73 Personal history of transient ischemic attack (TIA), and cerebral infarction without residual deficits; E11.9 Type 2 diabetes mellitus without complications; E07.9 Disorder of thyroid, unspecified; Z79.4 Long term (current) use of insulin; I50.9 Heart failure, unspecified; I11.0 Hypertensive heart disease with heart failure; I25.2 Old myocardial infarction; I48.91 Unspecified atrial fibrillation; Z99.2 Dependence on renal dialysis; N19 Unspecified kidney failure

== ENCOUNTER 2019-09-09 05:46 | Day surgery (SDC) | payer MEDICARE, OTHER ==
[2019-09-08 14:05] LABS: BASOPHILS 0.3 % (0-2); EOSINOPHILS 2.7 % (0-7); HEMATOCRIT 42.6 % (42.0-54.0); HEMOGLOBIN 13.3 g/dL (13.5-17.5); IMMATURE GRANULOCYTES 0.4 % (0-5); LYMPHOCYTES 11.5 % (15-50); MCH 32.3 pg (26.0-34.0); MCHC 31.2 g/dL (31.0-37.0); MCV 103.4 fL (80.0-100.0); MEAN PLATELET VOLUME 11.4 fL (7.4-10.4); NEUTROPHILS 68.1 % (40-80); PLATELET COUNT 186 10x3/uL (130-400); RBC 4.12 10x6/uL (4.20-6.10); RDW 15.5 % (11.5-14.5); WBC 9.7 10x3/uL (4.8-10.8)
[2019-09-08 14:18] LABS: ANION GAP 13.7 mmol/L (8-16); CALCIUM 9.3 mg/dL (8.5-10.1); CREATININE - SERUM 6.8 mg/dL (0.6-1.3); POTASSIUM - SERUM 4.7 mmol/L (3.5-5.1)
[~2019-09-09] VITALS: Ht 177.8 cm; Wt 95.3 kg
[~2019-09-09 05:46] MED LIST changes: +KEFLEX500 MG PO
[2019-09-09 07:17] VITALS: BMI 30.7
--- NOTE | 2019-09-09 11:41 | NUR ---
RECIEVED FROM OR BY STRETCHER. VS STABLE. LEFT ARM WRAPED IN KERLEX WITH GABRIEL DRAIN PATENT. RIGHT CHEST HEMASPIT NOTED INTACT. WILL CONT. PLAN OF CARE.
--- NOTE | 2019-09-09 13:20 | NUR ---
JEANNINE COMPLETED AND AT BEDSIDE TO REVIEW. L.ARM ELEVATED ON PILLOW PER VERBAL ORDER. DRSG TO L.ARM LEAKING BLOOD, AWARE AND REINFORCED WITH TAPE AND DRSG. R.CHEST HEMOSPLIT SATURED WITH BLOOD, PRESSURE AND DRSG REINFORCED. WILL CTM.
[2019-09-09 14:08] VITALS: BP 90/60
[2019-09-09 14:19] VITALS: BP 90/50; BMI 30.1
[2019-09-09 16:00] VITALS: BP 83/36
--- NOTE | 2019-09-09 17:18 | OP ---
PATIENT NAME: TABATHA GODFREY MEDICAL RECORD: [id number] :46 LOCATION:D.M2 D.2100 ADMISSION DATE: SURGEON: TARYN MORTON MD DATE OF OPERATION: 09/09/2019 PREOPERATIVE DIAGNOSES: 1. End-stage renal disease with difficulty accessing the left upper extremity arteriovenous fistula, which has treble outflow. 2. Left upper extremity steal syndrome. POSTOPERATIVE DIAGNOSES: 1. End-stage renal disease with difficulty accessing the left upper extremity arteriovenous fistula, which has treble outflow. 2. Left upper extremity steal syndrome. PROCEDURES: 1. A basilic vein transposition of arteriovenous fistula. 2. Banding of arteriovenous fistula. 3. Open ligation of antebrachial and cephalic veins. 4. Placement of right IJ HemoSplit catheter (tunneled cuffed dual-lumen hemodialysis catheter) under fluoroscopic guidance. 5. Surgeon interpretation of fluoroscopic images. The reason for the banding was a steal syndrome. Reason for the basilic vein transposition was because the fistula was present on the medial aspect of the upper extremity and made it difficult to access. The cephalic vein frequently became infiltrated. We do not need treble outflow and for that reason, the cephalic vein and the antebrachial veins were ligated. No radiologist was present for this procedure. Just static fluoroscopic images were obtained and are kept in the PACS system. The surgeon interpretation of radiographic images is dictated within the body of this operative note. OPERATIVE COURSE: The patient was conveyed to the operating room electively on 09/09/2019. General anesthesia was induced by anesthesia staff. The left upper extremity was abducted at 90 degrees to the patient's trunk. The left upper extremity was sterilely prepped and draped. Under ultrasonographic guidance, I located the antebrachial vein in the forearm as well as the cephalic vein. Through axial incisions, I dissected down to the structures and tied them off proximally and distally. At no time was there any apparent nerve injury to the antebrachial vein. Both incisions were closed with interrupted 3-0 Vicryls for the deep dermis as well as a running intracuticular 3-0 Vicryl and skin and then Dermabond. Attention was then turned to the basilic vein transposition. A lengthy incision was accomplished on the medial aspect of the arm and this was carried out to the anastomosis on the volar surface of the proximal forearm. Care was paid to avoid nervous structures. Once I had ligated the medial side branches and divided them between ligatures, I then tunneled an endotracheal tube over the biceps from the proximal portion of the incision to the axilla. I then placed a vascular clamp over the basilic vein just downstream from the arteriovenous anastomosis. I then divided the basilic vein. I brought this under the nerve structures. I passed a passing OPERATIVE REPORT [id number] TABATHA GODFREY grasper that we used to tunnel PTFE graft. I grasped the end of the basilic vein and brought it through the endotracheal tube and ensured that it was not twisted. The endotracheal tube was then removed. I then performed an end-to-end suture with a running 6-0 Prolene. I then released the clamp. There was excellent flow with an excellent thrill. No bleeding from the anastomosis. I went about banding the arteriovenous fistula. I cut a small PTFE graft into a small rectangle. I brought this around the fistula just downstream from the arteriovenous anastomosis in a pleated fashion. I pleated the band with horizontal mattress 6-0 Prolenes. Once I was satisfied with the banding procedure, a 10-P[place]air[place] Islander round Adam type drain was placed in the main incision. The subdermis was approximated with interrupted 3-0 Vicryls. The skin was approximated with a running intracuticular 3-0 Vicryl. I then noticed that there was some bruising over the medial aspect of the biceps muscle. The drain was sutured to the skin with a 2-0 nylon. Some areas along the incision were reinforced with interrupted 3-0 Vicryl Rapide sutures. A sterile dressing was then applied. Attention was then turned to placement of the HemoSplit catheter. The right neck and right chest were sterilely prepped and draped. I percutaneously accessed the right internal jugular vein in an antegrade fashion. A guidewire passed easily. This was visualized under fluoroscopy. A skin incision was accomplished. A counterincision was accomplished in the anterior superior infraclavicular chest. I tunneled a 19-cm HemoSplit catheter from the chest incision to the neck incision. Under fluoroscopic guidance, I dilated over the wire to a larger size. A dilator sheath was then advanced. The dilator and wire were removed. Through the sheath, I advanced the tips of the HemoSplit catheter. The Peel-Away sheath was then removed. Both lumens flushed easily and aspirated dark, nonpulsatile blood. The neck incision was closed with interrupted intracuticular 3-0 Vicryls. The flange of the HemoSplit catheter was sutured to the underlying skin with 2-0 nylons. I then topped off both lumens of the HemoSplit catheter with concentrated heparin. Sterile dressings were applied. An image over the mediastinum and right lung revealed no radiographic evidence of complication. There was no pneumothorax. The patient was then extubated and conveyed to post-anesthesia care unit where he was in stable condition. TRANSINT:[id number] Voice Confirmation ID: [id number] DOCUMENT ID: [id number] TARYN MORTON MD at 1718 CC: JAYDEN PERRY MD [id number] DICTATION DATE: 09/09/19 1323 FREIGHT CALLER: 09/09/19 1444 REG [facility] [address] [place] [address]
--- NOTE | 2019-09-09 19:30 | NUR ---
PT IN BED, EYES CLOSED, RESP EVEN AND UNLABORED. NO DISTRESS NOTED, CL IN REACH, SR UP X 2.
[2019-09-09 20:00] VITALS: BP 130/52
[2019-09-10 04:00] VITALS: BP 100/43; BP 147/52
[2019-09-10 05:32] LABS: BASOPHILS 0.2 % (0-2); EOSINOPHILS 0.3 % (0-7); IMMATURE GRANULOCYTES 0.3 % (0-5); LYMPHOCYTES 6.6 % (15-50); MCH 31.6 pg (26.0-34.0); MCHC 31.4 g/dL (31.0-37.0); MEAN PLATELET VOLUME 11.3 fL (7.4-10.4); MONOCYTES 21.4 % (2-11); NEUTROPHILS 71.2 % (40-80); PLATELET COUNT 191 10x3/uL (130-400); RDW 15.3 % (11.5-14.5)
[2019-09-10 05:41] LABS: HEMATOCRIT 30.3 % (42.0-54.0); HEMOGLOBIN 9.5 g/dL (13.5-17.5); MCV 100.7 fL (80.0-100.0); RBC 3.01 10x6/uL (4.20-6.10); WBC 12.9 10x3/uL (4.8-10.8)
[2019-09-10 06:25] LABS: ALBUMIN 3.1 g/dL (3.4-5.0); ANION GAP 18.1 mmol/L (8-16); BILIRUBIN - TOTAL 0.4 mg/dL (0.2-1.3); CALCIUM 8.3 mg/dL (8.5-10.1); CARBON DIOXIDE 26.2 mmol/L (21.0-32.0); PROTEIN - SERUM 6.1 g/dL (6.4-8.2)
[2019-09-10 06:46] LABS: CREATININE - SERUM 11.2 mg/dL (0.6-1.3)
[2019-09-10 06:54] LABS: POTASSIUM - SERUM 7.3 mmol/L (3.5-5.1)
[2019-09-10 08:56] VITALS: BP 132/61
--- NOTE | 2019-09-10 13:42 | NUR ---
I have reviewed this patient and I concur with the Shift Assessment completed by the Licensed Practical Nurse today this shift.
--- NOTE | 2019-09-10 17:50 | NUR ---
PT AND BOTH WOULD LIKE TO WAIT UNTIL MORNING TO DISCHARGE DUE TO CONSTANT BLEEDING FROM LEFT ARM. SEEN PATIENT IN DIALYSIS AND CONTINUED TO PLACE DISCHARGE ORDER FOR THE PATIENT. DUE TO CONDITION AND BLEEDING HE DOES NOT FEEL COMFORTABLE DISCHARGING AT THIS TIME. ENSURED PT AND THAT WE WOULD WATCH HIM CLOSELY THROUGH THE NIGHT TO ENSURE THE BLEEDING STOPS SO THAT HE CAN GO HOME IN THE MORNING.
--- NOTE | 2019-09-10 18:26 | NUR ---
REMOVE COMPLETELY BLOOD SATURATED DRESSING TO THE LEFT ARM. REMOVED EXTERNAL PORTIONS OF LARGE CLOTS. GABRIEL DRAIN REMOVED. NON ADHERENT PADS, GAUZE, AND KERLEX WRAPPED AROUND LEFT ARM. PT TOLERATED WELL. NOTIFIED THAT PT WOULD PREFER TO WAIT UNTIL MORNING. LEFT ARM CONTINUALLY ACTIVELY BLEEDING. WILL CTM.
--- NOTE | 2019-09-10 19:05 | NUR ---
BED LOW AND LOCKED CALL LIGHT IN REACH ASSSISTERD WITH FEW NEEDS DRSG TO LEFT ARM INTACT DRY AT THIS TIME
[2019-09-10 20:00] VITALS: BP 104/40
--- NOTE | 2019-09-10 22:26 | NUR ---
SOME NEW BLEEDING NOTED THROUGH DRSG AT THIS TIME PT OTHERWISE STATES NO NEEDS
[2019-09-11] VITALS: BP 114/45
--- NOTE | 2019-09-11 02:46 | NUR ---
PT CONTINUES TO HAVE BLEED THROUGH DRSG BUT NOT COMPLETE SATURATION LEAVING DRSG IN PLACE AT THIS TIME
--- NOTE | 2019-09-11 03:52 | NUR ---
PT BP RECHECKED BY MANUIAL CUFF 104/52 REINFORCED DRSG TO LEFT UPPER ARM SCANT AMOUNT OF BLOOD ON GOWN AND LINEN CHANGED LINENS
[2019-09-11 04:00] VITALS: BP 91/42
--- NOTE | 2019-09-11 05:22 | NUR ---
PT SITTING UP IN CHAIR SOME BLEEDING THROUGH REINFORCMENT
--- NOTE | 2019-09-11 07:14 | NUR ---
REPORT RECEIVED FROM AGENCY CASHIER AND PATIENT CARE ASSUMED. JPATIENT SITTING UP IN BED AWAKE AND ALERT. LEFT UPPER ARM DRSG WITH BRIGHT , RED BLOOD. RECEIVED IN REPORT THAT PATIENT WAS SUPPOSED TO BE DCD YESTERDAY BUT DUE TO ONGOING BLEEDING PATIENT KEPT OVERNIGHT. REINFORCED DRSG. WILL PAGE SURGEON ORNAMENTAL RAIL INSTALLER. SR UP X 2 BED IN LOW POSITION AND CALL LIGHT IN REACH.
--- NOTE | 2019-09-11 08:01 | NUR ---
SPOKE WITH DR BARDALES PROCESS DESIGN CHEMICAL ENGINEER. INFORMED OF SITUATION. WAS INSTRUCTED TO CONTACT DR MORTON. INFORMED DR BARDALES THAT IT IS NOT NOTED IF DR MORTON WAS NOTIFIED YESTERDAY ABOUT BLEEDING AND PATIENT NOT DC.
--- NOTE | 2019-09-11 08:35 | NUR ---
SPOKE WITH DR MORTON. INFORMED THE HE WILL COME BY ROOM AND CHANGE DRESSING AND COVER WITH COBAN. PATIENT TO BE DC WHEN COMPLETED.
[2019-09-11] MEDS ORDERED: HYDROCODON-ACE1 EAC7 PO (08:56)
[2019-09-11 10:07] LABS: ANION GAP 17.1 mmol/L (8-16); CALCIUM 8.9 mg/dL (8.5-10.1); CARBON DIOXIDE 24.5 mmol/L (21.0-32.0); CREATININE - SERUM 9.4 mg/dL (0.6-1.3)
[2019-09-11 10:09] LABS: POTASSIUM - SERUM 5.6 mmol/L (3.5-5.1)
[2019-09-11 10:17] VITALS: BP 112/38
[2019-09-11 10:17] LABS: HEMATOCRIT 26.1 % (42.0-54.0); HEMOGLOBIN 8.7 g/dL (13.5-17.5); LYMPHOCYTES 5.4 % (15-50); MCH 32.6 pg (26.0-34.0); MCHC 33.3 g/dL (31.0-37.0); MEAN PLATELET VOLUME 11.4 fL (7.4-10.4); NEUTROPHILS 72.3 % (40-80); PLATELET COUNT 169 10x3/uL (130-400); RBC 2.67 10x6/uL (4.20-6.10); RDW 15.1 % (11.5-14.5); WBC 12.9 10x3/uL (4.8-10.8)
[2019-09-11 10:18] LABS: MCV 97.8 fL (80.0-100.0)
[2019-09-11 10:24] VITALS: Ht 177.8 cm; Wt 95.3 kg
== END 2019-09-11 13:34 | disposition home or self-care (01) ==
LOC: D.OPS 05:46 → D.M2 05:46 → D.OPS 08:00 → D.PAN 09:00 → D.OPS 09:00 → D.M2 13:35 → D.OPS 09-11 13:34
PROVIDERS: Internal Medicine Nephrology; ATTEND Surgery
DX: I12.0 Hypertensive chronic kidney disease with stage 5 chronic kidney disease or end stage renal disease (principal); E11.22 Type 2 diabetes mellitus with diabetic chronic kidney disease; N18.6 End stage renal disease; I77.89 Other specified disorders of arteries and arterioles; T82.898A Other specified complication of vascular prosthetic devices, implants and grafts, initial encounter; Z99.2 Dependence on renal dialysis; Z79.4 Long term (current) use of insulin; I50.9 Heart failure, unspecified

== ENCOUNTER 2019-09-14 14:03 | Inpatient (IN) | payer MEDICARE, OTHER ==
[~2019-09-14] VITALS: Ht 177.8 cm; Wt 88.5 kg
[~2019-09-14 14:03] MED LIST changes: +HYDROCODON-ACE1 EAC7 PO
[2019-09-14 14:48] LABS: HEMATOCRIT 24.6 % (42.0-54.0); HEMOGLOBIN 8.2 g/dL (13.5-17.5); LYMPHOCYTES 6.6 % (15-50); MCH 32.9 pg (26.0-34.0); MCHC 33.3 g/dL (31.0-37.0); MCV 98.8 fL (80.0-100.0); MEAN PLATELET VOLUME 10.4 fL (7.4-10.4); NEUTROPHILS 76.3 % (40-80); RBC 2.49 10x6/uL (4.20-6.10); WBC 11.1 10x3/uL (4.8-10.8)
[2019-09-14 14:49] LABS: PLATELET COUNT 238 10x3/uL (130-400)
[2019-09-14 14:50] LABS: APTT 41.8 SECONDS (22.8-39.4); INR 1.22 (0.85-1.17); PROTIME 15.3 SECONDS (11.6-15.0)
[2019-09-14 14:53] LABS: CALC OSMOLALITY 281 mosm/kg (275-300); CALCIUM 8.3 mg/dL (8.5-10.1); CARBON DIOXIDE 30.7 mmol/L (21.0-32.0); CHLORIDE - SERUM 102 mmol/L (98-107); CREATININE - SERUM 5.5 mg/dL (0.6-1.3); SODIUM 140 mmol/L (136-145); UREA NITROGEN 17 mg/dL (7-18); eGFR NON AFRICAN AMERICAN 11 mL/min (90-120)
[2019-09-14 14:55] LABS: GLUCOSE 124 mg/dL (74-106)
[2019-09-14 15:13] LABS: ALKALINE PHOSPHATASE 79 U/L (30-120); ALT (SGPT) 9 U/L (10-68); BILIRUBIN - TOTAL 0.53 mg/dL (0.2-1.3); CKMB 5.3 U/L (0.0-3.6); CREATINE KINASE 100 UL (21-232); MAGNESIUM - SERUM 1.9 mg/dL (1.8-2.4); PROTEIN - SERUM 6.9 g/dL (6.4-8.2); THYROID STIMULATING HORMONE 0.59 uIU/mL (0.36-3.74); TROPONIN-I 0.058 ng/mL (0.000-0.060)
[2019-09-14 17:49] VITALS: BP 136/50; BMI 30.9
[2019-09-14 20:52] VITALS: BP 123/42
[2019-09-14 23:37] VITALS: BP 118/46
--- NOTE | 2019-09-15 01:20 | NUR ---
I have reviewed this patient and I concur with the Shift Assessment completed by the Licensed Practical Nurse today this shift.
--- NOTE | 2019-09-15 04:31 | NUR ---
TRANSFERED FROM M/S. PATIENT IS ALERT AND ORIENTED, RESTING COMFORTABLY IN BED. RESPIRATIONS ARE EVEN AND UNLABORED. NO S/S OF DISTRESS. NO C/O PAIN. CALL LIGHT WITHIN REACH. WILL CPOC.
[2019-09-15 04:56] LABS: HEMATOCRIT 24.4 % (42.0-54.0); LYMPHOCYTES 10.4 % (15-50); MCH 32.8 pg (26.0-34.0); MCHC 32.8 g/dL (31.0-37.0); NEUTROPHILS 70.6 % (40-80); PLATELET COUNT 212 10x3/uL (130-400); RBC 2.44 10x6/uL (4.20-6.10); RDW 15.9 % (11.5-14.5); WBC 9.3 10x3/uL (4.8-10.8)
[2019-09-15 05:04] LABS: ANION GAP 15.3 mmol/L (8-16); CALCIUM 8.8 mg/dL (8.5-10.1); CARBON DIOXIDE 28.6 mmol/L (21.0-32.0); MAGNESIUM - SERUM 2.1 mg/dL (1.8-2.4); PHOSPHOROUS 3.7 mg/dL (2.5-4.9); POTASSIUM - SERUM 3.9 mmol/L (3.5-5.1)
[2019-09-15 05:47] VITALS: BP 119/47
[2019-09-15 09:02] VITALS: BP 125/77
[2019-09-15 10:44] VITALS: BMI 28.4
[2019-09-15 14:18] VITALS: BP 109/41
--- NOTE | 2019-09-15 14:26 | NUR ---
Rehab Note- Acute Inpatient Rehab prescreen order received. The patient has a pending PT & OT Eval at this time to see functional level. Will continue to follow at this time. Thank you for this referral! Danuta Fritz RN Clinical Liaison, [facility]
--- NOTE | 2019-09-15 15:41 | NUR ---
I HAVE REVEIWED THE CHART FOR THIS PATIENT AND AGREE WITH THE ASSESSMENT COMPLETED BY THE LEATHER WHITENER FOR THIS SHIFT. PATIENT IS LYING IN BED WITH EYES OPEN, ATTENTION TOWARD TELEVISION. PATIENT DENIES ANY NEEDS AT THIS TIME. NO DISTRESS.
[2019-09-15 16:21] VITALS: Ht 177.8 cm; Wt 88.5 kg
--- NOTE | 2019-09-15 16:32 | MORECARE ---
CASE MANAGEMENT DISCHARGE SUMMARY PATIENT: TABATHA BENNETT UNIT: [id number] ADM DATE: 09/14/19 AGE: 69 : 48 SEX: M ROOM/BED: D.2138 AUTHOR: ROOPA GALE PHYSICIAN: REFERRING PHYSICIAN: MOLLY GORMAN MD DATE OF SERVICE: 09/15/19 Discharge Plan Patient Name: TABATHA BENNETT [facility] [facility] 1950 Planned Disposition: Home with Home Health Anticipated Discharge Date: Discharge Date: Expected LOS: Initial Reviewer: [email or web address] Initial Review Date: 09/14/2019 Generated: 09/15/19 5:31 pm DCPIA - Discharge Planning Initial Assessment Updated by [id number]: Mary Ohara on 09/15/19 4:27 pm * Is the patient Alert and Oriented? No * How many steps to enter\exit or inside your home? 4/0 * PCP Robreto * [facility] * Preadmission Environment Home with Family * ADLs Independent * Equipment Walker * Other Equipment Shower seat * List name and contact numbers for known caregivers / representatives who currently or will assist patient after discharge: Ava Bennett [phone] * Verbal permission to speak to the caregivers and representatives has been obtained from the patient. Yes * Community resources currently utilized None * Additional services required to return to the preadmission environment? Yes * Can the patient safely return to the preadmission environment? No * Has this patient been hospitalized within the prior 30 days at any hospital? No Patient Name: TABATHA BENNETT Page [id number] at 1632 All edits/amendments must be made on the electronic document DICTATION DATE: 09/15/19 1631 WATER SPONGER: TRISTAN 09/15/19 1631 RPT#: [id number] DC DATE: STATUS: ADM IN [facility] [address] [place] [address] END OF REPORT
--- NOTE | 2019-09-15 16:39 | MORECARE ---
CASE MANAGEMENT DISCHARGE SUMMARY PATIENT: TABATHA BENNETT UNIT: [id number] ADM DATE: 09/14/19 AGE: 69 : 48 SEX: M ROOM/BED: D.9531 AUTHOR: SHAHLA,DOC PHYSICIAN: REFERRING PHYSICIAN: MOLLY GORMAN MD DATE OF SERVICE: 09/15/19 Discharge Plan Patient Name: TABATHA BENNETT Facility: [facility]:[place] : 1950 Planned Disposition: Home with Home Health Anticipated Discharge Date: Discharge Date: Expected LOS: Initial Reviewer: [email or web address] Initial Review Date: 09/14/2019 Generated: 09/15/19 5:38 pm Comments DCP- Discharge Planning Updated by [id number]: Mary Ohara on 09/15/19 3:[address] Patient Name: TABATHA BENNETT Admission Status: ER Accout number: [id number] Admission Date: 09-14-2019 : 1950 Admission Diagnosis: Attending: MOLLY GORMAN Current LOS: 1 Anticipated DC Date: Planned Disposition: Home with Home Health Primary Insurance: MEDICARE A & B Discharge Planning Comments:CM met with patient to complete initial dc planning assessment. Patient is alert and pleasantly confused; orientated to name and place only. CM called and talked with his spouse Ava Bennett at [phone]. CM educated patient on the CM role and verbal consent given by Ava to complete assessment. CM verified patient's address, phone number, and emergency contact phone numbers. Patient lives at with home with his . At discharge patient plans to return home and feels this is a safe discharge. CM discussed availability of home health, rehab services, and medical equipment. Ava states the patient ambulates independently with a walker, but has become weaker. Ava in agreement with rehab, or [facility]. Orders received for PT/OT and rehab pre screen. Transportation provider at discharge will be Ava . CM will continue to follow and will assist as needed with dc plans/needs. Mary Ohara MSN,RN,CM DCPIA - Discharge Planning Initial Assessment Updated by [email or web address]: Mary Ohara on 09/15/19 4:27 pm * Is the patient Alert and Oriented? No * How many steps to enter\exit or inside your home? 4/0 * PCP Roberto * [facility] * Preadmission Environment Home with Family * ADLs Independent * Equipment Walker * Other Equipment Shower seat * List name and contact numbers for known caregivers / representatives who currently or will assist patient after discharge: Ava Bennett [phone] * Verbal permission to speak to the caregivers and representatives has been obtained from the patient. Yes * Community resources currently utilized None * Additional services required to return to the preadmission environment? Yes * Can the patient safely return to the preadmission environment? No * Has this patient been hospitalized within the prior 30 days at any hospital? No Last DP export: 09/15/19 3:32 p Patient Name: TABATHA BENNETT Page 09135 at 1639 All edits/amendments must be made on the electronic document DICTATION DATE: 09/15/191637 PRODUCE SORTER: TRISTAN 09/15/19 163 RPT#: [id number] DC DATE: STATUS: ADM IN [facility] [address] [place] [address] END OF REPORT
--- NOTE | 2019-09-15 16:47 | MORECARE ---
CASE MANAGEMENT DISCHARGE SUMMARY PATIENT: TABATHA BENNETT UNIT: [id number] ADM DATE: 09/14/19 AGE: 69 : 48 SEX: M ROOM/BED: D.3539 AUTHOR: SHAHLA,DOC PHYSICIAN: REFERRING PHYSICIAN: MOLLY GORMAN MD DATE OF SERVICE: 09/15/19 Discharge Plan Patient Name: TABATHA BENNETT Facility: [facility]:[place] : 1950 Planned Disposition: Home with Home Health Anticipated Discharge Date: Discharge Date: Expected LOS: Initial Reviewer: [email or web address] Initial Review Date: 09/14/2019 Generated: 09/15/19 5:47 pm Comments DCP- Discharge Planning Updated by [id number]: Mary Ohara on 09/15/19 3:[address] Patient Name: TABATHA BENNETT Admission Status: ER Accout number: [id number] Admission Date: 09-14-2019 : 1950 Admission Diagnosis: Attending: MOLLY GORMAN Current LOS: 1 Anticipated DC Date: Planned Disposition: Home with Home Health Primary Insurance: MEDICARE A & B Discharge Planning Comments:CM met with patient to complete initial dc planning assessment. Patient is alert and pleasantly confused; orientated to name and place only. CM called and talked with his spouse Ava Bennett at [phone]. CM educated patient on the CM role and verbal consent given by Ava to complete assessment. CM verified patient's address, phone number, and emergency contact phone numbers. Patient lives at with home with his . At discharge patient plans to return home and feels this is a safe discharge. CM discussed availability of home health, rehab services, and medical equipment. Ava states the patient ambulates independently with a walker, but has become weaker. Ava in agreement with rehab, or [facility]. Orders received for PT/OT and rehab pre screen. Transportation provider at discharge will be Ava . CM will continue to follow and will assist as needed with dc plans/needs. During phone conversation, spoke with Ava at 1220 about DC IMM and TIFFANIE. Ava voiced understanding. Original will be mailed certified mail. Copy placed on chart. Ava voiced understanding. Mary Ohara MSN,RN,CM DCPIA - Discharge Planning Initial Assessment Updated by [id number]: Mary Ohara on 09/15/19 4:27 pm * Is the patient Alert and Oriented? No * How many steps to enter\exit or inside your home? 4/0 * PCP Roberto * [facility] * Preadmission Environment Home with Family * ADLs Independent * Equipment Walker * Other Equipment Shower seat * List name and contact numbers for known caregivers / representatives who currently or will assist patient after discharge: Ava Bennett [phone] * Verbal permission to speak to the caregivers and representatives has been obtained from the patient. Yes * Community resources currently utilized None * Additional services required to return to the preadmission environment? Yes * Can the patient safely return to the preadmission environment? No * Has this patient been hospitalized within the prior 30 days at any hospital? No Coverage Notice Reviewer: [email or web address] Geraldo Ohara Notice Issued Date-Time: 09/15/2019 12:20 Notice Type: IM Discharge Notice Notice Delivered To: Family Member Relationship to Patient: Spouse Closet Organizer Name: Ava Delivery Method: PHONE - Phone Sisi Days: Prior Verbal Notification: Yes Recipient Understood Notice: Yes Recipient Signature: Med Rec Note Co-signed by Attending: Coverage Notice Comment: DCC imm Called to ava. notice will be mailed by certified carrier with written receipt. Ava voiced understanding. Reviewer: [email or web address] Geraldo Ohara Notice Issued Date-Time: 09/15/2019 12:20 Notice Type: Patient Choice Letter Notice Delivered To: Family Member Relationship to Patient: Spouse Closet Organizer Name: Ava Delivery Method: PHONE - Phone Sisi Days: Prior Verbal Notification: Yes Recipient Understood Notice: Yes Recipient Signature: Med Rec Note Co-signed by Attending: Coverage Notice Comment: TIFFANIE signed for IP rehab, and [facility]. Called to ava. notice will be mailed by certified carrier with written receipt. Ava voiced understanding. Last DP export: 09/15/19 3:39 p Patient Name: TABATHA BENNETT Page 12763 at 1647 All edits/amendments must be made on the electronic document DICTATION DATE: 09/15/191646 PERSONNEL ANALYST: TRISTAN 09/15/191646 RPT#: [id number] DC DATE: STATUS: ADM IN [facility] [address] [place] [address] END OF REPORT
[2019-09-15 18:20] VITALS: BP 107/40
--- NOTE | 2019-09-15 19:30 | NUR ---
PT IN BED, EYES CLOSED, RESP EVEN AND UNLABORED. NO DISTRESS NOTED, CL IN REACH, SR UP X 2.
[2019-09-15 20:20] VITALS: BP 141/58
[2019-09-15 23:49] VITALS: BP 140/75
--- NOTE | 2019-09-16 00:51 | NUR ---
I have reviewed this patient and I concur with the Shift Assessment completed by the Licensed Practical Nurse today this shift.
--- NOTE | 2019-09-16 03:24 | NUR ---
PTS CALLED AND REQUESTED PT TO GO TO REHAB HERE AT THE HOSPITAL FOR PT. SHE STATES SHE HAS TO WORK AND IS UNABLE TO TAKE CARE OF HIM AT THIS TIME.
[2019-09-16 04:52] VITALS: BP 96/88
[2019-09-16 08:58] VITALS: BP 143/52
--- NOTE | 2019-09-16 09:30 | MORECARE ---
CASE MANAGEMENT DISCHARGE SUMMARY PATIENT: TABATHA BENNETT UNIT: [id number] ADM DATE: 09/14/19 AGE: 69 : 48 SEX: M ROOM/BED: D.2804 AUTHOR: SHAHLA,DOC PHYSICIAN: REFERRING PHYSICIAN: MOLLY GORMAN MD DATE OF SERVICE: 09/16/19 Discharge Plan Patient Name: TABATHA BENNETT Facility: [facility]:[place] : 1950 Planned Disposition: Home with Home Health Anticipated Discharge Date: Discharge Date: Expected LOS: Initial Reviewer: [email or web address] Initial Review Date: 09/14/2019 Generated: 09/16/19 10:29 am Comments DCP- Discharge Planning Updated by [email or web address]: Mary Ohara on 09/15/19 3:[address] Patient Name: TABATHA BENNETT Admission Status: ER Accout number: [id number] Admission Date: 09-14-2019 : 1950 Admission Diagnosis: Attending: MOLLY GORMAN Current LOS: 1 Anticipated DC Date: Planned Disposition: Home with Home Health Primary Insurance: MEDICARE A & B Discharge Planning Comments:CM met with patient to complete initial dc planning assessment. Patient is alert and pleasantly confused; orientated to name and place only. CM called and talked with his spouse Ava Bennett at [phone]. CM educated patient on the CM role and verbal consent given by Ava to complete assessment. CM verified patient's address, phone number, and emergency contact phone numbers. Patient lives at with home with his . At discharge patient plans to return home and feels this is a safe discharge. CM discussed availability of home health, rehab services, and medical equipment. Ava states the patient ambulates independently with a walker, but has become weaker. Ava in agreement with rehab, or [facility]. Orders received for PT/OT and rehab pre screen. Transportation provider at discharge will be Ava . CM will continue to follow and will assist as needed with dc plans/needs. During phone conversation, spoke with Ava at 1220 about DC IMM and TIFFANIE. Ava voiced understanding. Original will be mailed certified mail. Copy placed on chart. Ava voiced understanding. Mary Ohara MSN,RN,CM DCPIA - Discharge Planning Initial Assessment Updated by [email or web address]: Mary Ohara on 09/15/19 4:27 pm * Is the patient Alert and Oriented? No * How many steps to enter\exit or inside your home? 4/0 * PCP Roberto * [facility] * Preadmission Environment Home with Family * ADLs Independent * Equipment Walker * Other Equipment Shower seat * List name and contact numbers for known caregivers / representatives who currently or will assist patient after discharge: Ava Bennett [phone] * Verbal permission to speak to the caregivers and representatives has been obtained from the patient. Yes * Community resources currently utilized None * Additional services required to return to the preadmission environment? Yes * Can the patient safely return to the preadmission environment? No * Has this patient been hospitalized within the prior 30 days at any hospital? No Coverage Notice Reviewer: [id number] Geraldo Ohara Notice Issued Date-Time: 09/15/2019 12:20 Notice Type: IM Discharge Notice Notice Delivered To: Family Member Relationship to Patient: Spouse Airport Clerk Name: Ava Delivery Method: PHONE - Phone Sisi Days: Prior Verbal Notification: Yes Recipient Understood Notice: Yes Recipient Signature: Med Rec Note Co-signed by Attending: Coverage Notice Comment: DCC imm Called to ava. notice will be mailed by certified carrier with written receipt. Ava voiced understanding. Reviewer: [id number] Geraldo Ohara Notice Issued Date-Time: 09/15/2019 12:20 Notice Type: Patient Choice Letter Notice Delivered To: Family Member Relationship to Patient: Spouse Airport Clerk Name: Ava Delivery Method: PHONE - Phone Sisi Days: Prior Verbal Notification: Yes Recipient Understood Notice: Yes Recipient Signature: Med Rec Note Co-signed by Attending: Coverage Notice Comment: TIFFANIE signed for IP rehab, and [facility]. Called to ava. notice will be mailed by certified carrier with written receipt. Ava voiced understanding. Last DP export: 09/15/19 3:47 p Patient Name: TABATHA BENNETT Page 31113 at 0930 All edits/amendments must be made on the electronic document DICTATION DATE: 09/16/19928 NATIONAL ACCOUNT MANAGER: TRISTAN 09/16/19928 RPT#: [id number] DC DATE: STATUS: ADM IN [facility] [address] [facility] [place] [address] END OF REPORT
--- NOTE | 2019-09-16 11:54 | MORECARE ---
CASE MANAGEMENT DISCHARGE SUMMARY PATIENT: TABATHA BENNETT UNIT: [id number] ADM DATE: 09/14/19 AGE: 69 : 48 SEX: M ROOM/BED: D.3315 AUTHOR: SHAHLA,DOC PHYSICIAN: REFERRING PHYSICIAN: MOLLY GORMAN MD DATE OF SERVICE: 09/16/19 Discharge Plan Patient Name: TABATHA BENNETT Facility: [facility]:[place] : 1950 Planned Disposition: Home with Home Health Anticipated Discharge Date: Discharge Date: Expected LOS: Initial Reviewer: [email or web address] Initial Review Date: 09/14/2019 Generated: 09/16/19 12:53 pm Comments DCP- Discharge Planning Updated by [id number]: Mary Ohara on 09/15/19 3:[address] Patient Name: TABATHA BENNETT Admission Status: ER Accout number: [id number] Admission Date: 09-14-2019 : 1950 Admission Diagnosis: Attending: MOLLY GORMAN Current LOS: 1 Anticipated DC Date: Planned Disposition: Home with Home Health Primary Insurance: MEDICARE A & B Discharge Planning Comments:CM met with patient to complete initial dc planning assessment. Patient is alert and pleasantly confused; orientated to name and place only. CM called and talked with his spouse Ava Bennett at [phone]. CM educated patient on the CM role and verbal consent given by Ava to complete assessment. CM verified patient's address, phone number, and emergency contact phone numbers. Patient lives at with home with his . At discharge patient plans to return home and feels this is a safe discharge. CM discussed availability of home health, rehab services, and medical equipment. Ava states the patient ambulates independently with a walker, but has become weaker. Ava in agreement with rehab, or [facility]. Orders received for PT/OT and rehab pre screen. Transportation provider at discharge will be Ava . CM will continue to follow and will assist as needed with dc plans/needs. During phone conversation, spoke with Ava at 1220 about DC IMM and TIFFANIE. Ava voiced understanding. Original will be mailed certified mail. Copy placed on chart. Ava voiced understanding. Mary Ohara MSN,RN,CM DCPIA - Discharge Planning Initial Assessment Updated by [id number]: Mary Ohara on 09/15/19 4:27 pm * Is the patient Alert and Oriented? No * How many steps to enter\exit or inside your home? 4/0 * PCP Roberto * [facility] * Preadmission Environment Home with Family * ADLs Independent * Equipment Walker * Other Equipment Shower seat * List name and contact numbers for known caregivers / representatives who currently or will assist patient after discharge: Ava Bennett [phone] * Verbal permission to speak to the caregivers and representatives has been obtained from the patient. Yes * Community resources currently utilized None * Additional services required to return to the preadmission environment? Yes * Can the patient safely return to the preadmission environment? No * Has this patient been hospitalized within the prior 30 days at any hospital? No Coverage Notice Reviewer: [id number] Geraldo Ohara Notice Issued Date-Time: 09/15/2019 12:20 Notice Type: IM Discharge Notice Notice Delivered To: Family Member Relationship to Patient: Spouse Communications Project Manager Name: Ava Delivery Method: PHONE - Phone Sisi Days: Prior Verbal Notification: Yes Recipient Understood Notice: Yes Recipient Signature: Med Rec Note Co-signed by Attending: Coverage Notice Comment: DCC imm Called to ava. notice will be mailed by certified carrier with written receipt. Ava voiced understanding. Reviewer: [id number] Geraldo Ohara Notice Issued Date-Time: 09/15/2019 12:20 Notice Type: Patient Choice Letter Notice Delivered To: Family Member Relationship to Patient: Spouse Communications Project Manager Name: Ava Delivery Method: PHONE - Phone Sisi Days: Prior Verbal Notification: Yes Recipient Understood Notice: Yes Recipient Signature: Med Rec Note Co-signed by Attending: Coverage Notice Comment: TIFFANIE signed for IP rehab, and [facility]. Called to ava. notice will be mailed by certified carrier with written receipt. Ava voiced understanding. Last DP export: 09/16/19 8:30 a Patient Name: TABATHA BENNETT Page 26779 at 1154 All edits/amendments must be made on the electronic document DICTATION DATE: 09/16/19 1153 EATING DISORDER PSYCHOLOGIST: TRISTAN 09/16/19 1153 RPT#: [id number] DC DATE: STATUS: ADM IN [facility] [address] [place] [address] END OF REPORT
--- NOTE | 2019-09-16 12:59 | NUR ---
I have reviewed this patient and I concur with the Shift Assessment completed by the Licensed Practical Nurse today this shift.
--- NOTE | 2019-09-16 15:54 | NUR ---
PT TRANSFERED TO REHAB. PIV REMOVED WITH CATHETER TIP FULLY INTACT. TELEMETRY REMOVED AND RETURNED. PT SIGNED PROPER DISCHARGE INSTRUCTIONS AND REMOVED ALL VALUABLES FROM THE ROOM.
--- NOTE | 2019-09-16 17:06 | NUR ---
OT NOTE: PT COMPLETED SUPINE TO SIT WITH CGA. PT COMPLETED SIT TO STAND WITH CGA/MIN A. PT COMPLETED ADL MOB WITH CGA/MIN A. PT COMPLETED HAND HYGIENE AT SINK LEVEL WITH CGA. 8-502 THANK YOU,LONG MCINTYRE
== END 2019-09-16 15:55 | DRG 64 ==
LOC: D.ER 14:03 → D.M2 16:45 → D.MS 16:45 → D.M2 09-15 04:30
PROVIDERS: Family Medicine; ADMIT Internal Medicine Nephrology; ATTEND Internal Medicine Nephrology
DX: I63.81 Other cerebral infarction due to occlusion or stenosis of small artery (principal); N18.6 End stage renal disease; I13.2 Hypertensive heart and chronic kidney disease with heart failure and with stage 5 chronic kidney disease, or end stage renal disease; Z86.73 Personal history of transient ischemic attack (TIA), and cerebral infarction without residual deficits; I50.9 Heart failure, unspecified; E11.22 Type 2 diabetes mellitus with diabetic chronic kidney disease; I25.10 Atherosclerotic heart disease of native coronary artery without angina pectoris

== ENCOUNTER 2019-09-16 14:17 | Inpatient (IN) | payer MEDICARE, OTHER ==
[~2019-09-16] VITALS: Ht 177.8 cm; Wt 92.5 kg
--- NOTE | 2019-09-16 16:00 | NUR ---
RECIEVED FROM MED 2 TO ROOM 1112B.CL IN REACH.ORIENTED TO ROOM AND SURROUNDINGS.NEW CVA WITH HX OF RENAL FAILURE,DIABETES,HTN.CL IN REACH.
--- NOTE | 2019-09-16 19:05 | NUR ---
BEDSIDE REPORT COMPLETE. PT LYING IN BED EYES CLOSED RESTING QUIETLY. RR EVEN AND UNLABORED. LEFT ARM ELEVATED ON PILLOWS, DRESSING C/D/I. DENIES ANY NEEDS OR PAIN. CALL LIGHT WITHIN REACH. FALL PRECAUTIONS IN PLACE. CPOC
[2019-09-16 19:59] VITALS: BP 127/49
[2019-09-16 20:46] VITALS: BP 121/61; BMI 30.2
[2019-09-16 23:55] VITALS: BP 116/86
[2019-09-17] VITALS: BP 116/86
--- NOTE | 2019-09-17 00:43 | NUR ---
PT LYING IN BED ON RIGHT SIDE EYES CLOSED RESTING COMFORTABLY. RR EVEN AND UNLABORED. CALL LIGHT WITHIN REACH. FALL PRECAUTIONS IN PLACE. WILL CONTINUE TO MONITOR
[2019-09-17 05:42] VITALS: BP 138/37
--- NOTE | 2019-09-17 06:32 | NUR ---
ASSISTED PT UP TO W/C WITH MIN ASSIST. VS STABLE. DAILY WT 208.4. DENIES ANY NEEDS OR PAIN. NO SIGNS OF ACUTE DISTRESS NOTED. CALL LIGHT WITHIN REACH. CHAIR ALARM ON. CPOC
[2019-09-17 06:46] LABS: BASOPHILS 0.2 % (0-2); EOSINOPHILS 2.5 % (0-7); HEMATOCRIT 24.9 % (42.0-54.0); HEMOGLOBIN 7.7 g/dL (13.5-17.5); IMMATURE GRANULOCYTES 0.5 % (0-5); LYMPHOCYTES 12.3 % (15-50); MCH 31.3 pg (26.0-34.0); MCHC 30.9 g/dL (31.0-37.0); MCV 101.2 fL (80.0-100.0); MEAN PLATELET VOLUME 10.3 fL (7.4-10.4); MONOCYTES 11.4 % (2-11); NEUTROPHILS 73.1 % (40-80); PLATELET COUNT 227 10x3/uL (130-400); RBC 2.46 10x6/uL (4.20-6.10); RDW 16.2 % (11.5-14.5); WBC 8.2 10x3/uL (4.8-10.8)
[2019-09-17 07:01] LABS: ANION GAP 12.8 mmol/L (8-16); CALCIUM 9.1 mg/dL (8.5-10.1); CARBON DIOXIDE 29.4 mmol/L (21.0-32.0); CREATININE - SERUM 7.1 mg/dL (0.6-1.3); POTASSIUM - SERUM 4.2 mmol/L (3.5-5.1)
--- NOTE | 2019-09-17 08:00 | NUR ---
PT RESTING IN BED WITH EYES OPEN CALL LIGHT IN REACH WILL MONITER
[2019-09-17 11:54] VITALS: BP 124/52
[2019-09-17 13:39] VITALS: Ht 177.8 cm; Wt 92.5 kg
--- NOTE | 2019-09-17 14:28 | NUR ---
PATIENT ADMITTED TO REHAB FROM ACUTE FLOOR. PATIENT LIVES WITH HIS SPOUSE , DME AT HOME IS A WALKER AND SHOWER SEAT. DR. DE LA O IS PATIENT PCP. DISCHARGE PLANS ARE FOR HIM TO RETURN HOME AT DISCHARGE.
--- NOTE | 2019-09-17 17:56 | NUR ---
PT RESTING IN BED WITH EYES OPEN CALL LIGHT IN REACH WILL MONITER
--- NOTE | 2019-09-17 22:13 | NUR ---
PT UP IN CHAIR, NO NEEDS NOTED, FALL PRECAUTIONS IN PLACE, FLUIDS/CALL LIGHT WITHIN REACH
[2019-09-18 00:34] VITALS: BP 159/44
[2019-09-18 00:35] VITALS: BP 115/52
[2019-09-18 06:08] VITALS: BP 126/49
--- NOTE | 2019-09-18 07:20 | NUR ---
PATIENT RESING IN BED WITH EYES CLOSED, NO S/S OF DISTRESS NOTED, RESP EVEN AND UNLABORED, PUT NAME ON BOARD, C/L AND FLUIDS IN REACH.
--- NOTE | 2019-09-18 08:00 | NUR ---
PATIENT RESTING IN BED, DENIES ANY NEEDS AT THIS TIME, ASSESSMENT COMPLETE, C/L AND FLUIDS IN REACH.
[2019-09-18 08:38] LABS: BASOPHILS 0.3 % (0-2); EOSINOPHILS 2.8 % (0-7); IMMATURE GRANULOCYTES 0.9 % (0-5); LYMPHOCYTES 13.4 % (15-50); MCH 31.4 pg (26.0-34.0); MCHC 31.3 g/dL (31.0-37.0); MCV 100.4 fL (80.0-100.0); MEAN PLATELET VOLUME 10.6 fL (7.4-10.4); MONOCYTES 14.6 % (2-11); PLATELET COUNT 237 10x3/uL (130-400); RBC 2.39 10x6/uL (4.20-6.10); WBC 7.7 10x3/uL (4.8-10.8)
[2019-09-18 08:50] LABS: ANION GAP 12.9 mmol/L (8-16); CALCIUM 8.6 mg/dL (8.5-10.1); CARBON DIOXIDE 28.5 mmol/L (21.0-32.0); POTASSIUM - SERUM 4.4 mmol/L (3.5-5.1)
[2019-09-18 08:51] LABS: CREATININE - SERUM 9.8 mg/dL (0.6-1.3)
[2019-09-18 09:00] LABS: HEMOGLOBIN 7.5 g/dL (13.5-17.5)
[2019-09-18 11:47] VITALS: BP 146/53
--- NOTE | 2019-09-18 12:00 | NUR ---
PATIENT UP WITH THERAPY, AFTERNOON MEDS GIVEN, DENIES ANY OTHER NEEDS AT THIS TIME.
--- NOTE | 2019-09-18 15:53 | NUR ---
PATIENT IN DIALYSIS
[2019-09-18 19:10] VITALS: BP 146/53
--- NOTE | 2019-09-18 19:29 | NUR ---
PT DID NOT RECIEVE DINNER. SANDWICH TRAY WAS GIVEN TO PATIENT JUST NOW WITH RENEGEL. PT SITTING UP IN WHEELCHAIR. A/O X4. LUNGS CLEAR. BOWEL ACTIVE X4. DENIES NEEDS AT THIS TIME. RESP EVEN AND UNLABORED. DRESSING TO LEFT ARM INTACT. CL IN REACH. WILL CONTINUE TO CONTINUE TO MONITOR.
[2019-09-19 00:07] VITALS: BP 138/39
--- NOTE | 2019-09-19 01:54 | NUR ---
I have reviewed this patient and I concur with the Shift Assessment completed by the Licensed Practical Nurse today this shift.
[2019-09-19 06:15] VITALS: BP 115/41
--- NOTE | 2019-09-19 06:16 | NUR ---
DAILY WEIGHT 217.0
[2019-09-19 08:04] VITALS: BP 122/52
--- NOTE | 2019-09-19 08:10 | NUR ---
PATIENT UP IN W/C EATING BREAKFAST, V/S AND ASSESSMENT COMPLETE, DENIES ANY NEEDS AT THIS TIME, C/L AND FLUIDS IN REACH.
--- NOTE | 2019-09-19 11:00 | NUR ---
I have reviewed this patient and I concur with the Shift Assessment completed by the Licensed Practical Nurse today this shift.
[2019-09-19 11:56] VITALS: BP 112/33
--- NOTE | 2019-09-19 12:00 | NUR ---
PATIENT UP IN W/C WITH THERAPY, MEDS GIVEN, DENIES ANY NEEDS AT THIS TIME.
--- NOTE | 2019-09-19 15:56 | NUR ---
PATIENT AWAKE AND ALERT, UP IN W/C WATCHING TV, DENIES ANY NEEDS AT THIS TIME, C/L AND FLUIDS IN REACH.
[2019-09-19 17:16] VITALS: BP 112/46
--- NOTE | 2019-09-19 19:14 | NUR ---
PT SITTING UP IN WHEELCHAIR TALKING ON PHONE. DENIES NEEDS AT THIS TIME. BED IN LOW SIDE RAILS X2. LUNGS CLEAR. BOWEL ACTIVE X4. DRESSING TO LEFT ARM INTACT. RESP EVEN AND UNLABORED. WILL CONTINUE TO MONITOR. A/O X4.
--- NOTE | 2019-09-19 20:50 | NUR ---
CHANGED DRESSING TO LEFT ARM. KERLEX AND NON ADHERENT GAUZE USED.
[2019-09-20 00:15] VITALS: BP 142/47
--- NOTE | 2019-09-20 00:26 | NUR ---
I have reviewed this patient and I concur with the Shift Assessment completed by the Licensed Practical Nurse today this shift.
[2019-09-20 06:00] VITALS: BP 153/50
--- NOTE | 2019-09-20 06:41 | NUR ---
BS 147 AND DAILY WEIGHT 202 ON STANDING SCALE
--- NOTE | 2019-09-20 07:33 | NUR ---
PT RESTING IN BED WITH EYES OPEN CALL LIGHT IN REACH WILL MONITER
--- NOTE | 2019-09-20 07:53 | NUR ---
I have reviewed this patient and I concur with the Shift Assessment completed by the Licensed Practical Nurse today this shift.
[2019-09-20 12:00] VITALS: BP 108/34
--- NOTE | 2019-09-20 15:00 | NUR ---
PT ASSISTED WITH SHOWER TOLERATED WELL PT LINENS CHANGED
[2019-09-20 18:36] VITALS: BP 124/44
--- NOTE | 2019-09-20 19:20 | NUR ---
PT SITTING UP IN WHEELCHAIR WATCHING TV. CL IN REACH. DENIES NEEDS OR PAIN AT THIS TIME. BED IN LOW SIDE RAILS X2. A/O X4. RESP EVEN AND UNLABORED. LUNGS CLEAR. BOWEL ACTIVE X4. DRESSING INTACT TO LEFT ARM. WILL CONTINUE TO MONITOR.
[2019-09-21 00:16] VITALS: BP 123/61
--- NOTE | 2019-09-21 05:04 | NUR ---
I have reviewed this patient and I concur with the Shift Assessment completed by the Licensed Practical Nurse today this shift.
[2019-09-21 06:17] VITALS: BP 145/58
[2019-09-21 07:06] LABS: BASOPHILS 0.4 % (0-2); EOSINOPHILS 3.1 % (0-7); HEMATOCRIT 28.9 % (42.0-54.0); HEMOGLOBIN 8.9 g/dL (13.5-17.5); IMMATURE GRANULOCYTES 0.4 % (0-5); LYMPHOCYTES 14.1 % (15-50); MCH 31.2 pg (26.0-34.0); MCHC 30.8 g/dL (31.0-37.0); MCV 101.4 fL (80.0-100.0); MEAN PLATELET VOLUME 10.4 fL (7.4-10.4); MONOCYTES 14.1 % (2-11); NEUTROPHILS 67.9 % (40-80); PLATELET COUNT 257 10x3/uL (130-400); RBC 2.85 10x6/uL (4.20-6.10); RDW 16.6 % (11.5-14.5); WBC 7.2 10x3/uL (4.8-10.8)
[2019-09-21 07:15] LABS: ANION GAP 16.7 mmol/L (8-16); CARBON DIOXIDE 26.9 mmol/L (21.0-32.0); CREATININE - SERUM 12.4 mg/dL (0.6-1.3); POTASSIUM - SERUM 4.6 mmol/L (3.5-5.1)
--- NOTE | 2019-09-21 08:00 | NUR ---
SITTING UP IN WC.DENIES NEEDS.ASSESSMENT COMPLETED.SPEECH IS SLOW.DRESSING INTACT TO LEFT ARM,CLEAN AND DRY.CL IN EASY REACH,BED IN LOW POSITION.
[2019-09-21 12:00] VITALS: BP 145/57
--- NOTE | 2019-09-21 19:30 | NUR ---
PT RETURNED FROM [facility] VIA WC PROPELLED BY A NURSE. HE VOICED THAT HE IS VERY UPSET ABOUT HIS ROOM BEING MOVED WHILE HE WAS GONE, AND HE WAS NOT NOTIFIED OF IT. HE STATED HIS WAS ALSO UPSET ABOUT IT. PT IS ALERT AND ORIENTED X 3. DENIES ACUTE PAIN OR DISCOMFORT AT THIS TIME. NO NEEDS VOICED AT THIS TIME.DRESSING TO LEFT ARM IS CDI. NO DRAINAGE NOTED. SR'S ARE UP X 2 IN BED. CALL LIGHT AND BEDSIDE TABLE ARE WITHIN EASY REACH.
--- NOTE | 2019-09-21 22:17 | NUR ---
PT IS SITTING IN HIS WC WATCHING TV. NO NEEDS VOICED.
[2019-09-22 00:26] VITALS: BP 145/63
--- NOTE | 2019-09-22 01:00 | NUR ---
PT IS RESTING IN BED WITH EYES CLOSED. NO DISTRESS NOTED.
--- NOTE | 2019-09-22 04:00 | NUR ---
PT IS RESTING QUIETLY IN BED WITH EYES CLOSED. RESPS ARE EVEN AND UNLABORED. NO ACUTE DISTRESS NOTED.
[2019-09-22 05:56] VITALS: BP 141/98
[2019-09-22 09:05] VITALS: BP 158/63
--- NOTE | 2019-09-22 09:16 | NUR ---
ALERT AND ORIENTED. NO DISTRESS NOTED. CL IN REACH.
[2019-09-22 12:13] VITALS: BP 124/39
--- NOTE | 2019-09-22 12:23 | NUR ---
NO CHANGE IN ASSESSMENT. EATING LUNCH.
--- NOTE | 2019-09-22 13:34 | NUR ---
Nutrition follow-up: Diet: renal ADA PO Intake 75-100% of meals labs reviewed; glucose fair to good control Wt: 202# Pt is a dialysis pt; pts po intake good at this time. Will continue to provide food choices and honor food preferences within diet restrictions. RDN following.
[2019-09-22 17:26] VITALS: BP 141/49
--- NOTE | 2019-09-22 18:24 | NUR ---
RESTING WO C/O PAIN. RESP EVEN AND UNLABORED. CL IN REACH.
--- NOTE | 2019-09-22 19:25 | NUR ---
PT SITTING UP IN WHEELCHAIR. CL IN REACH. A/O X4. LUNGS CLEAR. BOWEL ACTIVE X4. RESP EVEN AND UNLABORED. DENIES NEEDS OR PAIN AT THIS TIME. LEFT ARM DRESSING INTACT. WILL CONTINUE TO MONITOR.
--- NOTE | 2019-09-22 23:58 | NUR ---
I have reviewed this patient and I concur with the Shift Assessment completed by the Licensed Practical Nurse today this shift.
[2019-09-23 00:16] VITALS: BP 138/58
--- NOTE | 2019-09-23 06:00 | NUR ---
BS 142 AND DAILY WEIGHT 207.12
[2019-09-23 06:09] VITALS: BP 135/49
--- NOTE | 2019-09-23 07:18 | NUR ---
SITTING UP IN WC.CL IN REACH.READY FOR BREAKFAST.
[2019-09-23 07:23] LABS: BASOPHILS 0.6 % (0-2); EOSINOPHILS 3.5 % (0-7); HEMATOCRIT 26.6 % (42.0-54.0); HEMOGLOBIN 8.4 g/dL (13.5-17.5); IMMATURE GRANULOCYTES 0.3 % (0-5); LYMPHOCYTES 15.6 % (15-50); MCH 31.6 pg (26.0-34.0); MCHC 31.6 g/dL (31.0-37.0); MEAN PLATELET VOLUME 10.2 fL (7.4-10.4); MONOCYTES 14.5 % (2-11); NEUTROPHILS 65.5 % (40-80); PLATELET COUNT 248 10x3/uL (130-400); RBC 2.66 10x6/uL (4.20-6.10); RDW 16.3 % (11.5-14.5); WBC 6.6 10x3/uL (4.8-10.8)
[2019-09-23 07:42] LABS: ANION GAP 14.4 mmol/L (8-16); CALCIUM 8.8 mg/dL (8.5-10.1); CARBON DIOXIDE 27.7 mmol/L (21.0-32.0); CREATININE - SERUM 11.5 mg/dL (0.6-1.3); POTASSIUM - SERUM 4.1 mmol/L (3.5-5.1)
[2019-09-23 08:00] VITALS: BP 132/53
--- NOTE | 2019-09-23 08:00 | NUR ---
PATIENT IS ALERT/ORIENT. SITTING UP IN A WHEELCHAIR AT BEDSIDE. CALL LIGHT WITHIN REACH. VOICES NO NEEDS AT THIS TIME. WILL CONTINUE WITH PLAN OF CARE
--- NOTE | 2019-09-23 08:02 | NUR ---
I have reviewed this patient and I concur with the Shift Assessment completed by the Licensed Practical Nurse today this shift.
--- NOTE | 2019-09-23 10:06 | NUR ---
PATIENT IN REHAB ROOM. WORKING WITH PHYSICAL THERAPIST. DENIES ANY PAIN/DISC AT THIS TIME.
[2019-09-23 12:10] VITALS: BP 132/53
[2019-09-23 12:31] VITALS: BP 132/53
--- NOTE | 2019-09-23 14:02 | NUR ---
CARE TEAM MEETING: PATIENT IS PROGRESSING WELL IN THERAPY. HIS DISCHARGING HOME IN THE AM . WILL CONTINUE TO FOLLOW WITH PATIENT.
--- NOTE | 2019-09-23 21:20 | NUR ---
PATIENT BACK FROM DIALYSIS. NURSE CALLED THIS NURSE WITH REPORT. BP 143/57 HR 55 2 LITERS OFF. FSBS 549. PATIENT HAD EATEN APPLESAUCE. PATIENT WANTED TO WAIT & RETAKE FSBS. ASSESSMENT & VITAL SIGNS TAKEN. WILL RETAKE FSBS. CALL LIGHT WITHIN REACH. WILL CONTINUE TO MONITOR.
--- NOTE | 2019-09-23 21:42 | NUR ---
PATIENT FSBS RETAKEN 263. PATIENT WANTED TO WAIT UNTIL 2229 FOR RECHECK OF FSBS.
[2019-09-23 23:33] VITALS: BP 155/37
--- NOTE | 2019-09-24 04:28 | NUR ---
I have reviewed this patient and I concur with the Shift Assessment completed by the Licensed Practical Nurse today this shift.
--- NOTE | 2019-09-24 04:33 | NUR ---
PATIENT EYES CLOSED. RESPIRATIONS 18 & EVEN. BED LOW. CALL LIGHT WITHIN REACH. WILL CONTINUE TO MONITOR.
[2019-09-24 05:44] VITALS: BP 135/47
--- NOTE | 2019-09-24 08:00 | NUR ---
PATIENT IS ALERT/ORIENT. CALL LIGHT WITHIN REACH. PLAN TO DISCHARGE HOME TODAY
[2019-09-24] MEDS ORDERED: HYDROCODON-ACE1 EAC7 PO (08:46)
--- NOTE | 2019-09-24 08:47 | RHP ---
PATIENT: TABATHA GODFREY MEDICAL RECORD: [id number] ACCOUNT: [id number] LOCATION:[facility]1113 : 46 ADMISSION DATE: 09/16/19 REHABILITATION HISTORY AND PHYSICAL EXAMINATION POST ADMISSION PHYSICIAN EXAMINATION ADMITTING DIAGNOSIS: CVA. HISTORY OF PRESENT ILLNESS: The patient is a 69-year-old gentleman who presents secondary to acute infarcts in the right parietal periventricular white matter. He presented to ED on 09/14/[address] Solano's office after complaining of left-sided weakness, dragging his left foot, ataxic gait and dizziness. Symptoms came on suddenly. They have been going on for the previous 3 days. The patient was seen and evaluated, had a CT of his head, which showed chronic left parietotemporal infarct and moderate to severe underlying chronic microvascular ischemic changes. MRI was done, which showed a parietal periventricular white matter infarct. The patient has got a history of CVA, diabetes, hypertension, coronary artery disease, CHF, chronic renal insufficiency. He is hemodialysis dependent. He was admitted with surgical consult for recent surgical revision of an IVF. Dr. Solano indicated that he saw the patient in the office, he had significant bruising involving the upper extremity. The patient still had flow within the fistula. He appears to be somewhat improving. Previously, he was living alone with his , was independent with ADLs and mobility without assistance device. Currently, he is mod-to-max assist for ADLs and mobility due to edema and postsurgical dressing and placed a revision of his aVF on 09/08. He has an ataxic wide-based gait. He has got impaired strength, balance, activity tolerance. He wants to be able to return home at his prior level of functioning. COMORBIDITIES: Include altered mental status, anemia, ataxia, chronic kidney disease, edema, hearing loss, end-stage renal disease, he has got chronic renal failure, anemia, lethargy, known coronary artery disease with stent placement, weakness, gait disturbance and focal dysarthria. PAST MEDICAL HISTORY: Significant for CVA, got a history of diabetes, CHF, hypertension and coronary artery disease. PAST SURGICAL HISTORY: Includes a dialysis catheterization. He has had carpal tunnel, shoulder surgery, hernia repair, orchiectomy, fistula and valve replacement stents times 3. ALLERGIES: ANY TYPE OF STATINS AND NIACIN. CURRENT MEDICATIONS: Include Floranex daily. He is on Proscar 5 mg daily. He is on Uloric 40 mg daily, aspirin chewable 81 mg daily, Carafate 1 g t.i.d. and before meals, triamterene 10 mg t.i.d., Synthroid 50 mcg daily, Flomax 0.4 mg b.i.d., Requip 0.5 mg bedtime, Lyrica 25 mg b.i.d., Lasix 40 mg b.i.d., Pepcid 40 mg b.i.d., Aricept 10 mg at bedtime. He is on Eliquis 2.5 mg b.i.d. He is on a glucose replacement protocol. He is on Renagel 800 mg t.i.d. with meals, [place] 5/325 one tab every 4 hours p.r.n., and MiraLax 17 grams in 8 ounces of water daily. HABITS: No alcohol or tobacco use. FAMILY HISTORY: Noncontributory. HISTORY AND PHYSICAL [id number] TABATHA GODFREY SOCIAL HISTORY: The patient hopes to return back home and get back to his prior level of functioning. REVIEW OF SYSTEMS: GENERAL: Does complain of weakness, mainly on one side. HEENT: Denies cold, cough, or congestion. CARDIOVASCULAR: Denies any chest pain. PHYSICAL EXAMINATION: VITAL SIGNS: Stable, afebrile. GENERAL: A somewhat obese gentleman in no acute distress upon exam. HEENT: Normocephalic and atraumatic. Mucosa moist. NECK: Supple. No lymphadenopathy. LUNGS: Clear in upper felder. No wheezing, rhonchi or rales. HEART: Regular rate and rhythm. He does have a holosystolic murmur. ABDOMEN: Soft, benign, and nondistended. Positive bowel sounds times 4. EXTREMITIES: No clubbing, cyanosis or edema. Does have a surgical dressing to his AV fistula region. NEUROLOGIC: He does have noted weakness, left greater than right. LABORATORY DATA: White count is 8.2, H&H of 7.7 and 24.9 and platelet count is noted to be 227. His sodium is 138, potassium 4.2, BUN and creatinine of 25 and 7.1 and blood sugar is noted to be 155. ASSESSMENT: This is a 69-year-old gentleman admitted to the rehab with a working diagnosis of new-onset cerebrovascular accident. The patient has potential to make improvement. We instituted the following multidisciplinary therapies including, but not limited to physical, occupational, respiratory, speech, nutritional services, prosthetics and orthotics. Given his complex medical condition and risks for more complications, rehabilitation services cannot be provided at a low level of care such as care home facility. PLAN: 1. Admit to [facility] for intensive inpatient therapy to include the following disciplines; A. Physical therapy to improve gait, all transfer skills and bed mobility to a modified independent level. B. Occupational therapy to improve activities of daily living. C. Case management to assist with discharge planning and placement options. D. Nutrition to assist with nutritional needs. E. Rehabilitation nursing to assist in monitoring the patient's underlying medical conditions and to assist with any type of bowel or bladder management. 2. The patient's current medication and medical care will be continued. 3. The patient will be placed on standard fall precautions. 4. The patient will be followed by Dr. Solano and also by Dr. Keenan for his renal needs during his stay. 5. I will see again in the morning and we will watch for any signs of proliferation of this or any signs of new onset cerebrovascular accident activity and consult neurology if necessary, but we will see again in the a.m. TRANSINT:[id number] Voice Confirmation ID: [id number] DOCUMENT ID: [id number] HILARIO notes whether there has been none or any medical/functional HISTORY AND PHYSICAL [id number] TABATHA GODFREY change since admission: - No change since prescreen. HILARIO attests patient continues to be appropriate for IRF: - Continues to be appropriate. AIXA OROPEZA MD at 0847 CC: [id number] DICTATION DATE: 09/17/19 0913 FISHERIES MANAGER: 09/17/19 1040 ADM IN [facility] [address] [place] [address]
--- NOTE | 2019-09-24 09:00 | NUR ---
I have reviewed this patient and I concur with the Shift Assessment completed by the Licensed Practical Nurse today this shift.
--- NOTE | 2019-09-24 09:38 | NUR ---
PATIENT DISCHARGING HOME TODAY WITH FAMILY. [facility] WILL RESUEM THERAPY AT HOME. PATIENT WILL CONTINUE WITH SAME HD DAYS -- @ 10:00 AT ORDC NO NEW DME NEEDED AT THIS TIME. DR. DE LA O 09/30/19 @ 3:00. TIFFANIE SIGNED. IMM SERVED AND EXPLAINED , ONE GIVEN TO PATIENT AND ONE FILED IN CHART. NO COMPARE DATA REVIEWED PATIENT IS A CLIENT OF [place]. DISCHARGE INSTRUCTIONS FAXED TO PCP, HOME HEALTH AND REVIEWED WITH PATIENT AND SPOUSE PER PRIMARY NURSE.
--- NOTE | 2019-09-24 10:51 | NUR ---
PATIENT DISCHARGED TO HOME. DISCHARGE INSTRUCTIONS GONE OVER WITH PATIENT. DEISCHARGE MEDICATIONS GONE OVER WITH PATIENT. PERSCRIPTION FOR NORCO GIVEN TO PATIENT. PATIENT HELPED OUT TO CAR BY THIS NURSE
== END 2019-09-24 10:53 | disposition home health service (06) | DRG 56 ==
LOC: D.REHAB 14:17
PROVIDERS: ADMIT Emergency Medicine; ATTEND Emergency Medicine
DX: I69.30 Unspecified sequelae of cerebral infarction (principal); N18.6 End stage renal disease; I13.2 Hypertensive heart and chronic kidney disease with heart failure and with stage 5 chronic kidney disease, or end stage renal disease; R41.82 Altered mental status, unspecified; D64.9 Anemia, unspecified; R27.0 Ataxia, unspecified; N18.9 Chronic kidney disease, unspecified; I25.10 Atherosclerotic heart disease of native coronary artery without angina pectoris; R47.1 Dysarthria and anarthria; R53.1 Weakness; R53.83 Other fatigue; Z99.2 Dependence on renal dialysis; R60.9 Edema, unspecified; H91.90 Unspecified hearing loss, unspecified ear; E11.22 Type 2 diabetes mellitus with diabetic chronic kidney disease; I50.9 Heart failure, unspecified

== ENCOUNTER → 2019-10-01 10:34 | Outpatient (CLI) | payer MEDICARE, OTHER ==
[2019-09-17 13:39] VITALS: BMI 29.8
== END | disposition home or self-care (01) ==
LOC: D.US 10:34
PROVIDERS: ATTEND Surgery
DX: R60.0 Localized edema (principal)

== ENCOUNTER 2019-10-14 06:33 | Day surgery (SDC) | payer MEDICARE, OTHER ==
[~2019-10-14] VITALS: Ht 177.8 cm; Wt 98.0 kg
[2019-10-14 06:52] LABS: BASOPHILS 0.3 % (0-2); HEMATOCRIT 33.9 % (42.0-54.0); HEMOGLOBIN 10.3 g/dL (13.5-17.5); IMMATURE GRANULOCYTES 0.3 % (0-5); LYMPHOCYTES 11.6 % (15-50); MCH 31.3 pg (26.0-34.0); MCHC 30.4 g/dL (31.0-37.0); MEAN PLATELET VOLUME 10.8 fL (7.4-10.4); MONOCYTES 12.6 % (2-11); NEUTROPHILS 72.2 % (40-80); RBC 3.29 10x6/uL (4.20-6.10); RDW 15.8 % (11.5-14.5)
[2019-10-14 07:02] LABS: CALCIUM 9.3 mg/dL (8.5-10.1); CARBON DIOXIDE 30.3 mmol/L (21.0-32.0); CREATININE - SERUM 7.4 mg/dL (0.6-1.3); POTASSIUM - SERUM 4.3 mmol/L (3.5-5.1)
[2019-10-14 07:19] LABS: PLATELET COUNT 182 10x3/uL (130-400)
[2019-10-14 07:38] VITALS: Ht 177.8 cm; Wt 98.0 kg
--- NOTE | 2019-10-14 14:39 | NUR ---
1430-DISCHARGE CRITERIA MET. REMOVED IV WITH CATH INTACT,DISPOSED INTO SHARPS,COVERED WITH GUAZE,SECURED WITH MEDIPORE TAPE. REVIEWED POST OP AND FOLLOW UP WITH PT AND HIS WHOSE AT BEDSIDE. VSS.DENIES PAIN,NO DISTRESS,DENIES N/V.DRESSING TO LEFT ARM CDI.
--- NOTE | 2019-10-14 14:40 | NUR ---
1435-PT DRESSED.ESCORTED OUT VIA W/C. WEARING SLING. AWAITING TO DRIVE PT HOME
--- NOTE | 2019-10-22 16:29 | OP ---
PATIENT NAME: TABATHA GODFREY MEDICAL RECORD: [id number] :46 LOCATION:[facility] ADMISSION DATE: SURGEON: BALDEMAR MORTON MD DATE OF OPERATION: 10/14/2019 PREOPERATIVE DIAGNOSIS: Occluded left arm arteriovenous fistula. POSTOPERATIVE DIAGNOSES: Occluded left arm arteriovenous fistula with apparent stenosis at the venous end of the fistula. PROCEDURES: 1. Open catheter thrombectomy of left upper extremity arteriovenous fistula. 2. Nonselective fistulogram. 3. Balloon angioplasties of venous stenosis, 7-mm. 4. Immediate surgeon interpretation of the radiographic images. SURGEON: Baldemar Morton MD NETWORK CONTRACT MANAGER: None. BLOOD LOSS: Please see the anesthesia sheet. COMPLICATIONS: None. The risks, possible complications and alternatives to the procedure were explained to the patient. He elects to proceed. OPERATIVE COURSE: The patient was conveyed the operating room electively on 10/14/2019. General anesthesia was induced by the anesthesia staff. The left upper extremity was abducted at 90 degrees to the patient's trunk. Under ultrasonographic guidance, I identified the fistula. An axial incision was accomplished over the fistula. I dissected down to the fistula and it was encircled with vessel loops. A transverse venotomy was accomplished. Through the venotomy, I passed a #4 Nelson catheter initially through the venous end of the fistulas in the arterial end. There was arterial inflow now. No venous backflow however. A nonselective fistulogram was performed initially retrograde toward the arterial anastomosis and then antegrade. The antegrade fistulogram revealed a very tight stenosis. I advanced 0.035 Glidewire down the venous end of the fistula and then into the central venous system. No radiologist was present for this procedure. Static and cine fluoroscopic images were obtained and are kept in the PACS system. I performed a balloon angioplasty at the venous structure. This was performed at 4 atmospheres times 3 minutes. Endovascular hardware was removed. A followup fistulogram revealed a recurrent stenosis. I again advanced the 0.035 Glidewire down the venous end of the fistula and then into the central venous system. Another balloon angioplasty was performed again at a low atmospheric pressure for 3 minutes. Endovascular hardware was removed. There was no venous backflow. I passed the OPERATIVE REPORT [id number] TABATHA GODFREY #4 Nelson catheter several times up the arterial end of the fistula and through the arterial anastomosis. There was now prompt inflow. The transverse venotomy was closed with a running 6-0 Prolene suture. A Doppler signal with a long diastolic component could be heard within the fistula. One of my concerns is that the patient is significantly bradycardic and this may contribute to the fistula clotting as there may be sluggish flow through the fistula. Also, the patient states that his legs hurt and become very weak after dialysis, so if there is any hypotension that occurs on dialysis this could also contribute to the patient's fistula clotting due to sluggish flow. This subdermis was approximated with interrupted 3-0 Vicryls. The skin was approximated with a running intracuticular 3-0 Vicryl. Sterile dressings were applied. The patient was then extubated and conveyed post-anesthesia care unit. In the postanesthesia care unit, there was still flow through the fistula. The patient states that his left hand feels better than before my operation. Additionally, he has 97% O2 saturation of the left hand, so I believe that he is not having any recurrent or persistent steal syndrome. TRANSINT:[id number] Voice Confirmation ID: [id number] DOCUMENT ID: [id number] BALDEMAR MORTON MD at 1629 CC: [id number] DICTATION DATE: 10/20/191848 WRAPPER CASER: 10/21/19 0148 [facility] 10/14/19 [facility] [address] [place] [address]
== END 2019-10-14 14:35 | disposition home or self-care (01) ==
LOC: D.OPS 06:33 → D.PAN 09:15 → D.OPS 14:35
PROVIDERS: ATTEND Surgery
DX: T82.858A Stenosis of other vascular prosthetic devices, implants and grafts, initial encounter (principal); E11.22 Type 2 diabetes mellitus with diabetic chronic kidney disease; I12.0 Hypertensive chronic kidney disease with stage 5 chronic kidney disease or end stage renal disease; N18.6 End stage renal disease; Z79.4 Long term (current) use of insulin; Z99.2 Dependence on renal dialysis; I50.9 Heart failure, unspecified

== ENCOUNTER → 2019-10-29 11:56 | Outpatient (CLI) | payer MEDICARE, OTHER ==
[2019-10-14 07:38] VITALS: BMI 31.0
== END | disposition home or self-care (01) ==
LOC: D.US 11:56
PROVIDERS: ATTEND Surgery
DX: R22.32 Localized swelling, mass and lump, left upper limb (principal)

== ENCOUNTER 2019-11-21 09:11 | Inpatient (IN) | payer MEDICARE, OTHER ==
[~2019-11-21] VITALS: Ht 177.8 cm; Wt 95.5 kg
[2019-11-21 10:09] LABS: BASOPHILS 0.3 % (0-2); EOSINOPHILS 2.1 % (0-7); HEMOGLOBIN 11.6 g/dL (13.5-17.5); IMMATURE GRANULOCYTES 0.7 % (0-5); LYMPHOCYTES 12.4 % (15-50); MCHC 32.2 g/dL (31.0-37.0); MCV 99.4 fL (80.0-100.0); MEAN PLATELET VOLUME 11.7 fL (7.4-10.4); MONOCYTES 15.2 % (2-11); NEUTROPHILS 69.3 % (40-80); PLATELET COUNT 177 10x3/uL (130-400); RBC 3.62 10x6/uL (4.20-6.10)
[2019-11-21 10:17] LABS: APTT 42.8 SECONDS (22.8-39.4); INR 1.11 (0.85-1.17); PROTIME 14.3 SECONDS (11.6-15.0)
[2019-11-21 10:18] LABS: CALCIUM 9.5 mg/dL (8.5-10.1); CARBON DIOXIDE 28.6 mmol/L (21.0-32.0); CREATININE - SERUM 8.8 mg/dL (0.6-1.3); POTASSIUM - SERUM 4.6 mmol/L (3.5-5.1)
[2019-11-21 10:30] LABS: ALBUMIN 3.4 g/dL (3.4-5.0); BILIRUBIN - TOTAL 0.31 mg/dL (0.2-1.3); PROTEIN - SERUM 7.2 g/dL (6.4-8.2)
--- NOTE | 2019-11-21 12:34 | NUR ---
CALLED REPORT TO LETTY EDMOND
[2019-11-21] MEDS ORDERED: ARICEPT23 MG PO (13:00)
[2019-11-21] MEDS ORDERED: PLAVIX75 MG PO (13:05)
[2019-11-21] MEDS ORDERED: MIDODRINE HCL10 MG PO (13:10)
[2019-11-21] MEDS ORDERED: FLORINEF 0.1 M0.1 MG PO (13:12)
[2019-11-21] MEDS ORDERED: NOVOLIN NPH (13:39)
[2019-11-21] MEDS ORDERED: HUMALOG 30100 UNITS/ SC (13:45)
[2019-11-21 13:50] VITALS: BP 156/41; BMI 30.1
[2019-11-21 15:00] VITALS: BP 120/43
--- NOTE | 2019-11-21 16:37 | NUR ---
I have reviewed this patient and I concur with the Shift Assessment completed by the Licensed Practical Nurse today this shift.
--- NOTE | 2019-11-21 18:47 | NUR ---
PER MARIA ISABEL BERTRAND ORDER NPH 25UNITS BID.
--- NOTE | 2019-11-21 19:22 | NUR ---
RECIEVED MAAME IN BED WITH EYES OPEN AND TV ON. ALERT AND ORIENTED X4.UP AD MANISHA WITH ASSIST. RT CHEST HEMOSPLIT WITH DSG INTACT. RT AC SL. LEFT ARM RESERVED D/T AVF. RECIEVES DIALYSIS MOWEFR. DENIES ANY NEEDS AT THIS TIME.
[2019-11-21 21:00] VITALS: BP 190/74
[2019-11-22 00:45] VITALS: BP 98/59
[2019-11-22 04:24] VITALS: BP 158/59
[2019-11-22 05:16] LABS: BASOPHILS 0.4 % (0-2); EOSINOPHILS 3.1 % (0-7); HEMATOCRIT 36.4 % (42.0-54.0); HEMOGLOBIN 11.7 g/dL (13.5-17.5); IMMATURE GRANULOCYTES 0.5 % (0-5); LYMPHOCYTES 12.5 % (15-50); MCH 31.5 pg (26.0-34.0); MCHC 32.1 g/dL (31.0-37.0); MCV 98.1 fL (80.0-100.0); MEAN PLATELET VOLUME 11.7 fL (7.4-10.4); MONOCYTES 16.8 % (2-11); NEUTROPHILS 66.7 % (40-80); PLATELET COUNT 165 10x3/uL (130-400); RBC 3.71 10x6/uL (4.20-6.10); RDW 15.8 % (11.5-14.5)
[2019-11-22 05:54] LABS: ALBUMIN 3.2 g/dL (3.4-5.0); BILIRUBIN - TOTAL 0.31 mg/dL (0.2-1.3); CALCIUM 9.7 mg/dL (8.5-10.1); CARBON DIOXIDE 23.4 mmol/L (21.0-32.0); PROTEIN - SERUM 6.9 g/dL (6.4-8.2)
[2019-11-22 06:00] LABS: CREATININE - SERUM 10.4 mg/dL (0.6-1.3)
[2019-11-22 06:02] LABS: POTASSIUM - SERUM 5.4 mmol/L (3.5-5.1)
[2019-11-22 08:45] VITALS: BP 173/72
[2019-11-22 12:07] VITALS: BP 156/79
[2019-11-22 12:35] VITALS: Ht 177.8 cm; Wt 95.5 kg
[2019-11-22] MEDS ORDERED: LOKELMA5 GM PO (13:27)
== END 2019-11-22 14:14 | disposition home or self-care (01) | DRG 314 ==
LOC: D.ER 09:11 → D.M2 10:43
PROVIDERS: Family Medicine; ADMIT Internal Medicine Nephrology; ATTEND Internal Medicine Nephrology
DX: T82.7XXA Infection and inflammatory reaction due to other cardiac and vascular devices, implants and grafts, initial encounter (principal); N18.6 End stage renal disease; I13.2 Hypertensive heart and chronic kidney disease with heart failure and with stage 5 chronic kidney disease, or end stage renal disease; L03.114 Cellulitis of left upper limb; Y84.9 Medical procedure, unspecified as the cause of abnormal reaction of the patient, or of later complication, without mention of misadventure at the time of the procedure; E11.22 Type 2 diabetes mellitus with diabetic chronic kidney disease; I50.9 Heart failure, unspecified; Z99.2 Dependence on renal dialysis; E87.5 Hyperkalemia; E03.9 Hypothyroidism, unspecified; Z86.73 Personal history of transient ischemic attack (TIA), and cerebral infarction without residual deficits

== ENCOUNTER → 2020-01-14 12:55 | Outpatient (CLI) | payer MEDICARE, OTHER ==
[2019-11-22 12:35] VITALS: BMI 30.1
[~2020-01-14 12:55] MED LIST changes: +ARICEPT23 MG PO; +FLORINEF 0.1 M0.1 MG PO; +HUMALOG 30100 UNITS/ SC; +LOKELMA5 GM PO; +MIDODRINE HCL10 MG PO; +NOVOLIN NPH
== END | disposition home or self-care (01) ==
LOC: D.US 01-13 10:00
PROVIDERS: ATTEND Internal Medicine Cardiovascular Disease
DX: I65.23 Occlusion and stenosis of bilateral carotid arteries (principal)